=== PATIENT | female | born 1990 | race Caucasian/White ===

== ENCOUNTER 2019-12-09 14:39 | Emergency (ER) | payer BC, SELFPAY ==
[2019-12-09 14:39] VITALS: BP 126/80; PULSE 80; RESP 19; TEMP 36.6; O2SAT 100; BMI 24.1
[2019-12-09 15:01] LABS: Apearance,Urine Clear (Clear); Color,Urine Yellow (Yellow); PH,Urine 6.5 (5.0-8.5); Protein,Urine Negative (Negative)
[2019-12-09 15:02] LABS: Bilirubin,Urine Negative (Negative); Blood, Urine 3+ (Negative); Glucose,Urine (UA) Negative (Negative); Ketones,Urine Negative (Negative); UTC Leukocyte Esterase,Urine Negative (Negative); UTC Nitrate,Urine Negative (Negative); Urobilinogen,Urine 0.2 EU/dl (0.2)
[2019-12-09 15:08] LABS: UTC Pregnancy Test, Urine Negative (Negative)
--- NOTE | 2019-12-09 15:13 | HMH.EDUTC ---
[facility] [place] Clinical Impression: Burning with urination Disposition: Home, Self-Care Condition on Discharge: Good Instructions: DI for Urinary Tract Infection (UTI) Additional Instructions: Make sure to drink plenty of fluids like water to help to flush out your kidneys and keep you well hydrated *Follow up with Family doctor if no improvement or immediately if any worsening of symptoms Return if needed Straight to ER if any worsening of symptoms or any life threatening symptoms Referrals: Provider,Referral, MD [Primary Care Provider] - As needed Time of Disposition: 15:19 Medical Decision Making - Kali Inquiry Pt receiving controlled substance: No Kali was queried for this patient: No Vital Signs: 12/09/19 14:39 Temperature 97.8 F Temperature Source Oral Pulse Rate [Radial] 80 Respiratory Rate 19 Blood Pressure [Right Arm] 126/80 Blood Pressure Mean [Right Arm] 95 Blood Pressure Source [Right Arm] Automatic Cuff Blood Pressure Position [Right Arm] Sitting 02 Sat by Pulse Oximetry 100 Oxygen Delivery Method Room Air - Lab Data Lab results reviewed: Yes: I reviewed the patient's lab results. Lab Results 12/09/19 14:44: Urine Color Yellow, Urine Appearance Clear, Urine pH 6.5, Ur Specific [place] 1.020, Urine Protein Negative, Urine Glucose (UA) Negative, Urine Ketones Negative, Urine Blood 3+, Urine Nitrate Negative, Urine Bilirubin Negative, Urine Urobilinogen 0.2, Ur Leukocyte Esterase Negative 12/09/19 14:56: Tst Clinic Negative - Reevaluation(s) Time: 15:16 Reevaluation #1: Patient reports has a history of Kidney stones but not having pain like she had before with Stones, recommended transfer to ED for CT with stone protocol for further evaluation and patient declined transfer states that she is not having pain like she had before with them and she was having more pain on and may have passed one that she would return if pain worsened or returned [facility] [place] - General Stated complaint: ? UTI Time Seen by Provider: 12/09/19 14:45 Mode of Arrival: Ambulatory Source of Information: Patient Limitations: No Limitations Description of Symptoms (Recalled from Triage Doc. by RN): POSSIBLE UTI HEENT Symptoms (Recalled from RN notes): No Resp Symptoms (Recalled from RN notes): No Skin Symptoms (Recalled from RN notes): No MS Symptoms (Recalled from RN notes): No Functional Status (Recalled from RN notes): WNL - History of Present Illness Provider Complaint: Patient states that she has a history of UTI's States that she has been having some spotting like she is trying to start her menstral period and feels like she may have a UTI States that symptoms was worse on she was having an achy like feeling in her lower back and sides but that has improved and she took AZO States that she is feeling a little better but still having some burning when she urinates and worried that she may be - Related Data Previous Rx's Medication Instructions Recorded amoxicillin 500 mg capsule 500 mg PO Q12H PRN 10 Days #20 cap 10/03/19 Allergies Allergy/AdvReac Type Severity Reaction Status Date / Time No Known Allergies Allergy Verified 10/03/19 10:22 - Worker's Comp Is this a Worker's Comp case?: No [facility] History - Hepatitis A Screen Drug use history?: No High risk sexual behaviors?: No History of sexually transmitted infection?: No Currently employed?: No Childcare worker?: No Do you have indoor plumbing?: Yes Do you have electricity?: Yes Attestation statement:: This patient has been screened for Hepatitis A risk factors. I have reviewed the patient's past medical history: Yes Laterality Cases: Bilateral: Tonsillectomy Other Surgeries: Yes: Cholecystectomy, Diagnostic Lap - Social History Educational Level: Completed High School Smoking Status: Never smoker Alcohol Intake: never Occupational Status: other Family Hx:: Non-contributory ROS Obtained:
[2019-12-09 15:59] VITALS: BP 126/80; PULSE 80; RESP 19; TEMP 36.6; O2SAT 100
== END 2019-12-09 16:00 | disposition home or self-care (01) ==
PROVIDERS: Emergency Provider Nurse Practitioner
DX: N30.00 Acute cystitis without hematuria (principal)
CPT/HCPCS: 81003; 81025; 99201

== ENCOUNTER 2020-05-23 11:36 | Emergency (ER) | payer BC, SELFPAY ==
[2020-05-23 12:32] VITALS: BP 117/83; PULSE 94; RESP 14; TEMP 36.7; O2SAT 99; BMI 25.0
[2020-05-23 12:32] LABS: Apearance,Urine Clear (Clear); Color,Urine Yellow (Yellow); Glucose,Urine (UA) Negative (Negative); Ketones,Urine Negative (Negative); Protein,Urine 3+ (Negative)
[2020-05-23 12:33] LABS: Bilirubin,Urine Negative (Negative); Blood, Urine Trace (Negative); UTC Leukocyte Esterase,Urine 1+ (Negative); UTC Nitrate,Urine Positive (Negative); Urobilinogen,Urine 0.2 EU/dl (0.2)
--- NOTE | 2020-05-23 12:49 | HMH.EDUTC ---
[facility] [place] Disposition Clinical Impression: UTI (urinary tract infection) Qualifiers: Urinary tract infection type: site unspecified Hematuria presence: with hematuria Qualified Code(s): N39.0 - Urinary tract infection, site not specified Disposition: Home, Self-Care Condition on Discharge: Good Instructions: Urinary Tract Infection Additional Instructions: Drink plenty of fluids. Take tylenol or ibuprofen for pain or fever. Take the medications as directed. Follow up with your regular doctor. GO TO THE ER FOR ANY WORSENING SYMPTOMS The pyridium will make your urine turn orange, this is an expected side effect. It will stain your clothes if it comes into contact with them. Prescriptions: Ondansetron [Zofran 4mg ODT] 4 mg PO Q8HP PRN #9 tab.rapdis PRN Reason: Nausea Transmission Status: Received by [id number] Sulfamethoxazole/Trimethoprim [Bactrim DS tablet] 1 each PO BID 7 Days #14 tab Transmission Status: Received by [id number] Phenazopyridine HCl [Pyridium 200mg Tablet] 200 pow PO TID #6 tab Transmission Status: Received by [id number] Referrals: PCP,No [Primary Care Provider] - Time of Disposition: 12:54 Medical Decision Making - Medical Records Medical records reviewed: No: I reviewed the patient's medical records. - Kali Inquiry Pt receiving controlled substance: No Vital Signs: 05/23/20 12:32 05/23/20 13:21 Temperature 98.1 F 98.1 F Temperature Source Oral Oral Pulse Rate 94 H Pulse Rate [Radial] 94 H Respiratory Rate 14 14 Blood Pressure 117/83 Blood Pressure [Right Arm] 117/83 Blood Pressure Mean [Right Arm] 94 Blood Pressure Source Automatic Cuff Blood Pressure Source [Right Arm] Automatic Cuff Blood Pressure Position Sitting Blood Pressure Position [Right Arm] Sitting 02 Sat by Pulse Oximetry 99 Oxygen Delivery Method Room Air Room Air - Lab Data Lab results reviewed: Yes: I reviewed the patient's lab results. Lab Results 05/23/20 12:31: Urine Color Yellow, Urine Appearance Clear, Urine pH 7.0, Ur Specific [place] 1.020, Urine Protein 3+, Urine Glucose (UA) Negative, Urine Ketones Negative, Urine Blood Trace, Urine Nitrate Positive A, Urine Bilirubin Negative, Urine Urobilinogen 0.2, Ur Leukocyte Esterase 1+ A Orders (Tests/Meds): ORDERS Category Date Time Status Urine Culture Routine Micro 05/23/20 13:01 Received [facility] [place] HPI - General Stated complaint: abd pain,possible UTI Time Seen by Provider: 05/23/20 12:35 Mode of Arrival: Ambulatory Source of Information: Patient Limitations: No Limitations Description of Symptoms (Recalled from Triage Doc. by RN): POSSIBLE UTI HEENT Symptoms (Recalled from RN notes): No Resp Symptoms (Recalled from RN notes): No Skin Symptoms (Recalled from RN notes): No MS Symptoms (Recalled from RN notes): No Functional Status (Recalled from RN notes): WNL - History of Present Illness Provider Complaint: She c/o 2 days of burning with urination and low back pain - Related Data Previous Rx's Medication Instructions Recorded amoxicillin 500 mg capsule 500 mg PO Q12H PRN 10 Days #20 cap 10/03/19 Ondansetron [Zofran 4mg ODT] 4 mg PO Q8HP PRN #9 tab.rapdis 05/23/20 Phenazopyridine HCl [Pyridium 200 pow PO TID #6 tab 05/23/20 200mg Tablet] Sulfamethoxazole/Trimethoprim 1 each PO BID 7 Days #14 tab 05/23/20 [Bactrim DS tablet] Allergies Allergy/AdvReac Type Severity Reaction Status Date / Time No Known Allergies Allergy Verified 10/03/19 10:22 - Worker's Comp Is this a Worker's Comp case?: No [facility] History - Hepatitis A Screen Drug use history?: No High risk sexual behaviors?: No History of sexually transmitted infection?: No Currently employed?: No Childcare worker?: No Do you have indoor plumbing?: Yes Do you have electricity?: Yes Attestation statement:: This patient has been screened for Hepatitis A risk factors. I have revie
[2020-05-23 13:21] VITALS: BP 117/83; PULSE 94; RESP 14; TEMP 36.7; O2SAT 99
== END 2020-05-23 13:22 | disposition home or self-care (01) ==
PROVIDERS: Emergency Provider Nurse Practitioner Family
DX: N30.01 Acute cystitis with hematuria (principal)
CPT/HCPCS: 81003; 87086; 87088; 87186; 99201

== ENCOUNTER 2021-02-01 17:11 | Outpatient (CLI) | payer BC, SELFPAY ==
[2021-02-01 17:21] VITALS: BMI 25.0
[2021-02-01 17:22] VITALS: BP 131/92; PULSE 88; RESP 18; TEMP 36.6; O2SAT 99; BMI 25.0
[2021-02-01 17:31] LABS: Microscopic, Urine URINE MICROSCOPIC (MICROSCOPIC)
[2021-02-01 17:32] LABS: Appearance,Urine CLOUDY (Clear); Bilirubin,Urine 1+ (Negative); Blood, Urine 1+ (Negative); Color,Urine ORANGE (Yellow); Glucose,Urine (UA) TRACE (Negative); Ketones,Urine TRACE (Negative); Leukocyte Esterase,Urine 2+ (Negative); Nitrate,Urine POSITIVE (Negative); PH,Urine 5.5 (5.0-8.5); Protein,Urine 2+ (Negative); Specific Gravity, Urine 1.025 (1.005-1.030)
[2021-02-01 17:37] LABS: Bacteria,Urine 2+ /lpf; WBC,Urine 20-50 #/hpf (0-3)
[2021-02-01 17:44] LABS: Amphetamine/Metha Screen,Urine Negative ng/ml (<1000)
[2021-02-01 17:45] LABS: Barbiturates Screen,Urine Negative ng/ml (<200)
[2021-02-01 17:46] LABS: Benzodiazepines Screen,Urine Negative ng/ml (<200); Cannabinoid Screen,Urine Negative ng/ml (<50)
[2021-02-01 17:47] LABS: Cocaine Screen,Urine Negative ng/ml (<300)
[2021-02-01 17:48] LABS: Methadone Screen,Urine Negative ng/ml (<300); Opiate Screen,Urine Negative ng/ml (<300)
[2021-02-01 17:49] LABS: Phencyclidine Screen,Urine Negative ng/ml (<25)
== END 2021-02-01 19:30 | disposition home or self-care (01) ==
LOC: OBOUT 17:12 → OB 17:13
PROVIDERS: PCP Specialist; Visit Provider Obstetrics & Gynecology
DX: O47.03 False labor before 37 completed weeks of gestation, third trimester (principal); O23.40 Unspecified infection of urinary tract in pregnancy, unspecified trimester; Z3A.35 35 weeks gestation of pregnancy
CPT/HCPCS: 59025; 80305; 81001; 87086; 87088; 87186; 96365; 96367; G0463

== ENCOUNTER 2021-08-23 12:30 | Emergency (ER) | payer BC, SELFPAY ==
[2021-08-23 14:54] VITALS: BP 0/0; PULSE 0; RESP 0; TEMP -17.7; TEMP 0
== END 2021-08-23 14:55 | disposition left against medical advice (07) ==
LOC: UTC 12:33
PROVIDERS: Emergency Provider Nurse Practitioner Family
DX: Z53.21 Procedure and treatment not carried out due to patient leaving prior to being seen by health care provider (principal)

== ENCOUNTER 2021-10-17 14:55 | Emergency (ER) | payer BC, SELFPAY ==
[2021-10-17 15:00] VITALS: BP 108/69; PULSE 111; RESP 20; TEMP 36.8; O2SAT 99; BMI 26.1
[2021-10-17 15:17] LABS: UTC Strep Screen (Rapid) Positive (Negative)
--- NOTE | 2021-10-17 15:27 | HMH.EDUTC ---
[facility] [place] Clinical Impression: Strep throat Disposition: Home, Self-Care Condition on Discharge: Good Instructions: Strep Throat, DI for Strep Throat Additional Instructions: *Monitor Temp, Over the counter Motrin or Tylenol as directed/as needed Tylenol every 4 hours and Motrin every 6 hours (as long as your family doctor has told you that you can take it) for fever or pain. and straight to ER if unable to lower temp less than 101.0 after medication given *Warm salt water gargles may help to soothe the throat *Throat Lozenges *Warm fluids like tea with honey may help to soothe the throat *Sleep elevated *Humidifier/Vaporizer *If you did not take Penicillin shot or was unable to, start taking antibiotic immediately and make sure that you take it for the FULL length of time although you should start to feel better in 24-48 hours *change toothbrush and toothpaste 24-48 hours after starting to take antibiotics so you do not reinfect yourself Monitor Temp. Tylenol and/or Ibuprofen as needed. ER if fever is no less than 101 despite alternating Tylenol and Ibuprofen * Encourage fluids, water, Gatorade, powerade, pedialyte if infant/toddler/or child *Cold fluids, popsicles and ice cream may feel good on his throat Follow up IMMEDIATELY for new or worsening symptoms or no Noticeable improvement over the next 48-72 hours. 911 for difficulty breathing or swallowing Prescriptions: Amoxicillin [Amoxicillin 500mg Cap] 500 mg PO BID 10 Days #20 cap Transmission Status: Pending to [id number] Referrals: Provider,Referral, [Primary Care Provider] - As needed Forms: Work/School Release Time of Disposition: 15:32 Medical Decision Making - Kali Inquiry Pt receiving controlled substance: No Kali was queried for this patient: No Vital Signs: 10/17/21 15:00 Temperature 98.3 F Temperature Source Oral Pulse Rate [Right Brachial] 111 H Respiratory Rate 20 Blood Pressure [Right Arm] 108/69 L Blood Pressure Mean [Right Arm] 82 Blood Pressure Source [Right Arm] Automatic Cuff Blood Pressure Position [Right Arm] Sitting 02 Sat by Pulse Oximetry 99 Oxygen Delivery Method Room Air - Lab Data Lab results reviewed: Yes: I reviewed the patient's lab results. Lab Results 10/17/21 15:05: Strep Scn Rapid Clinic Positive A [facility] [place] HPI - General Stated complaint: possible strep, sore throat Time Seen by Provider: 10/17/21 15:27 Mode of Arrival: Ambulatory Source of Information: Patient Limitations: No Limitations Description of Symptoms (Recalled from Triage Doc. by RN): PATIENT C/O SORE THROAT THAT STARTED LAST NIGHT HEENT Symptoms (Recalled from RN notes): Yes Resp Symptoms (Recalled from RN notes): No Skin Symptoms (Recalled from RN notes): No MS Symptoms (Recalled from RN notes): No Functional Status (Recalled from RN notes): WNL - History of Present Illness Provider Complaint: Patient states that she started having sore throat yesterday and it has continued to get worse today states that it hurts when she swallows and feels like her throat is swollen - Related Data Previous Rx's Medication Instructions Recorded Amoxicillin [Amoxicillin 500mg 500 mg PO BID 10 Days #20 cap 10/17/21 Cap] Allergies Allergy/AdvReac Type Severity Reaction Status Date / Time No Known Allergies Allergy Verified 04/29/21 12:36 - Worker's Comp Is this a Worker's Comp case?: No [facility] History - Hepatitis A Screen Drug use history?: No High risk sexual behaviors?: No History of sexually transmitted infection?: No Currently employed?: No Childcare worker?: No Do you have indoor plumbing?: Yes Do you have electricity?: Yes Attestation statement:: This patient has been screened for Hepatitis A risk factors. Laterality Cases: Bilateral: Tonsillectomy Other Surgeries: Yes: Cholecystectomy, Diagnostic Lap. No: - Social History Smoking Status: Never smoker Alcohol Intake: never
[2021-10-17 15:30] VITALS: BP 108/69; PULSE 111; RESP 20; TEMP 36.8; O2SAT 99
== END 2021-10-17 15:35 | disposition home or self-care (01) ==
PROVIDERS: Emergency Provider Nurse Practitioner
DX: J02.0 Streptococcal pharyngitis (principal)
CPT/HCPCS: 87880; 99212; G0463

== ENCOUNTER 2022-11-30 11:05 | Emergency (ER) | payer BC, SELFPAY ==
[2022-11-30 11:10] VITALS: BP 117/86; PULSE 84; RESP 19; TEMP 37; O2SAT 100; BMI 27.6
[2022-11-30 11:34] LABS: Apearance,Urine Cloudy (Clear); Bilirubin,Urine Negative (Negative); Blood, Urine 3+ (Negative); Color,Urine Dark Yellow (Yellow); Glucose,Urine (UA) Negative (Negative); Ketones,Urine Negative (Negative); Protein,Urine 1+ (Negative); UTC Leukocyte Esterase,Urine 2+ (Negative); UTC Nitrate,Urine Negative (Negative); Urobilinogen,Urine 0.2 EU/dl (0.2)
--- NOTE | 2022-11-30 11:45 | EXP.UTC ---
Discharge Plan Disposition Patient Disposition: Home, Self-Care Condition: Good Prescriptions Prescriptions: New cefdinir 300 mg capsule 300 mg PO BID Qty: 20 0RF phenazopyridine [Pyridium] 200 mg tablet 200 mg PO Q8H 2 Days Qty: 6 0RF Referrals Follow up/Referrals: Provider,Referral, MD [Primary Care Provider] - See instructions Activity Restrictions/Add. Instructions Additional Instructions/Restrictions: *Increase fluids. Water not Soda or Tea *Start antibiotic immediately and be sure to take as ordered for the FULL length of time although you should start to see improvement over the next 48 hours *Pyridium as needed Remember this medication will turn your urine . This is normal but it will stain what ever it gets on *You should not use Pyridium for more than 48 hours. If so , follow up with your primary physician to review urine culture and ensure that antibiotic is adequate for infection *Be SURE to follow up anytime for new or worsening symptoms with your family doctor. AND in 48 hours for urine culture results with your family doctor, if you do not have a doctor then you may call back to the [facility] for urine culture results and further treatment. We do recommend that you choose and establish care with a Primary Care Physician. ?AND follow up with them ?in 10-14 days to repeat UA to ensure infection is resolved and blood no longer present *Be sure to let your PCP know that we sent urine cultures from the [facility] so they can follow up to ensure that you area the on the correct antibiotic Call your doctor office and make appointment for 48 hours (2 days from today) ?to follow up and get the results of your urine culture and further treatment Clinical Impressions Clinical Impression: UTI (urinary tract infection) Instructions Patient Instructions: DI for Urinary Tract Infection (UTI), Urinary Tract Infection Discharge ED Provider: Jayda Molina [facility] [place] HPI General Stated complaint: possible kidney infection Mode of Arrival: Ambulatory Source of Information: Patient Limitations: No Limitations Time Seen by Provider: 11/30/22 11:48 Description of Symptoms (Recalled from Triage Doc. by RN): UTI/Kidney infection. painful urination, fever, and back pain HEENT Symptoms (Recalled from RN notes): No Resp Symptoms (Recalled from RN notes): No Skin Symptoms (Recalled from RN notes): No MS Symptoms (Recalled from RN notes): No Functional Status (Recalled from RN notes): n/a History of Present Illness Provider Complaint: Patient states that she feels like she may have a UTI States that she has been having achy like feeling in her lower back that has come and gone, burning with urination and pressure like feeling like she has to go States that she does has hx of kidney stones but doesnt feel like she did before with that States that she felt like she may have had a low grade fever this morning Denies N/V Related Data Previous Rx's Medication Instructions Recorded cefdinir 300 mg capsule 300 mg PO BID #20 caps 11/30/22 phenazopyridine 200 mg tablet 200 mg PO Q8H pain 2 days #6 tabs 11/30/22 (Pyridium) Allergies Allergy/AdvReac Type Severity Reaction Status Date / Time No Known Allergies Allergy Verified 11/30/22 11:40 Worker's Comp Is this a Worker's Comp case?: No [facility] Disclaimer: The information contained in this section may have been updated after the patient was seen, as this information can be updated by other users. Social History Smoking Status: Never smoker alcohol intake: never current occupational status: other Travel in the last 8 weeks: None housing: house ROS Obtained: Yes All systems reviewed & no additional complaints except as documented and Yes Systems reviewed as appropriate & no additional complaints except as documented Constitutional Constitutional: Reports system reviewed and no additional complaints, except as documented, R
[2022-11-30 12:01] VITALS: BP 117/86; PULSE 84; RESP 19; TEMP 37; O2SAT 100
== END 2022-11-30 12:01 | disposition home or self-care (01) ==
PROVIDERS: Emergency Provider Nurse Practitioner
DX: N39.0 Urinary tract infection, site not specified (principal); B96.89 Other specified bacterial agents as the cause of diseases classified elsewhere
CPT/HCPCS: 81003; 87086; 87088; 87186; 99212; 99214; G0463

== ENCOUNTER 2023-02-26 20:51 | Emergency (ER) | payer BC, SELFPAY ==
[2023-02-26 20:52] VITALS: BP 130/104; PULSE 107; RESP 18; TEMP 36.2; O2SAT 98; BMI 26.8
[2023-02-26 21:00] VITALS: BP 130/104; PULSE 98; O2SAT 99
[2023-02-26 21:30] VITALS: BP 131/95; PULSE 95; O2SAT 98
--- NOTE | 2023-02-26 21:31 | CT_ITS ---
PROCEDURE INFORMATION: Exam: CT Abdomen And Pelvis With Contrast Exam date and time: 02/26/2023 10:04 PM Age: 33 years old Clinical indication: Abdominal pain; Patient HX: Patient had surgery this morning now having severe pain; Additional info: Recent d/c severe pelvic pain TECHNIQUE: Imaging protocol: Computed tomography of the abdomen and pelvis with contrast. Radiation optimization: All CT scans at this facility use at least one of these dose optimization techniques: automated exposure control; mA and/or kV adjustment per patient size (includes targeted exams where dose is matched to clinical indication); or iterative reconstruction. Contrast material: ISOVUE; Contrast volume: 75 ml; Contrast route: IV; REPORTING DATA: Count of CT and Cardiac NM exams in prior 12 months: This patient has received 0 known CTs and 0 known cardiac nuclear medicine studies in the 12 months prior to the current study. COMPARISON: No relevant prior studies available. FINDINGS: Liver: Unremarkable. Gallbladder and bile ducts: Status post cholecystectomy. Pancreas: Unremarkable. Spleen: Unremarkable. Adrenal glands: Unremarkable. Kidneys and ureters: Few punctate, non-obstructing stones in the right renal pelvis. No other renal or ureteral stones. No hydronephrosis. Cortical renal scarring also noted in the right kidney. Stomach and bowel: Unremarkable. Appendix: No evidence of appendicitis. Intraperitoneal space: Trace pneumoperitoneum. Trace low-intermediate density free fluid in the pelvis, suspect a combination of physiologic fluid and blood products. No evidence of gross hemoperitoneum or active contrast extravasation. Vasculature: Unremarkable. Lymph nodes: Unremarkable. Urinary bladder: Unremarkable. Reproductive: Uterus is retroflexed and contains blood products and trace amount of gas within the endometrial canal, compatible with reported history of recent D&C. Bones/joints: No evidence of acute osseous abnormality. Soft tissues: Unremarkable. IMPRESSION: 1. Trace pneumoperitoneum. Findings are within normal limits for recent abdominal surgery, although would be atypical for recent D&C and raise concern for hollow viscus perforation. Clinical history provided is unclear. 2. Trace low-intermediate density free fluid in the pelvis, suspect a combination of physiologic fluid and blood products. This appears within normal limits for hemorrhagic physiologic ovarian cyst, although cannot exclude uterine wall injury given reported history of recent D&C and trace pneumoperitoneum in the upper abdomen. 3. Non-obstructing right renal stones. 4. Additional ancillary findings are detailed above.
--- NOTE | 2023-02-26 21:32 | HMH.EDGENADL ---
Discharge Plan Disposition Patient Disposition: Home, Self-Care Condition: Good Chief Complaint: PAIN Prescriptions Prescriptions: No Action cefdinir 300 mg capsule 300 mg PO BID Qty: 20 0RF phenazopyridine [Pyridium] 200 mg tablet 200 mg PO Q8H 2 Days Qty: 6 0RF Referrals Follow up/Referrals: Provider,Referral, [Primary Care Provider] - See instructions Activity Restrictions/Add. Instructions Additional Instructions/Restrictions: At this time was felt you are safe to be discharged home. If new or worsening symptoms please do not hesitate to return the emergency department. Clinical Impressions Clinical Impression: Post-operative pain Discharge ED Provider: Charles Pate General Adult HPI General Chief complaint: PAIN Stated complaint: abd pain Time Seen by Provider: 02/26/23 21:23 Mode of Arrival: Wheelchair Source of Information: Patient Limitations: No Limitations Description of Symptoms (Recalled from ER Triage Doc. by RN): PT stated that she had tubes removed today as well as an ablation and laposcopy the pt states that she has been unable to controll her pain since befor she left the [facility] today the pt states that she has had 2 percocet 5 and 400 mg ibuprophen. History of Present Illness HPI narrative: Patient is a 33-year-old female with past medical history of endometriosis who underwent D&C, bilateral salpingectomy today who presents emergency department for evaluation of pelvic pain. This happened at [facility] and patient was told that Percocet would kick in and pain would improve . Patient has had progressive severe pelvic pain since causing her to present here for continued evaluation refractory to her oral pain medicines. Denies other acute complaints at this time. Bleeding is similar to her normal menstrual cycle. Related Data Previous Rx's Medication Instructions Recorded cefdinir 300 mg capsule 300 mg PO BID #20 caps 11/30/22 phenazopyridine 200 mg tablet 200 mg PO Q8H pain 2 days #6 tabs 11/30/22 (Pyridium) Allergies Allergy/AdvReac Type Severity Reaction Status Date / Time No Known Allergies Allergy Verified 11/30/22 11:40 [facility] Disclaimer: The information contained in this section may have been updated after the patient was seen, as this information can be updated by other users. Social History Smoking Status: Never smoker alcohol intake: never current occupational status: other Travel in the last 8 weeks: None housing: house ROS Obtained: Yes All systems reviewed & no additional complaints except as documented Physical Exam General General appearance: alert and in no apparent distress Head Head exam: atraumatic and normocephalic Eye Eye exam: Present PERRL and EOMI ENT ENT exam: Present mucous membranes moist Neck Neck exam: Present normal inspection Chest Chest inspection: Present normal inspection and symmetric chest wall rise Respiratory Respiratory exam: Present normal lung sounds bilaterally; Absent respiratory distress Cardiovascular Cardiovascular exam: Present normal rhythm and tachycardia Abdominal Exam Abdominal exam: Present soft and other (Laparoscopy sites dry, well approximated.); Absent tenderness, guarding, rebound or rigidity Extremities Exam Extremities exam: Present normal inspection Neurological Exam Neurological exam: Present alert and oriented X3 Psychiatric Psychiatric exam: Present normal affect Skin Skin exam: Present warm and dry Medical Decision Making Kali Inquiry Pt receiving controlled substance: No Vital Signs: 02/26/23 20:52 02/26/23 21:00 02/26/23 21:30 Temperature 97.2 F L Temperature Source Oral Pulse Rate 98 H 95 H Pulse Rate [Left] 107 H Respiratory Rate 18 Blood Pressure 130/104 H 131/95 H Blood Pressure [Right Arm] 130/104 H Blood Pressure Mean 113 107 Blood Pressure Mean [Right Ar
--- NOTE | 2023-02-26 21:41 | PC.NURSE ---
rounded on pt nothing needed at this time, at bs
[2023-02-26 21:44] LABS: HCG Qualitative, Serum Negative (Negative)
[2023-02-26 21:45] LABS: Basophils % 0.1 % (0.1-2.0); Eosinophils % 0.1 % (0.1-12.0); Hematocrit 41.9 % (37.0-47.0); Hemoglobin 13.3 g/dL (12.2-16.2); Lymphocytes # 0.7 K/mm3 (0.7-4.5); Lymphocytes % 5.1 % (10-50); Mean Corpuscular HGB Conc 31.6 g/dL (31.8-35.4); Mean Corpuscular Hemoglobin 25.8 pg (27.0-31.2); Mean Corpuscular Volume 81.6 fl (81-99); Mean Platelet Volume 8.3 fl (7.4-10.4); Monocytes # 0.2 K/mm3 (0.1-1.0); Monocytes % 1.9 % (1.7-9.3); Neutrophils # 11.7 K/mm3 (1.8-7.8); Neutrophils % 92.8 % (37.0-80.0); Platelet Count 323 K/mm3 (142-424); Red Blood Count 5.14 M/mm3 (4.20-5.40); Red Cell Distribution Width 14.7 % (11.5-17.5); White Blood Count 12.6 K/mm3 (4.8-10.8)
[2023-02-26 21:46] LABS: Alanine Aminotransferase 20 U/L (12-78); Albumin Level 4.8 g/dl (3.5-5.0); Albumin/Globulin Ratio 1.5 (1.1-1.8); Alkaline Phosphatase 82 U/L (38-126); Anion Gap 13.6 mEq/L (5-15); Aspartate Amino Transferase 35 U/L (14-36); Bilirubin,Total 0.3 mg/dl (0.2-1.3); Blood Urea Nitrogen 9 mg/dl (7-17); Carbon Dioxide 24 mmol/L (22.0-30.0); Chloride 104 mmol/L (98-107); Creatinine Clearance Estimated 155 mL/min (50-200); Estimated Glomerular Filt Rate 116 ml/min (>60); GFR (African American) 140 ML/MIN (>60); Globulin 3.3 g/dL (1.3-3.2); Glucose 140 mg/dl (74-100); Potassium 4.6 mmoL/L (3.5-5.1); Sodium 137 mmol/L (136-145); Total Protein,Serum 8.1 g/dl (6.3-8.2)
[2023-02-26 21:47] LABS: MANUAL DIFFERENTIAL MANUAL DIFFERENTIAL (MANUAL DIFF)
[2023-02-26 22:06] LABS: Lymphocytes % 7 % (10-50); Monocytes % 1 % (2-9); Neutrophils % 92 % (42-76); Platelet Estimate Normal; RBC Morphology Normal; Total Cells Counted 100
[2023-02-26 23:45] VITALS: BP 129/73; PULSE 82; RESP 16; TEMP 36.6; O2SAT 98
== END 2023-02-26 23:47 | disposition home or self-care (01) ==
PROVIDERS: Emergency Provider Emergency Medicine
DX: R10.2 Pelvic and perineal pain (principal); G89.18 Other acute postprocedural pain
CPT/HCPCS: 74177; 80053; 84703; 85007; 85025; 96361; 96374; 96375; 99285; J0131; Q9967

== ENCOUNTER 2023-07-07 12:04 | Emergency (ER) | payer BC, SELFPAY ==
[2023-07-07 12:06] VITALS: BP 95/66; PULSE 110; RESP 18; TEMP 36.5; O2SAT 99; BMI 27.8
--- NOTE | 2023-07-07 12:27 | ECG_ITS ---
APPROVED REPORT Exam: Resting ECG HR:110 bpm ECG Measurements Heart Rate 110 AXES RI 121 P 73 QRSd 89 QRS 72 QT 326 T 66 QTc 391 Conclusion SINUS TACHYCARDIA ABNORMAL RHYTHM ECG UNCONFIRMED REPORT Electronically signed by : Lamine Hussein MD 07/07/2023 18:25:10
--- NOTE | 2023-07-07 12:41 | HMH.EDGENADL ---
Discharge Plan Disposition Patient Disposition: Home, Self-Care Prescriptions Prescriptions: New ondansetron 4 mg tablet,disintegrating 4 mg PO Q6H PRN (Reason: nausea and vomiting) 5 Days Qty: 20 0RF No Action cefdinir 300 mg capsule 300 mg PO BID Qty: 20 0RF phenazopyridine [Pyridium] 200 mg tablet 200 mg PO Q8H 2 Days Qty: 6 0RF Referrals Follow up/Referrals: Provider,Referral, MD [Primary Care Provider] - See instructions Activity Restrictions/Add. Instructions Additional Instructions/Restrictions: Your symptoms today are consistent with a viral syndrome. Please stay well-hydrated with salt and sugar containing fluids such as Gatorade or Powerade and push fluids by mouth until your urine is clear. If you cannot tolerate any fluids please return to the emergency department or with any other concerns. Clinical Impressions Clinical Impression: Viral syndrome, Nausea vomiting and diarrhea, Dehydration, Cough, Body aches, Tachycardia Instructions Patient Instructions: DI for Diarrhea and Traveler's Diarrhea -- Adult, DI for Diarrhea and Traveler's Diarrhea -- Child, DI for Nausea -- Adult, DI for Nausea -- Child Discharge ED Provider: Shon Petit General Adult HPI General Chief complaint: Nausea/Vomiting/Diarrhea Stated complaint: upset stomach, weakness Time Seen by Provider: 07/07/23 12:25 Mode of Arrival: Ambulatory Source of Information: Patient Limitations: No Limitations Description of Symptoms (Recalled from ER Triage Doc. by RN): Patient reports feeling sick since wednesday and began feeling worse last night. Reports nausea, vomiting, lethargy, bodyaches and headache. History of Present Illness HPI narrative: Patient is a 33-year-old previously healthy female presenting today with 5 days of fever with associated cough body aches now with nausea vomiting diarrhea. States her respiratory symptoms have improved. However her profound weakness which began last night is what brought her to the emergency department. She states that she most recently had a fever at 4 AM this morning and she most recently took her temperature on Wednesday which was 102.0. She has been attempting Tylenol and ibuprofen but she states she feels like she cannot tolerate anything by mouth at the moment. No urinary symptoms. No rash. She has 2 sick contacts with her children who had a viral syndrome 1 week prior to her symptoms today. Related Data Previous Rx's Medication Instructions Recorded cefdinir 300 mg capsule 300 mg PO BID #20 caps 04/24/23 phenazopyridine 200 mg tablet 200 mg PO Q8H pain 2 days #6 tabs 11/30/22 (Pyridium) ondansetron 4 mg disintegrating 4 mg PO Q6H PRN nausea and 07/07/23 tablet vomiting 5 days #20 tabs Allergies Allergy/AdvReac Type Severity Reaction Status Date / Time No Known Allergies Allergy Verified 11/30/22 11:40 PFSH [facility] Disclaimer: The information contained in this section may have been updated after the patient was seen, as this information can be updated by other users. Social History Smoking Status: Never smoker alcohol intake: never current occupational status: other Travel in the last 8 weeks: None housing: house ROS Obtained: Yes All systems reviewed & no additional complaints except as documented Physical Exam General General appearance: alert Respiratory Respiratory exam: Present normal lung sounds bilaterally; Absent respiratory distress, wheezes, stridor or accessory muscle use Cardiovascular Cardiovascular exam: Present normal rhythm and tachycardia Abdominal Exam Abdominal exam: Present soft; Absent distention or tenderness Back Exam Back exam: Absent CVA tenderness (R) or CVA tenderness (L) Neurological Exam Neurological exam: Present alert and oriented X3 Medical Decision Making Kali Inquiry Pt receiving controlled substance: No Vital Signs: 07/07/23 12:06 Temperature 9
[2023-07-07 12:58] LABS: Adenovirus,PCR Not Detected (NotDetected); Coronavirus 19, PCR Not Detected (NotDetected); Coronavirus 229E Not Detected (NotDetected); Coronavirus NL63 Not Detected (NotDetected); Coronavirus OC43 Not Detected (NotDetected); Coronovirus HKU1,PCR Not Detected (NotDetected); Human Metapneumovirus Not Detected (NotDetected); Influenza A, PCR Not Detected (NotDetected); Influenza AH1, 2009 Not Detected (NotDetected); Influenza AH1, PCR Not Detected (NotDetected); Influenza AH3,PCR Not Detected (NotDetected); Influenza B, PCR Not Detected (NotDetected); Parainfluenza 1, PCR Not Detected (NotDetected); Parainfluenza 2, PCR Not Detected (NotDetected); Parainfluenza 3, PCR Not Detected (NotDetected); Parainfluenza 4, PCR Not Detected (NotDetected); Rhinovirus/Enterovirus Not Detected (NotDetected)
[2023-07-07 13:04] LABS: Basophils % 0.4 % (0.1-2.0); Eosinophils # 0.1 K/mm3 (0.0-0.4); Eosinophils % 1.2 % (0.1-12.0); Hematocrit 44.5 % (37.0-47.0); Hemoglobin 14.6 g/dL (12.2-16.2); Lymphocytes # 1.1 K/mm3 (0.7-4.5); Lymphocytes % 16.2 % (10-50); Mean Corpuscular HGB Conc 32.9 g/dL (31.8-35.4); Mean Corpuscular Hemoglobin 26.8 pg (27.0-31.2); Mean Corpuscular Volume 81.5 fl (81-99); Monocytes # 0.3 K/mm3 (0.1-1.0); Monocytes % 3.7 % (1.7-9.3); Neutrophils # 5.5 K/mm3 (1.8-7.8); Neutrophils % 78.5 % (37.0-80.0); Platelet Count 313 K/mm3 (142-424); Red Blood Count 5.46 M/mm3 (4.20-5.40); Red Cell Distribution Width 14.4 % (11.5-17.5)
[2023-07-07 13:08] LABS: Chloride 105 mmol/L (98-107); Potassium 4.2 mmoL/L (3.5-5.1); Sodium 137 mmol/L (136-145)
[2023-07-07 13:10] LABS: Alanine Aminotransferase 27 U/L (12-78); Aspartate Amino Transferase 34 U/L (14-36); Blood Urea Nitrogen 17 mg/dl (7-17); Creatinine Clearance Estimated 97 mL/min (50-200); Estimated Glomerular Filt Rate 64 ml/min (>60); GFR (African American) 78 ML/MIN (>60)
[2023-07-07 13:11] LABS: Albumin Level 4.8 g/dl (3.5-5.0); Albumin/Globulin Ratio 1.3 (1.1-1.8); Alkaline Phosphatase 101 U/L (38-126); Anion Gap 15.2 mEq/L (5-15); Bilirubin,Total 0.6 mg/dl (0.2-1.3); Calcium 8.9 mg/dl (8.4-10.2); Carbon Dioxide 21 mmol/L (22.0-30.0); Globulin 3.8 g/dL (1.3-3.2); Glucose 117 mg/dl (74-100); Phosphorous 3.7 mg/dl (2.5-4.5); Total Protein,Serum 8.6 g/dl (6.3-8.2)
[2023-07-07 14:44] VITALS: BP 119/79; PULSE 82; RESP 18; TEMP 36.8; O2SAT 98
[2023-07-07 16:25] LABS: Respiratory Syncytial Virus Detected (NotDetected)
== END 2023-07-07 14:44 | disposition home or self-care (01) ==
PROVIDERS: Emergency Provider Student in an Organized Health Care Education/Training Program
DX: E86.0 Dehydration (principal); B97.4 Respiratory syncytial virus as the cause of diseases classified elsewhere; R00.0 Tachycardia, unspecified; R11.2 Nausea with vomiting, unspecified; R19.7 Diarrhea, unspecified; R50.9 Fever, unspecified; R51.9 Headache, unspecified; R05.9 Cough, unspecified; R53.83 Other fatigue
CPT/HCPCS: 80053; 83735; 84100; 85025; 87632; 87635; 93005; 96361; 96374; 96375; 99284; J0131; J2405

== ENCOUNTER 2023-07-11 09:48 | Emergency (ER) | payer BC, SELFPAY ==
[2023-07-11 10:00] VITALS: BP 151/85; PULSE 91; RESP 18; TEMP 36.6; O2SAT 100; BMI 27.8
--- NOTE | 2023-07-11 10:03 | EXP.UTC ---
Discharge Plan Disposition Patient Disposition: Home, Self-Care Condition: Good Prescriptions Prescriptions: New azithromycin [Zithromax] 250 mg tablet 250 mg PO UD DOSE PK Qty: 6 0RF Rx Instructions: Take two (2) tablets today, then one (1) tablet days #2 thru #5 benzonatate [benzonatate] 100 mg capsule 100 mg PO TIDP PRN (Reason: Cough) Qty: 30 0RF methylprednisolone 4 mg Tablets,Dose Pack 4 mg PO DIRECTED Qty: 21 0RF Referrals Follow up/Referrals: Provider,Referral, MD [Primary Care Provider] - See instructions Activity Restrictions/Add. Instructions Additional Instructions/Restrictions: Drink plenty of fluids. Take tylenol or ibuprofen for pain or fever. Take the medications as directed. Follow up with your regular doctor. GO TO THE ER FOR ANY WORSENING SYMPTOMS Don't start the oral steroids until tomorrow, since you had the shot here today. Clinical Impressions Clinical Impression: Acute bronchitis, Sinusitis Stand Alone Forms Stand Alone Forms: Work/School Release Instructions Patient Instructions: DI for Sinusitis, DI for Acute Bronchitis Discharge ED Provider: Jay Langford [facility] General Stated complaint: deep cough, lung pain,headache Time Seen by Provider: 07/11/23 10:03 History of Present Illness Provider Complaint: She states that for the past 1 week she has had chest congestion, productive cough, sinus congestion and sore throat. She tested positive for RSV when her symptoms began. She states that she got better originally, but over the past 3 days her cough and sinus congestion has worsened. Related Data Previous Rx's Medication Instructions Recorded azithromycin 250 mg tablet 250 mg PO UD DOSE PK #6 tabs 07/11/23 (Zithromax) benzonatate 100 mg capsule 100 mg PO TIDP PRN Cough #30 caps 07/11/23 methylprednisolone 4 mg tablets in 4 mg PO DIRECTED #21 tabs 07/11/23 a dose pack Allergies Allergy/AdvReac Type Severity Reaction Status Date / Time No Known Allergies Allergy Verified 07/11/23 10:07 [facility] Disclaimer: The information contained in this section may have been updated after the patient was seen, as this information can be updated by other users. Social History Smoking Status: Never smoker alcohol intake: never current occupational status: other Travel in the last 8 weeks: None housing: house ROS Obtained: Yes All systems reviewed & no additional complaints except as documented Constitutional Constitutional: Reports chills and Reports fever(s) Eyes Eyes: Denies eye discharge ENT Ears, Nose, Mouth, and Throat: Reports as per HPI Cardiovascular Cardiovascular: Denies chest pain Respiratory Respiratory: Denies chest congestion and Reports cough Gastrointestinal Gastrointestingal: Reports nausea; Denies abdominal pain, constipation, cramping, diarrhea or vomiting Musculoskeletal Musculoskeletal: Denies arthralgias Integumentary/Breasts Skin/Breast: Denies rash Neurologic Neurologic: Denies paresthesias Physical Exam General General appearance: alert and in no apparent distress Eye Eye exam: Present normal appearance, PERRL and EOMI ENT ENT exam: Present mucous membranes moist and normal external ear exam Expanded ENT Exam External ear exam: Present normal external inspection TM/Canal exam: Bilateral TM: erythema and bulging Nose exam: Absent sinus tenderness Nasal speculum exam: Bilateral: normal Mouth exam: Present normal external inspection; Absent drooling Teeth exam: Present normal inspection Throat exam: Present tonsillar erythema and tonsillomegaly Neck Neck exam: Present normal inspection, full ROM and trachea midline; Absent tenderness, lymphadenopathy or thyromegaly Chest Chest inspection: Present normal inspection and symmetric chest wall rise; Absent tenderness or rash Respiratory Respiratory exam: Present normal lung sounds bilatera
[2023-07-11 11:05] VITALS: BP 141/74; PULSE 82; RESP 18; TEMP 36.6; O2SAT 98
== END 2023-07-11 11:04 | disposition home or self-care (01) ==
PROVIDERS: Emergency Provider Nurse Practitioner Family
DX: J20.9 Acute bronchitis, unspecified (principal); J01.90 Acute sinusitis, unspecified; R07.81 Pleurodynia; R51.9 Headache, unspecified; R05.8 Other specified cough; R09.89 Other specified symptoms and signs involving the circulatory and respiratory systems; R07.0 Pain in throat; R09.81 Nasal congestion
CPT/HCPCS: 96372; 99212; 99214; G0463; J0696

== ENCOUNTER 2023-09-30 08:07 | Emergency (ER) | payer BC, SELFPAY ==
[2023-09-30 08:25] VITALS: BP 117/79; PULSE 90; RESP 22; TEMP 36.9; O2SAT 97; BMI 26.0
[2023-09-30 09:03] LABS: UTC Influenza A Antigen Negative (Negative)
[2023-09-30 09:04] LABS: UTC Influenza B Antigen Negative (Negative)
--- NOTE | 2023-09-30 09:04 | ED_ITS ---
Discharge Plan Disposition Patient Disposition: Home, Self-Care Condition: Good Referrals Follow up/Referrals: Provider,Referral, MD [Primary Care Provider] - See instructions Activity Restrictions/Add. Instructions Additional Instructions/Restrictions: Make sure that you are drinking plenty of fluids *Monitor Temp, Over the counter Motrin or Tylenol as directed/as needed Tylenol every 4 hours and Motrin every 6 hours (as long as your family doctor has told you that you can take it) for fever or pain. and straight to ER if unable to lower temp less than 101.0 after medication given *Warm salt water gargles may help to soothe the throat *Throat Lozenges? *Warm fluids like tea with honey may help to soothe the throat? *Sleep elevated *Humidifier/Vaporizer Follow up IMMEDIATELY for new or worsening symptoms or no Noticeable improvement over the next 48-72 hours. 911 for difficulty breathing or swallowing You were tested for today for Upper Respiratory Panel with COVID19 your test result should be back in the next 24hours, you may check your results on the [facility] [employer] [facility] if your COVID or Influenza is positive on there your must Quarantine for 5 days Clinical Impressions Clinical Impression: Viral syndrome Stand Alone Forms Stand Alone Forms: Work/School Release Instructions Patient Instructions: DI for Viral Syndrome, DI for Fever (Symptom) -- Adult Discharge ED Provider: Jayda Molina [facility] [place] HPI General Stated complaint: fever,bodyaches Mode of Arrival: Ambulatory Source of Information: Patient Limitations: No Limitations Time Seen by Provider: 09/30/23 09:04 Description of Symptoms (Recalled from Triage Doc. by RN): PATIENT C/O FEVER AND BODY ACHES SINCE WEDNESDAY NIGHT. HEENT Symptoms (Recalled from RN notes): No Resp Symptoms (Recalled from RN notes): No Skin Symptoms (Recalled from RN notes): No MS Symptoms (Recalled from RN notes): No Functional Status (Recalled from RN notes): WNL History of Present Illness Provider Complaint: Patient states that she started feeling bad on Wednesday with fever, chills and body aches States that she has continued to have fever chills and body aches since and just not feeling well States she took an at home COVID test and it was negative so she came in to get checked Related Data Allergies Allergy/AdvReac Type Severity Reaction Status Date / Time No Known Allergies Allergy Verified 07/11/23 10:07 Worker's Comp Is this a Worker's Comp case?: No [facility] Disclaimer: The information contained in this section may have been updated after the patient was seen, as this information can be updated by other users. Social History Smoking Status: Never smoker alcohol intake: never current occupational status: other Travel in the last 8 weeks: None housing: house ROS Obtained: Yes All systems reviewed & no additional complaints except as documented and Yes Systems reviewed as appropriate & no additional complaints except as documented Constitutional Constitutional: Reports system reviewed and no additional complaints, except as documented, Reports as per HPI, Reports body ache, Reports chills, Reports fever(s) and Reports headache(s) ENT Ears, Nose, Mouth, and Throat: Reports system reviewed and no additional complaints, except as documented, Reports as per HPI and Reports headache(s) Cardiovascular Cardiovascular: Reports system reviewed and no additional complaints, except as documented and Reports as per HPI Respiratory Respiratory: Reports system reviewed and no additional complaints, except as documented and Reports as per HPI Gastrointestinal Gastrointestingal: Reports system reviewed and no additional complaints, except as documented and as per HPI; Denies abdominal pain Genitourinary Female Genitourinary: Reports system reviewed and no additional complaints, except as documented and Reports as per HPI Neurologic Neurologic: Reports headache(s) Physical Exam General General appearance: alert and in no apparent distress ENT ENT exam: Present mucous membranes moist Expanded ENT Exam Nose exam: Absent sinus tenderness Throat exam: Present normal inspection Chest Chest inspection: Present normal inspection and symmetric chest wall rise Respiratory Respiratory exam: Present normal lung sounds bilaterally; Absent respiratory distress or wheezes Cardiovascular Cardiovascular exam: Present regular rate, normal rhythm and normal heart sounds Abdominal Exam Abdominal exam: Present soft and normal bowel sounds; Absent distention or tenderness Neurological Exam Neurological exam: Present alert, oriented X3 and normal gait Medical Decision Making Kali Inquiry Pt receiving controlled substance: No Kali was queried for this patient: No Vital Signs: 09/30/23 08:25 Temperature 98.5 F Temperature Source Oral Pulse Rate [Left Brachial] 90 Respiratory Rate 22 Blood Pressure [Left Arm] 117/79 Blood Pressure Mean [Left Arm] 91 Blood Pressure Source [Left Arm] Automatic Cuff Blood Pressure Position [Left Arm] Sitting 02 Sat by Pulse Oximetry 97 Oxygen Delivery Method Room Air Lab Data Lab results reviewed: Yes I reviewed the patient's lab results.
[2023-09-30 09:05] LABS: Apearance,Urine Clear (Clear); Bilirubin,Urine 1+ (Negative); Blood, Urine 1+ (Negative); Color,Urine Dark Yellow (Yellow); Glucose,Urine (UA) Negative (Negative); Ketones,Urine TRACE (Negative); PH,Urine 5.5 (5.0-8.5); Protein,Urine 1+ (Negative); Urobilinogen,Urine 0.2 EU/dl (0.2)
[2023-09-30 09:06] LABS: UTC Leukocyte Esterase,Urine Negative (Negative); UTC Nitrate,Urine Negative (Negative)
[2023-09-30 09:16] VITALS: BP 117/79; PULSE 90; RESP 22; TEMP 36.9; O2SAT 97
[2023-09-30 09:43] LABS: Adenovirus,PCR Not Detected (NotDetected); Coronavirus 19, PCR Not Detected (NotDetected); Coronavirus NL63 Not Detected (NotDetected); Coronavirus OC43 Not Detected (NotDetected); Coronovirus HKU1,PCR Not Detected (NotDetected); Human Metapneumovirus Not Detected (NotDetected); Influenza A, PCR Not Detected (NotDetected); Influenza AH1, 2009 Not Detected (NotDetected); Influenza AH1, PCR Not Detected (NotDetected); Influenza AH3,PCR Not Detected (NotDetected); Influenza B, PCR Not Detected (NotDetected); Parainfluenza 1, PCR Not Detected (NotDetected); Parainfluenza 2, PCR Not Detected (NotDetected); Parainfluenza 3, PCR Not Detected (NotDetected); Parainfluenza 4, PCR Not Detected (NotDetected); Respiratory Syncytial Virus Not Detected (NotDetected); Rhinovirus/Enterovirus Not Detected (NotDetected)
[2023-09-30 11:04] LABS: Coronavirus 229E Detected (NotDetected)
== END 2023-09-30 09:18 | disposition home or self-care (01) ==
PROVIDERS: Emergency Provider Nurse Practitioner
DX: R51.9 Headache, unspecified (principal); B34.2 Coronavirus infection, unspecified; R50.9 Fever, unspecified; M79.18 Myalgia, other site
CPT/HCPCS: 81003; 87632; 87635; 87804; 99212; 99213; G0463

== ENCOUNTER 2023-10-27 09:00 | Emergency (ER) | payer BC, SELFPAY ==
[2023-10-27 09:10] VITALS: BP 138/86; PULSE 92; RESP 18; TEMP 36.7; O2SAT 99; BMI 27.1
--- NOTE | 2023-10-27 09:27 | EXP.UTC ---
Discharge Plan Disposition Patient Disposition: Home, Self-Care Condition: Good Prescriptions Prescriptions: New penicillin V potassium 500 mg tablet 500 mg PO BID Qty: 20 0RF Referrals Follow up/Referrals: Provider,Referral, MD [Primary Care Provider] - See instructions Activity Restrictions/Add. Instructions Additional Instructions/Restrictions: *Monitor Temp, Over the counter Motrin or Tylenol as directed/as needed Tylenol every 4 hours and Motrin every 6 hours (as long as your family doctor has told you that you can take it) for fever or pain. and straight to ER if unable to lower temp less than 101.0 after medication given *Warm salt water gargles may help to soothe the throat *Throat Lozenges? *Warm fluids like tea with honey may help to soothe the throat? *Sleep elevated *Humidifier/Vaporizer *If you did not take Penicillin shot or was unable to, start taking antibiotic immediately and make sure that you take it for the FULL length of time although you should start to feel better in 24-48 hours *change toothbrush and toothpaste 24-48 hours after starting to take antibiotics so you do not reinfect yourself Monitor Temp. Tylenol and/or Ibuprofen as needed. ER if fever is no less than 101 despite alternating Tylenol and Ibuprofen * Encourage fluids, water, Gatorade, powerade, pedialyte if infant/toddler/or child *Cold fluids, popsicles and ice cream may feel good on his throat Follow up IMMEDIATELY for new or worsening symptoms or no Noticeable improvement over the next 48-72 hours. 911 for difficulty breathing or swallowing Clinical Impressions Clinical Impression: Strep throat Stand Alone Forms Stand Alone Forms: Work/School Release Instructions Patient Instructions: Strep Throat, DI for Strep Throat Discharge ED Provider[place] Jayda [place] [facility] [place] General Stated complaint: pain and swelling in throat Mode of Arrival: Ambulatory Source of Information: Patient Limitations: No Limitations Time Seen by Provider: 10/27/23 09:27 Description of Symptoms (Recalled from Triage Doc. by RN): PATIENT C/O SORE AND SWOLLEN THROAT SINCE YESTERDAY HEENT Symptoms (Recalled from RN notes): Yes Resp Symptoms (Recalled from RN notes): No Skin Symptoms (Recalled from RN notes): No MS Symptoms (Recalled from RN notes): No Functional Status (Recalled from RN notes): WNL History of Present Illness Provider Complaint: Patient states that her throat was sore yesterday and she woke up in the middle of the night with her throat hurting worse and burning States this morning she was still not feeling any better so she came in Related Data Previous Rx's Medication Instructions Recorded penicillin V potassium 500 mg 500 mg PO BID #20 tabs 10/27/23 tablet Allergies Allergy/AdvReac Type Severity Reaction Status Date / Time No Known Allergies Allergy Verified 07/11/23 10:07 Worker's Comp Is this a Worker's Comp case?: No PFSH [facility] Disclaimer: The information contained in this section may have been updated after the patient was seen, as this information can be updated by other users. Social History Smoking Status: Never smoker alcohol intake: never current occupational status: other Travel in the last 8 weeks: None housing: house ROS Obtained: Yes All systems reviewed & no additional complaints except as documented and Yes Systems reviewed as appropriate & no additional complaints except as documented Constitutional Constitutional: Reports system reviewed and no additional complaints, except as documented and Reports as per HPI ENT Ears, Nose, Mouth, and Throat: Reports system reviewed and no additional complaints, except as documented, Reports as per HPI and Reports sore throat Cardiovascular Cardiovascular: Reports system reviewed and no additional complaints, except as documented and Reports as per HPI Respiratory Respiratory: Reports system reviewed and no additional complaints, except as documented and Reports as per HPI Gastrointestinal Gastrointestingal: Reports system reviewed and no additional complaints, except as documented and as per HPI Physical Exam General General appearance: alert and in no apparent distress ENT ENT exam: Present mucous membranes moist Expanded ENT Exam Throat exam: Present tonsillar erythema and tonsillar exudate Respiratory Respiratory exam: Present normal lung sounds bilaterally; Absent respiratory distress or wheezes Cardiovascular Cardiovascular exam: Present regular rate, normal rhythm and normal heart sounds Abdominal Exam Abdominal exam: Present soft and normal bowel sounds; Absent distention or tenderness Neurological Exam Neurological exam: Present alert, oriented X3 and normal gait Medical Decision Making Kali Inquiry Pt receiving controlled substance: No Kali was queried for this patient: No Vital Signs: 10/27/23 09:10 Temperature 98.1 F Temperature Source Oral Pulse Rate [Right Brachial] 92 H Respiratory Rate 18 Blood Pressure [Right Arm] 138/86 Blood Pressure Mean [Right Arm] 103 Blood Pressure Source [Right Arm] Automatic Cuff Blood Pressure Position [Right Arm] Sitting 02 Sat by Pulse Oximetry 99 Oxygen Delivery Method Room Air Lab Data Lab results reviewed: Yes I reviewed the patient's lab results.
[2023-10-27 09:28] LABS: UTC Strep Screen (Rapid) Positive (Negative)
[2023-10-27 09:38] VITALS: BP 138/86; PULSE 92; RESP 18; TEMP 36.7; O2SAT 99
== END 2023-10-27 09:41 | disposition home or self-care (01) ==
PROVIDERS: Emergency Provider Nurse Practitioner
DX: J02.9 Acute pharyngitis, unspecified (principal)
CPT/HCPCS: 87880; 99212; 99214; G0463

== ENCOUNTER 2023-12-31 19:14 | Emergency (ER) | payer BC, SELFPAY ==
[2023-12-31 19:25] VITALS: BP 125/83; PULSE 104; RESP 21; TEMP 36.8; O2SAT 95; BMI 26.6
[2023-12-31 19:51] LABS: UTC Strep Screen (Rapid) Negative (Negative)
--- NOTE | 2023-12-31 19:59 | EXP.UTC ---
Discharge Plan Disposition Patient Disposition: Home, Self-Care Condition: Good Prescriptions Prescriptions: New methylprednisolone [Medrol (Saleem)] 4 mg tablets,dose pack See Rx Instructions .Route .COMPLEX 6 Days Qty: 21 0RF Rx Instructions: taper pack; cefdinir 300 mg capsule 300 mg PO BID Qty: 20 0RF guaifenesin [Mucinex] 600 mg tablet extended release 12hr 1,200 mg PO BID PRN (Reason: cough) Qty: 20 0RF fluticasone propionate [Flonase Allergy Relief] 50 mcg/actuation spray,suspension 2 spray intranasal DAILY Qty: 16 0RF Rx Instructions: administer into each nostril krscryzorvmmkxg-qmlmldhhc-YT [Bromfed DM] 2-30-10 mg/5 mL syrup 10 ml PO Q6H PRN (Reason: cold symptoms) Qty: 200 0RF Referrals Follow up/Referrals: Provider,Referral, [Primary Care Provider] - See instructions Activity Restrictions/Add. Instructions Additional Instructions/Restrictions: *Monitor Temp, Over the counter Motrin or Tylenol as directed/as needed Tylenol every 4 hours and Motrin every 6 hours (as long as your family doctor has told you that you can take it) for fever or pain. and straight to ER if unable to lower temp less than 101.0 after medication given *Warm salt water gargles may help to soothe the throat *Throat Lozenges? *Warm fluids like tea with honey may help to soothe the throat? *Sleep elevated *Humidifier/Vaporizer Take medication as prescribed Your throat swab was sent for culture. Those results are typically sent to your primary care. Be sure to follow up in 2-3 days with your family doctor/primary care physician if no improvement so they can review those result and treat if necessary. If you don?t have a primary care doctor, I recommend you get one but in the mean time, you will have to return to a walk in clinic Follow up IMMEDIATELY for new or worsening symptoms or no Noticeable improvement over the next 48-72 hours. 911 for difficulty breathing or swallowing Clinical Impressions Clinical Impression: Sinusitis, Otitis media Instructions Patient Instructions: DI for Sinusitis, Middle Ear Infection, Ear Infections (Alternative Therapy) Discharge ED Provider: Jayda Molina [facility] [place] HPI General Stated complaint: Cough,Swollen throat Mode of Arrival: Ambulatory Source of Information: Patient Limitations: No Limitations Time Seen by Provider: 12/31/23 19:59 Description of Symptoms (Recalled from Triage Doc. by RN): PATIENT C/O COUGH AND SWOLLEN THROAT X 2 DAYS HEENT Symptoms (Recalled from RN notes): Yes Resp Symptoms (Recalled from RN notes): Yes Skin Symptoms (Recalled from RN notes): No MS Symptoms (Recalled from RN notes): No Functional Status (Recalled from RN notes): WNL History of Present Illness Provider Complaint: Patient states that for the last couple of days she has been having sore throat, cough, pain and pressure in her ears and sinuses Drainage in the back of her throat and over all not feeling well States today she was still not feeling well so she came in to get checked Related Data Previous Rx's Medication Instructions Recorded oaaprloacbpfzoo-zazmjhokmhgjkzk-AS 10 ml PO Q6H PRN cold symptoms 12/31/23 2 mg-30 mg-10 mg/5 mL oral syrup #200 mL (Bromfed DM) cefdinir 300 mg capsule 300 mg PO BID #20 caps 12/31/23 fluticasone propionate 50 2 spray intranasal DAILY #16 grams 12/31/23 mcg/actuation nasal spray,suspension (Flonase Allergy Relief) guaifenesin 600 mg tablet, 1,200 mg (2 x 600 mg) PO BID PRN 12/31/23 extended release 12 hr (Mucinex) cough #20 tabs methylprednisolone 4 mg tablets in See Rx Instructions .Route 12/31/23 a dose pack (Medrol (Saleem)) .COMPLEX 6 days #21 tabs Allergies Allergy/AdvReac Type Severity Reaction Status Date / Time No Known Allergies Allergy Verified 07/11/23 10:07 Worker's Comp Is this a Worker's Comp case?: No [facility] Disclaimer: The information contained in this section may have been updated after the patient was seen, as this information can be updated by other users. Medical History (Updated 12/31/23 @ 20:09 by Jayda Molina APRN) History of anemia Urinary tract infection Kidney stone Migraine Surgical History (Updated 12/31/23 @ 19:38 by Valeria Berry RN) History of tubal ligation History of cholecystectomy Social History Smoking Status: Never smoker alcohol intake: never current occupational status: other Travel in the last 8 weeks: None housing: house ROS Obtained: Yes All systems reviewed & no additional complaints except as documented and Yes Systems reviewed as appropriate & no additional complaints except as documented Constitutional Constitutional: Reports system reviewed and no additional complaints, except as documented, Reports as per HPI, Reports body ache, Reports chills, Reports fever(s) and Reports headache(s) ENT Ears, Nose, Mouth, and Throat: Reports system reviewed and no additional complaints, except as documented, Reports as per HPI, Reports otalgia, Reports headache(s), Reports sinus pain, Reports sinus pressure and Reports sore throat Cardiovascular Cardiovascular: Reports system reviewed and no additional complaints, except as documented and Reports as per HPI Respiratory Respiratory: Reports system reviewed and no additional complaints, except as documented, Reports as per HPI, Denies shortness of breath, Reports cough and Denies wheezing Gastrointestinal Gastrointestingal: Reports system reviewed and no additional complaints, except as documented and as per HPI Neurologic Neurologic: Reports headache(s) Allergic/Immunologic Allergic/Immunologic: Denies wheezing Physical Exam General General appearance: alert and in no apparent distress ENT ENT exam: Present mucous membranes moist Expanded ENT Exam TM/Canal exam: Left TM: erythema and Bilateral TM: bulging Nose exam: Present sinus tenderness Throat exam: Present tonsillar erythema Respiratory Respiratory exam: Present normal lung sounds bilaterally; Absent respiratory distress or wheezes Cardiovascular Cardiovascular exam: Present regular rate, normal rhythm and normal heart sounds Abdominal Exam Abdominal exam: Present soft and normal bowel sounds; Absent distention or tenderness Neurological Exam Neurological exam: Present alert, oriented X3 and normal gait Medical Decision Making Kali Inquiry Pt receiving controlled substance: No Kali was queried for this patient: No Vital Signs: 12/31/23 19:25 Temperature 98.2 F Temperature Source Oral Pulse Rate [Left Brachial] 104 H Respiratory Rate 21 Blood Pressure [Left Arm] 125/83 Blood Pressure Mean [Left Arm] 97 Blood Pressure Source [Left Arm] Automatic Cuff Blood Pressure Position [Left Arm] Sitting 02 Sat by Pulse Oximetry 95 Oxygen Delivery Method Room Air Lab Data Lab results reviewed: Yes I reviewed the patient's lab results. Lab Results 12/31/23 19:39: Strep Scn Rapid Clinic Negative Orders (Tests/Meds): ORDERS Category Date Time Status Strep Screen Confirmation Stat Micro 12/31/23 19:39 Received
[2023-12-31 20:14] VITALS: BP 125/83; PULSE 104; RESP 21; TEMP 36.8; O2SAT 95
[2023-12-31] MEDS: CEFDINIR 300MG CAPSULE 300 MG PO (20:20)
[2023-12-31] MEDS: predniSONE 20MG TAB 20 MG PO (20:20)
== END 2023-12-31 20:20 | disposition home or self-care (01) ==
PROVIDERS: Emergency Provider Nurse Practitioner
DX: H66.92 Otitis media, unspecified, left ear (principal); J01.90 Acute sinusitis, unspecified; R05.9 Cough, unspecified; R07.0 Pain in throat; R09.82 Postnasal drip; R09.81 Nasal congestion
CPT/HCPCS: 87880; 99212; 99214; G0463

== ENCOUNTER 2024-01-10 18:59 | Emergency (ER) | payer BC, SELFPAY ==
[2024-01-10 19:15] VITALS: BP 119/74; PULSE 110; RESP 20; TEMP 36.6; O2SAT 99; BMI 25.7
[2024-01-10 19:32] LABS: Apearance,Urine Clear (Clear); Bilirubin,Urine 1+ (Negative); Blood, Urine Negative (Negative); Color,Urine Yellow (Yellow); Glucose,Urine (UA) Negative (Negative); Ketones,Urine TRACE (Negative); Protein,Urine 1+ (Negative); UTC Leukocyte Esterase,Urine Negative (Negative); UTC Nitrate,Urine Negative (Negative); Urobilinogen,Urine 1 EU/dl (0.2)
[2024-01-10 19:37] LABS: UTC Pregnancy Test, Urine Negative (Negative)
--- NOTE | 2024-01-10 19:53 | ED_ITS ---
Discharge Plan Disposition Patient Disposition: Home, Self-Care Condition: Good Prescriptions Prescriptions: New doxycycline hyclate 100 mg capsule 100 mg PO Q12H 5 Days Qty: 10 0RF No Action fluticasone propionate [Flonase Allergy Relief] 50 mcg/actuation spray,suspension 2 spray intranasal DAILY Qty: 16 0RF Rx Instructions: administer into each nostril ixgvqkndoadzool-wdeesuyyj-BB [Bromfed DM] 2-30-10 mg/5 mL syrup 10 ml PO Q6H PRN (Reason: cold symptoms) Qty: 200 0RF Referrals Follow up/Referrals: Provider,Referral, MD [Primary Care Provider] - See instructions Clinical Impressions Clinical Impression: Acute upper respiratory infection Instructions Patient Instructions: DI for Sinusitis Discharge ED Provider: Sofia Bautista [facility] [place] General Stated complaint: back pain, painful urination, ear pain Mode of Arrival: Ambulatory Source of Information: Patient Limitations: No Limitations Time Seen by Provider: 01/10/24 19:52 Description of Symptoms (Recalled from Triage Doc. by RN): PATIENT STATES SHE WAS SEEN IN [facility] ON 12/30 AND GIVEN MEDICATION FOR A SINUS AND EAR INFECTION. PATIENT STATES SHE FELT BETTER ON WEDNESDAY, BUT HER SYMPTOMS CAME BACK AND WERE WORSE. PATIENT C/O RIGHT EAR PAIN, SINUS PRESSURE, FEVER, AND BODY ACHES. [facility] ALSO REPORTS INTERMITTEN LOWER BACK PAIN THAT STARTED WEDNESDAY HEENT Symptoms (Recalled from RN notes): Yes Resp Symptoms (Recalled from RN notes): Yes Skin Symptoms (Recalled from RN notes): No MS Symptoms (Recalled from RN notes): No Functional Status (Recalled from RN notes): WNL History of Present Illness Provider Complaint: Pt reports that she has not felt well for about 2 weeks. She reports taking around of cefdinir, prednisone, and taking Bromfed. She reports that she has started feeling worse instead of better with thick green nasal drainage, cough, sinus pressure, fever up to 100.4 and body aches. She reports that she has had intermittent back ache and has concerns that she may have an UTI. Related Data Previous Rx's Medication Instructions Recorded kxhfzkeyrwxzpvv-ceuiwtxmbnseizp-GL 10 ml PO Q6H PRN cold symptoms 12/31/23 2 mg-30 mg-10 mg/5 mL oral syrup #200 mL (Bromfed DM) fluticasone propionate 50 2 spray intranasal DAILY #16 grams 12/31/23 mcg/actuation nasal spray,suspension (Flonase Allergy Relief) doxycycline hyclate 100 mg capsule 100 mg PO Q12H 5 days #10 caps 01/10/24 Allergies Allergy/AdvReac Type Severity Reaction Status Date / Time No Known Allergies Allergy Verified 07/11/23 10:07 Worker's Comp Is this a Worker's Comp case?: No PFSH PFS Disclaimer: The information contained in this section may have been updated after the pat ient was seen, as this information can be updated by other users. Medical History (Updated 01/10/24 @ 20:02 by Sofia Bautista APRN) History of anemia Urinary tract infection Kidney stone Migraine Surgical History (Updated 12/31/23 @ 19:38 by Valeria Berry RN) History of tubal ligation History of cholecystectomy Social History Smoking Status: Never smoker alcohol intake: never current occupational status: other Travel in the last 8 weeks: None housing: house ROS Obtained: Yes All systems reviewed & no additional complaints except as documented Constitutional Constitutional: Reports system reviewed and no additional complaints, except as documented, Reports body ache, Reports fever(s), Reports headache(s) and Reports malaise Eyes Eyes: Reports system reviewed and no additional complaints, except as documented ENT Ears, Nose, Mouth, and Throat: Reports system reviewed and no additional complaints, except as documented, Reports otalgia, Reports headache(s), Reports nasal congestion, Reports nasal discharge, Reports sinus pain and Reports sinus pressure Cardiovascular Cardiovascular: Reports system reviewed and no additional complaints, except as documented Respiratory Respiratory: Reports system reviewed and no additional complaints, except as documented and Reports non-productive cough Gastrointestinal Gastrointestingal: Reports system reviewed and no additional complaints, except as documented Genitourinary Female Genitourinary: Reports system reviewed and no additional complaints, except as documented Musculoskeletal Musculoskeletal: Reports system reviewed and no additional complaints, except as documented Integumentary/Breasts Skin/Breast: Reports system reviewed and no additional complaints, except as documented Neurologic Neurologic: Reports system reviewed and no additional complaints, except as documented and Reports headache(s) Endocrine Endocrine: Reports system reviewed and no additional complaints, except as documented Hematologic/Lymphatic Henatologic/Lymphatic: Reports system reviewed and no additional complaints, except as documented Allergic/Immunologic Allergic/Immunologic: Reports system reviewed and no additional complaints, except as documented Physical Exam General General appearance: alert Comment: ill appearing Head Head exam: atraumatic and normocephalic Eye Eye exam: Present normal appearance Expanded ENT Exam External ear exam: Present normal external inspection TM/Canal exam: Bilateral TM: effusion (clear bubbles) Nose exam: Present sinus tenderness (maxillary) Nasal speculum exam: Bilateral: purulent discharge and other (edematous mucosa) Mouth exam: Present normal external inspection Teeth exam: Present normal inspection Throat exam: Present normal inspection Neck Neck exam: Present normal inspection Chest Chest inspection: Present normal inspection and symmetric chest wall rise Respiratory Respiratory exam: Present normal lung sounds bilaterally Cardiovascular Cardiovascular exam: Present regular rate and normal rhythm Abdominal Exam Abdominal exam: Present soft Extremities Exam Extremities exam: Present normal inspection Back Exam Back exam: Present normal inspection Neurological Exam Neurological exam: Present alert and oriented X3 Psychiatric Psychiatric exam: Present normal affect and normal mood Skin Skin exam: Present warm, dry and intact Lymphatic Lymphatic Findings: no adenopathy Medical Decision Making Kali Inquiry Pt receiving controlled substance: No Kali was queried for this patient: No Vital Signs: 01/10/24 19:15 Temperature 97.8 F Temperature Source Oral Pulse Rate [Left Brachial] 110 H Respiratory Rate 20 Blood Pressure [Left Arm] 119/74 Blood Pressure Mean [Left Arm] 89 Blood Pressure Source [Left Arm] Automatic Cuff Blood Pressure Position [Left Arm] Sitting 02 Sat by Pulse Oximetry 99 Oxygen Delivery Method Room Air Lab Data Lab results reviewed: Yes I reviewed the patient's lab results. Lab Results 01/10/24 19:29: Urine Color Yellow, Urine Appearance Clear, Urine pH 7.0, Ur Specific [place] 1.020, Urine Protein 1+, Urine Glucose (UA) Negative, Urine Ketones Trace, Urine Blood Negative, Urine Nitrate Negative, Urine Bilirubin 1+ A, Urine Urobilinogen 1, Ur Leukocyte Esterase Negative 01/10/24 19:33: Tst Clinic Negative
[2024-01-10 20:10] VITALS: BP 119/74; PULSE 110; RESP 20; TEMP 36.6; O2SAT 99
== END 2024-01-10 20:12 | disposition home or self-care (01) ==
PROVIDERS: Emergency Provider Nurse Practitioner Family
DX: M54.59 Other low back pain (principal); R30.0 Dysuria; R05.9 Cough, unspecified; J01.90 Acute sinusitis, unspecified; R09.81 Nasal congestion
CPT/HCPCS: 81003; 81025; 99212; 99214; G0463

== ENCOUNTER 2024-07-18 12:59 | Emergency (ER) | payer BC, SELFPAY ==
[2024-07-18 13:10] VITALS: BP 127/92; PULSE 81; RESP 21; TEMP 36.8; O2SAT 100; BMI 26.9
--- NOTE | 2024-07-18 13:20 | ED_ITS ---
Discharge Plan Disposition Patient Disposition: Home, Self-Care Condition: Good Prescriptions Prescriptions: New prednisone 10 mg tablet 10 mg PO BID 3 Days Qty: 6 0RF azithromycin [Zithromax] 250 mg tablet 250 mg PO UD DOSE PK Qty: 6 0RF Rx Instructions: Take two (2) tablets today, then one (1) tablet days #2 thru #5 fvvdgjdeekqsgod-fvuteyrti-MH [Bromfed DM] 2-30-10 mg/5 mL Syrup 5 ml PO Q6H PRN (Reason: Cough) Qty: 240 0RF No Action ergocalciferol (vitamin D2) 1,250 mcg (50,000 unit) capsule 1,250 mcg PO WEEKLY Patient Comments: TAKE 1 CAPSULE BY MOUTH ONCE A WEEK metformin 500 mg tablet extended release 24 hr 1,500 mg PO PM Patient Comments: TAKE 3 TABLETS BY MOUTH ONCE DAILY IN THE EVENING Myfembree 40-1-0.5 mg tablet 1 tab PO DAILY Patient Comments: TAKE 1 TABLET BY MOUTH ONCE DAILY DIRECTED Referrals Follow up/Referrals: Provider,Referral, MD [Primary Care Provider] - See instructions Activity Restrictions/Add. Instructions Additional Instructions/Restrictions: Drink plenty of fluids. Take tylenol or ibuprofen for pain or fever. Take the medications as directed. Follow up with your regular doctor. GO TO THE ER FOR ANY WORSENING SYMPTOMS Clinical Impressions Clinical Impression: Viral syndrome, Otitis media Instructions Patient Instructions: Middle Ear Infection Print Language Print Language: German Discharge ED Provider: Jay Langford [facility] [place] HPI General Stated complaint: ear pain Mode of Arrival: Ambulatory Source of Information: Patient Limitations: No Limitations Time Seen by Provider: 07/18/24 13:20 Description of Symptoms (Recalled from Triage Doc. by RN): PATIENT C/O BILATERAL EAR PAIN, BODY ACHES, AND MILD COUGH HEENT Symptoms (Recalled from RN notes): Yes Resp Symptoms (Recalled from RN notes): Yes Skin Symptoms (Recalled from RN notes): No MS Symptoms (Recalled from RN notes): No Functional Status (Recalled from RN notes): WNL Related Data Home Medications ?Medication ?Instructions ?Recorded ?Confirmed ergocalciferol (vitamin D2) 1,250 1,250 mcg PO WEEKLY 07/18/24 07/18/24 mcg (50,000 unit) capsule metformin 500 mg tablet,extended 1,500 mg PO PM 07/18/24 07/18/24 release 24 hr relugolix 40 mg-estradiol 1 1 tab PO DAILY 07/18/24 07/18/24 mg-norethindrone acetate 0.5 mg tablet (Myfembree) Previous Rx's ?Medication ?Instructions ?Recorded azithromycin 250 mg tablet 250 mg PO UD DOSE PK #6 tabs 07/18/24 (Zithromax) jaxdlodkwcuwjqi-dnanafnfjslbeqi-XN 5 ml PO Q6H PRN Cough #240 mL 07/18/24 2 mg-30 mg-10 mg/5 mL oral syrup (Bromfed DM) prednisone 10 mg tablet 10 mg PO BID 3 days #6 tabs 07/18/24 Allergies Allergy/AdvReac Type Severity Reaction Status Date / Time No Known Allergies Allergy Verified 07/11/23 10:07 Worker's Comp Is this a Worker's Comp case?: No [facility] Disclaimer: The information contained in this section may have been updated after the patient was seen, as this information can be updated by other users. Medical History (Updated 07/18/24 @ 14:14 by Jay Langford APRN) History of anemia Urinary tract infection Kidney stone Migraine Surgical History (Updated 12/31/23 @ 19:38 by Valeria Berry RN) History of tubal ligation History of cholecystectomy Social History Smoking Status: Never smoker alcohol intake: never current occupational status: other Travel in the last 8 weeks: None housing: house ROS Obtained: Yes All systems reviewed & no additional complaints except as documented Constitutional Constitutional: Denies chills, Reports fever(s) and Reports poor appetite Eyes Eyes: Denies eye discharge ENT Ears, Nose, Mouth, and Throat: Denies ear discharge, Reports otalgia, Denies hearing loss, Denies sinus pain and Reports sore throat Cardiovascular Cardiovascular: Denies chest pain and Denies dyspnea Respiratory Respiratory: Denies chest congestion, Reports cough and Denies dyspnea Gastrointestinal Gastrointestingal: Denies abdominal pain, diarrhea, nausea or vomiting Musculoskeletal Musculoskeletal: Denies arthralgias Integumentary/Breasts Skin/Breast: Denies rash Physical Exam General General appearance: alert and in no apparent distress Head Head exam: atraumatic, normocephalic and normal inspection Eye Eye exam: Present normal appearance; Absent PERRL or EOMI ENT ENT exam: Present mucous membranes moist and normal external ear exam Expanded ENT Exam TM/Canal exam: Bilateral TM: erythema, bulging and effusion Nose exam: Absent sinus tenderness Nasal speculum exam: Bilateral: normal Mouth exam: Present normal external inspection and other; Absent drooling Teeth exam: Present normal inspection Throat exam: Present tonsillar erythema and tonsillomegaly Neck Neck exam: Present normal inspection, full ROM and trachea midline; Absent tenderness, meningismus or lymphadenopathy Chest Chest inspection: Present normal inspection and symmetric chest wall rise; Absent tenderness Respiratory Respiratory exam: Present normal lung sounds bilaterally; Absent respiratory distress, wheezes or stridor Cardiovascular Cardiovascular exam: Present regular rate, normal rhythm and normal heart sounds; Absent tachycardia or irregular rhythm Abdominal Exam Abdominal exam: Present soft and normal bowel sounds; Absent distention, tenderness, guarding, rebound or rigidity Extremities Exam Extremities exam: Present normal inspection and normal capillary refill; Absent tenderness, joint swelling or calf tenderness Back Exam Back exam: Present normal inspection and full ROM; Absent tenderness, CVA tenderness (R) or CVA tenderness (L) Neurological Exam Neurological exam: Present alert, oriented X3, CN II-XII intact, normal gait and reflexes normal; Absent motor sensory deficit Psychiatric Psychiatric exam: Present normal affect and normal mood Skin Skin exam: Present warm, dry, intact and normal color Lymphatic Lymphatic Findings: no adenopathy Medical Decision Making Medical Records Medical records reviewed: No I reviewed the patient's medical records. Screening: Per USPSTF and CDC recommendations, given the prevalence of disease in our region, it is our hospital?s policy to screen for HIV and viral Hepatitis for all patients aged 18 and over and those with ongoing risk factors. Kali Inquiry Pt receiving controlled substance: No Vital Signs: 07/18/24 13:10 Temperature 98.2 F Temperature Source Oral Pulse Rate [Left Brachial] 81 Respiratory Rate 21 Blood Pressure [Left Arm] 127/92 H Blood Pressure Mean [Left Arm] 103 Blood Pressure Source [Left Arm] Automatic Cuff Blood Pressure Position [Left Arm] Sitting 02 Sat by Pulse Oximetry 100 Oxygen Delivery Method Room Air Lab Data Lab results reviewed: Yes I reviewed the patient's lab results.
[2024-07-18 14:16] VITALS: BP 127/92; PULSE 81; RESP 21; TEMP 36.8; O2SAT 100
[2024-07-18 14:30] LABS: Coronavirus 19, PCR Not Detected (NotDetected); Influenza A, PCR Not Detected (NotDetected); Influenza B, PCR Not Detected (NotDetected)
== END 2024-07-18 14:19 | disposition home or self-care (01) ==
PROVIDERS: Emergency Provider Nurse Practitioner Family
DX: H66.93 Otitis media, unspecified, bilateral (principal); B34.9 Viral infection, unspecified
CPT/HCPCS: 87636; 99213; G0381

== ENCOUNTER 2024-10-19 14:03 | Observation (INO) | payer BC, SELFPAY ==
[2024-10-19] VITALS (13 sets, daily range): BP systolic 101–137; BP diastolic 63–84; PULSE 113–155; RESP 16–27; TEMP 36.6–36.8; O2SAT 94–99; BMI 28.4
--- NOTE | 2024-10-19 15:28 | XR_ITS ---
FINAL REPORT CLINICAL HISTORY: COUGH, SOA FINDINGS: CHEST 2 VIEWS PA AND LATERAL The heart is normal in size. The mediastinum is unremarkable. There is patchy airspace opacity in the left lower lobe consistent with acute pneumonia. There is no pneumothorax. IMPRESSION: Left lower pneumonia. Recommend continued follow-up. Reviewed, Interpreted and Dictated by Nilo Sumner MD Transcribed by Padmaja Vegas Authenticated and [facility]
[2024-10-19] MEDS: IBUPROFEN 400 MG TABLET 800 MG PO (15:33)
[2024-10-19] MEDS: ACETAMINOPHEN 500MG TAB 1000 MG PO (15:34)
[2024-10-19] MEDS: IPRATROPIUM/ALBUTEROL 3 ML NEB IH (15:34)
--- NOTE | 2024-10-19 15:38 | HMH.EDGENADL ---
Discharge Plan Disposition Patient Disposition: Home, Self-Care Condition: Fair Clinical Impressions Clinical Impression: Pneumonia, Sepsis Discharge ED Provider: Philip Vásquez Adult HPI <Celina Klein APRN - Last Filed: 10/19/24 20:07> General Chief complaint: Upper Respiratory Infection Stated complaint: cough, high heart rate, soa, body aches, fever Time Seen by Provider: 10/19/24 15:37 Mode of Arrival: Ambulatory Source of Information: Patient Description of Symptoms (Recalled from ER Triage Doc. by RN): PT REPORTS COUGH, SHORTNESS OF BREATH, RAPID HEART RATE, FEVER, BODYACHES AND BILATERAL EAR PAIN AND PRESSURE History of Present Illness HPI narrative: patient is a 34-year-old female no significant PMHx who presents to the ED for cough, shortness of breath since Wednesday. Patient states earlier this week she thought she had influenza, did symptomatic treatment at home however today her shortness of breath has worsened. Related Data Home Medications ?Medication ?Instructions ?Recorded ?Confirmed amitriptyline 10 mg tablet 30 mg PO HS 10/19/24 10/19/24 Previous Rx's ?Medication ?Instructions ?Recorded amoxicillin 500 mg-potassium 1 tab PO BID 5 days #10 tabs 10/20/24 clavulanate 125 mg tablet (Augmentin) doxycycline monohydrate 100 mg 100 mg PO BID 5 days #10 caps 10/20/24 capsule prednisone 20 mg tablet 40 mg (2 x 20 mg) PO DAILY 3 days 10/20/24 #6 tabs Allergies Allergy/AdvReac Type Severity Reaction Status Date / Time No Known Allergies Allergy Verified 07/11/23 10:07 PFSH <Celina Klein APRN - Last Filed: 10/19/24 20:07> PFS Disclaimer: The information contained in this section may have been updated after the patient was seen, as this information can be updated by other users. Medical History (Updated 10/19/24 @ 22:12 by Dick Hernandez MD) History of anemia Urinary tract infection Kidney stone Migraine Surgical History History of tubal ligation History of cholecystectomy Family History (Updated 10/19/24 @ 21:04 by Yoselin Herman RN) Father Colon cancer Other Cervical cancer Social History Smoking Status: Never smoker alcohol intake: never current occupational status: other Travel in the last 8 weeks: None housing: house Have you lived/traveled outside [place] in past 30 days?: No Contact w/someone who lives/traveled outside US past 30 days?: No Exposure to someone with infectious disease in past 14 days?: No Do you have a fever (greater than 100.4 F or 38 C)?: No Have you tested positive for COVID-19: No Exposed to someone with COVID-19 in past 14 days?: No Do you have a sore throat?: No Do you have a cough?: No Do you have any weakness?: No Do you have any diarrhea?: No Are you experiencing any unusual bleeding?: No Do you have any muscle aches/pain?: No Do you have any abdominal pain?: No Are you experiencing loss of taste or smell?: No Other Medical History Have you received the Flu Vaccine for this season: No Have you received the Pneumonia Vaccine: No <Celina Klein APRN - Last Filed: 10/19/24 20:07> ROS Obtained: Yes Systems reviewed as appropriate & no additional complaints except as documented Physical Exam <Celina Klein APRN - Last Filed: 10/19/24 20:07> General General appearance: alert and in no apparent distress Head Head exam: atraumatic and normocephalic Eye Eye exam: Present normal appearance and PERRL ENT ENT exam: Present normal exam Neck Neck exam: Present normal inspection Chest Chest inspection: Present normal inspection and symmetric chest wall rise; Absent tenderness Respiratory Respiratory exam: Present respiratory distress and accessory muscle use Cardiovascular Cardiovascular exam: Present tachycardia Abdominal Exam Abdominal exam: Present soft and normal bowel sounds; Absent tenderness Extremities Exam Extremities exam: Present normal inspection and full ROM Back Exam Back exam: Present normal inspection and full ROM Neurological Exam Neurological exam: Present alert and oriented X3 Psychiatric Psychiatric exam: Present normal affect and normal mood Skin Skin exam: Present warm and dry Medical Decision Making <Celina Klein APRN - Last Filed: 10/19/24 20:07> Medical Records Screening: Per USPSTF and CDC recommendations, given the prevalence of disease in our region, it is our hospital?s policy to screen for HIV and viral Hepatitis for all patients aged 18 and over and those with ongoing risk factors. Kali Lau Pt receiving controlled substance: No Kali was queried for this patient: No Vital Signs: 10/19/24 15:24 10/19/24 16:00 10/19/24 16:06 Temperature 98.3 F Temperature Source Oral Pulse Rate 142 H 155 H Pulse Rate [Radial] 118 H Respiratory Rate 18 26 H Blood Pressure 137/84 Blood Pressure [Right Arm] 127/73 Blood Pressure Mean [Right Arm] 91 Blood Pressure Source [Right Arm] Automatic Cuff Blood Pressure Position [Right Arm] Sitting 02 Sat by Pulse Oximetry 99 97 97 Oxygen Delivery Method Room Air Room Air Room Air 10/19/24 16:30 10/19/24 17:00 10/19/24 17:06 Temperature Temperature Source Pulse Rate 125 H 122 H 115 H Pulse Rate [Radial] Respiratory Rate 26 H 20 18 Blood Pressure 116/80 107/77 L 107/77 L Blood Pressure [Right Arm] Blood Pressure Mean [Right Arm] Blood Pressure Source [Right Arm] Blood Pressure Position [Right Arm] 02 Sat by Pulse Oximetry 94 L 99 97 Oxygen Delivery Method Room Air Room Air Room Air 10/19/24 17:30 10/19/24 18:00 10/19/24 18:18 Temperature Temperature Source Pulse Rate 127 H 117 H 113 H Pulse Rate [Radial] Respiratory Rate 27 H 27 H Blood Pressure 106/71 L 104/70 L Blood Pressure [Right Arm] Blood Pressure Mean [Right Arm] Blood Pressure Source [Right Arm] Blood Pressure Position [Right Arm] 02 Sat by Pulse Oximetry 94 L 96 Oxygen Delivery Method Room Air Room Air 10/19/24 18:30 10/19/24 19:34 10/19/24 19:48 Temperature 97.9 F Temperature Source Pulse Rate 121 H 124 H Pulse Rate [Radial] 124 H Respiratory Rate 17 18 22 Blood Pressure 101/63 L 104/73 L Blood Pressure [Right Arm] Blood Pressure Mean [Right Arm] Blood Pressure Source [Right Arm] Blood Pressure Position [Right Arm] 02 Sat by Pulse Oximetry 98 97 Oxygen Delivery Method Room Air Room Air Room Air 10/19/24 20:05 Temperature 97.8 F Temperature Source Oral Pulse Rate Pulse Rate [Radial] 122 H Respiratory Rate 16 Blood Pressure Blood Pressure [Right Arm] 123/81 Blood Pressure Mean [Right Arm] 95 Blood Pressure Source [Right Arm] Automatic Cuff Blood Pressure Position [Right Arm] 02 Sat by Pulse Oximetry 97 Oxygen Delivery Method Room Air Lab Data Lab Results 10/19/24 15:28: SARS-CoV-2 (PCR) Not detected, Influenza A Untype (PCR) Not detected, Influenza Type B (PCR) Not detected 10/19/24 15:59: WBC 7.9, RBC 4.80, Hgb 13.5, Hct 39.5, MCV 82.3, MCH 28.1, MCHC 34.2, RDW 12.5, Plt Count 258, MPV 9.9, Neut % (Auto) 61.6, Lymph % (Auto) 29.1, [place] % (Auto) 7.3, Eos % (Auto) 1.3, Baso % (Auto) 0.4, Neut # (Auto) 4.9, Lymph # (Auto) 2.3, [place] # (Auto) 0.6, Eos # (Auto) 0.1, Baso # (Auto) 0.0 10/19/24 16:04: Sodium 134 L, Potassium 3.8, Chloride 104, Carbon Dioxide 17 L, Anion Gap 16.8 H, BUN 8, Creatinine 0.60, Estimated Creat Clear 163, Estimated GFR 115, Est GFR ( Amer) 139, Glucose 119 H, Calcium 9.4, Total Bilirubin 0.4, AST 73 H, ALT 76, Alkaline Phosphatase 167 H, Total Protein 7.9, Albumin 4.6, Globulin 3.3 H, Albumin/Globulin Ratio 1.4 10/20/24 05:55 10/20/24 05:55 Orders (Tests/Meds): ED MEDICATIONS Discontinued Medications Generic Name Dose Route Start Last Admin Trade Name Deanq PRN Reason Stop Dose Admin Acetaminophen 1,000 mg 10/19/24 15:28 10/19/24 15:34 Acetaminophen 500mg Tab PO 10/19/24 15:29 1,000 mg ONCE ONE Administration Acetaminophen 650 mg 10/19/24 19:40 Acetaminophen 325mg Tab PO 11/18/24 19:39 Q4HP PRN Fever or Mild Pain (1-3) Hydrocodone Bitart/Acetaminophen 1 tab 10/19/24 19:40 Hydrocodone/Apap 5/325 Mg Tablet PO 11/18/24 19:39 Q4HP PRN Mild to Moderate Pain (1-6) Albuterol/Ipratropium 3 ml 10/19/24 15:28 10/19/24 15:34 Ipratropium/Albuterol 3 Ml Neb IH 10/19/24 15:29 3 ml ONCE ONE Administration Azithromycin 250 mg 10/20/24 09:00 10/20/24 08:43 Azithromycin 250mg Tablet PO 10/30/24 08:59 250 mg DAILY GALLO Administration Dexamethasone 10 mg 10/19/24 16:06 10/19/24 16:20 Dexamethasone 1mg/1ml Intensol 10ml Udc (Er) PO 10/19/24 16:07 10 mg ONCE ONE Administration Enoxaparin Sodium 40 mg 10/20/24 09:00 10/20/24 08:44 Enoxaparin 40mg/0.4ml Syringe SUBCUT 11/19/24 08:59 Not Given DAILY GALLO Guaifenesin 1 each 10/19/24 21:00 10/20/24 08:42 Guaifenesin/Pseudoephe 600/60mg Tab.Er.12h PO 10/22/24 20:59 1 each BID GALLO Administration Lactated Ringer's 1,000 mls @ 999 mls/hr 10/19/24 16:28 10/19/24 16:29 Lactated Ringer's 1000 Ml Bag IV 10/19/24 17:28 999 mls/hr .Q1H1M ONE Administration Ceftriaxone Sodium 1 gm/ 50 mls @ 100 mls/hr 10/19/24 17:45 10/19/24 17:42 Sodium Chloride IV 10/29/24 17:44 100 mls/hr Q24H GALLO Administration Ceftriaxone Sodium 1 gm/ 50 mls @ 100 mls/hr 10/20/24 09:00 10/20/24 08:43 Sodium Chloride IV 10/30/24 08:59 100 mls/hr Q24H GALLO Administration Sodium Chloride 1,000 mls @ 125 mls/hr 10/19/24 19:45 10/20/24 11:57 Sod Chlor 0.9% 1000ml Bag IV 11/18/24 19:44 Not Given .Q8H GALLO Ibuprofen 800 mg 10/19/24 15:28 10/19/24 15:33 Ibuprofen 400 Mg Tablet PO 10/19/24 15:29 800 mg ONCE ONE Administration Iopamidol 70 ml 10/19/24 16:52 10/19/24 16:53 Iopamidol-370 (76%);100ml Bottle IV 10/19/24 16:53 70 ml ONCE ONE Administration Levalbuterol HCl 1.25 mg 10/19/24 19:38 10/20/24 10:34 Levalbuterol 1.25mg/3ml [facility] 11/18/24 19:37 1.25 mg TIDP PRN Administration Shortness Of Breath Ondansetron HCl 4 mg 10/19/24 19:40 Ondansetron 4mg/2ml Vial IV 11/18/24 19:39 Q8HP PRN Nausea Prednisone 40 mg 10/20/24 09:00 10/20/24 08:43 Prednisone 20mg Tab PO 11/19/24 08:59 40 mg DAILY GALLO Administration Sodium Chloride 10 ml 10/19/24 16:04 Sodium Chloride 0.9% 10ml Flush Syringe IV 11/18/24 16:03 NEEDED PRN Maintain IV Site Sodium Chloride 50 ml 10/19/24 16:52 10/19/24 16:53 0.9 % Sodium Chloride 50 Ml Vial IV 10/19/24 16:53 50 ml ONCE ONE Administration Sodium Chloride 10 ml 10/19/24 16:52 10/19/24 16:53 Sodium Chloride 0.9% 10ml Syr (Rad Only) IV 10/19/24 16:53 10 ml ONCE ONE Administration Sodium Chloride 3 ml 10/19/24 19:40 10/20/24 00:22 Sodium Chloride 3% 15ml [facility] 11/18/24 19:39 3 ml ONCE PRN Administration INDUCE SPUTUM [employer]LECTION Sodium Chloride 10 ml 10/19/24 19:40 Sodium Chloride 0.9% 10ml Flush Syringe IV 11/18/24 19:39 NEEDED PRN Maintain IV Site ORDERS Category Date Time Status CT angio chest PE protocol Stat Cat Scan 10/19/24 16:25 Completed XR chest 2V Stat Exams 10/19/24 15:28 Completed CMP [Comprehensive Metabolic Panel] Stat Lab 10/19/24 16:04 Completed Complete Blood Count Auto Diff Stat Lab 10/19/24 15:59 Completed Rapid PCR Covid and Flu A/B Stat Lab 10/19/24 15:28 Completed Medical Decision Narrative: In summary, patient is a 34-year-old female no significant PMHx who presents to the ED for cough, shortness of breath since Wednesday. Patient states earlier this week she thought she had influenza, did symptomatic treatment at home however today her shortness of breath has worsened. Denies being on oral contraceptive. Upon initial exam, patient is alert, oriented and cooperative. Patient is hemodynamically stable. Denies headache, visual disturbances, back pain, abdominal pain, nausea, vomiting, dysuria. Upon initial evaluation patient is alert, oriented and cooperative. Physical exam remarkable for tachycardia, tachypnea, cough. Differential diagnosis includes pneumonia, pulmonary embolism, dissection, pneumothorax, infectious process, among others. Initial workup will be conducted with hematologic labs, imaging. Initial inventions include IV fluids, DuoNeb. Initial workup reviewed by me. CBC unremarkable for any leukocytosis, stable H&H. CMP remarkable for CO2 17, anion gap 16.8, AST 73, ALT 76. COVID and influenza negative. Upon reassessment, patient did not have any improvement with initial interventions. Administered another liter of IV fluid and dexamethasone. She remains tachycardic, heart rate 140s and remains tachypneic. CT PE protocol obtained. The official interpretation of the CT PE remarkable for consolidation in the left lower lobe and associated bronchial wall thickening consistent with left lower lobe bronchopneumonia with enlarged left hilar lymph nodes. Upon repeat evaluation, patient remains dyspneic. Heart rate decreased to 115. Upon standing, patient becomes tachycardic at 140-150, O2 saturation dropped to 88% when standing. Patient states she feels fatigued. 1 g of Rocephin administered. I had shared decision making used with patient and family, advised her that I feel she needs admitted to the hospital for IV antibiotics, discussed she could become septic quickly. Patient verbalized understanding of risk, elected to be admitted to the hospital. I spoke with hospital medicine who admits the patient to [facility]. <Dick Hernandez MD - Last Filed: 10/19/24 22:12> Vital Signs: 10/19/24 15:24 10/19/24 16:00 10/19/24 16:06 Temperature 98.3 F Temperature Source Oral Pulse Rate 142 H 155 H Pulse Rate [Radial] 118 H Respiratory Rate 18 26 H Blood Pressure 137/84 Blood Pressure [Right Arm] 127/73 Blood Pressure Mean [Right Arm] 91 Blood Pressure Source [Right Arm] Automatic Cuff Blood Pressure Position [Right Arm] Sitting 02 Sat by Pulse Oximetry 99 97 97 Oxygen Delivery Method Room Air Room Air Room Air 10/19/24 16:30 10/19/24 17:00 10/19/24 17:06 Temperature Temperature Source Pulse Rate 125 H 122 H 115 H Pulse Rate [Radial] Respiratory Rate 26 H 20 18 Blood Pressure 116/80 107/77 L 107/77 L Blood Pressure [Right Arm] Blood Pressure Mean [Right Arm] Blood Pressure Source [Right Arm] Blood Pressure Position [Right Arm] 02 Sat by Pulse Oximetry 94 L 99 97 Oxygen Delivery Method Room Air Room Air Room Air 10/19/24 17:30 10/19/24 18:00 10/19/24 18:18 Temperature Temperature Source Pulse Rate 127 H 117 H 113 H Pulse Rate [Radial] Respiratory Rate 27 H 27 H Blood Pressure 106/71 L 104/70 L Blood Pressure [Right Arm] Blood Pressure Mean [Right Arm] Blood Pressure Source [Right Arm] Blood Pressure Position [Right Arm] 02 Sat by Pulse Oximetry 94 L 96 Oxygen Delivery Method Room Air Room Air 10/19/24 18:30 10/19/24 19:34 10/19/24 19:48 Temperature 97.9 F Temperature Source Pulse Rate 121 H 124 H Pulse Rate [Radial] 124 H Respiratory Rate 17 18 22 Blood Pressure 101/63 L 104/73 L Blood Pressure [Right Arm] Blood Pressure Mean [Right Arm] Blood Pressure Source [Right Arm] Blood Pressure Position [Right Arm] 02 Sat by Pulse Oximetry 98 97 Oxygen Delivery Method Room Air Room Air Room Air 10/19/24 20:05 Temperature 97.8 F Temperature Source Oral Pulse Rate Pulse Rate [Radial] 122 H Respiratory Rate 16 Blood Pressure Blood Pressure [Right Arm] 123/81 Blood Pressure Mean [Right Arm] 95 Blood Pressure Source [Right Arm] Automatic Cuff Blood Pressure Position [Right Arm] 02 Sat by Pulse Oximetry 97 Oxygen Delivery Method Room Air Lab Data Lab Results 10/19/24 15:28: SARS-CoV-2 (PCR) Not detected, Influenza A Untype (PCR) Not detected, Influenza Type B (PCR) Not detected 10/19/24 15:59: WBC 7.9, RBC 4.80, Hgb 13.5, Hct 39.5, MCV 82.3, MCH 28.1, MCHC 34.2, RDW 12.5, Plt Count 258, MPV 9.9, Neut % (Auto) 61.6, Lymph % (Auto) 29.1, [place] % (Auto) 7.3, Eos % (Auto) 1.3, Baso % (Auto) 0.4, Neut # (Auto) 4.9, Lymph # (Auto) 2.3, [place] # (Auto) 0.6, Eos # (Auto) 0.1, Baso # (Auto) 0.0 10/19/24 16:04: Sodium 134 L, Potassium 3.8, Chloride 104, Carbon Dioxide 17 L, Anion Gap 16.8 H, BUN 8, Creatinine 0.60, Estimated Creat Clear 163, Estimated GFR 115, Est GFR ( Amer) 139, Glucose 119 H, Calcium 9.4, Total Bilirubin 0.4, AST 73 H, ALT 76, Alkaline Phosphatase 167 H, Total Protein 7.9, Albumin 4.6, Globulin 3.3 H, Albumin/Globulin Ratio 1.4 Orders (Tests/Meds): ED MEDICATIONS Discontinued Medications Generic Name Dose Route Start Last Admin Trade Name Freq PRN Reason Stop Dose Admin Acetaminophen 1,000 mg 10/19/24 15:28 10/19/24 15:34 Acetaminophen 500mg Tab PO 10/19/24 15:29 1,000 mg ONCE ONE Administration Acetaminophen 650 mg 10/19/24 19:40 Acetaminophen 325mg Tab PO 11/18/24 19:39 Q4HP PRN Fever or Mild Pain (1-3) Hydrocodone Bitart/Acetaminophen 1 tab 10/19/24 19:40 Hydrocodone/Apap 5/325 Mg Tablet PO 11/18/24 19:39 Q4HP PRN Mild to Moderate Pain (1-6) Albuterol/Ipratropium 3 ml 10/19/24 15:28 10/19/24 15:34 Ipratropium/Albuterol 3 Ml Neb IH 10/19/24 15:29 3 ml ONCE ONE Administration Azithromycin 250 mg 10/20/24 09:00 10/20/24 08:43 Azithromycin 250mg Tablet PO 10/30/24 08:59 250 mg DAILY GALLO Administration Dexamethasone 10 mg 10/19/24 16:06 10/19/24 16:20 Dexamethasone 1mg/1ml Intensol 10ml Udc (Er) PO 10/19/24 16:07 10 mg ONCE ONE Administration Enoxaparin Sodium 40 mg 10/20/24 09:00 10/20/24 08:44 Enoxaparin 40mg/0.4ml Syringe SUBCUT 11/19/24 08:59 Not Given DAILY GALLO Guaifenesin 1 each 10/19/24 21:00 10/20/24 08:42 Guaifenesin/Pseudoephe 600/60mg Tab.Er.12h PO 10/22/24 20:59 1 each BID GALLO Administration Lactated Ringer's 1,000 mls @ 999 mls/hr 10/19/24 16:28 10/19/24 16:29 Lactated Ringer's 1000 Ml Bag IV 10/19/24 17:28 999 mls/hr .Q1H1M ONE Administration Ceftriaxone Sodium 1 gm/ 50 mls @ 100 mls/hr 10/19/24 17:45 10/19/24 17:42 Sodium Chloride IV 10/29/24 17:44 100 mls/hr Q24H GALLO Administration Ceftriaxone Sodium 1 gm/ 50 mls @ 100 mls/hr 10/20/24 09:00 10/20/24 08:43 Sodium Chloride IV 10/30/24 08:59 100 mls/hr Q24H GALLO Administration Sodium Chloride 1,000 mls @ 125 mls/hr 10/19/24 19:45 10/20/24 11:57 Sod Chlor 0.9% 1000ml Bag IV 11/18/24 19:44 Not Given .Q8H GALLO Ibuprofen 800 mg 10/19/24 15:28 10/19/24 15:33 Ibuprofen 400 Mg Tablet PO 10/19/24 15:29 800 mg ONCE ONE Administration Iopamidol 70 ml 10/19/24 16:52 10/19/24 16:53 Iopamidol-370 (76%);100ml Bottle IV 10/19/24 16:53 70 ml ONCE ONE Administration Levalbuterol HCl 1.25 mg 10/19/24 19:38 10/20/24 10:34 Levalbuterol 1.25mg/3ml Neb IH 11/18/24 19:37 1.25 mg TIDP PRN Administration Shortness Of Breath Ondansetron HCl 4 mg 10/19/24 19:40 Ondansetron 4mg/2ml Vial IV 11/18/24 19:39 Q8HP PRN Nausea Prednisone 40 mg 10/20/24 09:00 10/20/24 08:43 Prednisone 20mg Tab PO 11/19/24 08:59 40 mg DAILY GALLO Administration Sodium Chloride 10 ml 10/19/24 16:04 Sodium Chloride 0.9% 10ml Flush Syringe IV 11/18/24 16:03 NEEDED PRN Maintain IV Site Sodium Chloride 50 ml 10/19/24 16:52 10/19/24 16:53 0.9 % Sodium Chloride 50 Ml Vial IV 10/19/24 16:53 50 ml ONCE ONE Administration Sodium Chloride 10 ml 10/19/24 16:52 10/19/24 16:53 Sodium Chloride 0.9% 10ml Syr (Rad Only) IV 10/19/24 16:53 10 ml ONCE ONE Administration Sodium Chloride 3 ml 10/19/24 19:40 10/20/24 00:22 Sodium Chloride 3% 15ml Neb IH 11/18/24 19:39 3 ml ONCE PRN Administration INDUCE SPUTUM COLLECTION Sodium Chloride 10 ml 10/19/24 19:40 Sodium Chloride 0.9% 10ml Flush Syringe IV 11/18/24 19:39 NEEDED PRN Maintain IV Site ORDERS Category Date Time Status CT angio chest PE protocol Stat Cat Scan 10/19/24 16:25 Completed XR chest 2V Stat Exams 10/19/24 15:28 Completed CMP [Comprehensive Metabolic Panel] Stat Lab 10/19/24 16:04 Completed Complete Blood Count Auto Diff Stat Lab 10/19/24 15:59 Completed Rapid PCR Covid and Flu A/B Stat Lab 10/19/24 15:28 Completed ECG Data Tracing #1: I reviewed this ECG and interpreted as documented below: (Sinus tachycardia 135 bpm with IN interval 142, QRS 79, QTc 410. Normal axis. No acute ischemic change) Medical Decision Narrative: In summary, patient is a 34-year-old female no significant PMHx who presents to the ED for cough, shortness of breath since Wednesday. Patient states earlier this week she thought she had influenza, did symptomatic treatment at home however today her shortness of breath has worsened. Denies being on oral contraceptive. Upon initial exam, patient is alert, oriented and cooperative. Patient is hemodynamically stable. Denies headache, visual disturbances, back pain, abdominal pain, nausea, vomiting, dysuria. Upon initial evaluation patient is alert, oriented and cooperative. Physical exam remarkable for tachycardia, tachypnea, cough. Differential diagnosis includes pneumonia, pulmonary embolism, dissection, pneumothorax, infectious process, among others. Initial workup will be conducted with hematologic labs, imaging. Initial inventions include IV fluids, DuoNeb. Initial workup reviewed by me. CBC unremarkable for any leukocytosis, stable H&H. CMP remarkable for CO2 17, anion gap 16.8, AST 73, ALT 76. COVID and influenza negative. Upon reassessment, patient did not have any improvement with initial interventions. Administered another liter of IV fluid and dexamethasone. She remains tachycardic, heart rate 140s and remains tachypneic. CT PE protocol obtained. The official interpretation of the CT PE remarkable for consolidation in the left lower lobe and associated bronchial wall thickening consistent with left lower lobe bronchopneumonia with enlarged left hilar lymph nodes. Upon repeat evaluation, patient remains dyspneic. Heart rate decreased to 115. Upon standing, patient becomes tachycardic at 140-150, O2 saturation dropped to 88% when standing. Patient states she feels fatigued. 1 g of Rocephin administered. I had shared decision making used with patient and family, advised her that I feel she needs admitted to the hospital for IV antibiotics, discussed she could become septic quickly. Patient verbalized understanding of risk, elected to be admitted to the hospital. I spoke with hospital medicine who admits the patient to [facility]. I was consulted by the HONG, and we discussed the complexity of the problems being addressed. I approved the treatment and management plan for this patient's care in the Emergency Department, thus performing a substantive portion of the medical decision making. Repeat tissue reperfusion scan performed within 3 hours and patient still mentating appropriately, pale, but blood pressures improving with fluids and still has wide pulse pressure. To be admitted for sepsis without septic shock. Dick Hernandez MD Critical Care <Celina Klein APRN - Last Filed: 10/19/24 20:07> Critical Care Time Critical Care Time: No <Dick Hernandez MD - Last Filed: 10/19/24 22:12> Critical Care Time Critical Care Time: Yes (Infectious disease) Attestation: On 10/19/24, the high probability of a clinically significant, sudden or life threatening deterioration of the following system(s) required my full and direct attention, intervention and personal management. The time I documented below is in addition to time spent performing reported procedures but includes the following listed in this critical care notation. Total Time Total Critical Care Time: 35
[2024-10-19 15:42] LABS: Coronavirus 19, PCR Not Detected (NotDetected); Influenza A, PCR Not Detected (NotDetected); Influenza B, PCR Not Detected (NotDetected)
--- NOTE | 2024-10-19 15:48 | ECG_ITS ---
APPROVED REPORT Exam: Resting ECG HR:135 bpm ECG Measurements Heart Rate 135 AXES SC 142 P 71 QRSd 89 QRS 79 QT 331 T 63 QTc [address] depressions with no reciprocal elevations Electronically signed by : AZUCENA DANIELS, 10/19/2024 23:23:55
--- NOTE | 2024-10-19 16:06 | PC.NURSE ---
Josephine notified of patients heart rate and to bedside to see patient.
--- NOTE | 2024-10-19 16:08 | PC.NURSE ---
PT TO XR
[2024-10-19 16:12] LABS: Basophils % 0.4 % (0.1-2.0); Eosinophils # 0.1 K/mm3 (0.0-0.4); Eosinophils % 1.3 % (0.1-12.0); Hematocrit 39.5 % (37.0-47.0); Hemoglobin 13.5 g/dL (12.2-16.2); Lymphocytes # 2.3 K/mm3 (0.7-4.5); Lymphocytes % 29.1 % (10-50); Mean Corpuscular HGB Conc 34.2 g/dL (31.8-35.4); Mean Corpuscular Hemoglobin 28.1 pg (27.0-31.2); Mean Corpuscular Volume 82.3 fl (81-99); Mean Platelet Volume 9.9 fl (7.4-10.4); Monocytes # 0.6 K/mm3 (0.1-1.0); Monocytes % 7.3 % (1.7-9.3); Neutrophils # 4.9 K/mm3 (1.8-7.8); Neutrophils % 61.6 % (37.0-80.0); Platelet Count 258 K/mm3 (142-424); Red Cell Distribution Width 12.5 % (11.5-17.5); White Blood Count 7.9 K/mm3 (4.8-10.8)
[2024-10-19] MEDS: DEXAMETHASONE 1MG/1ML INTENSOL 10ML UDC (ER) 10 MG PO (16:20)
[2024-10-19 16:21] LABS: Alanine Aminotransferase 76 U/L (12-78); Albumin Level 4.6 g/dl (3.5-5.0); Albumin/Globulin Ratio 1.4 (1.1-1.8); Alkaline Phosphatase 167 U/L (38-126); Anion Gap 16.8 mEq/L (5-15); Aspartate Amino Transferase 73 U/L (14-36); Bilirubin,Total 0.4 mg/dl (0.2-1.3); Blood Urea Nitrogen 8 mg/dl (7-17); Calcium 9.4 mg/dl (8.4-10.2); Carbon Dioxide 17 mmol/L (22.0-30.0); Chloride 104 mmol/L (98-107); Creatinine Clearance Estimated 163 mL/min (50-200); Estimated Glomerular Filt Rate 115 ml/min (>60); GFR (African American) 139 ML/MIN (>60); Globulin 3.3 g/dL (1.3-3.2); Glucose 119 mg/dl (74-100); Potassium 3.8 mmoL/L (3.5-5.1); Sodium 134 mmol/L (136-145); Total Protein,Serum 7.9 g/dl (6.3-8.2)
--- NOTE | 2024-10-19 16:25 | CT_ITS ---
PROCEDURE INFORMATION: Exam: CTA Chest With Contrast Exam date and time: 10/19/2024 4:51 PM Age: 34 years old Clinical indication: Shortness of breath; Additional info: SOA TECHNIQUE: Imaging protocol: Computed tomographic angiography of the chest with contrast. Exam focused on the arteries. 3D rendering (Not supervised by radiologist): MIP and/or 3D reconstructed images were created by the technologist. Radiation optimization: All CT scans at this facility use at least one of these dose optimization techniques: automated exposure control; mA and/or kV adjustment per patient size (includes targeted exams where dose is matched to clinical indication); or iterative reconstruction. Contrast material: ISOVUE 370; Contrast volume: 70 ml; Contrast route: INTRAVENOUS (IV); COMPARISON: CR XR CHEST 2V 10/19/2024 3:59 PM FINDINGS: Limitations: Motion artifact does moderately limit the sensitivity of this examination. Pulmonary arteries: Segmental and subsegmental pulmonary arteries are partially obscured by motion. No large pulmonary emboli is present. Aorta: Aorta is normal in course and caliber. No acute pathology in the aorta. Thyroid: The thyroid gland is normal. Trachea: Airways are patent. Lungs: Airspace consolidation with air bronchograms in the left lower lobe and associated bronchial wall thickening. Remainder of the lungs are clear. Pleural spaces: No pleural effusions or pneumothorax. Heart: No cardiomegaly. No pericardial thickening or effusion. Coronary arteries: There is no evidence of atherosclerotic coronary artery calcifications. Mediastinal space: The mediastinal contour is normal. Lymph nodes: Enlarged left hilar lymph nodes measuring up to 1.2 cm. No other adenopathy. Liver: Diffuse decrease in hepatic parenchymal density, consistent with fatty infiltration. Gallbladder and biliary ducts: Cholecystectomy. Bones/joints: No acute skeletal abnormality or aggressive osseous lesion. Soft tissues: No acute soft tissue findings. Other findings: No acute findings in the included upper abdominal organs. IMPRESSION: 1. Airspace consolidation with air bronchograms in the left lower lobe and associated bronchial wall thickening. Consistent with left lower lobe bronchopneumonia. 2. Enlarged left hilar lymph nodes measuring up to 1.2 cm. Likely reactive.
[2024-10-19] MEDS: LACTATED RINGERS 1000ML 1,000 ML 999 ML IV (16:29)
[2024-10-19] MEDS: 0.9 % SODIUM CHLORIDE 50 ML VIAL IV (16:53)
[2024-10-19] MEDS: SODIUM CHLORIDE 0.9% 10ML SYR (RAD ONLY) 10 ML IV (16:53)
[2024-10-19] MEDS: IOPAMIDOL-370 (76%);100ML BOTTLE 70 ML IV (16:53)
[2024-10-19] MEDS: CEFTRIAXONE 1 GM 1 GM in 0.9 % SODIUM CHLORIDE 50 ML IV (17:42)
--- NOTE | 2024-10-19 18:51 | PC.NURSE ---
i ambulated pt in [place]. saturation remained above 90% but heart rate reached 150. [employer] notified. speaking with pt currently
--- NOTE | 2024-10-19 19:44 | P.HP_ITS ---
<Statement entered by Troy Franks MD - 10/23/24 19:49> Personally evaluated patient and agree with plan of care as outlined by the [facility]. History of Present Illness *Admission Date: 10/19/24 *Reason for visit:: Not feeling well *History of present illness: This is a 34-year-old female with past medical history significant for 1 para 1, anemia, migraine headache, and nephrolithiasis who presents with a chief complaint of shortness of breath. Due to patient's symptoms, she presented to the emergency room for evaluation. While in emergency room, patient's heart rate was elevated, patient's oxygen saturation decreased to the upper 80s with activity, and CTA of the chest revealed a left lower lobe pneumonia. Due to these findings, patient is being admitted for further management During my evaluation patient, patient states she has not felt well for x 1 week. She states her symptoms started on Wednesday with nonproductive cough, subjective fever of 101, and bodyaches. Patient states that she started to experience wheezing on Wednesday but got better Wednesday; however, her shortness of breath worsened on Wednesday. She reports not being in contact with any sick individuals or recent travel out of the [facility]/[place]. She voices her daughter started having symptomology after she was sick. Patient is a non- smoker and she is currently denying any chest pain, lightheadedness, dizziness, nausea, vomiting, PND, orthopnea, lower extremity swelling, or diarrhea. CT scan of the chest revealed airspace consolidation with air bronchograms in the left lower lobe and associated bronchial wall thickening consistent with left lower lobe bronchopneumonia and enlarged left hilar lymph nodes measuring up to 1.2 cm likely reactive. Additional pertinent values obtained include a sodium 134, bicarb 17, blood glucose of 119, AST of 73, and alkaline phosphate 167. [facility] Disclaimer: The information contained in this section may have been updated after the patient was seen, as this information can be updated by other users. Medical History (Updated 10/19/24 @ 19:52 by Giovani Martin APRN) History of anemia Urinary tract infection Kidney stone Migraine Surgical History (Updated 12/31/23 @ 19:38 by Valeria Berry RN) History of tubal ligation History of cholecystectomy Social History Smoking Status: Never smoker alcohol intake: never current occupational status: other Travel in the last 8 weeks: None housing: house Have you lived/traveled outside US in past 30 days?: No Contact w/someone who lives/traveled outside US past 30 days?: No Exposure to someone with infectious disease in past 14 days?: No Do you have a fever (greater than 100.4 F or 38 C)?: No Have you tested positive for COVID-19: No Exposed to someone with COVID-19 in past 14 days?: No Do you have a sore throat?: No Do you have a cough?: No Do you have any weakness?: No Do you have any diarrhea?: No Are you experiencing any unusual bleeding?: No Do you have any muscle aches/pain?: No Do you have any abdominal pain?: No Are you experiencing loss of taste or smell?: No Other Medical History Have you received the Flu Vaccine for this season: No Have you received the Pneumonia Vaccine: No Review of Systems Review of Systems Review of systems:: pertinent systems reviewed and negative unless documented below Constitutional Constitutional: Reports system reviewed and no additional complaints, except as documented Eyes Eyes: Reports system reviewed and no additional complaints, except as documented ENT Ears, Nose, Mouth, and Throat: Reports system reviewed and no additional com plaints, except as documented *Cardiovascular Cardiovascular: Reports dyspnea and Reports dyspnea on exertion *Respiratory Respiratory: Reports chest congestion, Reports cough, Reports dyspnea, Reports dyspnea on exertion and Reports wheezing *Gastrointestinal Gastrointestinal: Reports system reviewed and no additional complaints, except as documented *Genitourinary Genitourinary: Reports system reviewed and no additional complaints, except as documented *Musculoskeletal Musculoskeletal: Reports system reviewed and no additional complaints, except as documented Integumentary/Breasts Skin/Breast: Reports system reviewed and no additional complaints, except as documented *Neurologic Neurologic: Reports system reviewed and no additional complaints, except as documented Psychiatric Psychiatric: Reports system reviewed and no additional complaints, except as documented Endocrine Endocrine: Reports system reviewed and no additional complaints, except as documented Hematologic/Lymphatic Hematologic/Lymphatic: Reports system reviewed and no additional complaints, except as documented Allergic/Immunologic Allergic/Immunologic: Reports system reviewed and no additional complaints, except as documented and Reports wheezing Meds Home Medications and Allergies Home Medications ?Medication ?Instructions ?Recorded ?Confirmed ?Type azithromycin 250 mg tablet 250 mg PO UD DOSE PK #6 tabs 07/18/24 Rx (Zithromax) lqhfyhawmnacuao-hufyzvpjstfekdy-CJ 5 ml PO Q6H PRN Cough #240 mL 07/18/24 Rx 2 mg-30 mg-10 mg/5 mL oral syrup (Bromfed DM) ergocalciferol (vitamin D2) 1,250 1,250 mcg PO WEEKLY 07/18/24 07/18/24 History mcg (50,000 unit) capsule metformin 500 mg tablet,extended 1,500 mg PO PM 07/18/24 07/18/24 History release 24 hr prednisone 10 mg tablet 10 mg PO BID 3 days #6 tabs 07/18/24 Rx relugolix 40 mg-estradiol 1 1 tab PO DAILY 07/18/24 07/18/24 History mg-norethindrone acetate 0.5 mg tablet ([place]) amoxicillin 500 mg tablet 1,000 mg (2 x 500 mg) PO TID #30 10/19/24 Rx tabs azithromycin 250 mg tablet 250 mg PO DAILY 5 days #5 tabs 10/19/24 Rx (Zithromax Z-Saleem) New Prescriptions to Start Prescriptions: amoxicillin Celina Klein azithromycin [Zithromax Z-Saleem] Celina Klein Allergies Allergy/AdvReac Type Severity Reaction Status Date / Time No Known Allergies Allergy Verified 07/11/23 10:07 Exam Data for Last 24 hours Vital signs and Labs for Last 24 Hours: Temp Pulse Resp BP Pulse Ox O2 Del Method 98.3 F 121 H 17 101/63 L 98 Room Air 10/19/24 15:24 10/19/24 18:30 10/19/24 18:30 10/19/24 18:30 10/19/24 18:30 10/19/24 18:30 Laboratory Results - last 24 hr 10/19/24 15:28: SARS-CoV-2 (PCR) Not detected, Influenza A Untype (PCR) Not detected, Influenza Type B (PCR) Not detected 10/19/24 15:59: WBC 7.9, RBC 4.80, Hgb 13.5, Hct 39.5, MCV 82.3, MCH 28.1, MCHC 34.2, RDW 12.5, Plt Count 258, MPV 9.9, Neut % (Auto) 61.6, Lymph % (Auto) 29.1, [place] % (Auto) 7.3, Eos % (Auto) 1.3, Baso % (Auto) 0.4, Neut # (Auto) 4.9, Lymph # (Auto) 2.3, [place] # (Auto) 0.6, Eos # (Auto) 0.1, Baso # (Auto) 0.0 10/19/24 16:04: Sodium 134 L, Potassium 3.8, Chloride 104, Carbon Dioxide 17 L, Anion Gap 16.8 H, BUN 8, Creatinine 0.60, Estimated Creat Clear 163, Estimated GFR 115, Est GFR ( Amer) 139, Glucose 119 H, Calcium 9.4, Total Bilirubin 0.4, AST 73 H, ALT 76, Alkaline Phosphatase 167 H, Total Protein 7.9, Albumin 4.6, Globulin 3.3 H, Albumin/Globulin Ratio 1.4 I & O for Last 24 hours: Intake & Output 10/16/24 10/17/24 10/18/24 10/19/24 23:59 23:59 23:59 23:59 Weight 77.564 kg Constitutional Constitutional: mild distress *Routine HEENT Exam Head: Present normocephalic and atraumatic Eye: Present EOMI, PERRL and normal accommodation ENT: Present mucous membranes moist and mucous membranes dry *Routine Neck Exam Neck: Present supple, full ROM and trachea midline *Routine Respiratory Exam Respiratory: Present rhonchi, wheezes, able to speak in complete sentences and symmetric chest movement *Routine Cardiovascular Exam Cardiovascular: Present RRR, Normal S1, Normal S2 and tachycardia *Routine Abdominal Exam Abdominal: Present soft and normoactive bowel sounds *Routine Rectal Exam Rectal:: deferred *Routine Genitalia Exam Genitalia:: deferred *Routine Extremities Exam Extremities: Present full ROM, pulses intact and normal capillary refill Routine Back/Spine/Pelvis Exam Back/Spine: Present full ROM *Routine Skin Exam Skin: Present intact, dry, warm and normal turgor *Routine Neurological Exam Neurological: Present alert, oriented X3, CN II-XII intact, moving all extremities and normal speech Routine Psychiatric Exam Psychiatric: Present normal affect, normal thought process, cooperative, good insight and good judgment H&P: Result Impressions 34-year-old female presents with shortness of breath, cough, and fever diagnosed with left lower lobe pneumonia Assessment and Plan *Assessment and plan (1) Pneumonia: Status: Acute Qualifiers: Pneumonia type: due to unspecified organism Laterality: left Lung location: lower lobe of lung Qualified Code(s): J18.9 - Pneumonia, unspecified organism Category: Medical Code(s): J18.9 - Pneumonia, unspecified organism (2) Acute hypoxic respiratory failure: Status: Acute Category: Medical Code(s): J96.01 - Acute respiratory failure with hypoxia (3) Metabolic acidosis: Status: Acute Category: Medical Code(s): E87.20 - Acidosis, unspecified (4) Sinus tachycardia: Status: Acute Category: Medical Code(s): R00.0 - Tachycardia, unspecified (5) Elevated liver enzymes: Status: Acute Category: Medical Code(s): R74.8 - Abnormal levels of other serum enzymes Plan Assessment: Community-acquired left lower lobe pneumonia -1 g Rocephin IV daily -Patient received 500 mg of azithromycin once; we will continue 250 mg of azithromycin daily -Obtain sputum culture -Obtain procalcitonin -Mucinex D p.o. twice daily x 3 days Acute hypoxic respiratory failure -Patient is hypoxic with activity -Will place patient on supplemental oxygen of 2 L to maintain oxygen saturation greater 94% -1.25 mg Xopenex 3 times daily as needed shortness of breath -40 mg of prednisone p.o. daily Metabolic acidosis -Will monitor bicarb daily with CMP -If no improvement will consider bicarb supplementation Sinus tachycardia -Most likely in the setting of acute illness -This is compensatory -Will hold off on any AV chava blocking medication -Will give volume -Will give supplemental oxygen Elevated liver enzymes -Patient to follow-up as an outpatient -Will monitor daily with CMP Plan: Admit patient to the Medr unit Activity as tolerated Regular diet CBC/CMP daily Normal saline at 125 mL is now 40 mg Lovenox subcu daily for DVT prophylax 5 mg [place] p.o. every 4 hours for moderate pain 4 mg Zofran IV push to 8 hours. Nausea vomit Full code I will discuss this case with attending physician Dr. Franks and a look forward to more input
[2024-10-19] MEDS: 0.9 % SODIUM CHLORIDE 1000ML 1,000 ML 125 ML IV (20:45)
--- NOTE | 2024-10-19 20:47 | PC.NURSE ---
pt arrived to floor via wheelchair from ED at 1955.
[2024-10-20] VITALS (7 sets, daily range): BP systolic 118–129; BP diastolic 73–88; PULSE 80–112; RESP 18; TEMP 36.4–36.6; O2SAT 96–97; BMI 28.5
[2024-10-20] MEDS: SODIUM CHLORIDE 3% 15ML NEB 3 ML IH (00:22)
--- NOTE | 2024-10-20 03:10 | PC.NURSE ---
Addendum entered by Yoselin Herman RN 10/20/24 05:00: At this time, the patient's heart rate was observed to be within normal findings (80 bpm). Original Note: Ms Aliya Cohen was newly admitted on behalf of the following documented diagnosis: pneumonia. Admission assessments and home medication reconciliation was completed during this shift. Upon initial assessment, the patient explained that she has been experiencing flu-like symptoms and worsening shortness of breath since Wednesday. She also added that during moderate activity, heart palpitations would occur in addition to shortness of breath. The patient's heart rate has remained tachycardic per vital sign assessments this shift. She reports having a dry, nonproductive cough; a sputum sample has not been able to be collected thus far due to current lack of sputum production. Oxygen saturations have remained > 90% on room air. Afebrile; other vital signs stable. Upon auscultation of her lungs, coarse crackles could be heard in the left lower lobes + posterior bases; her right lobes' sounds were clear throughout. Patient expressed having a poor appetite since the onset of her symptoms, but she has been able to tolerate bland foods. Saltine crackers, fresh ice water, and a Pepsi were given at bedtime to encourage intake. Normal saline continues to infuse at 125 mL/hr. She has been ambulating independently in her room/to the bathroom without any difficulties, as tolerated. At this time, the patient is resting in bed using her personal phone. No acute changes noted thus far. Call light within reach.
[2024-10-20] MEDS: 0.9 % SODIUM CHLORIDE 1000ML 1,000 ML 125 ML IV (05:10)
[2024-10-20 06:27] LABS: Hematocrit 35.4 % (37.0-47.0); Lymphocytes # 0.8 K/mm3 (0.7-4.5); Mean Corpuscular HGB Conc 33.3 g/dL (31.8-35.4); Mean Corpuscular Hemoglobin 27.8 pg (27.0-31.2); Mean Corpuscular Volume 83.3 fl (81-99); Monocytes # 0.2 K/mm3 (0.1-1.0); Monocytes % 3.5 % (1.7-9.3); Neutrophils # 3.4 K/mm3 (1.8-7.8); Neutrophils % 78.3 % (37.0-80.0); Platelet Count 253 K/mm3 (142-424); Red Blood Count 4.25 M/mm3 (4.20-5.40); Red Cell Distribution Width 12.6 % (11.5-17.5); White Blood Count 4.3 K/mm3 (4.8-10.8)
[2024-10-20 06:56] LABS: Alanine Aminotransferase 60 U/L (12-78); Albumin Level 3.9 g/dl (3.5-5.0); Albumin/Globulin Ratio 1.3 (1.1-1.8); Alkaline Phosphatase 130 U/L (38-126); Anion Gap 13.2 mEq/L (5-15); Aspartate Amino Transferase 51 U/L (14-36); Bilirubin,Total 0.2 mg/dl (0.2-1.3); Blood Urea Nitrogen 6 mg/dl (7-17); Carbon Dioxide 19 mmol/L (22.0-30.0); Chloride 111 mmol/L (98-107); Creatinine Clearance Estimated 196 mL/min (50-200); Estimated Glomerular Filt Rate 142 ml/min (>60); GFR (African American) 172 ML/MIN (>60); Glucose 128 mg/dl (74-100); Potassium 4.2 mmoL/L (3.5-5.1); Sodium 139 mmol/L (136-145); Total Protein,Serum 6.9 g/dl (6.3-8.2)
[2024-10-20 06:59] LABS: Hemoglobin 11.9 g/dL (12.2-16.2)
[2024-10-20 07:09] LABS: Procalcitonin 0.057 ng/mL (0.0-2.0)
[2024-10-20] MEDS: GUAIFENESIN/PSEUDOEPHE 600/60MG TAB.ER.12H 1 EACH PO (08:42)
[2024-10-20] MEDS: AZITHROMYCIN 250MG TABLET 250 MG PO (08:43)
[2024-10-20] MEDS: predniSONE 20MG TAB 40 MG PO (08:43)
[2024-10-20] MEDS: CEFTRIAXONE SODIUM 1 GM in 0.9 % SODIUM CHLORIDE 50 ML IV (08:43)
[2024-10-20] MEDS: LEVALBUTEROL 1.25MG/3ML NEB 1.25 MG IH (10:34)
--- NOTE | 2024-10-20 10:53 | PC.NURSE ---
Walk test on RA 99%.
--- NOTE | 2024-10-20 13:52 | P.DS_ITS ---
General Admission date:: 10/19/24 HPI HPI HPI: This is a 34-year-old female with past medical history significant for 1 para 1, anemia, migraine headache, and nephrolithiasis who presents with a chief complaint of shortness of breath. Due to patient's symptoms, she presented to the emergency room for evaluation. While in emergency room, patient's heart rate was elevated, patient's oxygen saturation decreased to the upper 80s with activity, and CTA of the chest revealed a left lower lobe pneumonia. Due to these findings, patient is being admitted for further management During my evaluation patient, patient states she has not felt well for x 1 week. She states her symptoms started on Wednesday with nonproductive cough, subjective fever of 101, and bodyaches. Patient states that she started to experience whe ezing on Wednesday but got better Wednesday; however, her shortness of breath worsened on Wednesday. She reports not being in contact with any sick individuals or recent travel out of the [facility]/[place]. She voices her daughter started having symptomology after she was sick. Patient is a non- smoker and she is currently denying any chest pain, lightheadedness, dizziness, nausea, vomiting, PND, orthopnea, lower extremity swelling, or diarrhea. CT scan of the chest revealed airspace consolidation with air bronchograms in the left lower lobe and associated bronchial wall thickening consistent with left lower lobe bronchopneumonia and enlarged left hilar lymph nodes measuring up to 1.2 cm likely reactive. Additional pertinent values obtained include a sodium 134, bicarb 17, blood glucose of 119, AST of 73, and alkaline phosphate 167. Hospital Course Hospital Course Hospital Course: Aliya Cohen is a 34-year-old female who presented with shortness of breath and was admitted for exertional acute hypoxic respiratory failure secondary to community-acquired pneumonia. #Acute hypoxic respiratory failure #Community-acquired pneumonia #Sepsis ? Presented with shortness of breath, found to have LLL bronchopneumonia and CTA chest. ? Initially 88% with exertion, requiring 2 L nasal cannula. Initially leukopenic with tachycardia. Improving. ? Clinically improved with ceftriaxone, azithromycin. Now saturating 99% on room air with exertion. ? Discharged with Augmentin, doxycycline for 5 more days, and prednisone. ? Will follow-up with PCP within 1 week. Exam Data for Last 24 hours Vital signs and Labs for Last 24 Hours: Temp Pulse Resp BP Pulse Ox O2 Del Method 98 F 98 H 18 123/75 97 Room Air 10/20/24 12:00 10/20/24 12:00 10/20/24 12:00 10/20/24 12:00 10/20/24 12:00 10/20/24 12:00 Laboratory Results - last 24 hr 10/19/24 15:28: SARS-CoV-2 (PCR) Not detected, Influenza A Untype (PCR) Not detected, Influenza Type B (PCR) Not detected 10/19/24 15:59: WBC 7.9, RBC 4.80, Hgb 13.5, Hct 39.5, MCV 82.3, MCH 28.1, MCHC 34.2, RDW 12.5, Plt Count 258, MPV 9.9, Neut % (Auto) 61.6, Lymph % (Auto) 29.1, [place] % (Auto) 7.3, Eos % (Auto) 1.3, Baso % (Auto) 0.4, Neut # (Auto) 4.9, Lymph # (Auto) 2.3, [place] # (Auto) 0.6, Eos # (Auto) 0.1, Baso # (Auto) 0.0 10/19/24 16:04: Sodium 134 L, Potassium 3.8, Chloride 104, Carbon Dioxide 17 L, Anion Gap 16.8 H, BUN 8, Creatinine 0.60, Estimated Creat Clear 163, Estimated GFR 115, Est GFR ( Amer) 139, Glucose 119 H, Calcium 9.4, Total Bilirubin 0.4, AST 73 H, ALT 76, Alkaline Phosphatase 167 H, Total Protein 7.9, Albumin 4.6, Globulin 3.3 H, Albumin/Globulin Ratio 1.4 10/20/24 05:55: WBC 4.3 L D, RBC 4.25, Hgb 11.9 L D, Hct 35.4 L, MCV 83.3, MCH 27.8, MCHC 33.3, RDW 12.6, Plt Count 253, MPV 10.0, Neut % (Auto) 78.3, Lymph % (Auto) 18.0, [place] % (Auto) 3.5, Eos % (Auto) 0.0 L, Baso % (Auto) 0.0 L, Neut # (Auto) 3.4, Lymph # (Auto) 0.8, [place] # (Auto) 0.2, Eos # (Auto) 0.0, Baso # (Auto) 0.0, Sodium 139, Potassium 4.2, Chloride 111 H, Carbon Dioxide 19 L, Anion Gap 13.2, BUN 6 L, Creatinine 0.50 L, Estimated Creat Clear 196, Estimated GFR 142, Est GFR ( Amer) 172 D, Glucose 128 H, Calcium 9.0, Total Bilirubin 0.2, AST 51 H D, ALT 60, Alkaline Phosphatase 130 H, Total Protein 6.9, Albumin 3.9 D, Globulin 3.0, Albumin/Globulin Ratio 1.3, Procalcitonin 0.057 I & O for Last 24 hours: Intake & Output 10/17/24 10/18/24 10/19/24 10/20/24 23:59 23:59 23:59 23:59 Intake Total 2385 / 2385 Output Total 0 / 0 0 / 0 Balance 0 / 1498 2385 / 2385 Weight 77.564 kg 77.564 kg Constitutional Constitutional: no acute distress *Routine HEENT Exam Head: Present normocephalic Eye: Present EOMI and PERRL ENT: Present mucous membranes moist *Routine Neck Exam Neck: Present supple; Absent lymphadenopathy *Routine Respiratory Exam Respiratory: Present CTA bilaterally *Routine Cardiovascular Exam Cardiovascular: Present RRR *Routine Abdominal Exam Abdominal: Present soft and normoactive bowel sounds; Absent tenderness *Routine Extremities Exam Extremities: Absent cyanosis, clubbing or edema *Routine Skin Exam Skin: Present warm; Absent rash *Routine Neurological Exam Neurological: Present alert and oriented X3 Results Data Completed and Pending Labs on day of discharge: Labs from last 24 hours 10/20/24 10/19/24 10/19/24 05:55 16:04 15:59 WBC 4.3 L D 7.9 RBC 4.25 4.80 Hgb 11.9 L D 13.5 Hct 35.4 L 39.5 MCV 83.3 82.3 MCH 27.8 28.1 MCHC 33.3 34.2 RDW 12.6 12.5 Plt Count 253 258 MPV 10.0 9.9 Neut % (Auto) 78.3 61.6 Lymph % (Auto) 18.0 29.1 [place] % (Auto) 3.5 7.3 Eos % (Auto) 0.0 L 1.3 Baso % (Auto) 0.0 L 0.4 Neut # (Auto) 3.4 4.9 Lymph # (Auto) 0.8 2.3 [place] # (Auto) 0.2 0.6 Eos # (Auto) 0.0 0.1 Baso # (Auto) 0.0 0.0 Sodium 139 134 L Potassium 4.2 3.8 Chloride 111 H 104 Carbon Dioxide 19 L 17 L Anion Gap 13.2 16.8 H BUN 6 L 8 Creatinine 0.50 L 0.60 Estimated Creat Clear 196 163 Estimated GFR 142 115 Est GFR ( Amer) 172 D 139 Glucose 128 H 119 H Calcium 9.0 9.4 Total Bilirubin 0.2 0.4 AST 51 H D 73 H ALT 60 76 Alkaline Phosphatase 130 H 167 H Total Protein 6.9 7.9 Albumin 3.9 D 4.6 Globulin 3.0 3.3 H Albumin/Globulin Ratio 1.3 1.4 Procalcitonin 0.057 SARS-CoV-2 (PCR) Influenza A Untype (PCR) Influenza Type B (PCR) 10/19/24 15:28 WBC RBC Hgb Hct MCV MCH MCHC RDW Plt Count MPV Neut % (Auto) Lymph % (Auto) [place] % (Auto) Eos % (Auto) Baso % (Auto) Neut # (Auto) Lymph # (Auto) [place] # (Auto) Eos # (Auto) Baso # (Auto) Sodium Potassium Chloride Carbon Dioxide Anion Gap BUN Creatinine Estimated Creat Clear Estimated GFR Est GFR ( Amer) Glucose Calcium Total Bilirubin AST ALT Alkaline Phosphatase Total Protein Albumin Globulin Albumin/Globulin Ratio Procalcitonin SARS-CoV-2 (PCR) Not detected Influenza A Untype (PCR) Not detected Influenza Type B (PCR) Not detected DS: Diagnosis Discharge Diagnosis (1) Pneumonia: Status: Acute Code(s): J18.9 - Pneumonia, unspecified organism Qualifiers: Laterality: left Lung location: lower lobe of lung Pneumonia type: due to unspecified organism Qualified Code(s): J18.9 - Pneumonia, unspecified organism (2) Acute hypoxic respiratory failure: Status: Acute Code(s): J96.01 - Acute respiratory failure with hypoxia (3) Metabolic acidosis: Status: Acute Code(s): E87.20 - Acidosis, unspecified (4) Sinus tachycardia: Status: Acute Code(s): R00.0 - Tachycardia, unspecified (5) Elevated liver enzymes: Status: Acute Code(s): R74.8 - Abnormal levels of other serum enzymes Meds Home Medications and Allergies Home Medications ?Medication ?Instructions ?Recorded ?Confirmed ?Type amitriptyline 10 mg tablet 30 mg PO HS 10/19/24 10/19/24 History amoxicillin 500 mg-potassium 1 tab PO BID 5 days #10 tabs 10/20/24 Rx clavulanate 125 mg tablet (Augmentin) doxycycline monohydrate 100 mg 100 mg PO BID 5 days #10 caps 10/20/24 Rx capsule prednisone 20 mg tablet 40 mg (2 x 20 mg) PO DAILY 3 days 10/20/24 Rx #6 tabs New Prescriptions to Start Prescriptions: amoxicillin-pot clavulanate [Augmentin] Troy Franks doxycycline monohydrate Troy Franks prednisone Troy Franks Allergies Allergy/AdvReac Type Severity Reaction Status Date / Time No Known Allergies Allergy Verified 07/11/23 10:07 Discharge Plan Disposition Patient Disposition: Home, Self-Care Condition: Fair Follow up Plan Follow up with: Zarina Guerrero PA [Primary Care Provider] - 10/31/24 3:00 pm Prescriptions/Medication Reconciliation: New prednisone 20 mg Tablet 40 mg PO DAILY 3 Days Qty: 6 0RF doxycycline monohydrate 100 mg capsule 100 mg PO BID 5 Days Qty: 10 0RF amoxicillin-pot clavulanate [Augmentin] 500-125 mg tablet 1 tab PO BID 5 Days Qty: 10 0RF Continued amitriptyline 10 mg tablet 30 mg PO HS Problem Reconciliation Problems Reviewed?: Yes Patient Discharge Instructions Print Language: Ukrainian Providers Primary Care Provider: Zarina Guerrero Admit Provider: Troy Franks Attending Provider: Troy Franks
--- NOTE | 2024-10-24 11:21 | SW/DCPLANNER ---
Phoned patient x2. Patient did not answer and i left messages with name and call back number. Armani Liu
== END 2024-10-20 15:12 | disposition home or self-care (01) ==
LOC: ER 20:37 → 2ND 20:37
PROVIDERS: Nurse Practitioner; Nurse Practitioner Family; Admitting Provider Student in an Organized Health Care Education/Training Program; Emergency Provider Emergency Medicine; PCP Physician Assistant; Visit Provider Student in an Organized Health Care Education/Training Program
DX: J18.9 Pneumonia, unspecified organism (principal); J96.01 Acute respiratory failure with hypoxia; E87.20 Acidosis, unspecified; R00.0 Tachycardia, unspecified; R74.8 Abnormal levels of other serum enzymes; Z79.899 Other long term (current) drug therapy; R06.02 Shortness of breath
CPT/HCPCS: 36415; 71046; 71275; 80053; 84145; 85025; 87636; 93005; 94640; 99291; G0378; J0696; J7030; J7120; J7614; J7620; Q9967

== ENCOUNTER 2025-03-12 09:57 | Outpatient (CLI) | payer BC, SELFPAY ==
--- NOTE | 2025-03-12 10:00 | US_ITS ---
PROCEDURE: US TRANSVAGINAL CLINICAL INDICATION: Needs for AUB COMPARISON: CT CT ABDOMEN PELVIS W CON from 02/26/2023 FINDINGS: Transvaginal sonographic images of the pelvis were obtained. UTERUS: 7.2cm x 5.7 cmx 4.4cm retroverted with a combined endometrial thickness of 6.5mm. There is a small posterior fibroid measuring 0.8 cm x 0.6 cm x 1.0 cm. It appears to be submucosal and slightly impinges upon the endometrium. There is a 2nd fibroid posteriorly measuring 1.4 cm x 0.9 cm x 1.3 cm. It is submucosal as well. LEFT OVARY: 3.4cmx2.4cmx2.4cm with a volume of 10ml. There are multiple small peripheral follicles giving the ovary a polycystic appearance. RIGHT OVARY: 3.0cmx 2.8 cmx2.1cm with a volume of 9.5ml. There are multiple small peripheral follicles giving the ovary a polycystic appearance. The largest follicle measures 1.1 cm. Both ovaries are seen and appear polycystic. Doppler flow to both ovaries are seen. There is trace fluid in the cul-de-sac. IMPRESSION: 1. Retroverted uterus normal in shape and size. The endometrium measures 6.5 mm. 2. Within the posterior myometrium there are 2 fibroids. They measure 1.4 cm and 1.0 cm. One of the fibroids appears to impinge upon the endometrial cavity. 3. Both ovaries are seen and appear polycystic. 4. There is trace fluid in the cul-de-sac Dictated by: Fuentes Peres MD 03/12/2025 15:47 Fuentes Peres MD in [place] 03/12/2025 15:47
--- OUTSIDE RECORDS SUMMARY | 2025-03-12 10:00 | XMS_ITS | Encounter Summary ---
Author Organization [facility] ([place], [place], [place], [place]) Address [address] [place] [address] Care Team Providers Care Critical Care Paramedic Name Role Phone Annette Alonzo MD Primary Care Provider [phone] Encounter Details Date Type Department Care Team (Late st Contact Info) Description 02/03/2021 Transcribed Document [facility] [address] [place] [address] ProviderNorman MD [address] [place] [address] Social History Tobacco Use Types Packs/Day Years Used Date Smoking Tobacco: Never Assessed Comments Unknown Sex and Gender Information Value Date Recorded Sex Assigned at Not on file Legal Sex Female 1:09 PM CDT Gender Identity Not on file Sexual Orientation Not on file documented as of this encounter Miscellaneous Notes * Cerner Conversion Note - Norman ProviderMD - 02/03/2021 9:41 AM CDT [facility] [address], [place] [address] Patient Copy Patient Information: Name: ALIYA SANCHES Current Date: 02/03/2021 09:41:49 : 1990 Patient Address: [address] [place] [address] [facility] [id number] Patient Attending Physician: ANNETTE ALONZO MD-OBG Primary Care Provider: ANNETTE ALONZO MD-OBG Primary Care Provider Discharge Diagnosis: 1:31 weeks gestation of ; 2:UTI (urinary tract infection) during ; 3:Kidney stone complicating ; 4:Right flank pain Weight on Admission: 162 lb, 0 oz Comment: Follow-up Instructions: With: Address: When: ANNETTE ALONZO [address], [address] [place] [address] Business (1) Within 2 to 3 days Comments: keep the already scheduled one Discharge Instructions: Immunizations Documented During Stay: No Immunizations Found Heart Failure Discharge Instructions (if any): Stroke Related Discharge Instructions (if any): Warfarin Related Discharge Instructions (if any): Final Medication List: Other Medications diphenhydrAMINE (Benadryl 25 mg oral capsule) 1 Capsule(s) Oral once a day (at bedtime) as needed as needed for insomnia. Patient Allergies: No Known Allergies Medication Instructions: Take your medications faithfully. Do NOT skip medication. Do NOT stop taking medications without the direction of a physician. Carry a list of your medications with you at all times, and take this medication list with you to your first follow up visit. Report any side effects. Avoid herbal remedies unless discussed with your physician. As part of your treatment plan, your physician may have prescribed a limited course of a controlled substance. This medication may be given to help people with moderate or severe pain or for other medical conditions, but there are risks involved with treatment. Common side effects may include nausea, constipation, drowsiness, sweating, itching, dry mouth, and rash. More serious side effects may include cognitive and motor impairment, like problems with thinking, concentrating, alertness, and movement (e.g. slowed reflexes), and driving and operating heavy machinery can be dangerous. It is important for you to talk to your physician if you have these side effects or questions. These controlled substances can produce physical dependence and be habit-forming if taken for an extended period of time, which means that the body has gotten used to them and may experience withdrawal symptoms if they are abruptly stopped. Withdrawal symptoms can include runny nose, sweating, goose bumps, diarrhea, abdominal cramping, rapid heartbeat, difficulty sleeping, and nervousness. CIGARETTE SMOKING: The facts are clear, cigarette smoking will shorten your life. Smoking can cause many illnesses along the way. As a healthcare provider, we recommend that you stop smoking. Assistance with quitting is available by contacting 9-800-KLGF-NOW. This is a free resource providing counseling, support, and referral. Or you may contact your personal physician. 4 WAYS TO GET AHEAD OF SEPSIS SEPSIS is a MEDICAL EMERGENCY. Time matters! Infections put you and your family at risk for a life-threatening condition called sepsis. Sepsis is the body???s extreme response to an infection. It is life-threatening, and without timely treatment, sepsis can rapidly lead to tissue damage, organ failure, and . Sepsis happens when an infection you already have???in your skin, lungs, urinary tract or somewhere else???triggers a chain reaction throughout your body. 1 PREVENT INFECTIONS Take good care of chronic conditions. Talk to your doctor about getting the recommended vaccines. 2 PRACTICE GOOD HYGIENE Wash your hands frequently. Keep cuts or open sores clean and covered until they are healed. 3 KNOW THE SYMPTOMS Confusion or disorientation Shortness of breath High heart rate Fever, shivering, or feeling very cold Extreme pain or discomfort Clammy or sweaty skin 4 ACT FAST Get medical care IMMEDIATELY if you suspect sepsis or if you have an infection that???s not getting better or is getting worse. To learn more about sepsis and how to prevent infections, visit www.cdc.gov/sepsis. STROKE is an EMERGENCY [employer] ACT F.A.S.T! FACE ?? Facial droop ?? Uneven smile ARM ?? Arm numbness ?? Arm weakness SPEECH ?? Slurred speech ?? Difficulty speaking or understanding TIME ?? Call 911 and get to the hospital immediately Have the ambulance go to the nearest stroke center. STROKE Risk Factors High blood pressure High cholesterol Heart Disease Diabetes Smoking Heavy alcohol use Physical inactivity and obesity Atrial Fibrillation (irregular heartbeat) Family history of stroke Reminder: Be sure to sign up for the [email or web address] patient portal, which gives you 01/03 access to your medical information ??? including these discharge instructions ??? using your computer, smartphone, or tablet. Just go to [employer] to get started. Questions? Call . [facility] would like to thank you for allowing us to assist you with your healthcare needs. VERÓNICA Hall ERIN MARIE, (or service center representative) have received the above patient education materials/instructions and have verbalized understanding: Patient Signature _ Date/Time Patient Network Operations Analyst Signature (if needed) Date/Time Clinician/Hospital Network Operations Analyst Signature (if needed) Date/Time documented in this encounter Plan of Treatment Not on file documented as of this encounter Visit Diagnoses Not on filedocumented in this encounter Care Teams Critical Care Paramedic Relationship Specialty Start Date End Date Annette Alonzo MD [address] [place] [address] PCP - General Obstetrics and Gynecology 02/26/23 documented as of this encounter
--- OUTSIDE RECORDS SUMMARY | 2025-03-12 10:00 | XMS_ITS | Encounter Summary ---
Author Organization [employer] ([place], [place], [place], [place]) Address [address] [place] [address] Care Team Providers Care Sound Recordist Name Role Phone Annette Alonzo MD Primary Care Provider [phone] Encounter Details Date Type Department Care Team (Late st Contact Info) Description 02/03/2021 Transcribed Document [facility] [place] [address] [place] [address] ProviderNorman MD [address] [place] [address] Social History Tobacco Use Types Packs/Day Years Used Date Smoking Tobacco: Never Assessed Comments Unknown Sex and Gender Information Value Date Recorded Sex Assigned at Not on file Legal Sex Female 1:09 PM CDT Gender Identity Not on file Sexual Orientation Not on file documented as of this encounter Miscellaneous Notes * Cerner Conversion Note - Norman ProviderMD - 02/03/2021 11:42 [place] [address] ALIYA SANCHES :1990 Visit Time:02/01/2021 Your Visit Summary Your Care Team Admitting Physician - ANNETTE ALONZO MD-OBG Attending Physician - ANNETTE ALONZO MD-OBG Primary Care Physician - ANNETTE ALONZO MD-OBG Referring Physician - SARI, MAGDALENE B, MD-OBG Your Diagnosis 31 weeks gestation of UTI (urinary tract infection) during Kidney stone complicating Right flank pain Encounter for supervision of normal first , unspecified trimester, Encounter for supervision of normal first , unspecified trimester What to do next Instructions From Your Care Team Diet after Discharge: Resume usual diet as tolerated, Do not drink any alcoholic beverages, Drink at least 8-10 glasses of water per day Activity after Discharge: As tolerated, Rest and relax today Driving after Discharge: May drive today May Return to Work/School: 02/03/21 Showering/Bathing: May shower Notify Provider of: worsening symptoms Discharge Activity: Discharge Activity: Activity as tolerated Diet: Discharge Diet: Resume usual diet as tolerated Follow-Up Appointments Follow Up with ANNETTE ALONZO When Within 2 to 3 days Comments keep the already scheduled one Where: [address] [facility] [place] [address] [place] [id number] [place] (1) Medications What How Much When Instructions Next Dose diphenhydrAMINE (Benadryl 25 mg oral capsule) 1 Capsule(s) Oral Once a day (at bedtime) as needed for as needed for insomnia Take your medications faithfully. Do NOT skip [...] cramping, rapid heartbeat, difficulty sleeping, and nervousness. Please dispose of unused and medications per your retail pharmacy guidance. Allergies No Known Allergies Immunizations This Visit No Immunizations Found Education Materials Dietary Guidelines to Help Prevent Kidney Stones Kidney stones are deposits of minerals and salts that form inside your kidneys. Your risk of developing kidney stones may be greater depending on your diet, your lifestyle, the medicines you take, and whether you have certain medical conditions. Most people can reduce their chances of developing kidney stones by following the instructions below. Depending on your overall health and the type of kidney stones you tend to develop, your dietitian may give you more specific instructions. What are tips for following this plan? Reading food labels ??? Choose foods with no salt added or low-salt labels. Limit your sodium intake to less than 1500 mg per day. ??? Choose foods with calcium for each meal and snack. Try to eat about 300 mg of calcium at each meal. Foods that contain 200???500 mg of calcium per serving include: ? 8 oz (237 ml) of milk, fortified nondairy milk, and fortified fruit juice. ? 8 oz (237 ml) of kefir, yogurt, and soy yogurt. ? 4 oz (118 ml) of tofu. ? 1 oz of cheese. ? 1 cup (300 g) of dried figs. ? 1 cup (91 g) of cooked broccoli. ? 1???3 oz can of sardines or mackerel. ??? Most people need 1000 to 1500 mg of calcium each day. Talk to your dietitian about how much calcium is recommended for you. Shopping ??? Buy plenty of fresh fruits and vegetables. Most people do not need to avoid fruits and vegetables, even if they contain nutrients that may contribute to kidney stones. ??? When shopping for convenience foods, choose: ? Whole pieces of fruit. ? Premade salads with dressing on the side. ? Low-fat fruit and yogurt smoothies. ??? Avoid buying frozen meals or prepared deli foods. ??? Look for foods with live cultures, such as yogurt and kefir. Cooking ??? Do not add salt to food when cooking. Place a salt shaker on the table and allow each person to add his or her own salt to taste. ??? Use vegetable protein, such as beans, textured vegetable protein (TVP), or tofu instead of meat in pasta, casseroles, and soups. Meal planning ??? Eat less salt, if told by your dietitian. To do this: ? Avoid eating processed or premade food. ? Avoid eating fast food. ??? Eat less animal protein, including cheese, meat, poultry, or fish, if told by your dietitian. To do this: ? Limit the number of times you have meat, poultry, fish, or cheese each week. Eat a diet free of meat at least 2 days a week. ? Eat only one serving each day of meat, poultry, fish, or seafood. ? When you prepare animal protein, cut pieces into small portion sizes. For most meat and fish, one serving is about the size of one deck of cards. ??? Eat at least 5 servings of fresh fruits and vegetables each day. To do this: ? Keep fruits and vegetables on hand for snacks. ? Eat 1 piece of fruit or a handful of berries with breakfast. ? Have a salad and fruit at lunch. ? Have two kinds of vegetables at dinner. ??? Limit foods that are high in a substance called oxalate. These include: ? Spinach. ? Rhubarb. ? Beets. ? Potato chips and kazakh fries. ? Nuts. ??? If you regularly take a diuretic medicine, make sure to eat at least 1???2 fruits or vegetables high in potassium each day. These include: ? Avocado. ? Banana. ? [place], prune, carrot, or tomato juice. ? Baked potato. ? Cabbage. ? Beans and split peas. General instructions ??? Drink enough fluid to keep your urine clear or pale yellow. This is the most important thing you can do. ??? Talk to your health care provider and dietitian about taking daily supplements. Depending on your health and the cause of your kidney stones, you may be advised: ? Not to take supplements with vitamin C. ? To take a calcium supplement. ? To take a daily probiotic supplement. ? To take other supplements such as magnesium, fish oil, or vitamin B6. ??? Take all medicines and supplements as told by your health care provider. ??? Limit alcohol intake to no more than 1 drink a day for non women and 2 drinks a day for men. One drink equals 12 oz of beer, 5 oz of wine, or 1?? oz of hard liquor. ??? Lose weight if told by your health care provider. Work with your dietitian to find strategies and an eating plan that works best for you. What foods are not recommended? Limit your intake of the following foods, or as told by your dietitian. Talk to your dietitian about specific foods you should avoid based on the type of kidney stones and your overall health. Grains Breads. Bagels. Rolls. Baked goods. Salted crackers. Cereal. Pasta. Vegetables Spinach. Rhubarb. Beets. Canned vegetables. Pickles. Olives. Meats and other protein foods Nuts. Nut butters. Large portions of meat, poultry, or fish. Salted or cured meats. Deli meats. Hot dogs. Sausages. Dairy Cheese. Beverages Regular soft drinks. Regular vegetable juice. Seasonings and other foods Seasoning blends with salt. Salad dressings. Canned soups. Soy sauce. Ketchup. Barbecue sauce. Canned pasta sauce. Casseroles. Pizza. Lasagna. Frozen meals. Potato chips. [place] fries. Summary ??? You can reduce your risk of kidney stones by making changes to your diet. ??? The most important thing you can do is drink enough fluid. You should drink enough fluid to keep your urine clear or pale yellow. ??? Ask your health care provider or dietitian how much protein from animal sources you should eat each day, and also how much salt and calcium you should have each day. This information is not intended to replace advice given to you by your health care provider. Make sure you discuss any questions you have with your health care provider. Document Revised: 11/15/2019 Document Reviewed: 07/06/2017 [employer] Patient Education ?? 2020 [employer] Kidney Stones Kidney stones are rock-like masses that form inside of the kidneys. Kidneys are organs that make pee (urine). A kidney stone may move into other parts of the urinary tract, including: ??? The tubes that connect the kidneys to the bladder (ureters). ??? The bladder. ??? The tube that carries urine out of the body (urethra). Kidney stones can cause very bad pain and can block the flow of pee. The stone usually leaves your body (passes) through your pee. You may need to have a doctor take out the stone. What are the causes? Kidney stones may be caused by: ??? A condition in which certain glands make too much parathyroid hormone (primary hyperparathyroidism). ??? A buildup of a type of crystals in the bladder made of a chemical called uric acid. The body makes uric acid when you eat certain foods. ??? Narrowing (stricture) of one or both of the ureters. ??? A kidney blockage that you were born with. ??? Past surgery on the kidney or the ureters, such as gastric bypass surgery. What increases the risk? You are more likely to develop this condition if: ??? You have had a kidney stone in the past. ??? You have a family history of kidney stones. ??? You do not drink enough water. ??? You eat a diet that is high in protein, salt (sodium), or sugar. ??? You are overweight or very overweight (obese). What are the signs or symptoms? Symptoms of a kidney stone may include: ??? Pain in the side of the belly, right below the ribs (flank pain). Pain usually spreads (radiates) to the groin. ??? Needing to pee often or right away (urgently). ??? Pain when going pee (urinating). ??? Blood in your pee (hematuria). ??? Feeling like you may vomit (nauseous). ??? Vomiting. ??? Fever and chills. How is this treated? Treatment depends on the size, location, and makeup of the kidney stones. The stones will often pass out of the body through peeing. You may need to: ??? Drink more fluid to help pass the stone. In some cases, you may be given fluids through an IV tube put into one of your veins at the hospital. ??? Take medicine for pain. ??? Make changes in your diet to help keep kidney stones from coming back. Sometimes, medical procedures are needed to remove a kidney stone. This may involve: ??? A procedure to break up kidney stones using a beam of light (laser) or shock waves. ??? Surgery to remove the kidney stones. Follow these instructions at home: Medicines ??? Take hepe-sqr-cbieofx and prescription medicines only as told by your doctor. ??? Ask your doctor if the medicine prescribed to you requires you to avoid driving or using heavy machinery. Eating and drinking ??? Drink enough fluid to keep your pee pale yellow. You may be told to drink at least 8???10 glasses of water each day. This will help you pass the stone. ??? If told by your doctor, change your diet. This may include: ? Limiting how much salt you eat. ? Eating more fruits and vegetables. ? Limiting how much meat, poultry, fish, and eggs you eat. ??? Follow instructions from your doctor about eating or drinking restrictions. General instructions ??? Collect pee samples as told by your doctor. You may need to collect a pee sample: ? 24 hours after a stone comes out. ? 8???12 weeks after a stone comes out, and every 6???12 months after that. ??? Strain your pee every time you pee (urinate), for as long as told. Use the strainer that your doctor recommends. ??? Do not throw out the stone. Keep it so that it can be tested by your doctor. ??? Keep all follow-up visits as told by your doctor. This is important. You may need follow-up tests. How is this prevented? To prevent another kidney stone: ??? Drink enough fluid to keep your pee pale yellow. This is the best way to prevent kidney stones. ??? Eat healthy foods. ??? Avoid certain foods as told by your doctor. You may be told to eat less protein. ??? Stay at a healthy weight. Where to find more information ??? National Kidney Foundation (NKF): www.kidney.org ??? Urology Care Foundation (UCF): www.urologyhealth.org Contact a doctor if: ??? You have pain that gets worse or does not get better with medicine. Get help right away if: ??? You have a fever or chills. ??? You get very bad pain. ??? You get new pain in your belly (abdomen). ??? You pass out (faint). ??? You cannot pee. Summary ??? Kidney stones are rock-like masses that form inside of the kidneys. ??? Kidney stones can cause very bad pain and can block the flow of pee. ??? The stones will often pass out of the body through peeing. ??? Drink enough fluid to keep your pee pale yellow. This information is not intended to replace advice given to you by your health care provider. Make sure you discuss any questions you have with your health care provider. Document Revised: 12/12/2019 Document Reviewed: 12/12/2019 [employer] Patient Education ?? 2020 [employer] Urinary Tract Infection, Adult A urinary tract infection (UTI) is an infection of any part of the urinary tract. The urinary tract includes: ??? The kidneys. ??? The ureters. ??? The bladder. ??? The urethra. These organs make, store, and get rid of pee (urine) in the body. What are the causes? This is caused by germs (bacteria) in your genital area. These germs grow and cause swelling (inflammation) of your urinary tract. What increases the risk? You are more likely to develop this condition if: ??? You have a small, thin tube (catheter) to drain pee. ??? You cannot control when you pee or poop (incontinence). ??? You are female, and: ? You use these methods to prevent : ? A medicine that kills sperm (spermicide). ? A device that blocks sperm (diaphragm). ? You have low levels of a female hormone (estrogen). ? You are . ??? You have genes that add to your risk. ??? You are sexually active. ??? You take antibiotic medicines. ??? You have trouble peeing because of: ? A prostate that is bigger than normal, if you are male. ? A blockage in the part of your body that drains pee from the bladder (urethra). ? A kidney stone. ? A nerve condition that affects your bladder (neurogenic bladder). ? Not getting enough to drink. ? Not peeing often enough. ??? You have other conditions, such as: ? Diabetes. ? A weak disease-fighting system (immune system). ? Sickle cell disease. ? Gout. ? Injury of the spine. What are the signs or symptoms? Symptoms of this condition include: ??? Needing to pee right away (urgently). ??? Peeing often. ??? Peeing small amounts often. ??? Pain or burning when peeing. ??? Blood in the pee. ??? Pee that smells bad or not like normal. ??? Trouble peeing. ??? Pee that is cloudy. ??? Fluid coming from the vagina, if you are female. ??? Pain in the belly or lower back. Other symptoms include: ??? Throwing up (vomiting). ??? No urge to eat. ??? Feeling mixed up (confused). ??? Being tired and grouchy (irritable). ??? A fever. ??? Watery poop (diarrhea). How is this treated? This condition may be treated with: ??? Antibiotic medicine. ??? Other medicines. ??? Drinking enough water. Follow these instructions at home: Medicines ??? Take letz-vlg-qxonimn and prescription medicines only as told by your doctor. ??? If you were prescribed an antibiotic medicine, take it as told by your doctor. Do not stop taking it even if you start to feel better. General instructions ??? Make sure you: ? Pee until your bladder is empty. ? Do not hold pee for a long time. ? Empty your bladder after sex. ? Wipe from front to back after pooping if you are a female. Use each tissue one time when you wipe. ??? Drink enough fluid to keep your pee pale yellow. ??? Keep all follow-up visits as told by your doctor. This is important. Contact a doctor if: ??? You do not get better after 1???2 days. ??? Your symptoms go away and then come back. Get help right away if: ??? You have very bad back pain. ??? You have very bad pain in your lower belly. ??? You have a fever. ??? You are sick to your stomach (nauseous). ??? You are throwing up. Summary ??? A urinary tract infection (UTI) is an infection of any part of the urinary tract. ??? This condition is caused by germs in your genital area. ??? There are many risk factors for a UTI. These include having a small, thin tube to drain pee and not being able to control when you pee or poop. ??? Treatment includes antibiotic medicines for germs. ??? Drink enough fluid to keep your pee pale yellow. This information is not intended to replace advice given to you by your health care provider. Make sure you discuss any questions you have with your health care provider. Document Revised: 07/13/2019 Document Reviewed: 2019 [employer] Patient Education ?? 2020 [employer] Third Trimester of The third trimester is from week 28 through week 40 (months 7 through 9). This trimester is when your unborn baby (fetus) is growing very fast. At the end of the ninth month, the unborn baby is about 20 inches in length. It weighs about 6???10 pounds. Follow these instructions at home: Medicines ??? Take kwxy-swm-qjsfmwj and prescription medicines only as told by your doctor. Some medicines are safe and some medicines are not safe during . ??? Take a vitamin that contains at least 600 micrograms (mcg) of folic acid. ??? If you have trouble pooping (constipation), take medicine that will make your stool soft (stool softener) if your doctor approves. Eating and drinking ??? Eat regular, healthy meals. ??? Avoid raw meat and uncooked cheese. ??? If you get low calcium from the food you eat, talk to your doctor about taking a daily calcium supplement. ??? Eat four or five small meals rather than three large meals a day. ??? Avoid foods that are high in fat and sugars, such as fried and sweet foods. ??? To prevent constipation: ? Eat foods that are high in fiber, like fresh fruits and vegetables, whole grains, and beans. ? Drink enough fluids to keep your pee (urine) clear or pale yellow. Activity ??? Exercise only as told by your doctor. Stop exercising if you start to have cramps. ??? Avoid heavy lifting, wear low heels, and sit up straight. ??? Do not exercise if it is too hot, too humid, or if you are in a place of great height (high altitude). ??? You may continue to have sex unless your doctor tells you not to. Relieving pain and discomfort ??? Wear a good support bra if your breasts are tender. ??? Take frequent breaks and rest with your legs raised if you have leg cramps or low back pain. ??? Take warm water baths (sitz baths) to soothe pain or discomfort caused by hemorrhoids. Use hemorrhoid cream if your doctor approves. ??? If you develop puffy, bulging veins (varicose veins) in your legs: ? Wear support hose or compression stockings as told by your doctor. ? Raise (elevate) your feet for 15 minutes, 3???4 times a day. ? Limit salt in your food. Safety ??? Wear your seat belt when driving. ??? Make a list of emergency phone numbers, including numbers for family, friends, the hospital, and police and fire departments. Preparing for your baby's arrival To prepare for the arrival of your baby: ??? Take classes. ??? Practice driving to the hospital. ??? Visit the hospital and tour the maternity area. ??? Talk to your work about taking leave once the baby comes. ??? Pack your hospital bag. ??? Prepare the baby's room. ??? Go to your doctor visits. ??? Buy a rear-facing car seat. Learn how to install it in your car. General instructions ??? Do not use hot tubs, steam rooms, or saunas. ??? Do not use any products that contain nicotine or tobacco, such as cigarettes and e-cigarettes. If you need help quitting, ask your doctor. ??? Do not drink alcohol. ??? Do not douche or use tampons or scented sanitary pads. ??? Do not cross your legs for long periods of time. ??? Do not travel for long distances unless you must. Only do so if your doctor says it is okay. ??? Visit your dentist if you have not gone during your . Use a soft toothbrush to brush your teeth. Be gentle when you floss. ??? Avoid cat litter boxes and soil used by cats. These carry germs that can cause defects in the baby and can cause a loss of your baby (miscarriage) or stillbirth. ??? Keep all your visits as told by your doctor. This is important. Contact a doctor if: ??? You are not sure if you are in labor or if your water has broken. ??? You are dizzy. ??? You have mild cramps or pressure in your lower belly. ??? You have a nagging pain in your belly area. ??? You continue to feel sick to your stomach, you throw up, or you have watery poop. ??? You have bad smelling fluid coming from your vagina. ??? You have pain when you pee. Get help right away if: ??? You have a fever. ??? You are leaking fluid from your vagina. ??? You are spotting or bleeding from your vagina. ??? You have severe belly cramps or pain. ??? You lose or gain weight quickly. ??? You have trouble catching your breath and have chest pain. ??? You notice sudden or extreme puffiness (swelling) of your face, hands, ankles, feet, or legs. ??? You have not felt the baby move in over an hour. ??? You have severe headaches that do not go away with medicine. ??? You have trouble seeing. ??? You are leaking, or you are having a gush of fluid, from your vagina before you are 37 weeks. ??? You have regular belly spasms (contractions) before you are 37 weeks. Summary ??? The third trimester is from week 28 through week 40 (months 7 through 9). This time is when your unborn baby is growing very fast. ??? Follow your doctor's advice about medicine, food, and activity. ??? Get ready for the arrival of your baby by taking classes, getting all the baby items ready, preparing the baby's room, and visiting your doctor to be checked. ??? Get help right away if you are bleeding from your vagina, or you have chest pain and trouble catching your breath, or if you have not felt your baby move in over an hour. This information is not intended to replace advice given to you by your health care provider. Make sure you discuss any questions you have with your health care provider. Document Revised: 11/16/2019 Document Reviewed: 08/31/2017 [employer] Patient Education ?? 2020 [employer] Emergency Awareness and Preventative Care STROKE is an EMERGENCY Every Minute Counts Act FAST and Check for these signs: FACE Does the face look uneven? ARM Does one arm drift down? SPEECH Does their speech sound strange? TIME Call at any sign of stroke Stroke Risk Factors Atrial Fibrillation (irregular heartbeat) Diabetes Family history of stroke Heart Disease Heavy alcohol use High Blood Pressure High Cholesterol Physical inactivity and obesity Smoking Cigarette Smoking The facts are clear, cigarette smoking will shorten your life. Smoking can cause many illnesses along the way. As a healthcare provider, we recommend that you stop smoking. Assistance with quitting is available by contacting 2-926-LCWNStreamweaverNOW. This is a free resource providing counseling, support, and referral. Or you may contact your personal physician. [place] Suicide Prevention Lifeline: The National Suicide Prevention Lifeline is a national network of local crisis centers that provides free and confidential emotional support to people in suicidal crisis or emotional distress 24 hours a day, 7 days a week. Don't Wait! Stop a Heart Attack Before it Starts What is a heart attack? A heart attack is damage or to a part of the heart from severely decreased or lack of blood flow to the heart. Over time, arteries can become narrow from the buildup of fat and cholesterol, which is called plaque. The plaque can rupture causing a blood clot to form. When the blood clot forms, the artery can become severely narrowed or completely blocked, causing a heart attack. Heart attack is the leading cause of in the [place]. 85% of muscle damage occurs within the first 2 hours. Delay in the recognition of heart attack symptoms increases the chances of . Know the early symptoms of a heart attack: Nausea Feeling of fullness in chest Jaw Pain Pain that travels down one or both arms Fatigue/being tired Anxiety Back Pain Chest pressure, squeezing, or discomfort Shortness of breath Sweating, or a cold sweat Feeling of impending doom There are unusual signs of a heart attack, too! Women, the elderly, and diabetics may present with atypical symptoms: Fainting/dizziness Weakness Confusion Risk Factors for a Heart Attack Some heart disease risk factors, such as age and family history, cannot be changed. Others, like smoking and lack of exercise, can be changed. Smoking High Cholesterol High Blood Pressure Family History Obesity Age Gender (Males are at higher risk) Lack of Exercise Diabetes Diet Stress Excessive Alcohol Intake If you or someone you know is experiencing the signs and symptoms of a heart attack, DON???T DELAY. Call immediately and seek help. If someone collapses, perform CPR! Do not attempt to drive if you are having symptoms of heart attack. Hands-Only CPR Why Hands-Only CPR? Hands-Only CPR has been shown to be as effective as conventional CPR for cardiac arrests that occur outside of a hospital. Survival depends on immediately receiving CPR from someone nearby. How do you perform Hands-Only CPR? There are two easy steps: Call if you see a teen or adult collapse Push hard and fast in the center of the chest at a beat of 100 beats per minute. Save a life! 4 WAYS TO GET AHEAD OF SEPSIS SEPSIS is a MEDICAL EMERGENCY. Time matters! Infections put you and your family at risk for a life-threatening condition called sepsis. Sepsis is the body's extreme response to an infection. It is life-threatening, and without timely treatment, sepsis can rapidly lead to tissue damage, organ failure, and . Sepsis happens when an infection you already have-in your skin, lungs, urinary tract or somewhere else-triggers a chain reaction throughout your body. 1 [...] sepsis or if you have an infection that is not getting better or is getting worse. To learn more about sepsis and how to prevent infections, visit www.cdc.gov/sepsis. Test Results Laboratory or Other Results This Visit (last charted value for your 02/01/2021 visit) Hematology 02/01/2021 11:47 PM WBC: 10.3 K/uL -- Normal range between ( 3.9 and 10.0 ) RBC: 3.63 Million/uL -- Normal range between ( 3.93 and 5.22 ) Hct: 29.3 % -- Normal range between ( 34.1 and 44.9 ) Hgb: 9.3 Gram/dL -- Normal range between ( 11.2 and 15.7 ) Platelet Count: 208 K/uL -- Normal range between ( 163 and 369 ) MCH: 25.6 pg -- Normal range between ( 25.6 and 32.2 ) MCHC: 31.7 Gram/dL -- Normal range between ( 32.3 and 36.5 ) MCV: 80.7 fL -- Normal range between ( 79.0 and 94.8 ) Slide Review: No Eos %: 0.6 % -- Normal range between ( 1.0 and 7.0 ) Baker #: 0.72 K/uL -- Normal range between ( 0.24 and 0.82 ) Eos #: 0.06 K/uL -- Normal range between ( 0.04 and 0.54 ) Baker %: 7.0 % -- Normal range between ( 4.7 and 12.5 ) Baso %: 0.2 % -- Normal range between ( 0.0 and 1.0 ) Baso #: 0.02 K/uL -- Normal range between ( 0.01 and 0.08 ) RDW: 13.3 % -- Normal range between ( 11.6 and 14.4 ) Neut %: 78.0 % -- Normal range between ( 34.0 and 71.0 ) Neut #: 8.06 K/uL -- Normal range between ( 1.56 and 6.13 ) Lymph %: 13.8 % -- Normal range between ( 19.3 and 53.0 ) Lymph #: 1.42 K/uL -- Normal range between ( 1.18 and 3.74 ) MPV: 10.1 fL -- Normal range between ( 9.4 and 12.4 ) IG#: 0 x10(3)/uL IG%: 0 % -- Normal range between ( 0 and 1 ) Urinalysis 02/01/2021 11:47 PM Ur RBC: 2-5 /HPF Urine Nitrite: Positive Urine Leukocyte Esterase: Large Urine Appearance: Cloudy Urine Glucose Dipstick: Negative Urine Blood Dipstick: Small Urine Urobilinogen Dipstick: 1.0 EU/dL -- Normal range between ( 0.2 and 1.0 ) Urine Protein Dipstick: 30 Ur Amorph: 1+ Ur Bacteria: 1+ Ur Squamous Epithelial Cells: 0-2 /HPF Urine Color: [place] Ur WBC: 5-10 /HPF Urine Ketones Dipstick: >=80 Urine pH Dipstick: 6.5 -- Normal range between ( 6.0 and 8.0 ) Urine Bilirubin Dipstick: Negative Urine Specific [place]: 1.010 -- Normal range between ( 1.005 and 1.030 ) Urine Type.: U CleanCatch Urine Culture if Indicated: Culture Ordered Microbiology 2021 10:00 AM SARS-CoV-2 (COVID19 PCR): Negative General Chemistry 02/01/2021 11:47 PM Creatinine Level: 0.49 mg/dL -- Normal range between ( 0.55 and 1.02 ) Sodium Level: 137 mmol/L -- Normal range between ( 136 and 146 ) Potassium Level: 3.6 mmol/L -- Normal range between ( 3.5 and 5.1 ) Chloride Level: 107 mmol/L -- Normal range between ( 102 and 112 ) Carbon Dioxide Level: 21 mmol/L -- Normal range between ( 21 and 32 ) Anion Gap: 13 -- Normal range between ( 9 and 20 ) Bilirubin Total: 0.4 mg/dL -- Normal range between ( 0.2 and 1.3 ) A/G Ratio: 0.7 -- Normal range between ( 1.1 and 2.5 ) ALT: 11 Units/Liter -- Normal range between ( 12 and 78 ) AST: 14 Units/Liter -- Normal range between ( 5 and 37 ) Globulin: 4.0 Gram/dL -- Normal range between ( 1.5 and 4.5 ) Alk Phos: 115 Units/Liter -- Normal range between ( 27 and 136 ) Bun/Creatinine: 12.2 -- Normal range between ( 8.0 and 20.0 ) Calcium Level: 8.5 mg/dL -- Normal range between ( 8.5 and 10.1 ) eGFR : >60 mL/min/1.73m2 eGFR NonAfrican: >60 mL/min/1.73m2 Glucose Level: 98 mg/dL -- Normal range between ( 74 and 106 ) Blood Urea Nitrogen: 6 mg/dL -- Normal range between ( 7 and 22 ) Protein Total: 6.7 Gram/dL -- Normal range between ( 6.4 and 8.2 ) Albumin Level: 2.7 Gram/dL -- Normal range between ( 3.4 and 5.0 ) Toxicology 2021 9:46 AM UDS Amp: Negative UDS Norma: Negative UDS Benzo: Negative UDS [place]: Negative UDS Meth: Negative UDS Opi: Negative UDS Oxy: Negative UDS PCP: Negative UDS TCA: Negative UDS THC: Negative Buprenorphine Screen, Urine: Negative Heroin Metab (6AM) by LC-MS/MS, Urine: Negative SpGravity, Urine: 1.009 Propoxyphene, Urine: Negative UDS pH: 6.9 UDS Creatinine, Toxicology: 55.9 mg/dL Ultrasound 2021 9:38 AM US Renal Comp: US Renal Comp Patient Name:ALIYA SANCHES I have received and understand this information and was given the opportunity to ask questions. Patient/Crime Scene Technician Name: Patient/Crime Scene Technician Signature: Relationship to Patient: Clinician/Hospital Crime Scene Technician Signature: Date: documented in this encounter Plan of Treatment Not on file documented as of this encounter Visit Diagnoses Not on filedocumented in this encounter Care Teams Sound Recordist Relationship Specialty Start Date End Date Annette Alonzo MD [address] [place] [address] PCP - General Obstetrics and Gynecology 02/26/23 documented as of this encounter
--- OUTSIDE RECORDS SUMMARY | 2025-03-12 10:00 | XMS_ITS | Encounter Summary ---
Author Organization [employer] ([place], [place], [place], [place]) Address [address] [place] [address] Care Team Providers Care Copy Manager Name Role Phone Annette Alonzo MD Primary Care Provider Encounter Details Date Type Department Care Team (Late st Contact Info) Description 03/08/2021 Transcribed Document [facility] [place] Family Medicine [address] [place] [address] ProviderNorman MD [address] [place], [place] [address] Social History Tobacco Use Types Packs/Day Years Used Date Smoking Tobacco: Never Assessed Comments Unknown Sex and Gender Information Value Date Recorded Sex Assigned at Not on file Legal Sex Female 1:09 PM CDT Gender Identity Not on file Sexual Orientation Not on file documented as of this encounter Miscellaneous Notes * Cerner Conversion Note - Norman ProviderMD - 03/08/2021 7:31 PM CDT [facility] [address], [place] [address] Patient Copy Patient Information: Name: ALIYA SANCHES Current Date: 03/08/2021 19:31:26 : 1990 Patient Address: [address] [place] [address] [facility] [address] Patient Attending Physician: ANNETTE ALONZO MD-OBG Primary Care Provider: ENID GALINDO DR Primary Care Provider Discharge Diagnosis: 1:36 weeks gestation of ; 2:Labor without complication; Normal spontaneous vaginal delivery Weight on Admission: 164 lb, 0 oz Comment: Discharge Instructions: Immunizations Documented During Stay: No Immunizations Found Heart Failure Discharge Instructions (if any): Stroke Related Discharge Instructions (if any): Warfarin Related Discharge Instructions (if any): Final Medication List: Other Medications multivitamin, ( 19 ([place])) Every Day. Patient Allergies: No Known Allergies Medication Instructions: [...] Assistance with quitting is available by contacting 7-831-TSFY-NOW. This is a free resource providing counseling, [...] Be sure to sign up for the [facility] patient portal, which gives you 24/ access to your medical information ??? including these discharge instructions ??? using your computer, smartphone, or tablet. Just go to [employer] to get started. Questions? Call . [facility] would like to thank you for allowing us to assist you with your healthcare needs. VERÓNICA Hall ERIN MARIE, (or asset protection representative) have received the above patient education materials/instructions and have verbalized understanding: Patient Signature _ Date/Time Patient Cement Block Maker Signature (if needed) Date/Time Clinician/Hospital Cement Block Maker Signature (if needed) Date/Time Electronically signed by Interface, [facility] Conversion Casino Worker Cerner at 11/24/2022 12:09 PM CDT documented in this encounter Plan of Treatment Not on file documented as of this encounter Visit Diagnoses Not on filedocumented in this encounter Care Teams Copy Manager Relationship Specialty Start Date End Date Annette Alonzo MD [address] [place] [address] PCP - General Obstetrics and Gynecology 02/26/23 documented as of this encounter
--- OUTSIDE RECORDS SUMMARY | 2025-03-12 10:00 | XMS_ITS | Encounter Summary ---
Author Organization [employer] ([place], [place], [place], [place]) Address [address] [place] [address] Care Team Providers Care Egg And Spice Mixer Name Role Phone Sylvia Alonzo MD Primary Care Provider [phone] Encounter Details Date Type Department Care Team (Late st Contact Info) Description 05/23/2019 Transcribed Document [facility] [place] [address] Norman Valera MD [address] [place], [place] [address] Social History Tobacco Use Types Packs/Day Years Used Date Smoking Tobacco: Never Assessed Comments Unknown Sex and Gender Information Value Date Recorded Sex Assigned at Not on file Legal Sex Female 1:09 PM CDT Gender Identity Not on file Sexual Orientation Not on file documented as of this encounter Miscellaneous Notes * Cerner Conversion Note - Historical ProviderMD - 05/23/2019 2:16 AM CDT DATE OF PROCEDURE: 05/19/2019 PREOPERATIVE DIAGNOSIS(ES): 1. Dysmenorrhea. 2. Dyspareunia. 3. Menorrhagia. 4. Pelvic congestion. 5. Pelvic pain. 6. Abnormal endometrium on ultrasound. 7. Endometrial polyp. POSTOPERATIVE DIAGNOSIS(ES): 1. Dysmenorrhea. 2. Dyspareunia. 3. Menorrhagia. 4. Pelvic congestion. 5. Pelvic pain. 6. Abnormal endometrium on ultrasound. 7. Endometrial polyp. 8. Pelvic peritoneal endometriosis. 9. Dense ovarian adhesions PROCEDURE: 1. Hysteroscopy, dilatation and curettage, and polypectomy. 2. Laparoscopy with removal of endometriosis. 3. Decompression of bilateral ovarian cysts. 4. Lysis of adhesions and cauterization of friable endocervical area. SURGEON: Sylvia Alonzo MD ESTIMATED BLOOD LOSS: 5 mL. FINDINGS: On hysteroscopic findings, patient had a buildup of endometrial tissue in the fundus of the uterus, which appeared polypoid in nature. The fallopian tubes appeared open and uterine cavity appeared normal in shape and size. The endocervical canal was friable and bleeding and had to be cauterized. On laparoscopic findings, most of the endometriosis was red vascular inflammatory type in the cul-de-sac, superficially on tubes and ovaries, and also some on top of the uterus. There were some adhesions on the left side between the tube and the colon, but both tubes were patent. PROCEDURE IN DETAIL: Under general anesthesia, patient was placed in dorsal lithotomy position. The perineum was prepped and draped in sterile manner so was the abdomen. Estrada was placed. Speculum was placed. Cervix was grasped with tenaculum and then dilated. Hysteroscope was introduced and uterine cavity was visualized. The D and C was then performed, then polyps were grasped separately with polyp forceps and sent to Pathology. Overall, felt that all the visible polypoid structures were removed and then uterine manipulator was introduced with a balloon inflated inside the endometrial cavity and then attention was turned towards the abdomen. A midline incision was made inside the umbilicus through which Veress needle was inserted and the abdomen was insufflated with CO2. Veress needle was removed and trocars introduced. Next, 10 cm away from the umbilicus to the left and to the right, size 8 trocars were placed and size 5 in the right lower lateral area. These were all done under direct visualization and prior to making skin incision, local Marcaine was infiltrated. Next, the robot was docked and rest of the procedure was done through the console. First, the adhesions on the left side were taking the colon down in its normal position. This gave use access to the left tube and ovary. The ovary was treated for superficial endometriosis and subcapsular cysts were drained. The endometriosis behind the ovary and the cul-de-sac behind the uterus was removed with a laser and then the right ovary was treated in a similar fashion. The tubes were then checked for patency and there was good spill on both sides. At this point, it was felt that all the visible endometriosis and adhesions were taken care of. We then used for adhesion prevention amniotic allograft, which was placed in the areas of adhesiolysis and also in ovaries and in the uterosacral ligaments where the pain fibers run through the uterus this is where the endometriosis was growing, was removed. All instruments were then removed. The gas was deflated. Incisions closed with 4-0 PDS subcuticular closure. Deeper suture was placed in the umbilicus in the fascia with 0-Vicryl. Sponge and instrument count was correct. Patient tolerated the procedure well and was taken to recovery room in good condition. Sylvia Alonzo M.D. Dict: 05/23/2019 02:16:13 Trans: 05/23/2019 06:47:52 CC1: Sylvia Alonzo M.D. Electronically signed by [facility] Conversion Assistant Director Of Admissions Cerner at 11/24/2022 12:03 PM CDT documented in this encounter Plan of Treatment Not on file documented as of this encounter Visit Diagnoses Not on filedocumented in this encounter Care Teams Egg And Spice Mixer Relationship Specialty Start Date End Date Sylvia Alonzo MD [address] [facility] [address] [place] [address] PCP - General Obstetrics and Gynecology 02/26/23 documented as of this encounter
--- OUTSIDE RECORDS SUMMARY | 2025-03-12 10:00 | XMS_ITS | Encounter Summary ---
Author Organization [employer] ([place], [place], [place], [place]) Address [address] [place] [address] Care Team Providers Care Hand Drawer In Helper Name Role Phone Sylvia Alonzo MD Primary Care Provider [phone] Encounter Details Date Type Department Care Team (Late st Contact Info) Description 02/03/2021 Transcribed Document [facility] [place] [address] [place] [address] ProviderNorman MD [address] [place], [place] [address] Social History Tobacco Use Types Packs/Day Years Used Date Smoking Tobacco: Never Assessed Comments Unknown Sex and Gender Information Value Date Recorded Sex Assigned at Not on file Legal Sex Female 1:09 PM CDT Gender Identity Not on file Sexual Orientation Not on file documented as of this encounter Miscellaneous Notes * Cerner Conversion Note - Norman ProviderMD - 02/03/2021 11:37 AM CDT Nursing Discharge Summary Entered On: 02/03/2021 11:37 EDT Performed On: 02/03/2021 11:37 EDT by TOMÁS EL, cooker casing Documentation Patient Disposition, General : Discharge Discharge To : Home with ambulatory/outpatient follow-up Mode Of Departure, General Discharge : Ambulatory, Private vehicle Accompanied By, Discharge : Spouse IV Discontinued : Yes Personal Belongings With Patient : No personal belongings to return Pt's Own Supply of Medications Returned : No patient supply of medications to return Prescriptions Given to Patient : No Medications Given to Patient : No Discharge Instructions Reviewed With, Opportunity For Questions Given : Patient, Spouse Patient Education Completed : Yes Teaching Method : Explanation, Printed materials Teaching Evaluation : Verbalizes understanding Worker's Compensation Paperwork Completed : No TOMÁS EL RN - 02/03/2021 11:37 EDT Electronically signed by Phong Nye Conversion Online Merchandising Coordinator N[employer]ner at 11/24/2022 11:49 AM CDT documented in this encounter Plan of Treatment Not on file documented as of this encounter Visit Diagnoses Not on filedocumented in this encounter Care Teams Hand Drawer In Helper Relationship Specialty Start Date End Date Sylvia Alonzo MD [address] [place] [address] PCP - General Obstetrics and Gynecology 02/26/23 documented as of this encounter
--- OUTSIDE RECORDS SUMMARY | 2025-03-12 10:00 | XMS_ITS | Encounter Summary ---
Author Organization [employer] ([place], [place], [place], [place]) Address [address] [facility] [place] [address] Care Team Providers Care Cherry Sorter Name Role Phone Sylvia Alonzo MD Primary Care Provider [phone] Encounter Details Date Type Department Care Team (Late st Contact Info) Description 03/09/2021 Transcribed Document [facility] [place] Family Medicine [address] [place] [address] ProviderNorman MD [address] [place], [place] [address] Social History Tobacco Use Types Packs/Day Years Used Date Smoking Tobacco: Never Assessed Comments Unknown Sex and Gender Information Value Date Recorded Sex Assigned at Not on file Legal Sex Female 1:09 PM CDT Gender Identity Not on file Sexual Orientation Not on file documented as of this encounter Miscellaneous Notes * Cerner Conversion Note - Norman ProviderMD - 03/09/2021 8:52 AM CDT UM Authorization Entered On: 03/09/2021 8:52 EDT Performed On: 03/09/2021 8:52 EDT by Gypsy Pate Rn-Utilization Review Primary Insurance Authorization Authorization and Policy Numbers : Insurance 1 Health Plan: ANTHEM [employer] Policy Number: [id number] Authorization Number: Insurance Primary Name : [employer] Policy Number: [id number] Authorization Status-Primary : No precert required Authorization Number-Primary : Auto 2/4 Number of Days Authorized-Primary : 2 Day(s) Authorized Service Begin Date-Primary : 03/07/2021 EDT Authorized Service End Date-Primary : 03/09/2021 EDT Historical Authorization Comments-Primary : No Authorization Comments Found Gypsy Pate Rn-Utilization Review - 03/09/2021 8:52 EDT Electronically signed by Parris [facility] Conversion Utility Service Worker Cerner at 11/24/2022 11:54 AM CDT documented in this encounter Plan of Treatment Not on file documented as of this encounter Visit Diagnoses Not on filedocumented in this encounter Care Teams Cherry Sorter Relationship Specialty Start Date End Date Sylvia Alonzo MD [address] [place] [address] [place] [address] PCP - General Obstetrics and Gynecology 02/26/23 documented as of this encounter
--- OUTSIDE RECORDS SUMMARY | 2025-03-12 10:00 | XMS_ITS | Encounter Summary ---
Author Organization [employer] ([place], [place], [place], [place]) Address [address] [place] [address] Care Team Providers Care Assistant Production Editor Name Role Phone Sylvia Alonzo MD Primary Care Provider [phone] Encounter Details Date Type Department Care Team (Late st Contact Info) Description 02/03/2021 Transcribed Document [facility] [place] Family Medicine [address] [place] [address] ProviderNorman MD [address] [place] [address] Social History Tobacco Use Types Packs/Day Years Used Date Smoking Tobacco: Never Assessed Comments Unknown Sex and Gender Information Value Date Recorded Sex Assigned at Not on file Legal Sex Female 1:09 PM CDT Gender Identity Not on file Sexual Orientation Not on file documented as of this encounter Miscellaneous Notes * Cerner Conversion Note - Norman ProviderMD - 02/03/2021 11:35 AM CDT Patient Education Materials Follows:and Gynecology Urinary Tract Infection, Adult A urinary tract [...] these instructions at home: Medicines ??? Take iqrn-szk-qlhtkpi and prescription medicines only as told by [...] ??? You do not get better after 1?2 days. ??? Your symptoms go away and [...] provider. Document Revised: 07/13/2019 Document Reviewed: 2019 [employer] Patient Education ? 2020 [employer]. Third Trimester of The third trimester is from week 28 through week 40 (months 7 through 9). This trimester is when your unborn baby (fetus) is growing very fast. At the end of the ninth month, the unborn baby is about 20 inches in length. It weighs about 6?10 pounds. Follow these instructions at home: Medicines ??? Take emfy-lwp-tqvbbnk and prescription medicines only as told by [...] Raise (elevate) your feet for 15 minutes, 3?4 times a day. ? Limit salt in [...] provider. Document Revised: 11/16/2019 Document Reviewed: 08/31/2017 [employer] Medical Patient Education ? 2020 [employer] Urology Dietary Guidelines to Help Prevent Kidney Stones [...] calcium at each meal. Foods that contain 200?500 mg of calcium per serving include: ? 8 oz (237 ml) of milk, fortified nondairy milk, and fortified fruit juice. ? 8 oz (237 ml) of kefir, yogurt, and soy yogurt. ? 4 oz (118 ml) of tofu. ? 1 oz of cheese. ? 1 cup (300 g) of dried figs. ? 1 cup (91 g) of cooked broccoli. ? 1?3 oz can of sardines or mackerel. ??? [...] Rhubarb. ? Beets. ? Potato chips and yakut fries. ? Nuts. ??? If you regularly take a diuretic medicine, make sure to eat at least 1?2 fruits or vegetables high in potassium each day. These include: ? Avocado. ? Banana. ? [place], prune, carrot, or tomato juice. ? Baked [...] of beer, 5 oz of wine, or 1? oz of hard liquor. ??? Lose weight [...] Casseroles. Pizza. Lasagna. Frozen meals. Potato chips. Sinhala fries. Summary ??? You can reduce your [...] provider. Document Revised: 11/15/2019 Document Reviewed: 07/06/2017 [employer] Medical Patient Education ? 2020 [employer]. Kidney Stones Kidney stones are rock-like masses [...] these instructions at home: Medicines ??? Take ctfw-zvr-cdugbcr and prescription medicines only as told by your doctor. ??? Ask your doctor if the medicine prescribed to you requires you to avoid driving or using heavy machinery. Eating and drinking ??? Drink enough fluid to keep your pee pale yellow. You may be told to drink at least 8?10 glasses of water each day. This will [...] hours after a stone comes out. ? 8?12 weeks after a stone comes out, and every 6?12 months after that. ??? Strain your pee [...] provider. Document Revised: 12/12/2019 Document Reviewed: 12/12/2019 [employer] Medical Patient Education ? 2020 [employer] documented in this encounter Plan of Treatment Not on file documented as of this encounter Visit Diagnoses Not on filedocumented in this encounter Care Teams Assistant Production Editor Relationship Specialty Start Date End Date Sylvia Alonzo MD [address] [facility] [address] [place] [address] PCP - General Obstetrics and Gynecology 02/26/23 documented as of this encounter
--- OUTSIDE RECORDS SUMMARY | 2025-03-12 10:00 | XMS_ITS | Encounter Summary ---
Author Organization [employer] ([place], [place], [place], [place]) Address [address] [place] [address] Care Team Providers Care Hydrogeology Professor Name Role Phone Annette Alonzo MD Primary Care Provider [phone] Encounter Details Date Type Department Care Team (Late st Contact Info) Description 05/19/2019 Transcribed Document [facility] [place] Family Medicine [address] [place] [address] ProviderNorman MD [address] [place] [address] Social History Tobacco Use Types Packs/Day Years Used Date Smoking Tobacco: Never Assessed Comments Unknown Sex and Gender Information Value Date Recorded Sex Assigned at Not on file Legal Sex Female 1:09 PM CDT Gender Identity Not on file Sexual Orientation Not on file documented as of this encounter Miscellaneous Notes * Cerner Conversion Note - Norman ProviderMD - 05/19/2019 3:18 PM CDT [place] [id number] VERÓNICAALIYA JANETTE :1990 Visit Time:05/19/2019 What to do next Your Diagnosis Adhesions due to endometriosis Dysmenorrhea Dyspareunia, female Endometriosis of peritoneum History of irregular menstrual bleeding Instructions From Your Care Team Nothing vaginally until follow up appt Activity and diet as tolerated May shower in 24 hours, no tub baths Dressings will come off on thier own Discharge Follow Up Instructions: Follow up in office in 1 month Follow-Up Appointments Follow Up with ANNETTE ALONZO MD-OBG When Comments Call office to schedule a 1 month follow up appt Where: [address] [place] [address]- [phone] Medications What How Much When Instructions Next Dose ibuprofen (ibuprofen 600 mg oral tablet) 1 Tablet(s) Oral Every 6 Hours as needed for Fever acetaminophen-oxyCODONE (acetaminophen-oxyCODONE 325 mg-5 mg oral tablet) 1 Tablet(s) Oral Every 4 Hours as needed for Pain (Moderate 4-6) diphenhydrAMINE (Benadryl 25 mg oral capsule) 1 [...] Please dispose of unused and medications per pharmacy guidance. Education Materials Dilation and Curettage or Vacuum Curettage Dilation and curettage (D&C) and vacuum curettage are minor procedures. A D&C involves stretching (dilation) the cervix and scraping (curettage) the inside lining of the uterus (endometrium). During a D&C, tissue is gently scraped from the endometrium, starting from the top portion of the uterus down to the lowest part of the uterus (cervix). During a vacuum curettage, the lining and tissue in the uterus are removed with the use of gentle suction. Curettage may be performed to either diagnose or treat a problem. As a diagnostic procedure, curettage is performed to examine tissues from the uterus. A diagnostic curettage may be done if you have: ??? Irregular bleeding in the uterus. ??? Bleeding with the development of clots. ??? Spotting between menstrual periods. ??? Prolonged menstrual periods or other abnormal bleeding. ??? Bleeding after menopause. ??? No menstrual period (amenorrhea). ??? A change in size and shape of the uterus. ??? Abnormal endometrial cells discovered during a Pap test. As a treatment procedure, curettage may be performed for the following reasons: ??? Removal of an IUD (intrauterine device). ??? Removal of retained placenta after giving . ??? . ??? Miscarriage. ??? Removal of endometrial polyps. ??? Removal of uncommon types of noncancerous lumps (fibroids). Tell a health care provider about: ??? Any allergies you have, including allergies to prescribed medicine or latex. ??? All medicines you are taking, including vitamins, herbs, eye drops, creams, and yprp-bph-yhwwnwn medicines. This is especially important if you take any blood-thinning medicine. Bring a list of all of your medicines to your appointment. ??? Any problems you or family members have had with anesthetic medicines. ??? Any blood disorders you have. ??? Any surgeries you have had. ??? Your medical history and any medical conditions you have. ??? Whether you are or may be . ??? Recent vaginal infections you have had. ??? Recent menstrual periods, bleeding problems you have had, and what form of control (contraception) you use. What are the risks? Generally, this is a safe procedure. However, problems may occur, including: ??? Infection. ??? Heavy vaginal bleeding. ??? Allergic reactions to medicines. ??? Damage to the cervix or other structures or organs. ??? Development of scar tissue (adhesions) inside the uterus, which can cause abnormal amounts of menstrual bleeding. This may make it harder to get in the future. ??? A hole (perforation) or puncture in the uterine wall. This is rare. What happens before the procedure? Staying hydrated Follow instructions from your health care provider about hydration, which may include: ??? Up to 2 hours before the procedure ??? you may continue to drink clear liquids, such as water, clear fruit juice, black coffee, and plain tea. Eating and drinking restrictions Follow instructions from your health care provider about eating and drinking, which may include: ??? 8 hours before the procedure ??? stop eating heavy meals or foods such as meat, fried foods, or fatty foods. ??? 6 hours before the procedure ??? stop eating light meals or foods, such as toast or cereal. ??? 6 hours before the procedure ??? stop drinking milk or drinks that contain milk. ??? 2 hours before the procedure ??? stop drinking clear liquids. If your health care provider told you to take your medicine(s) on the day of your procedure, take them with only a sip of water. Medicines ??? Ask your health care provider about: ? Changing or stopping your regular medicines. This is especially important if you are taking diabetes medicines or blood thinners. ? Taking medicines such as aspirin and ibuprofen. These medicines can thin your blood. Do not take these medicines before your procedure if your health care provider instructs you not to. ??? You may be given antibiotic medicine to help prevent infection. General instructions ??? For 24 hours before your procedure, do not: ? Douche. ? Use tampons. ? Use medicines, creams, or suppositories in the vagina. ? Have sexual intercourse. ??? You may be given a test on the day of the procedure. ??? Plan to have someone take you home from the hospital or clinic. ??? You may have a blood or urine sample taken. ??? If you will be going home right after the procedure, plan to have someone with you for 24 hours. What happens during the procedure? To reduce your risk of infection: ? Your health care team will wash or sanitize their hands. ? Your skin will be washed with soap. ??? An IV tube will be inserted into one of your veins. ??? You will be given one of the following: ? A medicine that numbs the area in and around the cervix (local anesthetic). ? A medicine to make you fall asleep (general anesthetic). ??? You will lie down on your back, with your feet in foot rests (stirrups). ??? The size and position of your uterus will be checked. ??? A lubricated instrument (speculum or Schmitz retractor) will be inserted into the back side of your vagina. The speculum will be used to hold apart the calero of your vagina so your health care provider can see your cervix. ??? A tool (tenaculum) will be attached to the lip of the cervix to stabilize it. ??? Your cervix will be softened and dilated. This may be done by: ? Taking a medicine. ? Having tapered dilators or thin rods (laminaria) or gradual widening instruments (tapered dilators) inserted into your cervix. ??? A small, sharp, curved instrument (curette) will be used to scrape a small amount of tissue or cells from the endometrium or cervical canal. In some cases, gentle suction is applied with the curette. The curette will then be removed. The cells will be taken to a lab for testing. The procedure may vary among health care providers and hospitals. What happens after the procedure? You may have mild cramping, backache, pain, and light bleeding or spotting. You may pass small blood clots from your vagina. ??? You may have to wear compression stockings. These stockings help to prevent blood clots and reduce swelling in your legs. ??? Your blood pressure, heart rate, breathing rate, and blood oxygen level will be monitored until the medicines you were given have worn off. Summary ??? Dilation and curettage (D&C) involves stretching (dilation) the cervix and scraping (curettage) the inside lining of the uterus (endometrium). ??? After the procedure, you may have mild cramping, backache, pain, and light bleeding or spotting. You may pass small blood clots from your vagina. ??? Plan to have someone take you home from the hospital or clinic. This information is not intended to replace advice given to you by your health care provider. Make sure you discuss any questions you have with your health care provider. Document Released: 07/26/2006 Document Revised: 04/11/2017 Document Reviewed: 04/11/2017 [employer] Interactive Patient Education ?? 2019 [employer] Hysteroscopy, Care After This sheet gives you information about how to care for yourself after your procedure. Your health care provider may also give you more specific instructions. If you have problems or questions, contact your health care provider. What can I expect after the procedure? After the procedure, it is common to have: ??? Cramping. ??? Bleeding. This can vary from light spotting to menstrual-like bleeding. Follow these instructions at home: Activity ??? Rest for 1???2 days after the procedure. ??? Do not douche, use tampons, or have sex for 2 weeks after the procedure, or until your health care provider approves. ??? Do not drive for 24 hours after the procedure, or for as long as told by your health care provider. ??? Do not drive, use heavy machinery, or drink alcohol while taking prescription pain medicines. Medicines ??? Take pdfc-ihl-ngkrnrg and prescription medicines only as told by your health care provider. ??? Do not take aspirin during recovery. It can increase the risk of bleeding. General instructions ??? Do not take baths, swim, or use a hot tub until your health care provider approves. Take showers instead of baths for 2 weeks, or for as long as told by your health care provider. ??? To prevent or treat constipation while you are taking prescription pain medicine, your health care provider may recommend that you: ? Drink enough fluid to keep your urine clear or pale yellow. ? Take blmn-leq-dymntei or prescription medicines. ? Eat foods that are high in fiber, such as fresh fruits and vegetables, whole grains, and beans. ? Limit foods that are high in fat and processed sugars, such as fried and sweet foods. ??? Keep all follow-up visits as told by your health care provider. This is important. Contact a health care provider if: ??? You feel dizzy or lightheaded. ??? You feel nauseous. ??? You have abnormal vaginal discharge. ??? You have a rash. ??? You have pain that does not get better with medicine. ??? You have chills. Get help right away if: ??? You have bleeding that is heavier than a normal menstrual period. ??? You have a fever. ??? You have pain or cramps that get worse. ??? You develop new abdominal pain. ??? You faint. ??? You have pain in your shoulders. ??? You have shortness of breath. Summary ??? After the procedure, you may have cramping and some vaginal bleeding. ??? Do not douche, use tampons, or have sex for 2 weeks after the procedure, or until your health care provider approves. ??? Do not take baths, swim, or use a hot tub until your health care provider approves. Take showers instead of baths for 2 weeks, or for as long as told by your health care provider. ??? Report any unusual symptoms to your health care provider. ??? Keep all follow-up visits as told by your health care provider. This is important. This information is not intended to replace advice given to you by your health care provider. Make sure you discuss any questions you have with your health care provider. Document Released: 05/16/2014 Document Revised: 08/24/2017 Document Reviewed: 08/24/2017 [employer] Interactive Patient Education ?? 2019 [employer] Diagnostic Laparoscopy, Care After This sheet gives you information about how to care for yourself after your procedure. Your health care provider may also give you more specific instructions. If you have problems or questions, contact your health care provider. What can I expect after the procedure? After the procedure, it is common to have: ??? Mild discomfort in the abdomen. ??? Sore throat. Women who have laparoscopy with pelvic examination may have mild cramping and fluid coming from the vagina for a few days after the procedure. Follow these instructions at home: Medicines ??? Take xfbk-unr-rcffyuv and prescription medicines only as told by your health care provider. ??? If you were prescribed an antibiotic medicine, take it as told by your health care provider. Do not stop taking the antibiotic even if you start to feel better. Driving ??? Do not drive for 24 hours if you were given a medicine to help you relax (sedative) during your procedure. ??? Do not drive or use heavy machinery while taking prescription pain medicine. Bathing ??? Do not take baths, swim, or use a hot tub until your health care provider approves. You may take showers. Incision care ??? Follow instructions from your health care provider about how to take care of your incisions. Make sure you: ? Wash your hands with soap and water before you change your bandage (dressing). If soap and water are not available, use hand erp developer. ? Change your dressing as told by your health care provider. ? Leave stitches (sutures), skin glue, or adhesive strips in place. These skin closures may need to stay in place for 2 weeks or longer. If adhesive strip edges start to loosen and curl up, you may trim the loose edges. Do not remove adhesive strips completely unless your health care provider tells you to do that. ??? Check your incision areas every day for signs of infection. Check for: ? Redness, swelling, or pain. ? Fluid or blood. ? Warmth. ? Pus or a bad smell. Activity ??? Return to your normal activities as told by your health care provider. Ask your health care provider what activities are safe for you. ??? Do not lift anything that is heavier than 10 lb (4.5 kg), or the limit that you are told, until your health care provider says that it is safe. General instructions ??? To prevent or treat constipation while you are taking prescription pain medicine, your health care provider may recommend that you: ? Drink enough fluid to keep your urine pale yellow. ? Take eubv-ivh-sqxlibz or prescription medicines. ? Eat foods that are high in fiber, such as fresh fruits and vegetables, whole grains, and beans. ? Limit foods that are high in fat and processed sugars, such as fried and sweet foods. ??? Do not use any products that contain nicotine or tobacco, such as cigarettes and e-cigarettes. If you need help quitting, ask your health care provider. ??? Keep all follow-up visits as told by your health care provider. This is important. Contact a health care provider if: ??? You develop shoulder pain. ??? You feel lightheaded or faint. ??? You are unable to pass gas or have a bowel movement. ??? You feel nauseous or you vomit. ??? You develop a rash. ??? You have redness, swelling, or pain around any incision. ??? You have fluid or blood coming from any incision. ??? Any incision feels warm to the touch. ??? You have pus or a bad smell coming from any incision. ??? You have a fever or chills. Get help right away if: ??? You have severe pain. ??? You have vomiting that does not go away. ??? You have heavy bleeding from the vagina. ??? Any incision opens. ??? You have trouble breathing. ??? You have chest pain. Summary ??? After the procedure, it is common to have mild discomfort in the abdomen and a sore throat. ??? Check your incision areas every day for signs of infection. ??? Return to your normal activities as told by your health care provider. Ask your health care provider what activities are safe for you. This information is not intended to replace advice given to you by your health care provider. Make sure you discuss any questions you have with your health care provider. Document Released: 07/06/2016 Document Revised: 01/19/2018 Document Reviewed: 01/19/2018 [employer] Interactive Patient Education ?? 2019 [employer] General Anesthesia, Adult, Care After This sheet gives you information about how to care for yourself after your procedure. Your health care provider may also give you more specific instructions. If you have problems or questions, contact your health care provider. What can I expect after the procedure? After the procedure, the following side effects are common: ??? Pain or discomfort at the IV site. ??? Nausea. ??? Vomiting. ??? Sore throat. ??? Trouble concentrating. ??? Feeling cold or chills. ??? Weak or tired. ??? Sleepiness and fatigue. ??? Soreness and body aches. These side effects can affect parts of the body that were not involved in surgery. Follow these instructions at home: For at least 24 hours after the procedure: ??? Have a responsible adult stay with you. It is important to have someone help care for you until you are awake and alert. ??? Rest as needed. ??? Do not: ? Participate in activities in which you could fall or become injured. ? Drive. ? Use heavy machinery. ? Drink alcohol. ? Take sleeping pills or medicines that cause drowsiness. ? Make important decisions or sign legal documents. ? Take care of children on your own. Eating and drinking ??? Follow any instructions from your health care provider about eating or drinking restrictions. ??? When you feel hungry, start by eating small amounts of foods that are soft and easy to digest (bland), such as toast. Gradually return to your regular diet. ??? Drink enough fluid to keep your urine pale yellow. ??? If you vomit, rehydrate by drinking water, juice, or clear broth. General instructions ??? If you have sleep apnea, surgery and certain medicines can increase your risk for breathing problems. Follow instructions from your health care provider about wearing your sleep device: ? Anytime you are sleeping, including during daytime naps. ? While taking prescription pain medicines, sleeping medicines, or medicines that make you drowsy. ??? Return to your normal activities as told by your health care provider. Ask your health care provider what activities are safe for you. ??? Take tply-chq-njpirhm and prescription medicines only as told by your health care provider. ??? If you smoke, do not smoke without supervision. ??? Keep all follow-up visits as told by your health care provider. This is important. Contact a health care provider if: ??? You have nausea or vomiting that does not get better with medicine. ??? You cannot eat or drink without vomiting. ??? You have pain that does not get better with medicine. ??? You are unable to pass urine. ??? You develop a skin rash. ??? You have a fever. ??? You have redness around your IV site that gets worse. Get help right away if: ??? You have difficulty breathing. ??? You have chest pain. ??? You have blood in your urine or stool, or you vomit blood. Summary ??? After the procedure, it is common to have a sore throat or nausea. It is also common to feel tired. ??? Have a responsible adult stay with you for the first 24 hours after general anesthesia. It is important to have someone help care for you until you are awake and alert. ??? When you feel hungry, start by eating small amounts of foods that are soft and easy to digest (bland), such as toast. Gradually return to your regular diet. ??? Drink enough fluid to keep your urine pale yellow. ??? Return to your normal activities as told by your health care provider. Ask your health care provider what activities are safe for you. This information is not intended to replace advice given to you by your health care provider. Make sure you discuss any questions you have with your health care provider. Document Released: 11/01/2001 Document Revised: 03/11/2018 Document Reviewed: 03/11/2018 [employer] Interactive Patient Education ?? 2019 [employer]. acetaminophen and oxycodone (a SEET a MIN oh fen and OX i KOE done) Endocet 10/325, Endocet 2.5/325, Endocet 5/325, Endocet 7.5/325, Nalocet, Percocet 10/325, Percocet 2.5/325, Percocet 5/325, Percocet 7.5/325, Primalev, Primlev, Roxicet, Xartemis XR What is the most important information I should know about acetaminophen and oxycodone? MISUSE OF OPIOID MEDICINE CAN CAUSE ADDICTION, OVERDOSE, OR . Keep the medication in a place where others cannot get to it. An overdose of acetaminophen can damage your liver or cause . Call your doctor at once if you have pain in your upper stomach, loss of appetite, dark urine, or jaundice (yellowing of your skin or eyes). Taking opioid medicine during may cause life-threatening withdrawal symptoms in the . Fatal side effects can occur if you use opioid medicine with alcohol, or with other drugs that cause drowsiness or slow your breathing. Stop taking this medicine and call your doctor right away if you have skin redness or a rash that spreads and causes blistering and peeling. What is acetaminophen and oxycodone? Oxycodone is an opioid pain medication, sometimes called a narcotic. Acetaminophen is a less potent pain reliever that increases the effects of oxycodone. Acetaminophen and oxycodone is a combination medicine used to relieve moderate to severe pain. Acetaminophen and oxycodone may also be used for purposes not listed in this medication guide. What should I discuss with my healthcare provider before taking acetaminophen and oxycodone? You should not use this medicine if you are allergic to acetaminophen or oxycodone, or if you have: ?? severe asthma or breathing problems; or ?? a blockage in your stomach or intestines. Tell your doctor if you have ever had: ?? liver disease; ?? a drug or alcohol addiction; ?? kidney disease; ?? a head injury or seizures; ?? urination problems; or ?? problems with your thyroid, pancreas, or gallbladder. If you use opioid medicine while you are , your baby could become dependent on the drug. This can cause life-threatening withdrawal symptoms in the baby after it is born. Babies born dependent on opioids may need medical treatment for several weeks. Do not breast-feed. This medicine can pass into breast milk and cause drowsiness, breathing problems, or in a nursing baby. How should I take acetaminophen and oxycodone? Follow all directions on your prescription label. Never take this medicine in larger amounts, or for longer than prescribed. An overdose can damage your liver or cause . Tell your doctor if the medicine seems to stop working as well in relieving your pain. Never share this medicine with another person, especially someone with a history of drug abuse or addiction. MISUSE CAN CAUSE ADDICTION, OVERDOSE, OR . Keep the medicine in a place where others cannot get to it. Selling or giving away acetaminophen and oxycodone is against the law. Measure liquid medicine carefully. Use the dosing syringe provided, or use a medicine dose-measuring device (not a kitchen spoon). If you need surgery or medical tests, tell the doctor ahead of time that you are using this medicine. You should not stop using this medicine suddenly. Follow your doctor's instructions about tapering your dose. Store at room temperature away from moisture and heat. Keep track of your medicine. You should be aware if anyone is using it improperly or without a prescription. Do not keep leftover opioid medication. Just one dose can cause in someone using this medicine accidentally or improperly. Ask your pharmacist where to locate a drug take-back disposal program. If there is no take-back program, flush the unused medicine down the toilet. What happens if I miss a dose? Since this medicine is used for pain, you are not likely to miss a dose. Skip any missed dose if it is almost time for your next dose. Do not use two doses at one time. What happens if I overdose? Seek emergency medical attention or call the Poison Help line at . An overdose of acetaminophen and oxycodone can be fatal. The first signs of an acetaminophen overdose include loss of appetite, nausea, vomiting, stomach pain, sweating, and confusion or weakness. Later symptoms may include pain in your upper stomach, dark urine, and yellowing of your skin or the whites of your eyes. Overdose can also cause severe muscle weakness, pinpoint pupils, very slow breathing, extreme drowsiness, or coma. What should I avoid while taking acetaminophen and oxycodone? Avoid driving or operating machinery until you know how this medicine will affect you. Dizziness or drowsiness can cause falls, accidents, or severe injuries. Do not drink alcohol. Dangerous side effects or could occur. Ask a doctor or pharmacist before using any other medicine that may contain acetaminophen (sometimes abbreviated as APAP). Taking certain medications together can lead to a fatal overdose. What are the possible side effects of acetaminophen and oxycodone? Get emergency medical help if you have signs of an allergic reaction: hives; difficulty breathing; swelling of your face, lips, tongue, or throat. Opioid medicine can slow or stop your breathing, and may occur. A person caring for you should seek emergency medical attention if you have slow breathing with long pauses, blue colored lips, or if you are hard to wake up. In rare cases, acetaminophen may cause a severe skin reaction that can be fatal. This could occur even if you have taken acetaminophen in the past and had no reaction. Stop taking this medicine and call your doctor right away if you have skin redness or a rash that spreads and causes blistering and peeling. Call your doctor at once if you have: ?? noisy breathing, sighing, shallow breathing; ?? a light-headed feeling, like you might pass out; ?? weakness, tiredness, fever, unusual bruising or bleeding; ?? confusion, unusual thoughts or behavior; ?? problems with urination; ?? liver problems--nausea, upper stomach pain, tiredness, loss of appetite, dark urine, liss-colored stools, jaundice (yellowing of the skin or eyes); or ?? low cortisol levels-- nausea, vomiting, loss of appetite, dizziness, worsening tiredness or weakness. Seek medical attention right away if you have symptoms of serotonin syndrome, such as: agitation, hallucinations, fever, sweating, shivering, fast heart rate, muscle stiffness, twitching, loss of coordination, nausea, vomiting, or diarrhea. Serious side effects may be more likely in older adults and those who are overweight, malnourished, or debilitated. Long-term use of opioid medication may affect fertility (ability to have children) in men or women. It is not known whether opioid effects on fertility are permanent. Common side effects include: ?? dizziness, drowsiness, feeling tired; ?? feelings of extreme happiness or sadness; ?? nausea, vomiting, stomach pain; ?? constipation; or ?? headache. This is not a complete list of side effects and others may occur. Call your doctor for medical advice about side effects. You may report side effects to FDA at 0-087-LOM-4459. What other drugs will affect acetaminophen and oxycodone? You may have breathing problems or withdrawal symptoms if you start or stop taking certain other medicines. Tell your doctor if you also use an antibiotic, antifungal medication, heart or blood pressure medication, seizure medication, or medicine to treat HIV or hepatitis C. Opioid medication can interact with many other drugs and cause dangerous side effects or . Be sure your doctor knows if you also use: ?? cold or allergy medicines, bronchodilator asthma/COPD medication, or a diuretic ('water pill'); ?? medicines for motion sickness, irritable bowel syndrome, or overactive bladder; ?? other narcotic medications--opioid pain medicine or prescription cough medicine; ?? a sedative like Valium--diazepam, alprazolam, lorazepam, Xanax, Klonopin, Versed, and others; ?? drugs that make you sleepy or slow your breathing--a sleeping pill, muscle relaxer, medicine to treat mood disorders or mental illness; ?? drugs that affect serotonin levels in your body--a stimulant, or medicine for depression, Parkinson's disease, migraine headaches, serious infections, or nausea and vomiting. This list is not complete. Other drugs may affect acetaminophen and oxycodone, including prescription and [id number] medicines, vitamins, and herbal products. Not all possible interactions are listed here. Where can I get more information? Your doctor or pharmacist can provide more information about acetaminophen and oxycodone. Remember, keep this and all other medicines out of the reach of children, never share your medicines with others, and use this medication only for the indication prescribed. Every effort has been made to ensure that the information provided by [employer]') is accurate, up-to-date, and complete, but no guarantee is made to that effect. Drug information contained herein may be time sensitive. [employer] information has been compiled for use by healthcare practitioners and consumers in the [place] and therefore [employer] does not warrant that uses outside of the [place] are appropriate, unless specifically indicated otherwise. [employer] drug information does not endorse drugs, diagnose patients or recommend therapy. [facility] [employer] drug information is an informational resource designed to assist licensed healthcare practitioners in caring for their patients and/or to serve consumers viewing this service as a supplement to, and not a substitute for, the expertise, skill, knowledge and judgment of healthcare practitioners. The absence of a warning for a given drug or drug combination in no way should be construed to indicate that the drug or drug combination is safe, effective or appropriate for any given patient. [employer] does not assume any responsibility for any aspect of healthcare administered with the aid of information [employer] provides. The information contained herein is not intended to cover all possible uses, directions, precautions, warnings, drug interactions, allergic reactions, or adverse effects. If you have questions about the drugs you are taking, check with your doctor, nurse or pharmacist. Copyright 9913-1688 [employer] Version: 18.02. Revision Date: 07/06/2018. Emergency Awareness and Preventative Care STROKE is [...] Assistance with quitting is available by contacting 2-979-PEKJ-NOW. This is a free resource providing counseling, support, and referral. Or you may contact your personal physician. National Suicide Prevention Lifeline: The National Suicide Prevention [...] This Visit (last charted value for your 05/19/2019 visit) Hematology 05/19/2019 10:30 AM WBC: 4.4 K/uL -- Normal range between ( 3.9 and 10.0 ) RBC: 4.96 Million/uL -- Normal range between ( 3.93 and 5.22 ) Hct: 42.8 % -- Normal range between ( 34.1 and 44.9 ) Hgb: 14.3 Gram/dL -- Normal range between ( 11.2 and 15.7 ) Platelet Count: 279 K/uL -- Normal range between ( 163 and 369 ) MCH: 28.8 pg -- Normal range between ( 25.6 and 32.2 ) MCHC: 33.4 Gram/dL -- Normal range between ( 32.3 and 36.5 ) MCV: 86.3 fL -- Normal range between ( 79.0 and 94.8 ) Slide Review: No RDW: 12.1 % -- Normal range between ( 11.6 and 14.4 ) MPV: 10.4 fL -- Normal range between ( 9.4 and 12.4 ) General Chemistry 05/19/2019 10:30 AM Creatinine Level: 0.85 mg/dL -- Normal range between ( 0.55 and 1.02 ) Sodium Level: 139 mmol/L -- Normal range between ( 136 and 146 ) Potassium Level: 4.2 mmol/L -- Normal range between ( 3.5 and 5.1 ) Chloride Level: 107 mmol/L -- Normal range between ( 102 and 112 ) Carbon Dioxide Level: 26 mmol/L -- Normal range between ( 21 and 32 ) Anion Gap: 10 -- Normal range between ( 9 and 20 ) Bilirubin Total: 0.4 mg/dL -- Normal range between ( 0.2 and 1.3 ) Hgb A1C: 5.30 % -- Normal range between ( 4.20 and 6.30 ) A/G Ratio: 1.1 -- Normal range between ( 1.1 and 2.5 ) ALT: 17 Units/Liter -- Normal range between ( 12 and 78 ) AST: 11 Units/Liter -- Normal range between ( 5 and 37 ) Globulin: 3.9 Gram/dL -- Normal range between ( 1.5 and 4.5 ) Alk Phos: 75 Units/Liter -- Normal range between ( 27 and 136 ) eAVG Glucose: 105 mg/dL Bun/Creatinine: 15.3 -- Normal range between ( 8.0 and 20.0 ) Calcium Level: 8.9 mg/dL -- Normal range between ( 8.5 and 10.1 ) eGFR : >60 mL/min/1.73m2 eGFR NonAfrican: >60 mL/min/1.73m2 Glucose Level: 90 mg/dL -- Normal range between ( 74 and 106 ) Blood Urea Nitrogen: 13 mg/dL -- Normal range between ( 7 and 22 ) Protein Total: 8.3 Gram/dL -- Normal range between ( 6.4 and 8.2 ) Albumin Level: 4.4 Gram/dL -- Normal range between ( 3.4 and 5.0 ) Lipid Studies 05/19/2019 10:30 AM Cholesterol Tot: 203 mg/dL -- Normal range between ( 0 and 199 ) Cholesterol HDL: 54.0 mg/dL Cholesterol LDL Calculation: 138.0 mg/dL -- Normal range between ( 0.0 and 99.0 ) Cholesterol VLDL Calculation: 11.0 mg/dL -- Normal range between ( 5.0 and 40.0 ) Cholesterol/HDL Ratio: 3.8 -- Normal range between ( 0.0 and 3.2 ) Triglyceride: 55 mg/dL -- Normal range between ( 0 and 249 ) LDL/HDL Ratio: 2.6 -- Normal range between ( 0.0 and 3.2 ) Endocrinology 05/19/2019 10:30 AM TSH: 1.870 mcInt Units/mL -- Normal range between ( 0.358 and 3.740 ) 05/19/2019 10:02 AM HCG Urine Qualitative: Negative Patient Name:ALIYA SANCHES I have received this information and was given the opportunity to ask questions. Patient/Fine Patcher Name: Patient/Fine Patcher Signature: Relationship to Patient: Clinician/Hospital Fine Patcher Signature: Date: documented in this encounter Plan of Treatment Not on file documented as of this encounter Visit Diagnoses Not on filedocumented in this encounter Care Teams Hydrogeology Professor Relationship Specialty Start Date End Date Annette Alonzo MD [address] [place] [id number] PCP - General Obstetrics and Gynecology 02/26/23 documented as of this encounter
--- OUTSIDE RECORDS SUMMARY | 2025-03-12 10:00 | XMS_ITS | Encounter Summary ---
Author Organization [employer] ([place], [place], [place], [place]) [facility] [address] [facility] [facility] [place] [address] Care Team Providers Care Pastry Supervisor Name Role Phone Sylvia Alonzo MD Primary Care Provider [phone] Encounter Details Date Type Department Care Team (Late st Contact Info) Description 03/08/2021 Transcribed Document [facility] [place] Family Medicine [address] [place] [address] ProviderNorman MD [address], [place] [address] Social History Tobacco Use Types Packs/Day Years Used Date Smoking Tobacco: Never Assessed Comments Unknown Sex and Gender Information Value Date Recorded Sex Assigned at Not on file Legal Sex Female 1:09 PM CDT Gender Identity Not on file Sexual Orientation Not on file documented as of this encounter Miscellaneous Notes * Cerner Conversion Note - Historical ProviderMD - 03/08/2021 7:58 PM CDT Pain Assessment Entered On: 03/08/2021 22:19 EDT Performed On: 03/08/2021 23:00 EDT by KIN SNYDER RN Intervention Information: benzocaine topical Performed by KIN SNYDER RN on 03/08/2021 22:00:00 EDT benzocaine topical,1Spray Topical,Perineal,Pain Pain Assessment Pain Assessment : Follow-up assessment KIN SNYDER RN - 03/08/2021 22:19 EDT Electronically signed by Jessica Nye Conversion Psychologist Research Assistant Cerner at 11/24/2022 12:10 PM CDT documented in this encounter Plan of Treatment Not on file documented as of this encounter Visit Diagnoses Not on filedocumented in this encounter Care Teams Pastry Supervisor Relationship Specialty Start Date End Date Sylvia Alonzo MD [address] [place] [address] PCP - General Obstetrics and Gynecology 02/26/23 documented as of this encounter
--- OUTSIDE RECORDS SUMMARY | 2025-03-12 10:00 | XMS_ITS | Encounter Summary ---
Author Organization [employer] ([place], [place], [place], [place]) Address [address] [place] [address] Care Team Providers Care Tire Trucker Name Role Phone Annette Alonzo MD Primary Care Provider [phone] Encounter Details Date Type Department Care Team (Late st Contact Info) Description 2021 Transcribed Document [facility] [place] Family Medicine [address] [place] [address] ProviderNorman MD [address], [place] [id number] Social History Tobacco Use Types Packs/Day Years Used Date Smoking Tobacco: Never Assessed Comments Unknown Sex and Gender Information Value Date Recorded Sex Assigned at Not on file Legal Sex Female 1:09 PM CDT Gender Identity Not on file Sexual Orientation Not on file documented as of this encounter Miscellaneous Notes * Cerner Conversion Note - Norman ProviderMD - 2021 8:06 AM CDT Patient: ALIYA SANCHES Age: 31 years Sex: Female : 1990 Associated Diagnoses: None Author: ANNETTE ALONZO MD-OBG Basic Information 31 yo at 31 1/7 weeks gestation. Patient had nephrolithiasis with one of the previous pregnancies. She has frequent UTI's Review of Systems Pre term labor Health Status Current medications: (Selected) Inpatient Medications Ordered HYDROmorphone: 0.5 mg, IV Push, Q10Min, PRN: Pain (Severe 7-10) Mylicon: 80 mg, Oral, QID, PRN: Gas Lacey 5 mg-325 mg oral tablet: 1 Tab, Oral, Q4H, PRN: Pain (Moderate 4-6) Normal Saline 500 mL: 20 mL/Hr, IntraVENous Normal Saline Flush: 10 mL, IV Push, See Comment, PRN: IV Use Normosol-R 1,000 mL: 100 mL/Hr, IntraVENous Phenergan: 12.5 mg, IV Push, Q6H, PRN: Nausea/Vomiting Rocephin + Sodium Chloride 0.9% intravenous solution 50 mL: 1 Gram, 100 mL/Hr, IV Piggyback, Q12H Sublimaze: 25 mcg, IV Push, Q5Min, PRN: Pain (Mild 1-3) Sublimaze: 50 mcg, IV Push, Q5Min, PRN: Pain (Moderate 4-6) Tylenol: 1,000 mg, Oral, Q4H, PRN: Other (See Comment) acetaminophen-oxyCODONE 325 mg-5 mg oral tablet: 1 Tab, Oral, Q4H, PRN: Pain (Moderate 4-6) clindamycin: 900 mg, 50 mL, 100 mL/Hr, IV Piggyback, 1-Time cloNIDine 80 mcg + ketorolac 30 mg + ropivacaine 0.5% injectable solution 30 mL + Xylocaine HCl wit...: 80 mcg, 0.8 mL, 3600 mL/Hr, IntraLesional, 1-Time famotidine: 20 mg, Oral, PREOP, PRN: Other (See Comment) haloperidol: 1 mg, IV Push, 1-Time, PRN: Nausea/Vomiting Documented Medications Documented Benadryl 25 mg oral capsule: 1 Cap, Oral, Once a day (at bedtime), PRN: as needed for insomnia, 30 Cap, 0 Refill(s) acetaminophen-oxyCODONE 325 mg-5 mg oral tablet: 1 Tab, Oral, Q4H, PRN: Pain (Moderate 4-6), 0 Refill(s) Objective VS/Measurements No qualifying data available Gastrointestinal: Gravid uterus, no contractions, fetus active. Review / Management Results review: Labs (Last four charted values) WBC H 10.3 (FEB 01) HB L 9.3 (FEB 01) HCT L 29.3 (FEB 01) Plt 208 (FEB 01) Na 137 (FEB 01) K 3.6 (FEB 01) Cl 107 (FEB 01) CO2 21 (FEB 01) BUN L 6 (FEB 01) Cr L 0.49 (FEB 01) Glu R 98 (FEB 01) Ca 8.5 (FEB 01) AST 14 (FEB 01) ALT L 11 (FEB 01) ALK P 115 (FEB 01) T Bili 0.4 (FEB 01) PTN 6.7 (FEB 01) ALB L 2.7 (FEB 01) . Impression and Plan Cystitis and nephrolithiasis at 31 weeks gestation Renal ultrasound will be ordered Ketonuria and dehydration will be treated with IV fluids Urine straining for stones Pain managment of the colicky pain Iron deficiency anemia will be treated with IV iron documented in this encounter Plan of Treatment Not on file documented as of this encounter Visit Diagnoses Not on filedocumented in this encounter Care Teams Tire Trucker Relationship Specialty Start Date End Date Annette Alonzo MD [address] [place] [address] PCP - General Obstetrics and Gynecology 02/26/23 documented as of this encounter
--- OUTSIDE RECORDS SUMMARY | 2025-03-12 10:00 | XMS_ITS | Encounter Summary ---
Author Organization [email or web address] ([place], [place], [place], [place]) Address [address] [facility] [place] [address] Care Team Providers Care Wood Lathe Operator Name Role Phone Sylvia Alonzo MD Primary Care Provider [phone] Encounter Details Date Type Department Care Team (Late st Contact Info) Description 03/09/2021 Transcribed Document [facility] [place] Family Medicine [address] [place] [address] ProviderNorman MD [address] [place] [address] Social History Tobacco Use Types Packs/Day Years Used Date Smoking Tobacco: Never Assessed Comments Unknown Sex and Gender Information Value Date Recorded Sex Assigned at Not on file Legal Sex Female 1:09 PM CDT Gender Identity Not on file Sexual Orientation Not on file documented as of this encounter Miscellaneous Notes * Cerner Conversion Note - Historical ProviderMD - 03/09/2021 5:00 AM CDT Chart Check - Review Order Profile Entered On: 03/09/2021 6:07 EDT Performed On: 03/09/2021 5:00 EDT by KIN SNYDER RN Chart Check Powerplans Initiated/Discontinued as Appropriate : Yes All Active Orders Reviewed : Yes KIN SNYDER RN - 03/09/2021 6:07 EDT documented in this encounter Plan of Treatment Not on file documented as of this encounter Visit Diagnoses Not on filedocumented in this encounter Care Teams Wood Lathe Operator Relationship Specialty Start Date End Date Sylvia Alonzo MD [address] [facility] [address] [place] [address] PCP - General Obstetrics and Gynecology 02/26/23 documented as of this encounter
--- OUTSIDE RECORDS SUMMARY | 2025-03-12 10:00 | XMS_ITS | Encounter Summary ---
Author Organization [employer] ([place], [place], [place], [place]) Address [address] [place] [address] Care Team Providers Care Ingot Caster Name Role Phone Annette Alonzo MD Primary Care Provider [phone] Encounter Details Date Type Department Care Team (Late st Contact Info) Description 03/10/2021 Transcribed Document [facility] [place] [facility] [address] [place] [address] ProviderNorman MD [address] [place] [address] Social History Tobacco Use Types Packs/Day Years Used Date Smoking Tobacco: Never Assessed Comments Unknown Sex and Gender Information Value Date Recorded Sex Assigned at Not on file Legal Sex Female 1:09 PM CDT Gender Identity Not on file Sexual Orientation Not on file documented as of this encounter Miscellaneous Notes * Cerner Conversion Note - Norman ProviderMD - 03/10/2021 10:26 [place] [address] VERÓNICAALIYA :1990 Visit Time:03/07/2021 Your Visit Summary Your Care Team Admitting Physician - ANNETTE ALONZO MD-OBG Attending Physician - ANNETTE ALONZO MD-OBShane Primary Care Physician - ENID GALINDO DR Referring Physician - ANNETTE ALONZO MD-OBG Your Diagnosis 36 weeks gestation of Labor without complication, Normal spontaneous vaginal delivery Encounter for supervision of normal first , unspecified trimester, Encounter for supervision of normal first , unspecified trimester These Are Your Goals No qualifying data available. What to do next Instructions From Your Care Team Diet after Discharge: Resume usual diet as tolerated Drink at least 8-10 glasses of water a day Do not drink any alcoholic beverages Add 500 extra calories daily if Eat a 1-2 carbohydrate snack before or during Activity After Discharge:As tolerated,Rest and relax today,No strenuous activities,Nothing in the vagina for 6 weeks Lifting Restrictions:No lifting over 10 pounds for 1 week Minimize Stair Climbing Discuss Exercise with your physician Driving after Discharge:No driving while on pain medication May Return to Work: After 6 week follow up Showering Bathing:May Shower,No tub, soaking or swimming for 2 weeks Breast Care: Wear supportive bras as much as possible Place ice packs on breasts to help decrease swelling Avoid applying heat to breasts If nipple soreness occurs, rub colostrum (breastmilk) or a pea-sized amount of lanolin on nipples after feeding Practice self-breast exam monthly , Notify Provider of: Redness, swelling, or drainage from incision Foul smelling vaginal discharge Temperature over 101 degrees Fahrenheit Signs of depression or anxiety that makes it hard for you to care for yourself or your baby Weight up more than 2 pounds a day or more than 5 pounds in a week Incision pulling apart Pass blood clots larger than a golf ball Sharp pain or redness in your legs Painful urination or feeling like you have to go to the bathroom all the time Have breast pain with fever and chills Excessive vomiting or diarrhea Vaginal bleeding greater than 1 pad per hour Pain is worsening and current pain medication is not adequate When to go to the Emergency Room or call 911: Shortness of breath or chest pain Unable to reach provider Discharge Follow Up Instructions: 6 weeks follow up in office Activity: Discharge Activity: No strenuous activities Diet: Discharge Diet: Resume usual diet as tolerated Follow-Up Appointments Follow Up with ANNETTE ALONZO When 04/21/2021 11:30 AM EDT Comments Appointment has been made [facility] [place] [address] [place] [address]- Business (1) Medications What How Much When Instructions Next Dose ibuprofen (ibuprofen 600 mg oral tablet) 1 Tablet(s) Oral Every 6 Hours Noon, 6 PM, Midnight, 6 AM Take your medications faithfully. Do NOT skip [...] Allergies No Known Allergies Immunizations This Visit tetanus/diphtheria/pertussis, acel(Tdap) 03/09/2021 Education Materials Care After Vaginal Delivery This sheet gives you information about how to care for yourself from the time you deliver your baby to up to 6???12 weeks after delivery ( period). Your health care provider may also give you more specific instructions. If you have problems or questions, contact your health care provider. Follow these instructions at home: Vaginal bleeding ??? It is normal to have vaginal bleeding (lochia) after delivery. Wear a sanitary pad for vaginal bleeding and discharge. ? During the first week after delivery, the amount and appearance of lochia is often similar to a menstrual period. ? Over the next few weeks, it will gradually decrease to a dry, yellow-brown discharge. ? For most women, lochia stops completely by 4???6 weeks after delivery. Vaginal bleeding can vary from woman to woman. ??? Change your sanitary pads frequently. Watch for any changes in your flow, such as: ? A sudden increase in volume. ? A change in color. ? Large blood clots. ??? If you pass a blood clot from your vagina, save it and call your health care provider to discuss. Do not flush blood clots down the toilet before talking with your health care provider. ??? Do not use tampons or douches until your health care provider says this is safe. ??? If you are not , your period should return 6???8 weeks after delivery. If you are feeding your child breast milk only (exclusive ), your period may not return until you stop . Perineal care ??? Keep the area between the vagina and the anus (perineum) clean and dry as told by your health care provider. Use medicated pads and pain-relieving sprays and creams as directed. ??? If you had a cut in the perineum (episiotomy) or a tear in the vagina, check the area for signs of infection until you are healed. Check for: ? More redness, swelling, or pain. ? Fluid or blood coming from the cut or tear. ? Warmth. ? Pus or a bad smell. ??? You may be given a squirt bottle to use instead of wiping to clean the perineum area after you go to the bathroom. As you start healing, you may use the squirt bottle before wiping yourself. Make sure to wipe gently. ??? To relieve pain caused by an episiotomy, a tear in the vagina, or swollen veins in the anus (hemorrhoids), try taking a warm sitz bath 2???3 times a day. A sitz bath is a warm water bath that is taken while you are sitting down. The water should only come up to your hips and should cover your buttocks. Breast care ??? Within the first few days after delivery, your breasts may feel heavy, full, and uncomfortable (breast engorgement). Milk may also leak from your breasts. Your health care provider can suggest ways to help relieve the discomfort. Breast engorgement should go away within a few days. ??? If you are : ? Wear a bra that supports your breasts and fits you well. ? Keep your nipples clean and dry. Apply creams and ointments as told by your health care provider. ? You may need to use breast pads to absorb milk that leaks from your breasts. ? You may have uterine contractions every time you breastfeed for up to several weeks after delivery. Uterine contractions help your uterus return to its normal size. ? If you have any problems with , work with your health care provider or delivery consultant. ??? If you are not : ? Avoid touching your breasts a lot. Doing this can make your breasts produce more milk. ? Wear a good-fitting bra and use cold packs to help with swelling. ? Do not squeeze out (express) milk. This causes you to make more milk. Intimacy and sexuality ??? Ask your health care provider when you can engage in sexual activity. This may depend on: ? Your risk of infection. ? How fast you are healing. ? Your comfort and desire to engage in sexual activity. ??? You are able to get after delivery, even if you have not had your period. If desired, talk with your health care provider about methods of control (contraception). Medicines ??? Take mrgq-mjo-ceqshel and prescription medicines only as told by your health care provider. ??? If you were prescribed an antibiotic medicine, take it as told by your health care provider. Do not stop taking the antibiotic even if you start to feel better. Activity ??? Gradually return to your normal activities as told by your health care provider. Ask your health care provider what activities are safe for you. ??? Rest as much as possible. Try to rest or take a nap while your baby is sleeping. Eating and drinking ??? Drink enough fluid to keep your urine pale yellow. ??? Eat high-fiber foods every day. These may help prevent or relieve constipation. High-fiber foods include: ? Whole grain cereals and breads. ? Brown rice. ? Beans. ? Fresh fruits and vegetables. ??? Do not try to lose weight quickly by cutting back on calories. ??? Take your vitamins until your checkup or until your health care provider tells you it is okay to stop. Lifestyle ??? Do not use any products that contain nicotine or tobacco, such as cigarettes and e-cigarettes. If you need help quitting, ask your health care provider. ??? Do not drink alcohol, especially if you are . General instructions ??? Keep all follow-up visits for you and your baby as told by your health care provider. Most women visit their health care provider for a checkup within the first 3???6 weeks after delivery. Contact a health care provider if: ??? You feel unable to cope with the changes that your child brings to your life, and these feelings do not go away. ??? You feel unusually sad or worried. ??? Your breasts become red, painful, or hard. ??? You have a fever. ??? You have trouble holding urine or keeping urine from leaking. ??? You have little or no interest in activities you used to enjoy. ??? You have not breastfed at all and you have not had a menstrual period for 12 weeks after delivery. ??? You have stopped and you have not had a menstrual period for 12 weeks after you stopped . ??? You have questions about caring for yourself or your baby. ??? You pass a blood clot from your vagina. Get help right away if: ??? You have chest pain. ??? You have difficulty breathing. ??? You have sudden, severe leg pain. ??? You have severe pain or cramping in your lower abdomen. ??? You bleed from your vagina so much that you fill more than one sanitary pad in one hour. Bleeding should not be heavier than your heaviest period. ??? You develop a severe headache. ??? You faint. ??? You have blurred vision or spots in your vision. ??? You have bad-smelling vaginal discharge. ??? You have thoughts about hurting yourself or your baby. If you ever feel like you may hurt yourself or others, or have thoughts about taking your own life, get help right away. You can go to the nearest emergency department or call: ??? Your local emergency services (911 in the [place] ??? A suicide crisis helpline, such as the National Suicide Prevention Lifeline at . This is open 24 hours a day. Summary ??? The period of time right after you deliver your up to 6???12 weeks after delivery is called the period. ??? Gradually return to your normal activities as told by your health care provider. ??? Keep all follow-up visits for you and your baby as told by your health care provider. This information is not intended to replace advice given to you by your health care provider. Make sure you discuss any questions you have with your health care provider. Document Revised: 07/29/2018 Document Reviewed: 05/09/2018 [facility] [employer] Patient Education ?? 2020 [employer]. Choosing to breastfeed is one of the best decisions you can make for yourself and your baby. A change in hormones during causes your breasts to make breast milk in your milk-producing glands. Hormones prevent breast milk from being released before your baby is born. They also prompt milk flow after . Once has begun, thoughts of your baby, as well as his or her sucking or crying, can stimulate the release of milk from your milk-producing glands. Benefits of Research shows that offers many health benefits for infants and mothers. It also offers a cost-free and convenient way to feed your baby. For your baby ??? Your first milk (colostrum) helps your baby's digestive system to function better. ??? Special cells in your milk (antibodies) help your baby to fight off infections. ??? Breastfed babies are less likely to develop asthma, allergies, obesity, or type 2 diabetes. They are also at lower risk for sudden infant syndrome (SIDS). ??? Nutrients in breast milk are better able to meet your baby???s needs compared to infant formula. ??? Breast milk improves your baby's brain development. For you ??? helps to create a very special niño between you and your baby. ??? is convenient. Breast milk costs nothing and is always available at the correct temperature. ??? helps to burn calories. It helps you to lose the weight that you gained during . ??? makes your uterus return faster to its size before . It also slows bleeding (lochia) after you give . ??? helps to lower your risk of developing type 2 diabetes, osteoporosis, rheumatoid arthritis, cardiovascular disease, and breast, ovarian, uterine, and endometrial cancer later in life. basics Starting ??? Find a comfortable place to sit or lie down, with your neck and back well-supported. ??? Place a pillow or a rolled-up blanket under your baby to bring him or her to the level of your breast (if you are seated). Nursing pillows are specially designed to help support your arms and your baby while you breastfeed. ??? Make sure that your baby's tummy (abdomen) is facing your abdomen. ??? Gently massage your breast. With your fingertips, massage from the outer edges of your breast inward toward the nipple. This encourages milk flow. If your milk flows slowly, you may need to continue this action during the feeding. ??? Support your breast with 4 fingers underneath and your thumb above your nipple (make the letter C with your hand). Make sure your fingers are well away from your nipple and your baby???s mouth. ??? Stroke your baby's lips gently with your finger or nipple. ??? When your baby's mouth is open wide enough, quickly bring your baby to your breast, placing your entire nipple and as much of the areola as possible into your baby's mouth. The areola is the colored area around your nipple. ? More areola should be visible above your baby's upper lip than below the lower lip. ? Your baby's lips should be opened and extended outward (flanged) to ensure an adequate, comfortable latch. ? Your baby's tongue should be between his or her lower gum and your breast. ??? Make sure that your baby's mouth is correctly positioned around your nipple (latched). Your baby's lips should create a seal on your breast and be turned out (everted). ??? It is common for your baby to suck about 2???3 minutes in order to start the flow of breast milk. Latching Teaching your baby how to latch onto your breast properly is very important. An improper latch can cause nipple pain, decreased milk supply, and poor weight gain in your baby. Also, if your baby is not latched onto your nipple properly, he or she may swallow some air during feeding. This can make your baby fussy. Kathyping your baby when you switch breasts during the feeding can help to get rid of the air. However, teaching your baby to latch on properly is still the best way to prevent fussiness from swallowing air while . Signs that your baby has successfully latched onto your nipple ??? Silent tugging or silent sucking, without causing you pain. 's lips should be extended outward (flanged). ??? Swallowing heard between every 3???4 sucks once your milk has started to flow (after your let-down milk reflex occurs). ??? Muscle movement above and in front of his or her ears while sucking. Signs that your baby has not successfully latched onto your nipple ??? Sucking sounds or smacking sounds from your baby while . ??? Nipple pain. If you think your baby has not latched on correctly, slip your finger into the corner of your baby???s mouth to break the suction and place it between your baby's gums. Attempt to start again. Signs of successful Signs from your baby ??? Your baby will gradually decrease the number of sucks or will completely stop sucking. ??? Your baby will fall asleep. ??? Your baby's body will relax. ??? Your baby will retain a small amount of milk in his or her mouth. ??? Your baby will let go of your breast by himself or herself. Signs from you ??? Breasts that have increased in firmness, weight, and size 1???3 hours after feeding. ??? Breasts that are softer immediately after . ??? Increased milk volume, as well as a change in milk consistency and color by the fifth day of . ??? Nipples that are not sore, cracked, or bleeding. Signs that your baby is getting enough milk ??? Wetting at least 1???2 diapers during the first 24 hours after . ??? Wetting at least 5???6 diapers every 24 hours for the first week after . The urine should be clear or pale yellow by the age of 5 days. ??? Wetting 6???8 diapers every 24 hours as your baby continues to grow and develop. ??? At least 3 stools in a 24-hour period by the age of 5 days. The stool should be soft and yellow. ??? At least 3 stools in a 24-hour period by the age of 7 days. The stool should be seedy and yellow. ??? No loss of weight greater than 10% of weight during the first 3 days of life. ??? Average weight gain of 4???7 oz (113???198 g) per week after the age of 4 days. ??? Consistent daily weight gain by the age of 5 days, without weight loss after the age of 2 weeks. After a feeding, your baby may spit up a small amount of milk. This is normal. frequency and duration Frequent feeding will help you make more milk and can prevent sore nipples and extremely full breasts (breast engorgement). Breastfeed when you feel the need to reduce the fullness of your breasts or when your baby shows signs of hunger. This is called on demand. Signs that your baby is hungry include: ??? Increased alertness, activity, or restlessness. ??? Movement of the head from side to side. ??? Opening of the mouth when the corner of the mouth or cheek is stroked (rooting). ??? Increased sucking sounds, smacking lips, cooing, sighing, or squeaking. ??? Enyx-rm-jtnlm movements and sucking on fingers or hands. ??? Fussing or crying. Avoid introducing a pacifier to your baby in the first 4-6 weeks after your baby is born. After this time, you may choose to use a pacifier. Research has shown that pacifier use during the first year of a baby's life decreases the risk of sudden syndrome (SIDS). Allow your baby to feed on each breast as long as he or she wants. When your baby unlatches or falls asleep while feeding from the first breast, offer the second breast. Because newborns are often sleepy in the first few weeks of life, you may need to awaken your baby to get him or her to feed. times will vary from baby to baby. However, the following rules can serve as a guide to help you make sure that your baby is properly fed: ??? Newborns (babies 4 weeks of age or younger) may breastfeed every 1???3 hours. ??? Newborns should not go without for longer than 3 hours during the day or 5 hours during the night. ??? You should breastfeed your baby a minimum of 8 times in a 24-hour period. Breast milk pumping Pumping and storing breast milk allows you to make sure that your baby is exclusively fed your breast milk, even at times when you are unable to breastfeed. This is especially important if you go back to work while you are still , or if you are not able to be present during feedings. Your delivery consultant can help you find a method of pumping that works best for you and give you guidelines about how long it is safe to store breast milk. Caring for your breasts while you breastfeed Nipples can become dry, cracked, and sore while . The following recommendations can help keep your breasts moisturized and healthy: ??? Avoid using soap on your nipples. ??? Wear a supportive bra designed especially for nursing. Avoid wearing underwire-style bras or extremely tight bras (sports bras). ??? Air-dry your nipples for 3???4 minutes after each feeding. ??? Use only cotton bra pads to absorb leaked breast milk. Leaking of breast milk between feedings is normal. ??? Use lanolin on your nipples after . Lanolin helps to maintain your skin's normal moisture barrier. Pure lanolin is not harmful (not toxic) to your baby. You may also hand express a few drops of breast milk and gently massage that milk into your nipples and allow the milk to air-dry. In the first few weeks after giving , some women experience breast engorgement. Engorgement can make your breasts feel heavy, warm, and tender to the touch. Engorgement peaks within 3???5 days after you give . The following recommendations can help to ease engorgement: ??? Completely empty your breasts while or pumping. You may want to start by applying warm, moist heat (in the shower or with warm, water-soaked hand towels) just before feeding or pumping. This increases circulation and helps the milk flow. If your baby does not completely empty your breasts while , pump any extra milk after he or she is finished. ??? Apply ice packs to your breasts immediately after or pumping, unless this is too uncomfortable for you. To do this: ? Put ice in a plastic bag. ? Place a towel between your skin and the bag. ? Leave the ice on for 20 minutes, 2???3 times a day. ??? Make sure that your baby is latched on and positioned properly while . If engorgement persists after 48 hours of following these recommendations, contact your health care provider or a delivery consultant. Overall health care recommendations while ??? Eat 3 healthy meals and 3 snacks every day. Well-nourished mothers who are need an additional 450???500 calories a day. You can meet this requirement by increasing the amount of a balanced diet that you eat. ??? Drink enough water to keep your urine pale yellow or clear. ??? Rest often, relax, and continue to take your vitamins to prevent fatigue, stress, and low vitamin and mineral levels in your body (nutrient deficiencies). ??? Do not use any products that contain nicotine or tobacco, such as cigarettes and e-cigarettes. Your baby may be harmed by chemicals from cigarettes that pass into breast milk and exposure to secondhand smoke. If you need help quitting, ask your health care provider. ??? Avoid alcohol. ??? Do not use illegal drugs or marijuana. ??? Talk with your health care provider before taking any medicines. These include kepy-fib-rszvpve and prescription medicines as well as vitamins and herbal supplements. Some medicines that may be harmful to your baby can pass through breast milk. ??? It is possible to become while . If control is desired, ask your health care provider about options that will be safe while your baby. Where to find more information: [employer]: www.llli.org Contact a health care provider if: ??? You feel like you want to stop or have become frustrated with . ??? Your nipples are cracked or bleeding. ??? Your breasts are red, tender, or warm. ??? You have: ? Painful breasts or nipples. ? A swollen area on either breast. ? A fever or chills. ? Nausea or vomiting. ? Drainage other than breast milk from your nipples. ??? Your breasts do not become full before feedings by the fifth day after you give . ??? You feel sad and depressed. ??? Your baby is: ? Too sleepy to eat well. ? Having trouble sleeping. ? More than 1 week old and wetting fewer than 6 diapers in a 24-hour period. ? Not gaining weight by 5 days of age. ??? Your baby has fewer than 3 stools in a 24-hour period. ??? Your baby's skin or the white parts of his or her eyes become yellow. Get help right away if: ??? Your baby is overly tired (lethargic) and does not want to wake up and feed. ??? Your baby develops an unexplained fever. Summary ??? offers many health benefits for infant and mothers. ??? Try to breastfeed your when he or she shows early signs of hunger. ??? Gently tickle or stroke your baby's lips with your finger or nipple to allow the baby to open his or her mouth. Bring the baby to your breast. Make sure that much of the areola is in your baby's mouth. Offer one side and burp the baby before you offer the other side. ??? Talk with your health care provider or delivery consultant if you have questions or you face problems as you breastfeed. This information is not intended to replace advice given to you by your health care provider. Make sure you discuss any questions you have with your health care provider. Document Revised: 10/20/2018 Document Reviewed: 08/27/2017 ENT Surgical Patient Education ?? 2020 [employer]. ibuprofen (EYE bue PROE fen) Advil, Genpril, IBU, Midol IB, Motrin IB, Proprinal, Smart Sense Children's Ibuprofen What is the most important information I should know about ibuprofen? Ibuprofen can increase your risk of fatal heart attack or stroke. Do not use this medicine just before or after heart bypass surgery (coronary artery bypass graft, or CABG). Ibuprofen may also cause stomach or intestinal bleeding, which can be fatal. What is ibuprofen? Ibuprofen is a nonsteroidal anti-inflammatory drug (NSAID). Ibuprofen is used to reduce fever and treat pain or inflammation caused by many conditions such as headache, toothache, back pain, arthritis, menstrual cramps, or minor injury. This medicine is used in adults and children who are at least 6 months old. Ibuprofen may also be used for purposes not listed in this medication guide. What should I discuss with my healthcare provider before taking ibuprofen? Ibuprofen can increase your risk of fatal heart attack or stroke, even if you don't have any risk factors. Do not use this medicine just before or after heart bypass surgery (coronary artery bypass graft, or CABG). Ibuprofen may also cause stomach or intestinal bleeding, which can be fatal. These conditions can occur without warning while you are using ibuprofen, especially in older adults. You should not use ibuprofen if you are allergic to it, or if you have ever had an asthma attack or severe allergic reaction after taking aspirin or an NSAID. Ask a doctor or pharmacist if this medicine is safe to use if you have ever had: ?? heart disease, high blood pressure, high cholesterol, diabetes, or if you smoke; ?? a heart attack, stroke, or blood clot; ?? stomach ulcers or bleeding; ?? liver or kidney disease; ?? asthma; or ?? if you take aspirin to prevent heart attack or stroke. Ask a doctor before using this medicine if you are or . If you are , you should not take ibuprofen unless your doctor tells you to. Taking an NSAID during the last 20 weeks of can cause serious heart or kidney problems in the unborn baby and possible complications with your . Do not give ibuprofen to a child younger than 6 months old without the advice of a doctor. How should I take ibuprofen? Use exactly as directed on the label, or as prescribed by your doctor. Use the lowest dose that is effective in treating your condition. An ibuprofen overdose can damage your stomach or intestines. The maximum amount of ibuprofen for adults is 800 milligrams per dose or 3200 mg per day (4 maximum doses). A child's dose of ibuprofen is based on the age and weight of the child. Carefully follow the dosing instructions provided with children's ibuprofen for the age and weight of your child. Ask a doctor or pharmacist if you have questions. Take ibuprofen with food or milk to lessen stomach upset. Shake the oral suspension (liquid) before you measure a dose. Use the dosing syringe provided, or use a medicine dose-measuring device (not a kitchen spoon). You must chew the chewable tablet before you swallow it. Store at room temperature away from moisture and heat. Do not allow the liquid medicine to freeze. What happens if I miss a dose? Since ibuprofen is used when needed, you may not be on a dosing schedule. Skip any missed dose if it's almost time for your next dose. Do not use two doses at one time. What happens if I overdose? Seek emergency medical attention or call the Poison Help line at . Overdose symptoms may include nausea, vomiting, stomach pain, drowsiness, black or bloody stools, coughing up blood, shallow breathing, fainting, or coma. What should I avoid while taking ibuprofen? Ask a doctor or pharmacist before using other medicines for pain, fever, swelling, or cold/flu symptoms. They may contain ingredients similar to ibuprofen (such as aspirin, ibuprofen, ketoprofen, or naproxen). Avoid taking aspirin unless your doctor tells you to. If you also take aspirin to prevent stroke or heart attack, taking ibuprofen can make aspirin less effective in protecting your heart and blood vessels. If you take both medicines, take ibuprofen at least 8 hours before or 30 minutes after you take aspirin (non-enteric coated form). Avoid drinking alcohol. It may increase your risk of stomach bleeding. What are the possible side effects of ibuprofen? Get emergency medical help if you have signs of an allergic reaction (hives, difficult breathing, swelling in your face or throat) or a severe skin reaction (fever, sore throat, burning eyes, skin pain, red or purple skin rash with blistering and peeling). Get emergency medical help if you have signs of a heart attack or stroke: chest pain spreading to your jaw or shoulder, sudden numbness or weakness on one side of the body, slurred speech, leg swelling, feeling short of breath. Stop using ibuprofen and call your doctor at once if you have: ?? changes in your vision; ?? shortness of breath (even with mild exertion); ?? swelling or rapid weight gain; ?? a skin rash, no matter how mild; ?? signs of stomach bleeding--bloody or tarry stools, coughing up blood or vomit that looks like coffee grounds; ?? liver problems--nausea, upper stomach pain, itching, tired feeling, flu-like symptoms, loss of appetite, dark urine, liss-colored stools, jaundice (yellowing of the skin or eyes); ?? low red blood cells (anemia)--pale skin, feeling light-headed or short of breath, rapid heart rate, trouble concentrating; or ?? kidney problems--little or no urinating, painful or difficult urination, swelling in your feet or ankles, feeling tired or short of breath. Common side effects may include: ?? nausea, vomiting, gas; ?? bleeding; or ?? dizziness, headache. This is not a complete list of side effects and others may occur. Call your doctor for medical advice about side effects. You may report side effects to FDA at 2-569-PPV-1484. What other drugs will affect ibuprofen? Ask your doctor before using ibuprofen if you take an antidepressant. Taking certain antidepressants with an NSAID may cause you to bruise or bleed easily. Ask a doctor or pharmacist before using ibuprofen with any other medications, especially: ?? cyclosporine; ?? lithium; ?? methotrexate; ?? a blood thinner (warfarin, Coumadin, Jantoven); ?? heart or blood pressure medication, including a diuretic or 'water pill'; or ?? steroid medicine (such as prednisone). This list is not complete. Other drugs may affect ibuprofen, including prescription and kwuy-iiq-wsnpjal medicines, vitamins, and herbal products. Not all possible drug interactions are listed here. Where can I get more information? Your pharmacist can provide more information about ibuprofen. Remember, keep this and all other medicines out of the reach of children, never share your medicines with others, and use this medication only for the indication prescribed. Every effort has been made to ensure that the information provided by [employer]. ('[employer]') is accurate, up-to-date, and complete, but no guarantee is made to that effect. Drug information contained herein may be time sensitive. [employer] information has been compiled for use by healthcare practitioners and consumers in the [place] and therefore [employer] does not warrant that uses outside of the [place] are appropriate, unless specifically indicated otherwise. [employer] drug information does not endorse drugs, diagnose patients or recommend therapy. [employer] drug information is an informational resource designed [...] effective or appropriate for any given patient. [employer] does not assume any responsibility for any aspect of healthcare administered with the aid of information [facility] provides. The information contained herein is not intended to cover all possible uses, directions, precautions, warnings, drug interactions, allergic reactions, or adverse effects. If you have questions about the drugs you are taking, check with your doctor, nurse or pharmacist. Copyright 5688-1853 [employer]. Version: 22.01. Revision Date: 07/03/2020. Emergency Awareness and Preventative Care STROKE is [...] Assistance with quitting is available by contacting 0-746-NHSIADVANCE MedicalNOW. This is a free resource providing counseling, [...] This Visit (last charted value for your 03/07/2021 visit) Hematology 03/09/2021 6:34 AM WBC: 8.9 K/uL -- Normal range between ( 3.9 and 10.0 ) RBC: 3.56 Million/uL -- Normal range between ( 3.93 and 5.22 ) Hct: 28.7 % -- Normal range between ( 34.1 and 44.9 ) Hgb: 8.9 Gram/dL -- Normal range between ( 11.2 and 15.7 ) Platelet Count: 187 K/uL -- Normal range between ( 163 and 369 ) MCH: 25.0 pg -- Normal range between ( 25.6 and 32.2 ) MCHC: 31.0 Gram/dL -- Normal range between ( 32.3 and 36.5 ) MCV: 80.6 fL -- Normal range between ( 79.0 and 94.8 ) Slide Review: No RDW: 15.2 % -- Normal range between ( 11.6 and 14.4 ) MPV: 11.6 fL -- Normal range between ( 9.4 and 12.4 ) 03/08/2021 1:12 PM Eos %: 1.8 % -- Normal range between ( 1.0 and 7.0 ) [place] #: 0.52 K/uL -- Normal range between ( 0.24 and 0.82 ) Eos #: 0.14 K/uL -- Normal range between ( 0.04 and 0.54 ) [place] %: 6.6 % -- Normal range between ( 4.7 and 12.5 ) Baso %: 0.4 % -- Normal range between ( 0.0 and 1.0 ) Baso #: 0.03 K/uL -- Normal range between ( 0.01 and 0.08 ) Neut %: 67.5 % -- Normal range between ( 34.0 and 71.0 ) Neut #: 5.33 K/uL -- Normal range between ( 1.56 and 6.13 ) Lymph %: 23.4 % -- Normal range between ( 19.3 and 53.0 ) Lymph #: 1.85 K/uL -- Normal range between ( 1.18 and 3.74 ) IG#: 0 x10(3)/uL IG%: 0 % -- Normal range between ( 0 and 1 ) Urinalysis 03/07/2021 10:38 PM Urine Nitrite: Negative Urine Leukocyte Esterase: Negative Urine Appearance: Clear Urine Glucose Dipstick: Negative Urine Blood Dipstick: Negative Urine Urobilinogen Dipstick: 1.0 EU/dL -- Normal range between ( 0.2 and 1.0 ) Urine Protein Dipstick: Negative Urine Color: Yellow Urine Ketones Dipstick: Trace Urine pH Dipstick: 6.5 -- Normal range between ( 6.0 and 8.0 ) Urine Bilirubin Dipstick: Negative Urine Specific Prospect: 1.013 -- Normal range between ( 1.005 and 1.030 ) Urine Type.: U CleanCatch Urine Culture if Indicated: Culture Ordered Microbiology 03/08/2021 1:12 PM SARS-CoV-2 (COVID19 PCR): Negative 03/07/2021 10:38 PM Urine Culture: See Result Blood Bank 03/08/2021 7:30 PM RhIg Product Ready: Not Indicated # of Vials: 0 03/08/2021 1:12 PM ABO/Rh: A POS Antibody Screen (Tube): Negative ABSC Iron Studies 03/09/2021 6:34 AM Iron Level: 41 mcg/dL -- Normal range between ( 50 and 170 ) Toxicology 03/07/2021 10:38 PM UDS Amp: Negative UDS Norma: Negative UDS Benzo: Negative UDS [place]: Negative UDS Meth: Negative UDS Opi: Negative UDS Oxy: Negative UDS PCP: Negative UDS TCA: Negative UDS THC: Negative Buprenorphine Screen, Urine: Negative Heroin Metab (6AM) by LC-MS/MS, Urine: Negative SpGravity, Urine: 1.012 Propoxyphene, Urine: Negative UDS pH: 6.6 UDS Creatinine, Toxicology: 128.8 mg/dL Maternal Screening 03/07/2021 10:38 PM Amniotic Fluid ROM: Negative Patient Name:ALIYA SANCHES I have received and understand this information and was given the opportunity to ask questions. Patient/Supervisor Asbestos Removal Name: Patient/Supervisor Asbestos Removal Signature: Relationship to Patient: Clinician/Hospital Supervisor Asbestos Removal Signature: Date: Electronically signed by [facility], [facility] Conversion Quill Fixer N[employer]ner at 11/24/2022 11:52 AM CDT documented in this encounter Plan of Treatment Not on file documented as of this encounter Visit Diagnoses Not on filedocumented in this encounter Care Teams Ingot Caster Relationship Specialty Start Date End Date Annette Alonzo MD [address] [place] [address] PCP - General Obstetrics and Gynecology 02/26/23 documented as of this encounter
--- OUTSIDE RECORDS SUMMARY | 2025-03-12 10:00 | XMS_ITS | Encounter Summary ---
Author Organization [employer] ([place], [place], [place], [place]) Address [address] [place] [address] Care Team Providers Care Rehanger Name Role Phone Sylvia Alonzo MD Primary Care Provider [phone] Encounter Details Date Type Department Care Team (Late st Contact Info) Description 03/10/[address] [facility] Family Medicine [address] [place] [address] ProviderNorman MD [address], [place] [address] Social History Tobacco Use Types Packs/Day Years Used Date Smoking Tobacco: Never Assessed Comments Unknown Sex and Gender Information Value Date Recorded Sex Assigned at Not on file Legal Sex Female 1:09 PM CDT Gender Identity Not on file Sexual Orientation Not on file documented as of this encounter Miscellaneous Notes * [employer] Conversion Note - Norman ProviderMD - 03/10/2021 12:00 AM CDT Pain Assessment Entered On: 03/10/2021 6:02 EDT Performed On: 03/10/2021 0:05 EDT by Lj Hairston, RN Intervention Information: ibuprofen Performed by Lj Hairston RN on 03/09/2021 23:05:00 EDT ibuprofen,600mg Oral Pain Assessment Pain Assessment : Follow-up assessment Lj Hairston RN - 03/10/2021 6:02 EDT documented in this encounter Plan of Treatment Not on file documented as of this encounter Visit Diagnoses Not on filedocumented in this encounter Care Teams Rehanger Relationship Specialty Start Date End Date Sylvia Alonzo MD [address] [place] [address] PCP - General Obstetrics and Gynecology 02/26/23 documented as of this encounter
--- OUTSIDE RECORDS SUMMARY | 2025-03-12 10:00 | XMS_ITS | Encounter Summary ---
Author Organization [employer] ([place], [place], [place], [place]) Address [address] [place] [address] Care Team Providers Care Management Coordinator Name Role Phone Sylvia Alonzo MD Primary Care Provider [phone] Encounter Details Date Type Department Care Team (Late st Contact Info) Description 03/08/2021 Transcribed Document [facility] Family Medicine [facility] [place] [address] ProviderNorman MD [address], [place] [id number] Social History Tobacco Use Types Packs/Day Years Used Date Smoking Tobacco: Never Assessed Comments Unknown Sex and Gender Information Value Date Recorded Sex Assigned at Not on file Legal Sex Female 1:09 PM CDT Gender Identity Not on file Sexual Orientation Not on file documented as of this encounter Miscellaneous Notes * [employer] Conversion Note - Historical ProviderMD - 03/08/2021 7:55 PM CDT DATE OF PROCEDURE: 03/08/2021 DELIVERY NOTE SURGEON: Sylvia Alonzo MD DATE OF DELIVERY: 03/08/2021. TIME OF DELIVERY: 1858. Spontaneous vaginal delivery was performed over a first-degree midline episiotomy of a female infant with scores of 8 and 9, weighing 3054 g, 6 pounds 11.7 ounces. Estimated blood loss, 50 mL. Placenta delivered intact and uterus was explored afterwards. , female. Complications, none. Episiotomy was repaired with 2-0 Monocryl suture, a single suture that was run in subcuticular and then internal layer, reinforcing the perineal body. The patient was stable afterwards so was the baby kangaroo care was performed. /[id number] MD RACH Luevano/HEAVENLY / RACH / MODL /[id number] Electronically signed by [facility], [facility] Conversion Credit Risk Analytics Manager [employer] at 11/24/2022 11:59 AM CDT documented in this encounter Plan of Treatment Not on file documented as of this encounter Visit Diagnoses Not on filedocumented in this encounter Care Teams Management Coordinator Relationship Specialty Start Date End Date Sylvia Alonzo MD [address] [place] [address] PCP - General Obstetrics and Gynecology 02/26/23 documented as of this encounter
--- OUTSIDE RECORDS SUMMARY | 2025-03-12 10:00 | XMS_ITS | Referral Summary ---
Author Organization [employer] ([place], [place], [place], [place]) Address [address] [place] [address] Care Team Providers Care Balance Sheet Analyst Name Role Phone Sylvia Alonzo MD Primary Care Provider [phone] Allergies No known active allergies Medications metFORMIN (GLUCOPHAGE-XR) 500 MG 24 hr tabletIndication s:polycystic ovarian syndrome 3 (three) times daily. 2023 Active diphenhydrAMINE (BENADRYL) 25 mg tablet Take 1 tablet (25 mg total) by mouth every night as needed for Sleep. Active Active Problems Problem Noted Date Diagnosed Date Endometriosis of pelvic peritoneum 02/24/2023 Menorrhagia 02/24/2023 Severe dysmenorrhea 02/24/2023 Dyspareunia in female 02/24/2023 Pelvic pain in female 02/24/2023 Preop examination 02/22/2023 Endometriotic cyst 02/22/2023 Dysmenorrhea 02/22/2023 Suprapubic pain 02/22/2023 PCOS (polycystic ovarian syndrome) 02/22/2023 Social History Tobacco Use Types Packs/Day Years Used Date Smoking Tobacco: Never Smokeless Tobacco: Never Alcohol Use Standard Drinks/Week Comments Never 0 (1 standard drink = 0.6 oz pur e alcohol) Family and Community Support Answer Mason e Recorded Help with Day to Day Activities Not on file 08/27/2023 Feeling Lonely or Isolated Not on file 08/27 Educational Attainment Answer Date Gray rded Speak language other than [place] at home Not on file 08/27/2023 Want help with school or training Not on file 08/27/2023 Substance Use Answer Date Recorded Used prescription meds for non-medical reasons N ot on file 08/27/2023 Used illegal drugs past 12 months Not on file 08/27/2023 Comments No Sex and Gender Information Value Date Recorded Sex Assigned at Not on file Legal Sex Female 1:09 PM CDT Gender Identity Not on file Sexual Orientation Not on file Last Filed Vital Signs Vital Sign Reading Time Taken Comments Blood Pressure 123/66 02/26/2023 2:47 PM EDT Pulse 105 02/26/2023 2:47 PM EDT Temperature 36.3 C (97.4 F) 02/26/2023 2:40 PM EDT Respiratory Rate 16 02/26/2023 2:47 PM EDT Oxygen Saturation 98% 02/26/2023 2:47 PM EDT Inhaled Oxygen Concentration - - Weight 73 kg (161 lb) 02/26/2023 10:39 AM EDT Height 165.1 cm (5' 5 ) 02/26/2023 10:39 AM EDT Body Mass Index 26.79 02/26/2023 10:39 AM EDT Plan of Treatment Not on file Medical Devices Implanted Type Area Pastor Device Identifier Shelf Expiration Date Model / Serial / Lot [employer]iodfence G3 3x6cm [id number] - [id number] Implanted:Qty : 1 on 02/26/2023 by Sylvia Alonzo MD at [facility] IMPLANTS N/A: Pelvis [employer] 12/15/2027 [id number] / / [id number] Insurance BLUE CROSS/BLUE SHIELD BLUE CROSS/BLUE SHIELD Advance Directives For more information, please contact: [phone] * Full Code (Latest Code Status on File) Date Activated Date Inactivated Comments 02/26/2023 10:51 AM 02/26/2023 4:39 PM * Full Code Date Activated Date Inactivated Comments 02/26/2023 9:24 AM 02/26/2023 10:51 AM Care Teams Balance Sheet Analyst Relationship Specialty Start Date End Date Sylvia Alonzo MD [address] [place] [address] PCP - General Obstetrics and Gynecology 02/26/23
--- OUTSIDE RECORDS SUMMARY | 2025-03-12 10:00 | XMS_ITS | Encounter Summary ---
Author Organization [employer] ([place], [place], [place], [place]) Address [address] [place] [address] Care Team Providers Care Hiv/Aids Care Nurse Name Role Phone Sylvia Alonzo MD Primary Care Provider [phone] Encounter Details Date Type Department Care Team (Late st Contact Info) Description 05/19/2019 Transcribed Document [facility] [place] Family Medicine [address] [place] [address] ProviderNorman MD [address] [place], [place] [id number] Social History Tobacco Use Types Packs/Day Years Used Date Smoking Tobacco: Never Assessed Comments Unknown Sex and Gender Information Value Date Recorded Sex Assigned at Not on file Legal Sex Female 1:09 PM CDT Gender Identity Not on file Sexual Orientation Not on file documented as of this encounter Miscellaneous Notes * Cerner Conversion Note - Norman ProviderMD - 05/19/2019 10:21 AM CDT PAT Adult Entered On: 05/19/2019 10:26 EDT Performed On: 05/19/2019 10:21 EDT by Nathaly Moon RN Pain Assessment Pain Assessment : Initial assessment Pain Scale Used : 0-10 Scale Nathaly Moon RN - 05/19/2019 10:21 EDT Height and Weight, Clinical Dosing Height Source : Stated Height Entry Format : [place] Height, Feet : 5 ft(Converted to: 152 cm, 60 Inch) Height, Inches : 5 Inch(Converted to: 0 ft 5 Inch, 12.70 cm) Clinical Height : 165.1 cm Weight Source : Standing scale Weight Entry Format : [place] Clinical Dosing Weight : 61.36 kg Weight, Pounds : 135 lb Body Surface Area (BSA) : 1.68 m2 Body Mass Index : 22.5 kg/m2 [place] Body Weight : 57 kg Nathaly Moon RN - 05/19/2019 10:21 EDT Health Histories Smoking Status : Never (less than 100 in lifetime; none in last 30 days) Smokeless Tobacco Status : Never Nathaly Moon RN - 05/19/2019 10:21 EDT Social History (As Of: 05/19/2019 10:26:50 EDT) Tobacco: Smoking Status Never smoker. (Last Updated: 04/08/2014 15:21:23 EDT by SOFIE MENSAH, RESPIRATORY EQUIPMENT ASSISTANT-[facility]) Alcohol: Use in Last 12 Months: No. (Last Updated: 04/08/2014 15:21:30 EDT by SOFIE MENSAH, RESPIRATORY EQUIPMENT ASSISTANT-[facility]) Substance Abuse: Drug Use Hx: No. Use in Last 12 Months: No. (Last Updated: 04/08/2014 15:21:27 EDT by SOFIE MENASH, RESPIRATORY EQUIPMENT ASSISTANT-[facility]) Infectious Disease History Infectious Disease History : None, Chicken pox/Shingles Fever/Chills Last 48 Hours : No Travel To Regions with Travel Advisories : No Travel Outside [place] Within Last 30 Days : No Contact With Traveler to Advisory Region : No Tuberculosis Symptoms : None Nathaly Moon RN - 05/19/2019 10:21 EDT Anesthesia/Transfusion History Family History of Anesthesia Reaction : No prior transfusion(s) Transfusion History : Prior anesthesia without reaction Family History of Anesthesia Reaction : None Nathaly Moon RN - 05/19/2019 10:21 EDT Advance Directive Patient has Advance Directive *Q : No, patient refuses Advance Directive information Nathaly Moon RN - 05/19/2019 10:21 EDT Spiritual/Cultural Needs Significant Loss/Crisis in Past 3 Years : No Significant Distress/Coping/Need Support : No Any Spiritual/Cultural Needs or Requests : No Nathaly Moon RN - 05/19/2019 10:21 EDT Psychosocial History Currently in Unsafe Situation : No Tried to Harm Yourself in the Past? : No Thoughts of Harming/Killing Yourself : No Nathaly Moon RN - 05/19/2019 10:21 EDT Teaching/Learning Assessment Barriers To Learning : None evident Nathaly Moon RN - 05/19/2019 10:21 EDT General Info Want Family/Rep/Phys Notified of Admit : No Emergency Contact #1 : Mr Cohen Emergency Contact #1 Emergency Contact #1 Relationship : spouse Emergency Contact #2 : . Emergency Contact #2 Phone Number : . Emergency Contact #2 Relationship : . Primary Language : Kazakh Communication Barrier : None Nathaly Moon RN - 05/19/2019 10:21 EDT Agustin Scale Agustin Sensory Perception : No impairment Agustin Moisture : Rarely moist Agustin Activity : Walks frequently Agustin Mobility : No limitation Agustin Nutrition : Excellent Agustin Friction and Shear : No apparent problem Agustin Score : 23 Nathaly Moon RN - 05/19/2019 10:21 EDT Sleep Apnea Risk Assmt Hx of Obstructive Sleep Apnea Diagnosis : No Snore Loudly : No Tired, Fatigued, or Sleepy During Day : No Observed Stopping Breathing During Sleep : No Have/Are Being Treated for Hypertension : No BMI Greater Than 35 kg/m2 : No Age over 50 Years Old : No Neck Circumference Greater Than 40 cm : No Gender Male : No STOP-BANG Sleep Apnea Risk Level Score : 0 Nathaly Moon RN - 05/19/2019 10:21 EDT Pain Scale Intensity : 0 Nathaly Moon RN - 05/19/2019 10:21 EDT Image 4 - Images currently included in the form version of this document have not been included in the text rendition version of the form. documented in this encounter Plan of Treatment Not on file documented as of this encounter Visit Diagnoses Not on filedocumented in this encounter Care Teams Hiv/Aids Care Nurse Relationship Specialty Start Date End Date Sylvia Alonzo MD [address] [facility] [address] [place] [address] PCP - General Obstetrics and Gynecology 02/26/23 documented as of this encounter
--- OUTSIDE RECORDS SUMMARY | 2025-03-12 10:00 | XMS_ITS | Encounter Summary ---
Author Organization [employer] ([place], [place], [place], [place]) Address [address] [place] [address] Care Team Providers Care Furniture Crater Name Role Phone Sylvia Alonzo MD Primary Care Provider [phone] Reason for Referral * Mammography (Routine) - Closed Specialty Diagnoses / Procedures Referred By Contac t Referred To Contact Diagnoses Family history of breast cancer Procedures MM digital mammo screen with estiven bilateral Carmel Cook PA-C [address] [employer] [address] [address] [place] [address] Phone: tel: fax: Referral ID Status Reason Start Date Expiration Date Visits Re quested Visits Authorized [id number] Closed 02/29/2024 02/28/2025 1 1 Encounter Details Date Type Department Care Team (Late st Contact Info) Description 02/29/2024 Outside Orders [facility] Scheduling [address] [place] [address] Carmel Cook PA-C [address] [address] [address] [place] [address] Family history of breast cancer (Primary Dx) Social History Tobacco Use Types Packs/Day Years [...] Date Gray rded Speak language other than Mongolian at home Not on file 08/27/2023 Want [...] on file documented as of this encounter Plan of Treatment Scheduled Orders Name Type Priority Associated Diagnoses Orde r Schedule MM digital mammo screen with estiven bilateral Imaging Routine Family history of breast cancer Expected: 02/29/2024, Expires: 03/31/2025 documented as of this encounter Visit Diagnoses Diagnosis Family history of breast cancer- Primary Family history of malignant neoplasm of breast documented in this encounter Care Teams Furniture Crater Relationship Specialty Start Date End Date Sylvia Alonzo MD [address] [facility] [address] [place] [address] PCP - General Obstetrics and Gynecology 02/26/23 documented as of this encounter
--- OUTSIDE RECORDS SUMMARY | 2025-03-12 10:00 | XMS_ITS | Encounter Summary ---
Author Organization [employer] ([place], [place], [place], [place]) Address [address] [place] [address] Care Team Providers Care Manager Ui Name Role Phone Sylvia Alonzo MD Primary Care Provider [phone] Encounter Details Date Type Department Care Team (Late st Contact Info) Description 03/10/2021 Transcribed Document [facility] [place] Medicine [address] [place] [address] ProviderNorman MD [address] [place] [address] Social History Tobacco Use Types Packs/Day Years Used Date Smoking Tobacco: Never Assessed Comments Unknown Sex and Gender Information Value Date Recorded Sex Assigned at Not on file Legal Sex Female 1:09 PM CDT Gender Identity Not on file Sexual Orientation Not on file documented as of this encounter Miscellaneous Notes * Cerner Conversion Note - Historical ProviderMD - 03/10/2021 5:00 AM CDT Chart Check - Review Order Profile Entered On: 03/10/2021 6:03 EDT Performed On: 03/10/2021 5:00 EDT by Lj Hairston RN Chart Check Powerplans Initiated/Discontinued as Appropriate : Yes Lj Hairston RN - 03/10/2021 6:03 EDT Electronically signed by [facility] Conversion Clothes Ironer Cerner at 11/24/2022 11:50 AM CDT documented in this encounter Plan of Treatment Not on file documented as of this encounter Visit Diagnoses Not on filedocumented in this encounter Care Teams Manager Ui Relationship Specialty Start Date End Date Sylvia Alonzo MD [address] [facility] [address] [place] [address] PCP - General Obstetrics and Gynecology 02/26/23 documented as of this encounter
--- OUTSIDE RECORDS SUMMARY | 2025-03-12 10:00 | XMS_ITS | Encounter Summary ---
Author Organization [employer] ([place], [place], [place], [place]) Address [address] [place] [address] Care Team Providers Care Kid Club Attendant Name Role Phone Sylvia Alonzo MD Primary Care Provider [phone] Encounter Details Date Type Department Care Team (Late st Contact Info) Description 05/19/2019 Transcribed Document [facility] [place] Family Medicine [address] [place] [address] ProviderNorman MD [address], [place] [address] Social History Tobacco Use Types Packs/Day Years Used Date Smoking Tobacco: Never Assessed Comments Unknown Sex and Gender Information Value Date Recorded Sex Assigned at Not on file Legal Sex Female 1:09 PM CDT Gender Identity Not on file Sexual Orientation Not on file documented as of this encounter Miscellaneous Notes * Cerner Conversion Note - Norman ProviderMD - 05/19/2019 12:06 PM CDT JULIETH Main OR IntraOp Summary Primary Physician: SYLVIA ALONZO MD-OBG Finalized Date/Time: 05/19/19 13:40:07 Pt. Name: CHRISTIE SANCHES./Sex: 1990 Female Med Rec #: [id number] Physician: SYLVIA ALONZO MD-OBG Financial #: [id number] Pt. Type: O Room/Bed: Admit/Disch: 05/19/19 09:30:00 - Institution[place] [facility] [place]Op Case Attendance Entry 1 Entry 2 Entry 3 Case Attendee SYLVIA ALONZO WICKER, KAREN KIM, COLLINS CHRISTINE, MARK FERRELL-OBG PERINATAL NURSE-ANS Role Performed Surgeon/Proceduralist, AQUATICS INSTRUCTOR/Nurse Financial Services Officer Physician assistant professor in family studies First Time In 05/19/19 11:44:00 05/19/19 11:44:00 05/19/19 11:44:00 Time Out 05/19/19 13:08:00 05/19/19 13:08:00 05/19/19 13:08:00 Procedure Laparoscopy Operative Laparoscopy Operative Laparoscopy Operative Robotic, Uterine D and Robotic, Uterine D and Robotic, Uterine D and C Hysteroscopy C Hysteroscopy C Hysteroscopy Other Attendee Superficial Wound Closed By: Last Modified By: Evelia Nuñez RN Hess, Tabetha L, RN Hess, Tabetha L, RN 05/19/19 13:08:52 05/19/19 13:08:52 05/19/19 13:08:52 Entry 4 Entry 5 Entry 6 Case Attendee Evelia Nuñez RN West, Jeff, Surgical JOHN ORO ST Autographer Cert Role Performed Client Leader, First Scrub, Second Scrub, First Time In 05/19/19 11:44:00 05/19/19 11:44:00 05/19/19 11:44:00 Time Out 05/19/19 13:08:00 05/19/19 12:10:00 05/19/19 13:08:00 Procedure Laparoscopy Operative Laparoscopy Operative Laparoscopy Operative Robotic, Uterine D and Robotic, Uterine D and Robotic, Uterine D and C Hysteroscopy C Hysteroscopy C Hysteroscopy Other Attendee st break Superficial Wound Closed By: Last Modified By: Evelia Nuñez RN Hess, Tabetha L, RN Hess, Tabetha L, RN 05/19/19 13:08:52 05/19/19 13:08:52 05/19/19 13:08:52 Entry 7 Entry 8 Entry 9 Case Attendee Jose Dockery REP - TISH OTHER, ATTENDEE SEVERIANO OBREGON RN Role Performed Autographer, Ancillary Student Client Leader, Second Time In 05/19/19 11:44:00 05/19/19 11:44:00 05/19/19 12:06:00 Time Out 05/19/19 13:08:00 05/19/19 13:08:00 05/19/19 12:43:00 Procedure Laparoscopy Operative Laparoscopy Operative Laparoscopy Operative Robotic, Uterine D and Robotic, Uterine D and Robotic, Uterine D and C Hysteroscopy C Hysteroscopy C Hysteroscopy Other Attendee puma SHAHID student Superficial Wound Closed By: Last Modified By: Evelia Nuñez RN Hess, Tabetha L, RN Hess, Tabetha L, RN 05/19/19 13:08:52 05/19/19 13:08:52 05/19/19 13:09:13 Entry 10 Case Attendee DOE PEOPLES ST Role Performed Scrub, Third Time In 05/19/19 11:44:00 Time Out 05/19/19 13:08:00 Procedure Laparoscopy Operative Robotic, Uterine D and C Hysteroscopy Other Attendee scrub lunch relief Superficial Wound Closed By: Last Modified By: Evelia Nuñez RN 05/19/19 13:08:52 [facility] IntraOp Case Attendance Audit 05/19/19 13:09:13 Freight Car Loader: HESSTL Modifier: HESSTL <+> 8 Procedure 05/19/19 13:08:52 Freight Car Loader: HESSTL Modifier: HESSTL 1 <+> Time Out 1 <*> Procedure Laparoscopy Operative Robotic, Uterine D and C Hysteroscopy 2 <+> Time Out 2 <*> Procedure Laparoscopy Operative Robotic, Uterine D and C Hysteroscopy 3 <+> Time Out 3 <*> Procedure Laparoscopy Operative Robotic, Uterine D and C Hysteroscopy 4 <+> Time Out 4 <*> Procedure Laparoscopy Operative Robotic, Uterine D and C Hysteroscopy 5 <*> Procedure Laparoscopy Operative Robotic, Uterine D and C Hysteroscopy 6 <+> Time Out 6 <*> Procedure Laparoscopy Operative Robotic, Uterine D and C Hysteroscopy 7 <+> Time Out 7 <*> Procedure Laparoscopy Operative Robotic, Uterine D and C Hysteroscopy <+> 8 Time Out 9 <*> Procedure Laparoscopy Operative Robotic, Uterine D and C Hysteroscopy 10 <+> Time Out 10 <*> Procedure Laparoscopy Operative Robotic, Uterine D and C Hysteroscopy 05/19/19 12:43:51 Freight Car Loader: HESSTL Modifier: HESSTL 9 <+> Time Out 9 <*> Procedure Laparoscopy Operative Robotic, Uterine D and C Hysteroscopy 05/19/19 12:26:20 Freight Car Loader: HESSTL Modifier: HESSTL 1 <*> Procedure Laparoscopy Operative Robotic, Uterine D and C Hysteroscopy 2 <*> Procedure Laparoscopy Operative Robotic, Uterine D and C Hysteroscopy 3 <*> Procedure Laparoscopy Operative Robotic, Uterine D and C Hysteroscopy 4 <*> Procedure Laparoscopy Operative Robotic, Uterine D and C Hysteroscopy 5 <*> Procedure Laparoscopy Operative Robotic, Uterine D and C Hysteroscopy 6 <*> Procedure Laparoscopy Operative Robotic, Uterine D and C Hysteroscopy 7 <*> Procedure Laparoscopy Operative Robotic, Uterine D and C Hysteroscopy 9 <*> Procedure Laparoscopy Operative Robotic, Uterine D and C Hysteroscopy 10 <+> Time In 10 <*> Procedure Laparoscopy Operative Robotic, Uterine D and C Hysteroscopy 05/19/19 12:13:25 Freight Car Loader: HESSTL Modifier: HESSTL 5 <+> Time Out 5 <*> Procedure Laparoscopy Operative Robotic, Uterine D and C Hysteroscopy <+> 10 Case Attendee <+> 10 Role Performed <+> 10 Procedure <+> 10 Other Attendee 05/19/19 12:06:37 Freight Car Loader: HESSTL Modifier: HESSTL 1 <*> Procedure Laparoscopy Operative Robotic, Uterine D and C Hysteroscopy 2 <+> Time In 2 <*> Procedure Laparoscopy Operative Robotic, Uterine D and C Hysteroscopy 3 <+> Time In 3 <*> Procedure Laparoscopy Operative Robotic, Uterine D and C Hysteroscopy 4 <+> Time In 4 <*> Procedure Laparoscopy Operative Robotic, Uterine D and C Hysteroscopy 5 <+> Time In 5 <*> Procedure Laparoscopy Operative Robotic, Uterine D and C Hysteroscopy 6 <+> Time In 6 <*> Procedure Laparoscopy Operative Robotic, Uterine D and C Hysteroscopy 7 <+> Time In 7 <*> Procedure Laparoscopy Operative Robotic, Uterine D and C Hysteroscopy <+> 8 Time In <+> 9 Case Attendee <+> 9 Role Performed <+> 9 Time In <+> 9 Procedure [facility] IntraOp Case Times Entry 1 Patient In Room Time 05/19/19 11:44:00 Out Room Time 05/19/19 13:08:00 Anesthesia Start Time 05/19/19 11:44:00 Stop Time 05/19/19 13:08:00 Anesthesia Ready 05/19/19 11:44:00 Surgery / Procedure Times Start Time 05/19/19 12:06:00 Stop Time 05/19/19 13:05:00 Last Modified By: Evelia Nuñez RN 05/19/19 13:08:51 [facility] IntraOp Case Times Audit 05/19/19 13:08:51 Freight Car Loader: MITCHELL Modifier: DARCITL <+> 1 Out Room Time <+> 1 Stop Time <+> 1 Stop Time 05/19/19 12:55:20 Freight Car Loader: MITCHELL Modifier: DARCITL <+> 1 Start Time [facility] IntraOp Cautery Entry 1 ESU Identification Cautery Type Monopolar ESU ID Number [id number] ID Type Hospital Number Cautery Settings Cut Setting 30 Coag Setting 30 Bipolar Setting 30 ESU Grounding Pad Ground Pad Type Adult Grounding Pad Site Left thigh Grounding Pad Evelia Nuñez RN Applied By Grounding Pad Site Warm, dry and intact Skin Condition Before Cautery Grounding Pad Site Unchanged Skin Condition After Cautery Last Modified By: Evelia Nuñez RN 05/19/19 12:33:13 [facility] IntraOp Cautery Audit 05/19/19 12:33:13 Freight Car Loader: MITCHELL Modifier: DARCITL <+> 1 Coag Setting <+> 1 Bipolar Setting <+> 1 Ground Pad Type <+> 1 Grounding Pad Site <+> 1 Grounding Pad Applied By <+> 1 Grounding Pad Site Skin Condition Before Cautery <+> 1 Grounding Pad Site Skin Condition After Cautery [facility] IntraOp Communication Entry 1 Communication To Family/Significant other Communication By SEVERIANO OBREGON RN Date and Time 05/19/19 12:33:00 Last Modified By: Evelia Nuñez RN 05/19/19 12:33:22 [facility] IntraOp Counts Verification Entry 1 Procedure Laparoscopy Operative Robotic, Uterine D and C Hysteroscopy Count Info Count Type Sponge, Sharps, Instrument Counts Verification Baseline/pre-procedure Sequence Count Results Correct, surgeon notified Counts Performed By Count Performed By JOHN ORO ST (Scrub) Count Performed By Evelia Nuñez RN (RN) Last Modified By: Evelia Nuñez RN 05/19/19 12:26:54 [facility] IntraOp Counts Final Entry 1 Procedure Laparoscopy Operative Robotic, Uterine D and C Hysteroscopy Final Count Info Count Type Sponge, Sharps, Miscellaneous Counts Verification Skin Closure/end of Sequence procedure Count Results Correct, surgeon notified Counts Performed By Count Performed By JOHN ORO ST (Scrub) Count Performed By Evelia Nuñez RN (RN) Last Modified By: Evelia Nuñez RN 05/19/19 12:55:56 [facility] IntraOp Counts Final Audit 05/19/19 12:55:56 Freight Car Loader: MITCHELL Modifier: MITCHELL 1 <*> Procedure Laparoscopy Operative Robotic 1 <+> Count Performed By (Scrub) 1 <+> Count Performed By (RN) [facility] IntraOp Cultures and Spec Summary Entry 1 Cultrures and Specimens Specimen Ordered: Yes Test(s) Routine/Path-Lab Requested/Final Disposition Last Modified By: Evelia Nuñez RN 05/19/19 12:30:04 [facility] IntraOp Departure from OR Entry 1 Integumentary Assessment Integumentary WDL Assessment WDL Transfer/Handoff Transfer to PACU Phase I Handoff Method Bedside/Face to face Post-op Transport Stretcher/Gurney Via Patient Transport Evelia Nuñez RN, Accompanied by LINDSAY BENDER APRN-ANS Last Modified By: Evelia Nuñez RN 05/19/19 12:43:57 [facility] IntraOp Dressing and Packing Entry 1 Type Dressing Location ABDOMEN Wound Dressing Item Steristrip, Occlusive dressing Applied By COLLINS CHRISTINE PA-C Other Comments TEGADERMS AND STERILSTRIPS Last Modified By: Evelia Nuñez RN 05/19/19 12:32:47 [facility] IntraOp Fire Risk Assessment Entry 1 Fire Info Surgical Site or 0- No Incision Above the Xyphoid Open O2 Source 0- No (Mask or Cannula) Available Ignition 1- Yes (ESU, Laser, Light Source) Fire Risk 1 Assessment Score Fire Score Fire Risk Yes Assessment Complete Fire Risk Evelia Nuñez RN Assessment Verified By Fire Risk 05/19/19 12:06:00 Assessment Verified Date/Time Fire Risk Standard Fire Yes Safety Precautions Followed Last Modified By: Evelia Nuñez RN 05/19/19 12:13:35 [facility] IntraOp General Case Electrotype Caster 1 Case Information OR OR 07 SJE Case Level 1 Room Verified Yes Wound Class II - Clean-Contaminated Specialty SN Gynecology Anesthesia Type General ASA Class 2 Diagnosis Preop Diagnosis dysmenorrhea, endometrial polyp Postop Same As Preop Yes Postop Diagnosis dysmenorrhea, endometrial polyp Last Modified By: Evelia Nuñez RN 05/19/19 12:27:54 [facility] IntraOp Implant Log Entry 1 Type Implant (Synthetic) Implant Log Implant TISS MTRX BIODRESTORE Identification [id number] Description Implant Quantity 1 Implant Site pelvic Implant [id number] Identification Model Number Implant [employer] Identification Tile Erector Name: Implant [id number] Identification Catalog Number Implant Expiration 09/15/20 Date Tissue Implant Last Modified By: Evelia Nuñez RN 05/19/19 12:31:56 [facility] IntraOp Intraoperative Assessment Entry 1 Handoff Method Bedside/Face to face Valid History / Yes Physical in Chart Preoperative Yes Checklist Reviewed/Evaluated Allergies Reviewed No Patient is Latex No Sensitive Isolation Not applicable Precautions Noted Level of WDL Consciousness (WDL = Alert, Oriented to Person, Place, and Time) Skin Assessment Yes Verified Present Upon IVs Arrival to OR Last Modified By: Evelia Nuñez RN 05/19/19 12:07:09 [facility] IntraOp Intraoperative Equipment Entry 1 Equipment Equipment Robot Intraop Monitoring Antiembolic Devices Antiembolic Devices Sequential compression device, knee high Antiembolic Device Bilateral Location Scopes Photo/Video Documentation Last Modified By: Evelia Nuñez RN 05/19/19 12:27:05 [facility] IntraOp Laser Data/Safety Entry 1 Procedure Laparoscopy Operative Robotic Laser Data Laser Type Other Laser Mode Continuous Laser Mode Set By DOE PEOPLES ST Microscope Used? Yes Hand Piece/Contact Yes Tip Used Laser Fiber Used Yes Laser Safety Procedure personnel Measures Included received laser safety information, [place] of water/Saline immediately available, Fire extinguisher location noted, Laser Caution placards placed on all doors, Laser safe instrumentation utilized, Specific laser safety precautions implemented, Rinse prep thoroughly from surgical site, Smoke evacuator tested/used, Suction evacuator with laser filter, Wet towels and sponges used to protect patient and drapes, Windows covered, Laser tested/calibrated, Laser safe ET tube as applicable, High-filtration mask available, No flammable liquid around surgical area, Secure laser operation childs, Implement fire protection measures Last Modified By: Evelia Nuñez RN 05/19/19 12:50:26 [facility] IntraOp Medication Admin Entry 1 Entry 2 Entry 3 Medication/Irrigant Bacitracin 15Gm Indigo [place] 0.8% 5ml Anesthesia Cocktail - ointment - [id number] - [id number] Cheri Combo Med List Time Administered Route of USED ON TROCARS flushed thru fallopian local Administration tubes Dose Dose Unit of Measure ml ml Volume QS Administered By SYLVIA ALONZO KARON, MAGDALENE B, SYLVIA ALONZO MD-OBG -OBG -OBG Procedure Irrigation Irrigant Volume In Irrigant Volume Out Last Modified By: Evelia Nuñez RN Hess, Tabetha L, RN Hess, Tabetha L, RN 05/19/19 12:34:41 05/19/19 12:34:41 05/19/19 12:38:15 [facility] IntraOp Medication Admin Audit 05/19/19 12:38:15 Freight Car Loader: MITCHELL Modifier: DARCITL <+> 3 Medication/Irrigant <+> 3 Route of Administration <+> 3 Administered By <+> 3 Unit of Measure [facility] IntraOp Patient Positioning Entry 1 Procedure Laparoscopy Operative Robotic Body Position Lithotomy Left Arm Position Tucked and padded at side Right Arm Position Tucked and padded at side Left Leg Position Uncrossed, parallel Right Leg Position Uncrossed, parallel Feet Uncrossed Yes Pressure Points Yes Checked Positioning Devices Stirrups/Leg Fields, Boot, Pad (Other) Device Position PINK PAD Positioned By Evelia Nuñez RN, LINDSAY BENDER APRN-ANS, KARON, MAGDALENE B, MD-OBG Position Verified Positioning Yes Verified by Anesthesia Positioning Yes Verified by Surgeon Last Modified By: Evelia Nuñez RN 05/19/19 12:32:29 [facility] IntraOp Sign In Entry 1 Patient, Site, Yes Procedure Identified Surgical Consent Yes Confirmed Relevant Surgical Yes Documents Available Surgical Site N/A Marked by person performing procedure Anesthesia Machine Yes Check Completed Medication Checks Yes Completed Allergies Yes Airway Difficult No Airway/Aspiration Risk Difficult Yes Airway/Aspiration Intervention Equipment Available Blood Loss Risk Yes Blood Loss Yes Intervention Equipment Prepared and Ready Blood Identifiers Not applicable Verified Per Policy Hypothermia Risk Yes Warming Measures Yes Taken Last Modified By: Evelia Nuñez RN 05/19/19 12:13:41 [facility] Intra Op Sign Out Entry 1 RN Confirmation Surgical Yes Procedure(s) Identified Instrument, Sponge Yes and Sharps Counts Correct/Documented Equipment Problems N/A Documented Specimen Labeled Yes Correctly Urinary Catheter Yes Documented in IView Childs Patient Yes Recovery Concerns Reviewed with Anesthesia Provider, Surgeon and RN Childs Patient Yes Management Concerns Reviewed with Anesthesia Provider, Surgeon and RN Safety Checklist Yes Elements Complete? RN Sign Out Evelia Nuñez RN Signature RN Sign Out 05/19/19 13:08:00 Signature Date/Time Plan of Care Outcome - Fire Risk OUTCOME STATEMENT: Goal met Patient is free from injury related to surgical fire Plan of Care Outcome - Pt Positioning OUTCOME STATEMENT: Goal met Absence of signs and symptoms of positioning injury. Plan of Care Outcome - Skin Prep OUTCOME STATEMENT: Goal met Intraoperative care is consistent with measures to prevent infection Plan of Care Outcome - Xray/Images OUTCOME STATEMENT: Goal met Absence of observable signs or symptoms of radiation injury Plan of Care Outcome - Counts OUTCOME STATEMENT: Goal met Absence of signs and symptoms of injury related to extraneous objects Last Modified By: Evelia Nuñez RN 05/19/19 13:09:03 [facility] IntraOp Skin Prep Entry 1 Procedure Laparoscopy Operative Robotic Prescribed Yes Pre-Surgical Prep Completed Prep Area ABDOMEN, VAGINA Intraop Prep Prep Agents Chloraprep, Betadine solution Prep by Evelia Nuñez RN Hair Removal Methods No hair removal performed Last Modified By: Evelia Nuñez RN 05/19/19 12:27:02 [facility] IntraOp Surgical Procedures Entry 1 Entry 2 Procedure Laparoscopy Operative Uterine D and C Robotic Hysteroscopy Modifiers Additional ROBOTIC ASSISTED Procedure LAPAROSCOPY WITH LASER Description AND HYSTEROSCOPY D AND C WITH POLYPECTOMY Primary Procedure Yes No Primary Surgeon SYLVIA ALONZO, SYLVIA ALONZO MD-OBG -OBG Start 05/19/19 12:06:00 05/19/19 12:06:00 Stop 05/19/19 13:05:00 05/19/19 13:05:00 Physician States Cecum Reached Anesthesia Type General General Specialty SN Gynecology SN Gynecology Wound Class I - Clean II - Clean-Contaminated Last Modified By: Evelia Nuñez RN Hess, Tabetha L, RN 05/19/19 13:08:53 05/19/19 13:08:53 [facility] IntraOp Surgical Procedures Audit 05/19/19 13:08:53 Freight Car Loader: MITCHELL Modifier: HESSTL <+> 1 Stop <+> 2 Stop 05/19/19 12:55:41 Freight Car Loader: DARCITL Modifier: HESSTL <+> 1 Start 2 <*> Procedure Uterine D and C Hysteroscopy 2 <+> Start SJLana IntraOp Time Out Entry 1 Procedure to be Laparoscopy Operative Performed Robotic, Uterine D and C Hysteroscopy Time Out Time Out Pause Time 05/19/19 12:06:00 All activity Yes suspended (unless life threatening emergency) Team Verbally Correct patient Confirms Information identity, Correct side and site are marked, Consent form is present and accurate, Agreement on the procedure to be done, Correct patient position, Relevant images/results properly labeled/appropriately displayed, Confirm antibiotics have been administered, Confirm the skin prep has dried, Confirm prosthesis/implant/devic e is present, Performed in location of procedure after prepped/draped, Performed before each procedure if multiple procedures Antibiotic Yes Prophylaxis Administered Or In Progress Within the Last 60 Minutes Beta Elian N/A Administered Venous Yes Thromboembolism Prophylaxis Required Anticipated Critical Events Surgeon None expected Anesthesia Provider None expected Nursing Assures Sterility of instruments, Implant Availability Essential Imaging Yes Labeled and Displayed Last Modified By: Evelia Nuñez RN 05/19/19 12:07:07 Case Comments <None> Finalized By: Rebekah Estrada RN Document Signatures Signed By: Evelia Nuñez RN 05/19/19 13:09 Rebekah Estrada RN 05/19/19 13:40 Unfinalized History Date/Time Username Reason for Unfinalizing Freetext Reason for Unfinalizing 05/19/19 13:39 THEODORA Correct Billing documented in this encounter Plan of Treatment Not on file documented as of this encounter Visit Diagnoses Not on filedocumented in this encounter Care Teams Kid Club Attendant Relationship Specialty Start Date End Date Sylvia Alonzo MD [address] [place] [address] PCP - General Obstetrics and Gynecology 02/26/23 documented as of this encounter
--- OUTSIDE RECORDS SUMMARY | 2025-03-12 10:00 | XMS_ITS | Encounter Summary ---
Author Organization [employer] ([place], [place], [place], [place]) Address [address] [place] [address] Care Team Providers Care Temporary Help Agency Referral Clerk Name Role Phone Sylvia Alonzo MD Primary Care Provider Encounter Details Date Type Department Care Team (Late st Contact Info) Description 02/03/2021 Transcribed Document [facility] [place] Family Medicine [address] [place] [address] ProviderNorman MD [address] [place] [address] Social History Tobacco Use Types Packs/Day Years Used Date Smoking Tobacco: Never Assessed Comments Unknown Sex and Gender Information Value Date Recorded Sex Assigned at Not on file Legal Sex Female 1:09 PM CDT Gender Identity Not on file Sexual Orientation Not on file documented as of this encounter Miscellaneous Notes * Cerner Conversion Note - Historical ProviderMD - 02/03/2021 11:36 AM CDT Stroke/Warfarin Instructions Entered On: 02/03/2021 11:37 EDT Performed On: 02/03/2021 11:36 EDT by TOMÁS EL RN Stroke/Warfarin Instructions Stroke/TIA Discharge Ins : N/A Warfarin Discharge Ins : N/A TOMÁS EL RN - 02/03/2021 11:36 EDT documented in this encounter Plan of Treatment Not on file documented as of this encounter Visit Diagnoses Not on filedocumented in this encounter Care Teams Temporary Help Agency Referral Clerk Relationship Specialty Start Date End Date Sylvia Alonzo MD [address] [facility] [address] [place] [address] PCP - General Obstetrics and Gynecology 02/26/23 documented as of this encounter
--- OUTSIDE RECORDS SUMMARY | 2025-03-12 10:00 | XMS_ITS | Encounter Summary ---
Author Organization [employer] ([place], [place], [place], [place]) [address] [place] [address] Care Team Providers Care Video Manager Name Role Phone Sylvia Alonzo MD Primary Care Provider [phone] Encounter Details Date Type Department Care Team (Late st Contact Info) Description 05/26/2022 OB Abstract [facility] Maternal Medicine [address] [place] [address] Linnea العلي RN Social History Tobacco Use Types Packs/Day Years Used Date Smoking Tobacco: Never Assessed Comments No Sex and Gender Information Value Date Recorded Sex Assigned at Not on file Legal Sex Female 1:09 PM CDT Gender Identity Not on file Sexual Orientation Not on file documented as of this encounter Plan of Treatment Not on file documented as of this encounter Visit Diagnoses Not on filedocumented in this encounter Care Teams Video Manager Relationship Specialty Start Date End Date Sylvia Alonzo MD [address] [place], [place] [id number] PCP - General Obstetrics and Gynecology 02/26/23 documented as of this encounter
--- OUTSIDE RECORDS SUMMARY | 2025-03-12 10:00 | XMS_ITS | Encounter Summary ---
Author Organization [employer] ([place], [place], [place], [place]) Address [address] [place] [address] Care Team Providers Care Import/Export Specialist Name Role Phone Sylvia Alonzo MD Primary Care Provider [phone] Encounter Details Date Type Department Care Team (Late st Contact Info) Description 05/23/2019 Transcribed Document [facility] [place] [facility] [address] [place] [address] ProviderNorman MD [address] [place], [place] [address] Social History Tobacco Use Types Packs/Day Years Used Date Smoking Tobacco: Never Assessed Comments Unknown Sex and Gender Information Value Date Recorded Sex Assigned at Not on file Legal Sex Female 1:09 PM CDT Gender Identity Not on file Sexual Orientation Not on file documented as of this encounter Miscellaneous Notes * Cerner Conversion Note - Historical ProviderMD - 05/23/2019 9:34 PM CDT pain fibers Electronically signed by Parris [facility] Conversion [employer]ner at 11/24/2022 12:00 PM CDT documented in this encounter Plan of Treatment Not on file documented as of this encounter Visit Diagnoses Not on filedocumented in this encounter Care Teams Import/Export Specialist Relationship Specialty Start Date End Date Sylvia Alonzo MD [address] [place] [address] [place] [address] PCP - General Obstetrics and Gynecology 02/26/23 documented as of this encounter
--- OUTSIDE RECORDS SUMMARY | 2025-03-12 10:00 | XMS_ITS | Encounter Summary ---
Author Organization [employer] ([place], [place], [place], [place]) Address [address] [place] [address] Care Team Providers Care Director Media Name Role Phone Annette Alonzo MD Primary Care Provider [phone] Encounter Details Date Type Department Care Team (Late st Contact Info) Description 03/10/2021 Transcribed Document [facility] [place] [facility] [address] [place] [address] ProviderNorman MD [address], [place] [id number] Social History Tobacco Use Types Packs/Day Years Used Date Smoking Tobacco: Never Assessed Comments Unknown Sex and Gender Information Value Date Recorded Sex Assigned at Not on file Legal Sex Female 1:09 PM CDT Gender Identity Not on file Sexual Orientation Not on file documented as of this encounter Miscellaneous Notes * Cerner Conversion Note - Norman ProviderMD - 03/10/2021 10:22 AM CDT [facility] [address], [place] [address] Patient Copy Patient Information: Name: ALIYA SANCHES Current Date: 03/10/2021 10:22:31 : 1990 Patient Address: [address] [place] [address] [facility] [address] Patient Attending Physician: ANNETTE ALONZO MD-OBG Primary Care Provider: ENID GALINDO Primary Care Provider Discharge Diagnosis: 1:36 weeks gestation of ; 2:Labor without complication; Normal spontaneous vaginal delivery Weight on Admission: 164 lb, 0 oz Comment: Follow-up Instructions: With: Address: When: ANNETTE [address] [email or web address], [address] [place] [id number] Business (1) Within 6 weeks Discharge Instructions: Immunizations Documented During Stay: tetanus/diphtheria/pertussis, acel(Tdap) 03/09/2021 Heart Failure Discharge Instructions (if any): Stroke Related Discharge Instructions (if any): Warfarin Related Discharge Instructions (if any): Final Medication List: Other Medications ibuprofen (ibuprofen 600 mg oral tablet) 1 Tablet(s) Oral Every 6 Hours. multivitamin, ( 19 (Yreka)) Every Day. Patient Allergies: No Known Allergies [...] cramping, rapid heartbeat, difficulty sleeping, and nervousness. Patient education materials: Care After Vaginal Delivery This sheet gives you information about how to care for yourself from the time you deliver your baby to up to 6?12 weeks after delivery ( period). Your health [...] For most women, lochia stops completely by 4?6 weeks after delivery. Vaginal bleeding can vary [...] are not , your period should return 6?8 weeks after delivery. If you are feeding [...] (hemorrhoids), try taking a warm sitz bath 2?3 times a day. A sitz bath is [...] work with your health care provider or professional housing consultant. ??? If you are not : [...] methods of control (contraception). Medicines ??? Take hgkj-wtu-ieyezpc and prescription medicines only as told by [...] provider for a checkup within the first 3?6 weeks after delivery. Contact a health care [...] right after you deliver your up to 6?12 weeks after delivery is called the period. [...] provider. Document Revised: 07/29/2018 Document Reviewed: 05/09/2018 [employer] Patient Education ? 2020 [employer]. Choosing to breastfeed is one of the [...] are also at lower risk for sudden syndrome (SIDS). ??? Nutrients in breast milk are better able to meet your baby?s needs compared to infant formula. ??? Breast [...] well away from your nipple and your baby?s mouth. ??? Stroke your baby's lips gently [...] common for your baby to suck about 2?3 minutes in order to start the flow [...] feeding. This can make your baby fussy. Burping your baby when you switch breasts during [...] outward (flanged). ??? Swallowing heard between every 3?4 sucks once your milk has started to [...] your finger into the corner of your baby?s mouth to break the suction and place [...] have increased in firmness, weight, and size 1?3 hours after feeding. ??? Breasts that are softer immediately after . ??? Increased milk volume, as well as a change in milk consistency and color by the fifth day of . ??? Nipples that are not sore, cracked, or bleeding. Signs that your baby is getting enough milk ??? Wetting at least 1?2 diapers during the first 24 hours after . ??? Wetting at least 5?6 diapers every 24 hours for the first week after . The urine should be clear or pale yellow by the age of 5 days. ??? Wetting 6?8 diapers every 24 hours as your baby [...] of life. ??? Average weight gain of 4?7 oz (113?198 g) per week after the age of [...] smacking lips, cooing, sighing, or squeaking. ??? Zouy-of-dqgva movements and sucking on fingers or hands. ??? Fussing or crying. Avoid introducing a pacifier to your baby in the first 4-6 weeks after your baby is born. After this time, you may choose to use a pacifier. Research has shown that pacifier use during the first year of a baby's life decreases the risk of sudden infant syndrome (SIDS). Allow your baby to feed [...] of age or younger) may breastfeed every 1?3 hours. ??? Newborns should not go without [...] able to be present during feedings. Your professional housing consultant can help you find a method [...] (sports bras). ??? Air-dry your nipples for 3?4 minutes after each feeding. ??? Use only [...] tender to the touch. Engorgement peaks within 3?5 days after you give . The following [...] Leave the ice on for 20 minutes, 2?3 times a day. ??? Make sure that your baby is latched on and positioned properly while . If engorgement persists after 48 hours of following these recommendations, contact your health care provider or a professional housing consultant. Overall health care recommendations while ??? Eat 3 healthy meals and 3 snacks every day. Well-nourished mothers who are need an additional 450?500 calories a day. You can meet this [...] provider before taking any medicines. These include rncy-fsr-xocsavu and prescription medicines as well as vitamins and herbal supplements. Some medicines that may be harmful to your baby can pass through breast milk. ??? It is possible to become while . If control is desired, ask your health care provider about options that will be safe while your baby. Where to find more information: [employer]: www.llli.org Contact a health care [...] Summary ??? offers many health benefits for and mothers. ??? Try to breastfeed your infant when he or she shows early signs [...] Talk with your health care provider or professional housing consultant if you have questions or you face problems as you breastfeed. This information is not intended to replace advice given to you by your health care provider. Make sure you discuss any questions you have with your health care provider. Document Revised: 10/20/2018 Document Reviewed: 08/27/2017 [employer] Patient Education ? 2020 [employer] Medication Leaflets: ibuprofen (EYE bue PROE fen) Advil, Genpril, [...] to use if you have ever had: ? heart disease, high blood pressure, high cholesterol, [...] your doctor at once if you have: ? changes in your vision; ?? shortness of [...] of breath. Common side effects may include: ? nausea, vomiting, gas; ?? bleeding; or ?? dizziness, headache. This is not a complete list of side effects and others may occur. Call your doctor for medical advice about side effects. You may report side effects to FDA at 4-586-LLS-0154. What other drugs will affect ibuprofen? Ask your doctor before using ibuprofen if you take an antidepressant. Taking certain antidepressants with an NSAID may cause you to bruise or bleed easily. Ask a doctor or pharmacist before using ibuprofen with any other medications, especially: ? cyclosporine; ?? lithium; ?? methotrexate; ?? a blood thinner (warfarin, Coumadin, Jantoven); ?? heart or blood pressure medication, including a diuretic or 'water pill'; or ?? steroid medicine (such as prednisone). This list is not complete. Other drugs may affect ibuprofen, including prescription and xozw-gxu-mmffeno medicines, vitamins, and herbal products. Not all [...] to ensure that the information provided by [employer]. ('[employer]') is accurate, up-to-date, and complete, but no guarantee is made to that effect. Drug information contained herein may be time sensitive. [employer] information has been compiled for use by healthcare practitioners and consumers in the [place] and therefore [employer] does not warrant that uses outside of the [place] are appropriate, unless specifically indicated otherwise. [employer]'s drug information does not endorse drugs, diagnose patients or recommend therapy. [employer] drug information is an informational resource designed [...] effective or appropriate for any given patient. [facility] does not assume any responsibility for any aspect of healthcare administered with the aid of information [facility] provides. The information contained herein is not intended to cover all possible uses, directions, precautions, warnings, drug interactions, allergic reactions, or adverse effects. If you have questions about the drugs you are taking, check with your doctor, nurse or pharmacist. Copyright 2170-5277 [employer]. Version: 22.01. Revision Date: 07/03/2020. CIGARETTE SMOKING: The facts are clear, cigarette smoking will shorten your life. Smoking can cause many illnesses along the way. As a healthcare provider, we recommend that you stop smoking. Assistance with quitting is available by contacting 4-514-ZWDA-NOW. This is a free resource providing counseling, [...] Be sure to sign up for the [employer] patient portal, which gives you 01/03 access to your medical information ??? including these discharge instructions ??? using your computer, smartphone, or tablet. Just go to [employer] to get started. Questions? Call . [facility] would like to thank you for allowing us to assist you with your healthcare needs. VERÓNICA Hall ERIN MARIE, (or account executive sales representative) have received the above patient education materials/instructions and have verbalized understanding: Patient Signature _ Date/Time Patient Anvil Seating Press Operator Signature (if needed) Date/Time Clinician/Hospital Anvil Seating Press Operator Signature (if needed) Date/Time documented in this encounter Plan of Treatment Not on file documented as of this encounter Visit Diagnoses Not on filedocumented in this encounter Care Teams Director Media Relationship Specialty Start Date End Date Annette Alonzo MD [address] [place] [address] PCP - General Obstetrics and Gynecology 02/26/23 documented as of this encounter
--- OUTSIDE RECORDS SUMMARY | 2025-03-12 10:00 | XMS_ITS | Encounter Summary ---
Author Organization [employer] ([place], [place], [place], [place]) Address [address] [place] [address] Care Team Providers Care Jig Fitter Name Role Phone Sylvia Alonzo MD Primary Care Provider [phone] Encounter Details Date Type Department Care Team (Late st Contact Info) Description 03/07/2021 Transcribed Document [facility] [place] [address] [place] [address] ProviderNorman MD [address] [place] [address] Social History Tobacco Use Types Packs/Day Years Used Date Smoking Tobacco: Never Assessed Comments Unknown Sex and Gender Information Value Date Recorded Sex Assigned at Not on file Legal Sex Female 1:09 PM CDT Gender Identity Not on file Sexual Orientation Not on file documented as of this encounter Miscellaneous Notes * Cerner Conversion Note - Historical ProviderMD - 03/07/2021 10:13 PM CDT Admission Data, OB Entered On: 03/07/2021 22:15 EDT Performed On: 03/07/2021 22:13 EDT by Haven Rico Rn Advance Directive Patient has Advance Directive *Q : No, patient refuses Advance Directive information Haven Rico Rn - 03/07/2021 22:13 EDT Height and Weight Height Source : Stated Height Entry Format : [place] Height, Feet : 5 ft(Converted to: 152 cm, 60 Inch) Clinical Height : 165.1 cm Height, Inches : 5 Inch(Converted to: 0 ft 5 Inch, 12.70 cm) Weight Source : Standing scale Weight Entry Format : [place] Weight, Pounds : 164 lb Clinical Dosing Weight : 74.55 kg Body Surface Area (BSA) : 1.82 m2 Body Mass Index : 27.3 kg/m2 (HI) [place] Body Weight (IBW) : 56.59 kg Haven Rico Rn - 03/07/2021 22:13 EDT Health Histories Smoking Status : Never (less than 100 in lifetime; none in last 30 days) Smokeless Tobacco Status : Never Haven Rico Rn - 03/07/2021 22:13 EDT Social History (As Of: 03/07/2021 22:15:26 EDT) Tobacco: Smoking Status Never smoker. (Last Updated: 04/08/2014 15:21:23 EDT by SOFIE MENSAH) Alcohol: Use in Last 12 Months: No. (Last Updated: 04/08/2014 15:21:30 EDT by SOFIE MENSAH) Substance Abuse: Drug Use Hx: No. Use in Last 12 Months: No. (Last Updated: 04/08/2014 15:21:27 EDT by SOFIE MENSAH) Anemia Management Care Prior to 32 wks? : Prior to 32 wks Received Iron Transufsion : Yes Haven Rico Rn - 03/07/2021 22:13 EDT Gestational Age Gestational Age Person Gestational Age At : 35 weeks 6 days Method : Comment : Tetanus Immunization Status Previous Tetanus Immunizations : No qualifying data available. Tetanus Immunization : Unknown Haven Rico Rn - 03/07/2021 22:13 EDT Influenza Vaccine Asmt, Adult Previous Vaccines from Immunization Schedule : No qualifying data available. Influenza Immunization, Current Season : No Inactivated Flu Vaccine Contraindications : No contraindications to inactivated influenza vaccine Transplant Workup/Recent Transplant : No Order for Influenza Vaccine : Declined Vaccination Haven Rico Rn - 03/07/2021 22:13 EDT Pneumococcal Vaccine Previous Vaccines from Immunization Schedule : No qualifying data available. Pneumonia Immunization Received : No Pneumococcal Risk Assessment < Age 65 : None Haven Rico Rn - 03/07/2021 22:13 EDT Order Details Transport Mode Order Detail : Ambulatory Order Detail : 1 IV Order Detail : 0 Oxygen Order Detail : 0 Nurse Collect Order Detail : 0 Lift/Transfer : Independent Central Line Order Detail : No Room Service : Appropriate Arterial Line : No Patient Needs Meds Crushed/Liquid : No Haven Rico Rn - 03/07/2021 22:13 EDT Vital Measurements Temperature Source : Oral Temperature Mode : Fahrenheit Temperature, Fahrenheit : 98.4 Deg F Clinical Temperature, C : 36.9 Deg C Pulse Method : Non-Invasive BP Device Peripheral Pulse Rate : 95 bpm Pulse Rhythm : Regular Respiratory Rate : 17 Breaths/Min Blood Pressure Location : Arm, right upper Blood Pressure Source : Non-Invasive BP Device Systolic Blood Pressure : 116 mmHg Diastolic Blood Pressure : 79 mmHg Haven Rico Rn - 03/07/2021 22:13 EDT Infectious Disease History Has the patient ever been tested for COVID-19? : No, Patient stated Does patient have symptoms of COVID-19? : No COVID19 Screening : No Experiencing Infectious Disease Symptoms : No symptoms Physical contact outside [place] in the last 30 days : No Infectious Disease History : None, Chicken pox/Shingles Tuberculosis Symptoms : None Haven Rico Rn - 03/07/2021 22:13 EDT [place] Suicide Severity Rating Scale (C-SSRS) CSSRS Past Month Wish to be : No CSSRS Past Month Suicidal Thoughts : No CSSRS Lifetime Suicide Behavior : No Suicide Severity Rating Score : 0 Suicide Severity Rating : No Additional Care Required at this time Haven Rico Rn - 03/07/2021 22:13 EDT Electronically signed by Parris Cox [employer] Conversion Revenue Cycle Specialist Cerner at 11/24/2022 12:04 PM CDT documented in this encounter Plan of Treatment Not on file documented as of this encounter Visit Diagnoses Not on filedocumented in this encounter Care Teams Jig Fitter Relationship Specialty Start Date End Date Sylvia Alonzo MD [address] [facility] [address] [place] [address] PCP - General Obstetrics and Gynecology 02/26/23 documented as of this encounter
--- OUTSIDE RECORDS SUMMARY | 2025-03-12 10:00 | XMS_ITS | Encounter Summary ---
Author Organization [employer] ([place], [place], [place], [place]) Address [address] [place] [address] Care Team Providers Care Film Cleaner Name Role Phone Sylvia Alonzo MD Primary Care Provider [phone] Encounter Details Date Type Department Care Team (Late st Contact Info) Description 03/10/2021 Transcribed Document [facility] [address] [place] [address] ProviderNorman MD [address], [place] [address] Social History Tobacco Use Types Packs/Day Years Used Date Smoking Tobacco: Never Assessed Comments Unknown Sex and Gender Information Value Date Recorded Sex Assigned at Not on file Legal Sex Female 1:09 PM CDT Gender Identity Not on file Sexual Orientation Not on file documented as of this encounter Miscellaneous Notes * [employer]ner Conversion Note - Norman ProviderMD - 03/10/2021 11:59 AM CDT Nursing Discharge Summary Entered On: 03/10/2021 12:00 EDT Performed On: 03/10/2021 11:59 EDT by LUCILA TOLLIVER RN Discharge Documentation Discharge Date/Time : 03/10/2021 11:50 EDT Patient Disposition, General : Discharge Discharge To : Home with ambulatory/outpatient follow-up Mode Of Departure, General Discharge : Private vehicle, Wheelchair Accompanied By, Discharge : Significant other IV Discontinued : Yes Personal Belongings With Patient : No personal belongings to return Pt's Own Supply of Medications Returned : No patient supply of medications to return Prescriptions Given to Patient : No Medications Given to Patient : No Discharge Instructions Reviewed With, Opportunity For Questions Given : Patient Patient Education Completed : Yes Teaching Method : Printed materials Teaching Evaluation : Verbalizes understanding LUCILA TOLLIVER RN - 03/10/2021 11:59 EDT Electronically signed by [facility] Conversion Furnace Erector Cerner at 11/24/2022 11:56 AM CDT documented in this encounter Plan of Treatment Not on file documented as of this encounter Visit Diagnoses Not on filedocumented in this encounter Care Teams Film Cleaner Relationship Specialty Start Date End Date Sylvia Alonzo MD [address] [place] [address] PCP - General Obstetrics and Gynecology 02/26/23 documented as of this encounter
--- OUTSIDE RECORDS SUMMARY | 2025-03-12 10:00 | XMS_ITS | Encounter Summary ---
Author Organization [employer] ([place], [place], [place], [place]) Address [address] [place] [address] Care Team Providers Care Safety Clothing And Equipment Developer Name Role Phone Sylvia Alonzo MD Primary Care Provider [phone] Encounter Details Date Type Department Care Team (Late st Contact Info) Description 2021 Transcribed Document [facility] [place] [address] [place] [address] ProviderNorman MD [address] [place] [address] Social History Tobacco Use Types Packs/Day Years Used Date Smoking Tobacco: Never Assessed Comments Unknown Sex and Gender Information Value Date Recorded Sex Assigned at Not on file Legal Sex Female 1:09 PM CDT Gender Identity Not on file Sexual Orientation Not on file documented as of this encounter Miscellaneous Notes * Cerner Conversion Note - Historical ProviderMD - 2021 5:15 AM CDT Admission Data, OB Entered On: 2021 5:17 EDT Performed On: 2021 5:15 EDT by Sandie Martini Advance Directive Patient has Advance Directive *Q : No, patient refuses Advance Directive information Sandie Martini - 2021 5:15 EDT Height and Weight Height Source : Measured Height Entry Format : [place] Height, Feet : 5 ft(Converted to: 152 cm, 60 Inch) Clinical Height : 165.1 cm Height, Inches : 5 Inch(Converted to: 0 ft 5 Inch, 12.70 cm) Weight Source : Bed scale Weight Entry Format : [place] Weight, Pounds : 162 lb Clinical Dosing Weight : 73.64 kg Body Surface Area (BSA) : 1.81 m2 Body Mass Index : 27 kg/m2 (HI) [place] Body Weight (IBW) : 56.59 kg Sandie Martini 2021 5:15 EDT Health Histories Smoking Status : Never (less than 100 in lifetime; none in last 30 days) Smokeless Tobacco Status : Never Sandie Martini 2021 5:15 EDT Social History (As Of: 2021 05:17:17 EDT) Tobacco: Smoking Status Never smoker. (Last Updated: 04/08/2014 15:21:23 EDT by SOFIE MENSAH) Alcohol: Use in Last 12 Months: No. (Last Updated: 04/08/2014 15:21:30 EDT by SOFIE MENSAH) Substance Abuse: Drug Use Hx: No. Use in Last 12 Months: No. (Last Updated: 04/08/2014 15:21:27 EDT by SOFIE MENSAH) Gestational Age Gestational Age Person Gestational Age At : 31 weeks 1 days Method : Comment : Tetanus Immunization Status Previous Tetanus Immunizations : No qualifying data available. Tetanus Immunization : Less than 5 years MartiniChanelleSandie 2021 5:15 EDT Influenza Vaccine Asmt, Adult Previous Vaccines from Immunization Schedule : No qualifying data available. Influenza Immunization, Current Season : Unknown Inactivated Flu Vaccine Contraindications : No contraindications to inactivated influenza vaccine Transplant Workup/Recent Transplant : No Order for Influenza Vaccine : Declined Vaccination Sandie Martini 2021 5:15 EDT Pneumococcal Vaccine Previous Vaccines from Immunization Schedule : No qualifying data available. Pneumonia Immunization Received : No Pneumococcal Risk Assessment < Age 65 : None Sandie Martini Jeff 2021 5:15 EDT Order Details Order Detail : 1 IV Order Detail : 1 Oxygen Order Detail : 0 Nurse Collect Order Detail : 1 Lift/Transfer : Independent Central Line Order Detail : No Room Service : Appropriate Arterial Line : No Patient Needs Meds Crushed/Liquid : No Chanelle Martinilori Aguilar 2021 5:15 EDT Infectious Disease History Has the patient ever been tested for COVID-19? : Yes, Patient stated results Negative Date of COVID-19 test known? : No Does patient have symptoms of COVID-19? : No COVID19 Screening : No Experiencing Infectious Disease Symptoms : No symptoms Physical contact outside [place] in the last 30 days : No Infectious Disease History : None, Chicken pox/Shingles Tuberculosis Symptoms : None Sandie Martini - 2021 5:15 EDT [place] Suicide Severity Rating Scale (C-SSRS) CSSRS Past Month Wish to be : No CSSRS Past Month Suicidal Thoughts : No CSSRS Lifetime Suicide Behavior : No Suicide Severity Rating Score : 0 Suicide Severity Rating : No Additional Care Required at this time Sandie Martini - 2021 5:15 EDT Electronically signed by Jessica Nye Conversion Occupational Health And Safety Officer Cerner at 11/24/2022 12:08 PM CDT documented in this encounter Plan of Treatment Not on file documented as of this encounter Visit Diagnoses Not on filedocumented in this encounter Care Teams Safety Clothing And Equipment Developer Relationship Specialty Start Date End Date Sylvia Alonzo MD [address] [place] [address] [place] [address] PCP - General Obstetrics and Gynecology 02/26/23 documented as of this encounter
--- OUTSIDE RECORDS SUMMARY | 2025-03-12 10:00 | XMS_ITS | Encounter Summary ---
Author Organization [employer] ([place], [place], [place], [place]) Address [address] [place] [address] Care Team Providers Care Vp Platforms Name Role Phone Annette Alonzo MD Primary Care Provider [phone] Encounter Details Date Type Department Care Team (Late st Contact Info) Description 05/19/2019 Transcribed Document [facility] [place] Family Medicine [address] [place] [address] ProviderNorman MD [address] [place], [place] [address] Social History Tobacco Use Types Packs/Day Years [...] 05/19/2019 12:06 PM CDT JULIETH Main OR PreOp Summary Primary Physician: ANNETTE ALONZO MD-OBG Finalized Date/Time: 05/23/19 08:40:21 Pt. Name: ALIYA SANCHES./Sex: 1990 Female Med Rec #: [id number] Physician: ANNETTE ALONZO MD-OBG Financial #: [id number] Pt. Type: O Room/Bed: Admit/Disch: 05/19/19 09:30:00 - 05/19/19 15:48:00 Institution: [facility] PreOp Case Times Entry 1 In Preop 05/19/19 09:35:00 Ready for Holding 05/19/19 10:44:00 Room Patient Ready for 05/19/19 10:44:00 Surgery Patient Out of Preop 05/19/19 11:35:00 Patient Out of 05/19/19 10:44:00 Holding Room Last Modified By: Nathaly Moon RN 05/19/19 10:44:30 [facility] PreOp Case Times Audit 05/22/19 08:52:19 Sled Maker: [id number] Modifier: [email or web address] <+> 1 Patient Out of Preop Finalized By: Monique Kelly, RN Document Signatures Signed By: LORNE LINDSEY 05/22/19 08:52 Monique Kelly, RN 05/23/19 08:40 Unfinalized History Date/Time Username Reason for Unfinalizing Freetext Reason for Unfinalizing 05/23/19 08:40 RADERTTEODORA Correct Documentation documented in this encounter Plan of Treatment Not on file documented as of this encounter Visit Diagnoses Not on filedocumented in this encounter Care Teams Vp Platforms Relationship Specialty Start Date End Date Annette Alonzo MD [address] [place] [address] PCP - General Obstetrics and Gynecology 02/26/23 documented as of this encounter
--- OUTSIDE RECORDS SUMMARY | 2025-03-12 10:00 | XMS_ITS | Encounter Summary ---
Author Organization [employer] ([place], [place], [place], [place]) Address [address] [place] [address] Care Team Providers Care Maintenance Mechanic Technician Name Role Phone Annette Alonzo MD Primary Care Provider [phone] Encounter Details Date Type Department Care Team (Late st Contact Info) Description 02/03/2021 Transcribed Document [facility] [place] [address] [place] [address] ProviderNorman MD [address] [place] [address] Social History Tobacco Use Types Packs/Day Years Used Date Smoking Tobacco: Never Assessed Comments Unknown Sex and Gender Information Value Date Recorded Sex Assigned at Not on file Legal Sex Female 1:09 PM CDT Gender Identity Not on file Sexual Orientation Not on file documented as of this encounter Miscellaneous Notes * Cerner Conversion Note - Norman ProviderMD - 02/03/2021 11:38 [place] [address] ALIYA SANCHES :1990 Visit Time:02/01/2021 Your Visit [...] keep the already scheduled one Where: [address] [facility] [employer] [address] [place] [id number] (1) Medications What How Much When Instructions [...] Rhubarb. ? Beets. ? Potato chips and urdu fries. ? Nuts. ??? If you regularly take a diuretic medicine, make sure to eat at least 1???2 fruits or vegetables high in potassium each day. These include: ? Avocado. ? Banana. ? [place], prune, carrot, or tomato juice. ? Baked [...] Casseroles. Pizza. Lasagna. Frozen meals. Potato chips. American fries. Summary ??? You can reduce your [...] provider. Document Revised: 11/15/2019 Document Reviewed: 07/06/2017 Evernote Patient Education ?? 2020 [employer]. Kidney Stones Kidney stones are rock-like [...] these instructions at home: Medicines ??? Take xsax-ddf-bbzfikx and prescription medicines only as told by [...] provider. Document Revised: 12/12/2019 Document Reviewed: 12/12/2019 [employer] Patient Education ?? 2020 [employer]. Urinary Tract Infection, Adult A urinary tract [...] these instructions at home: Medicines ??? Take mfds-cuy-kxudvue and prescription medicines only as told by [...] provider. Document Revised: 07/13/2019 Document Reviewed: 2019 [employer] Patient Education ?? 2020 [employer]. Third Trimester of The third trimester is from week 28 through week 40 (months 7 through 9). This trimester is when your unborn baby (fetus) is growing very fast. At the end of the ninth month, the unborn baby is about 20 inches in length. It weighs about 6???10 pounds. Follow these instructions at home: Medicines ??? Take fqtn-hjj-wxhalgk and prescription medicines only as told by [...] provider. Document Revised: 11/16/2019 Document Reviewed: 08/31/2017 Evernote Patient Education ?? 2020 [employer]. Emergency Awareness and Preventative Care STROKE [...] Assistance with quitting is available by contacting 7-281-OPAXGreen CleanNOW. This is a free resource providing counseling, support, and referral. Or you may contact your personal physician. [employer] Suicide Prevention Lifeline: The National Suicide Prevention [...] range between ( 1.0 and 7.0 ) Forest #: 0.72 K/uL -- Normal range between ( 0.24 and 0.82 ) Eos #: 0.06 K/uL -- Normal range between ( 0.04 and 0.54 ) Forest %: 7.0 % -- Normal range between [...] Squamous Epithelial Cells: 0-2 /HPF Urine Color: [place] Run Ur WBC: 5-10 /HPF Urine Ketones Dipstick: >=80 Urine pH Dipstick: 6.5 -- Normal range between ( 6.0 and 8.0 ) Urine Bilirubin Dipstick: Negative Urine Specific Saltese: 1.010 -- Normal range between ( 1.005 [...] was given the opportunity to ask questions. Patient/Office Rental Clerk Name: Patient/Office Rental Clerk Signature: Relationship to Patient: Clinician/Hospital Office Rental Clerk Signature: Date: documented in this encounter Plan of Treatment Not on file documented as of this encounter Visit Diagnoses Not on filedocumented in this encounter Care Teams Maintenance Mechanic Technician Relationship Specialty Start Date End Date Annette Alonzo MD [address] [place] [address] PCP - General Obstetrics and Gynecology 02/26/23 documented as of this encounter
--- OUTSIDE RECORDS SUMMARY | 2025-03-12 10:00 | XMS_ITS | Encounter Summary ---
Author Organization [employer] ([place], [place], [place], [place]) Address [address] [place] [address] Care Team Providers Care Measurement Operator Name Role Phone Sylvia Alonzo MD Primary Care Provider [phone] Encounter Details Date Type Department Care Team (Late st Contact Info) Description 03/09/2021 Transcribed Document [facility] [place] Family Medicine [address] [place] [address] ProviderNorman MD [address], [place] [address] Social History Tobacco Use Types Packs/Day Years Used Date Smoking Tobacco: Never Assessed Comments Unknown Sex and Gender Information Value Date Recorded Sex Assigned at Not on file Legal Sex Female 1:09 PM CDT Gender Identity Not on file Sexual Orientation Not on file documented as of this encounter Miscellaneous Notes * Cerner Conversion Note - Norman ProviderMD - 03/09/2021 1:00 AM CDT Pain Assessment Entered On: 03/08/2021 23:41 EDT Performed On: 03/09/2021 0:41 EDT by KIN SNYDER RN Intervention Information: ibuprofen Performed by KIN SNYDER RN on 03/08/2021 23:41:00 EDT ibuprofen,600mg Oral Pain Assessment Pain Assessment : Follow-up assessment KIN SNYDER RN - 03/08/2021 23:41 EDT documented in this encounter Plan of Treatment Not on file documented as of this encounter Visit Diagnoses Not on filedocumented in this encounter Care Teams Measurement Operator Relationship Specialty Start Date End Date Sylvia Alonzo MD [address] [place] [address] PCP - General Obstetrics and Gynecology 02/26/23 documented as of this encounter
--- OUTSIDE RECORDS SUMMARY | 2025-03-12 10:00 | XMS_ITS | Clinical Summary ---
Author Organization [employer] ([place], [place], [place], [place]) Address [address] [place] [address] Care Team Providers Care Career Technical Education Instructor Name Role Phone Sylvia Alonzo MD Primary Care Provider Allergies No known active allergies Medications metFORMIN [...] pain 02/22/2023 PCOS (polycystic ovarian syndrome) 02/22/2023 Family History Medical History Relation Name Comments Colon cancer Father Anesthesia problems Mother Relation Name Status Comments Father Alive Mother Alive Social History Tobacco Use Types Packs/Day Years [...] Date Gray rded Speak language other than French at home Not on file 08/27/2023 Want [...] 02/26/2023 10:39 AM EDT Plan of Treatment Health Maintenance Due Date Last Done Comments Depression Screening (12+) 2003 HIV Screening 2006 Hepatitis C Screening 2009 Pap Smear 02/03/2012 Tobacco Cessation Counseling and Screening (12+) 02/27/2024 02/26/2023 COVID-19 VACCINE ( - 2023-2 5 season) 2024 Influenza Vaccine (#1) 2025 DTAP/TDAP/TD VACCINES (2 - T d or Tdap) 03/09/2031 03/09/2021 Pneumococcal Vaccine: 0-49 Years Aged Out No longer eligible based on patient's age to complete this topic Medical Devices Implanted Type Area Human Resource Adviser Device Identifier Shelf Expiration Date Model / Serial / Lot Saúl G3 3x6cm [id number] - [id number] Implanted:Qty : 1 on 02/26/2023 by Sylvia Alonzo MD at [facility] IMPLANTS N/A: Pelvis [employer] 12/15/2027 [id number] / / [id number] Insurance BLUE CROSS/BLUE SHIELD Member Subscriber Plan / Payer (Ef fective 2016-Present) Name:Aliya Cohen Relation to Subscriber:Spouse Name:KOKI COHEN Date of :1991 Address: [address] [place] [address] Payer ID:Not on file Type:Not on file Address: [place] [id number] BLUE CROSS/BLUE SHIELD Advance Directives For more information, please contact: [phone] * Full Code (Latest Code Status on File) Date Activated Date Inactivated Comments 02/26/2023 10:51 AM 02/26/2023 4:39 PM * Full Code Date Activated Date Inactivated Comments 02/26/2023 9:24 AM 02/26/2023 10:51 AM Care Teams Career Technical Education Instructor Relationship Specialty Start Date End Date Sylvia Alonzo MD [address] [facility] [address] [place] [address] PCP - General Obstetrics and Gynecology 02/26/23
--- OUTSIDE RECORDS SUMMARY | 2025-03-12 10:00 | XMS_ITS | Encounter Summary ---
Author Organization [employer] ([place], [place], [place], [place]) Address [address] [place] [address] Care Team Providers Care Rag Production Worker Name Role Phone Sylvia Alonzo MD Primary Care Provider [phone] Encounter Details Date Type Department Care Team (Late st Contact Info) Description 03/10/2021 Transcribed Document [facility] [place] Family Medicine [address] [place] [address] ProviderNorman MD [address], [place] [id number] Social History Tobacco Use Types Packs/Day Years Used Date Smoking Tobacco: Never Assessed Comments Unknown Sex and Gender Information Value Date Recorded Sex Assigned at Not on file Legal Sex Female 1:09 PM CDT Gender Identity Not on file Sexual Orientation Not on file documented as of this encounter Miscellaneous Notes * Cerner Conversion Note - Norman ProviderMD - 03/10/2021 10:22 AM CDT Patient Education Materials Follows:and Gynecology Care After Vaginal Delivery This sheet gives [...] work with your health care provider or senior financial consultant. ??? If you are not : [...] methods of control (contraception). Medicines ??? Take cmkh-iba-jlslrup and prescription medicines only as told by [...] provider. Document Revised: 07/29/2018 Document Reviewed: 05/09/2018 Walk-in Appointment Scheduler Patient Education ? 2020 [employer] Choosing to breastfeed is one of the [...] smacking lips, cooing, sighing, or squeaking. ??? Leso-xu-hsmny movements and sucking on fingers or hands. [...] able to be present during feedings. Your senior financial consultant can help you find a method [...] contact your health care provider or a senior financial consultant. Overall health care recommendations while ??? [...] provider before taking any medicines. These include bdlm-oac-szsiuas and prescription medicines as well as vitamins [...] Talk with your health care provider or senior financial consultant if you have questions or you face problems as you breastfeed. This information is not intended to replace advice given to you by your health care provider. Make sure you discuss any questions you have with your health care provider. Document Revised: 10/20/2018 Document Reviewed: 08/27/2017 Walk-in Appointment Scheduler Patient Education ? 2020 [employer] documented in this encounter Plan of Treatment Not on file documented as of this encounter Visit Diagnoses Not on filedocumented in this encounter Care Teams Rag Production Worker Relationship Specialty Start Date End Date Sylvia Alonzo MD [address] [facility] [address] [place] [address] PCP - General Obstetrics and Gynecology 02/26/23 documented as of this encounter
--- OUTSIDE RECORDS SUMMARY | 2025-03-12 10:00 | XMS_ITS | Encounter Summary ---
Author Organization [employer] ([place], [place], [place], [place]) Address [address] [place] [address] Care Team Providers Care Industrial Gas Servicer Supervisor Name Role Phone Annette Alonzo MD Primary Care Provider [phone] Encounter Details Date Type Department Care Team (Late st Contact Info) Description 05/19/2019 Transcribed Document [facility] [place] Family Medicine [address] [place] [address] ProviderNorman MD [address] [place] [place], [place] [address] Social History Tobacco Use Types Packs/Day Years Used Date Smoking Tobacco: Never Assessed Comments Unknown Sex and Gender Information Value Date Recorded Sex Assigned at Not on file Legal Sex Female 1:09 PM CDT Gender Identity Not on file Sexual Orientation Not on file documented as of this encounter Miscellaneous Notes * Cerner Conversion Note - Norman ProviderMD - 05/19/2019 1:21 PM CDT [facility] 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 This is a free resource providing counseling, [...] Be sure to sign up for the [employer] patient portal, which gives you 01/03 access to your medical information ??? including these discharge instructions ??? using your computer, smartphone, or tablet. Just go to [employer] to get started. Questions? Call . [facility] would like to thank you for allowing us to assist you with your healthcare needs. VERÓNICA Hall ERIN MARIE, (or claim representative) have received the above patient education materials/instructions and have verbalized understanding: Patient Signature _ Date/Time Patient Program Director Substance Abuse Signature (if needed) Date/Time Clinician/Hospital Program Director Substance Abuse Signature (if needed) Date/Time Electronically signed by Interface, [facility] Conversion Peer Educator Cerner at 11/24/2022 12:03 PM CDT documented in this encounter Plan of Treatment Not on file documented as of this encounter Visit Diagnoses Not on filedocumented in this encounter Care Teams Industrial Gas Servicer Supervisor Relationship Specialty Start Date End Date Annette Alonzo MD [address] [place] [address] PCP - General Obstetrics and Gynecology 02/26/23 documented as of this encounter
--- OUTSIDE RECORDS SUMMARY | 2025-03-12 10:00 | XMS_ITS | Encounter Summary ---
Author Organization [employer] ([place], [place], [place], [place]) Address [address] [place] [address] Care Team Providers Care Swatch Checker Name Role Phone Annette Alonzo MD Primary Care Provider [phone] Encounter Details Date Type Department Care Team (Late st Contact Info) Description 03/10/2021 Transcribed Document [facility] [place] [address] [place] [address] ProviderNorman MD [address], [place] [address] Social History Tobacco Use Types Packs/Day Years Used Date Smoking Tobacco: Never Assessed Comments Unknown Sex and Gender Information Value Date Recorded Sex Assigned at Not on file Legal Sex Female 1:09 PM CDT Gender Identity Not on file Sexual Orientation Not on file documented as of this encounter Miscellaneous Notes * Cerner Conversion Note - Norman ProviderMD - 03/10/2021 10:22 AM CDT Patient: ALIYA SANCHES Age: 31 years Sex: Female : 1990 Associated Diagnoses: None Author: ANNETTE ALNOZO MD-OBG Subjective Chief complaint. Post day number 2, patient is doing well and pain control is doing well with Motrin. She has not required Percocet. Lochia is light, patient is breast feeding and doing well with it. Health Status Allergies: Allergic Reactions (All) No Known Allergies, No qualifying data available Current medications: (Selected) Inpatient Medications Ordered Ambien: 5 mg, Oral, At Bedtime, PRN: Sleep Cytotec: 400 mcg, Rectal, 1-Time, PRN: Other (See Comment) Dermoplast 20% topical spray: 1 [place], Topical, Q4H, PRN: Pain HYDROmorphone: 0.5 mg, IV Push, Q10Min, PRN: Pain (Severe 7-10) Hemabate: 250 mcg, IntraMuscular, 1-Time, PRN: Other (See Comment) Lactated Ringers Injection intravenous solution 1,000 mL: 125 mL/Hr, IntraVENous Methergine: 0.2 mg, IntraMuscular, 1-Time, PRN: Other (See Comment) Mylicon: 80 mg, Chew, Q4H, PRN: Gas Mylicon: 80 mg, Oral, QID, PRN: Gas Normal Saline 500 mL: 20 mL/Hr, IntraVENous Normal Saline Flush: 10 mL, IV Push, See Comment, PRN: IV Use Normosol-R 1,000 mL: 100 mL/Hr, IntraVENous Pepcid: 20 mg, Oral, Q12H, PRN: Heartburn Percocet 5/325 oral tablet: 1 Tab, Oral, Q4H, PRN: Pain (Moderate 4-6) Percocet 5/325 oral tablet: 2 Tab, Oral, Q4H, PRN: Pain (Severe 7-10) Pitocin: 10 Units, IntraMuscular, 1-Time, PRN: Other (See Comment) Senokot S: 1 Tab, Oral, BID Sublimaze: 25 mcg, IV Push, Q5Min, PRN: Pain (Mild 1-3) Sublimaze: 50 mcg, IV Push, Q5Min, PRN: Pain (Moderate 4-6) Tucks 50% topical pad: 1 Each, Topical, See Comment, PRN: Pain acetaminophen-oxyCODONE 325 mg-5 mg oral tablet: 1 Tab, Oral, Q4H, PRN: Pain (Moderate 4-6) aluminum hydroxide/magnesium hydroxide/simethicone 200 mg-200 mg-20 mg/5 mL oral suspension: 30 mL, Oral, Q4H, PRN: Heartburn clindamycin: 900 mg, 50 mL, 100 mL/Hr, IV Piggyback, 1-Time cloNIDine 80 mcg + ketorolac 30 mg + ropivacaine 0.5% injectable solution 30 mL + Xylocaine HCl wit...: 80 mcg, 0.8 mL, 3600 mL/Hr, IntraLesional, 1-Time famotidine: 20 mg, Oral, PREOP, PRN: Other (See Comment) haloperidol: 1 mg, IV Push, 1-Time, PRN: Nausea/Vomiting hydrocortisone-pramoxine 1%-1% rectal cream: 1 Application, Rectal, Q4H, PRN: Perineal Comfort Measure ibuprofen: 600 mg, Oral, Q6H lanolin topical ointment: 1 Application, Topical, See Comment, PRN: Other (See Comment) measles/mumps/rubella virus vaccine: 0.5 mL, SubCutaneous, 1-Time, PRN: Other (See Comment) Documented Medications Documented 19 (Colman): Daily, 0 Refill(s) ibuprofen 600 mg oral tablet: 1 Tab, Oral, Q6H, 0 Refill(s), Home Medications (2) Active ibuprofen 600 mg oral tablet 600 mg = 1 Tab, Oral, Q6H 19 (Colman) , Daily , Medications (18) Active Scheduled: (2) ibuprofen 600 mg tab 600 mg 1 Tab, Oral, Q6H senna/docusate 8.6/50 mg tab 1 Tab, Oral, BID Continuous: (1) lactated ringers 1,000 mL 1,000 mL, IntraVENous, 125 mL/Hr PRN: (15) acetaminophen/oxyCODONE 325/5 mg tab 1 Tab, Oral, Q4H acetaminophen/oxyCODONE 325/5 mg tab 2 Tab, Oral, Q4H al hydrox/mag hydrox/simeth 30 mL liq 30 mL, Oral, Q4H benzocaine-menthol spray 1 Reed [place], Topical, Q4H carboprost 250 mcg/1 mL inj 250 mcg 1 mL, IntraMuscular, 1-Time famotidine 20 mg tab 20 mg 1 Tab, Oral, Q12H lanolin oint 8.5 gram 1 Application, Topical, See Comment crcsjaw-kmugc-herta vaccine inj 0.5 mL, SubCutaneous, 1-Time methylergonovine 0.2 mg/1 mL inj 0.2 mg 1 mL, IntraMuscular, 1-Time misoprostol 200 mcg tab 400 mcg 2 Tab, Rectal, 1-Time oxytocin 10 unit/1 mL inj 10 Units 1 mL, IntraMuscular, 1-Time pramoxine-hydrocortisone 1% crm 30 g 1 Application, Rectal, Q4H simethicone 80 mg chew tab 80 mg 1 Tab, Chew, Q4H witch dewey/glycerin pad # 40 1 Each, Topical, See Comment zolpidem 5 mg tab 5 mg 1 Tab, Oral, At Bedtime Problem list: Active Problems (1) Objective VS/Measurements No qualifying data available General: Alert and oriented, No acute distress. Eye: Pupils are equal, round and reactive to light. HENT: Normocephalic. Neck: Supple. Respiratory: Lungs are clear to auscultation. Gastrointestinal: Soft, Non-distended. Genitourinary: perineum intact- scant bleeding, Fundus nontender, firm. Musculoskeletal: no calf tenderness. Neurologic: Alert, Oriented. Psychiatric: Appropriate mood & affect. Results Review General results Interpretation: LABS Labs (Last four charted values) WBC 8.9 (MAR 09) 7.9 (MAR 08) HB L 8.9 (MAR 09) L 9.0 (MAR 08) HCT L 28.7 (MAR 09) L 28.7 (MAR 08) Plt 187 (MAR 09) L 156 (MAR 08) Radiology Results No Radiology Results Found Impression and Plan Patient has had iron deficiency anemia, hemoglobin count is stable and patient is asymptomatic. We will discharge home, post depression was discussed and the patient has no history with previous pregnancies. Family planning was discussed and options given. She will followup in 6 weeks unless otherwise necessary. documented in this encounter Plan of Treatment Not on file documented as of this encounter Visit Diagnoses Not on filedocumented in this encounter Care Teams Swatch Checker Relationship Specialty Start Date End Date Annette Alonzo MD [address] [facility] [address] [place] [address] PCP - General Obstetrics and Gynecology 02/26/23 documented as of this encounter
--- OUTSIDE RECORDS SUMMARY | 2025-03-12 10:00 | XMS_ITS | Encounter Summary ---
Author Organization [employer] ([place], [place], [place], [place]) Address [address] [place] [address] Care Team Providers Care Visiting Nurse Name Role Phone Sylvia Alonzo MD Primary Care Provider [phone] Encounter Details Date Type Department Care Team (Late st Contact Info) Description 03/09/2021 Transcribed Document [facility] [place] Family Medicine [address] [place] [address] ProviderNorman MD [address] [place], [place] [address] Social History Tobacco Use Types Packs/Day Years Used Date Smoking Tobacco: Never Assessed Comments Unknown Sex and Gender Information Value Date Recorded Sex Assigned at Not on file Legal Sex Female 1:09 PM CDT Gender Identity Not on file Sexual Orientation Not on file documented as of this encounter Miscellaneous Notes * Cerner Conversion Note - Norman ProviderMD - 03/09/2021 6:00 AM CDT Pain Assessment Entered On: 03/09/2021 5:41 EDT Performed On: 03/09/2021 6:40 EDT by KIN SNYDER RN Intervention Information: ibuprofen Performed by KIN SNYDER RN on 03/09/2021 05:40:00 EDT ibuprofen,600mg Oral Pain Assessment Pain Assessment : Follow-up assessment KIN SNYDER RN - 03/09/2021 5:40 EDT documented in this encounter Plan of Treatment Not on file documented as of this encounter Visit Diagnoses Not on filedocumented in this encounter Care Teams Visiting Nurse Relationship Specialty Start Date End Date Sylvia Alonzo MD [address] [place] [address] PCP - General Obstetrics and Gynecology 02/26/23 documented as of this encounter
--- OUTSIDE RECORDS SUMMARY | 2025-03-12 10:00 | XMS_ITS | Encounter Summary ---
Author Organization [employer] ([place], [place], [place], [place]) Address [address] [place] [address] Care Team Providers Care Channel Development Manager Name Role Phone Annette Alonzo MD Primary Care Provider [phone] Encounter Details Date Type Department Care Team (Late st Contact Info) Description 05/19/2019 Transcribed Document [facility] [place] Family Medicine [address] [place] [address] ProviderNorman MD [address] [place], [place] [address] Social History Tobacco Use Types Packs/Day Years Used Date Smoking Tobacco: Never Assessed Comments Unknown Sex and Gender Information Value Date Recorded Sex Assigned at Not on file Legal Sex Female 1:09 PM CDT Gender Identity Not on file Sexual Orientation Not on file documented as of this encounter Miscellaneous Notes * Cerner Conversion Note - Norman ProviderMD - 05/19/2019 1:26 PM CDT [facility] [address], [place] [address] Patient Copy Patient Information: Name: ALIYA SANCHES Current Date: 05/19/2019 13:26:26 : 1990 Patient [address]: [address] [place] [id number] Patient Attending Physician: ANNETTE ALONZO MD-OBG Primary Care Provider: PHY, NOT LISTED Primary Care Provider Phone: Discharge Diagnosis: Adhesions due to endometriosis; Dysmenorrhea; Dyspareunia, female; Endometriosis of peritoneum; History of irregular menstrual bleeding Weight on Admission: 135 lb, 0 oz Comment: Discharge Instructions: Immunizations Documented During Stay: No Immunizations Found Heart Failure Discharge Instructions (if any): Stroke Related Discharge Instructions (if any): Warfarin Related Discharge Instructions (if any): Final Medication List: Other Medications acetaminophen-oxyCODONE (acetaminophen-oxyCODONE 325 mg-5 mg oral tablet) 1 Tablet(s) Oral Every 4 Hours as needed Pain (Moderate 4-6). diphenhydrAMINE (Benadryl 25 mg oral capsule) 1 Capsule(s) Oral once a day (at bedtime) as needed as needed for insomnia. ibuprofen (ibuprofen 600 mg oral tablet) 1 Tablet(s) Oral Every 6 Hours as needed Fever. Patient Allergies: No Known Allergies Medication Instructions: [...] Assistance with quitting is available by contacting 4-668-ZBCR-NOW. This is a free resource providing counseling, [...] Be sure to sign up for the [facility] patient portal, which gives you 01/03 access to your medical information ??? including these discharge instructions ??? using your computer, smartphone, or tablet. Just go to [employer] to get started. Questions? Call . [facility] would like to thank you for allowing us to assist you with your healthcare needs. VERÓNICA Hall ERIN MARIE, (or goodwill representative) have received the above patient education materials/instructions and have verbalized understanding: Patient Signature _ Date/Time Patient Vocational Rehabilitation Teacher Signature (if needed) Date/Time Clinician/Hospital Vocational Rehabilitation Teacher Signature (if needed) Date/Time Electronically signed by Interface, [facility] Conversion Analytical Strategist Cerner at 11/24/2022 11:55 AM CDT documented in this encounter Plan of Treatment Not on file documented as of this encounter Visit Diagnoses Not on filedocumented in this encounter Care Teams Channel Development Manager Relationship Specialty Start Date End Date Annette Alonzo MD [address] [place] [address] PCP - General Obstetrics and Gynecology 02/26/23 documented as of this encounter
--- OUTSIDE RECORDS SUMMARY | 2025-03-12 10:00 | XMS_ITS | Encounter Summary ---
Author Organization [employer] ([place], [place], [place], [place]) Address [address] [place] [address] Care Team Providers Care Flight Operations Manager Name Role Phone Sylvia Alonzo MD Primary Care Provider [phone] Encounter Details Date Type Department Care Team (Late st Contact Info) Description 05/19/2019 Transcribed Document [facility] [place] [facility] [place] [address] ProviderNorman MD [address] [place], [place] [address] Social History Tobacco Use Types Packs/Day Years Used Date Smoking Tobacco: Never Assessed Comments Unknown Sex and Gender Information Value Date Recorded Sex Assigned at Not on file Legal Sex Female 1:09 PM CDT Gender Identity Not on file Sexual Orientation Not on file documented as of this encounter Miscellaneous Notes * Cerner Conversion Note - Norman ProviderMD - 05/19/2019 3:15 PM CDT Patient Education Materials Follows: Dilation and Curettage or Vacuum Curettage Dilation [...] including vitamins, herbs, eye drops, creams, and sdir-mhy-sfwbchs medicines. This is especially important if you [...] Up to 2 hours before the procedure ? you may continue to drink clear liquids, such as water, clear fruit juice, black coffee, and plain tea. Eating and drinking restrictions Follow instructions from your health care provider about eating and drinking, which may include: ??? 8 hours before the procedure ? stop eating heavy meals or foods such as meat, fried foods, or fatty foods. ??? 6 hours before the procedure ? stop eating light meals or foods, such as toast or cereal. ??? 6 hours before the procedure ? stop drinking milk or drinks that contain milk. ??? 2 hours before the procedure ? stop drinking clear liquids. If your health [...] you were given have worn off. Summary Dilation and curettage (D&C) involves stretching (dilation) [...] 07/26/2006 Document Revised: 04/11/2017 Document Reviewed: 04/11/2017 [employer] Interactive Patient Education ? 2019 [employer] Hysteroscopy, Care After This sheet gives [...] instructions at home: Activity ??? Rest for 1?2 days after the procedure. ??? Do not [...] taking prescription pain medicines. Medicines ??? Take zqby-pap-zhszbnt and prescription medicines only as told by [...] urine clear or pale yellow. ? Take iien-adn-uokmett or prescription medicines. ? Eat foods that [...] 05/16/2014 Document Revised: 08/24/2017 Document Reviewed: 08/24/2017 [employer] Interactive Patient Education ? 2019 [employer] Diagnostic Laparoscopy, Care After This sheet [...] these instructions at home: Medicines ??? Take viod-qfz-oisxdpj and prescription medicines only as told by [...] and water are not available, use hand plastic press operator. ? Change your dressing as told by [...] keep your urine pale yellow. ? Take ejfv-nwo-wqknycw or prescription medicines. ? Eat foods that [...] 07/06/2016 Document Revised: 01/19/2018 Document Reviewed: 01/19/2018 [employer] Interactive Patient Education ? 2019 [employer] General Anesthesia, Adult, Care After This [...] activities are safe for you. ??? Take zwma-zrj-vitjaid and prescription medicines only as told by [...] 11/01/2001 Document Revised: 03/11/2018 Document Reviewed: 03/11/2018 [employer] Interactive Patient Education ? 2019 [employer] documented in this encounter Plan of Treatment Not on file documented as of this encounter Visit Diagnoses Not on filedocumented in this encounter Care Teams Flight Operations Manager Relationship Specialty Start Date End Date Sylvia Alonzo MD [address] [place] [address] PCP - General Obstetrics and Gynecology 02/26/23 documented as of this encounter
--- OUTSIDE RECORDS SUMMARY | 2025-03-12 10:00 | XMS_ITS | Encounter Summary ---
Author Organization [employer] ([place], [place], [place], [place]) Address [address] [place] [address] Care Team Providers Care Keyboard Specialist Name Role Phone Annette Alonzo MD Primary Care Provider [phone] Encounter Details Date Type Department Care Team (Late st Contact Info) Description 03/08/2021 Transcribed Document [facility] [place] Family Medicine [address] [place] [address] ProviderNorman MD [address] [place] [address] Social History Tobacco Use Types Packs/Day Years Used Date Smoking Tobacco: Never Assessed Comments Unknown Sex and Gender Information Value Date Recorded Sex Assigned at Not on file Legal Sex Female 1:09 PM CDT Gender Identity Not on file Sexual Orientation Not on file documented as of this encounter Miscellaneous Notes * Cerner Conversion Note - Norman ProviderMD - 03/08/2021 4:11 PM CDT [facility] [address], [place] [address] Patient Copy Patient Information: Name: ALIYA SANCHES Current Date: 03/08/2021 16:11:57 : 1990 Patient Address: [address] [place] [address] [facility] [id number] Patient Attending Physician: ANNETTE ALONZO MD-OBG Primary Care Provider: [place] GALINDO DR Primary Care Provider Discharge Diagnosis: 1:36 weeks gestation of ; 2:Labor without complication Weight on Admission: 164 lb, 0 oz Comment: Discharge Instructions: Immunizations Documented During Stay: No Immunizations Found Heart Failure Discharge Instructions (if any): Stroke Related Discharge Instructions (if any): Warfarin Related Discharge Instructions (if any): Final Medication List: Other Medications multivitamin, ( 19 (Derry)) Every Day. Patient Allergies: No Known Allergies [...] Assistance with quitting is available by contacting 5-250-SEML-NOW. This is a free resource providing counseling, [...] Be sure to sign up for the [facility] patient portal, which gives you 24/ access to your medical information ??? including these discharge instructions ??? using your computer, smartphone, or tablet. Just go to [employer] to get started. Questions? Call . [facility] would like to thank you for allowing us to assist you with your healthcare needs. VERÓNICA [place] ERIN MARIE, (or outside sales representative) have received the above patient education materials/instructions and have verbalized understanding: Patient Signature _ Date/Time Patient Marble Finisher Signature (if needed) Date/Time Clinician/Hospital Marble Finisher Signature (if needed) Date/Time Electronically signed by Parris, [facility] Conversion Clothing Trades Workers Cerner at 11/24/2022 11:55 AM CDT documented in this encounter Plan of Treatment Not on file documented as of this encounter Visit Diagnoses Not on filedocumented in this encounter Care Teams Keyboard Specialist Relationship Specialty Start Date End Date Annette Alonzo MD [address] [facility] [place] [address] PCP - General Obstetrics and Gynecology 02/26/23 documented as of this encounter
--- OUTSIDE RECORDS SUMMARY | 2025-03-12 10:00 | XMS_ITS | Encounter Summary ---
Author Organization [employer] ([place], [place], [place], [place]) Address [address] [facility] [place] [address] Care Team Providers Care Email Marketing Executive Name Role Phone Sylvia Alonzo MD Primary Care Provider [phone] Encounter Details Date Type Department Care Team (Late st Contact Info) Description 05/23/2019 Transcribed Document [facility] Family Medicine [facility] [place] [address] ProviderNorman MD [address], [place] [id number] Social History Tobacco Use Types Packs/Day Years Used Date Smoking Tobacco: Never Assessed Comments Unknown Sex and Gender Information Value Date Recorded Sex Assigned at Not on file Legal Sex Female 1:09 PM CDT Gender Identity Not on file Sexual Orientation Not on file documented as of this encounter Miscellaneous Notes * Cerner Conversion Note - Historical ProviderMD - 05/23/2019 9:34 PM CDT DATE OF PROCEDURE: 05/19/2019 CONTINUATION: PROCEDURE NOTE: Patient was placed in dorsal lithotomy position under general anesthesia. The abdomen and perineum were prepped and draped in a sterile manner. Estrada was placed. Speculum was placed. Cervix was grasped with tenaculum and then dilated. Hysteroscope was introduced and uterine cavity was visualized. Because of buildup of endometrium, a D and C was performed and the tissue was submitted to Pathology. Normal tubal ostia were visualized and uterine cavity appeared normal. The endocervical canal was very friable and had to be cauterized with Bovie. Next, uterine manipulator was placed with balloon inflated inside the endometrial cavity and then attention was turned towards the abdomen. A midline incision was made inside umbilicus, through which Veress needle was inserted and the abdomen was insufflated with CO2. Veress needle was removed and trocar introduced. Next, 10 cm away from the umbilicus to the left and to the right side, 8 trocars were placed and a size 12 in the right lateral area. This was all done under direct visualization and prior to making skin incision, local marking was infiltrated. Next, the robot was docked and the rest of the procedure was done through the console. First, the adhesions on the left side were addressed. The colon adhesions were taken down off the pelvic brim releasing some of the tension on the left tube and ovary. The left ovary was then treated for superficial endometriosis and subcapsular cysts were drained. The endometriosis behind the ovary, back of the uterus, and cul-de-sac was removed and also behind the right ovary. The right ovary was treated in the similar fashion. The front of the uterus, there were few endometriosis implants, which were removed as well. The tubes were then checked for patency and there was good spill on both sides and the fimbriated ends appeared healthy. At this point, it was felt that all the visible endometriosis and adhesions were taken care of. We used for adhesion prevention amniotic allograft, which was placed in the areas of adhesiolysis, also in the ovaries, and in the uterosacral ligaments where the pain fibers run to the uterus and where the endometriosis was growing and was removed. All instruments were then removed. The gas was deflated. Incisions closed with 4-0 PDS subcuticular closure. A deeper suture was placed in the umbilicus with 0 Vicryl. Sponge and instrument count was correct. Patient tolerated the procedure well and was taken to recovery room in good condition. /[id number] MD RACH Luevano/HEAVENLY / RACH / MODL /[id number] documented in this encounter Plan of Treatment Not on file documented as of this encounter Visit Diagnoses Not on filedocumented in this encounter Care Teams Email Marketing Executive Relationship Specialty Start Date End Date Sylvia Alonzo MD [address] [place] [address] PCP - General Obstetrics and Gynecology 02/26/23 documented as of this encounter
--- OUTSIDE RECORDS SUMMARY | 2025-03-12 10:00 | XMS_ITS | Encounter Summary ---
Author Organization [employer] ([place], [place], [place], [place]) Address [address] [place] [address] Care Team Providers Care Tobacco Drummer Name Role Phone Annette Alonzo MD Primary Care Provider [phone] Encounter Details Date Type Department Care Team (Late st Contact Info) Description 03/09/2021 Transcribed Document [facility] [place] Family Medicine [address] [place] [address] ProviderNorman MD [address], [place] [address] Social History Tobacco Use Types Packs/Day Years Used Date Smoking Tobacco: Never Assessed Comments Unknown Sex and Gender Information Value Date Recorded Sex Assigned at Not on file Legal Sex Female 1:09 PM CDT Gender Identity Not on file Sexual Orientation Not on file documented as of this encounter Miscellaneous Notes * Cerner Conversion Note - Historical ProviderMD - 03/09/2021 4:33 PM CDT Patient: ALIYA SANCHES Age: 31 years Sex: Female : 1990 Associated Diagnoses: None Author: ANNETTE ALONZO MD-OBG Subjective Chief complaint. post day #1 breast feeding and doing well lochia light Health Status Allergies: Allergic Reactions (All) No Known Allergies, No qualifying data available Current medications: (Selected) Inpatient Medications Ordered Ambien: 5 mg, Oral, At Bedtime, PRN: Sleep Cytotec: 400 mcg, Rectal, 1-Time, PRN: Other (See Comment) Dermoplast 20% topical spray: 1 [place], Topical, Q4H, PRN: Pain HYDROmorphone: 0.5 mg, [...] mL, SubCutaneous, 1-Time, PRN: Other (See Comment) tetanus/diphth/pertuss (Tdap) adult/adol: 0.5 mL, IntraMuscular, 1-Time, PRN: Other (See Comment) Documented Medications Documented 19 (Red Level): Daily, 0 Refill(s), Home Medications (1) Active 19 (Red Level) , Daily , Medications (19) Active Scheduled: (2) ibuprofen 600 mg tab 600 mg 1 Tab, Oral, Q6H senna/docusate 8.6/50 mg tab 1 Tab, Oral, BID Continuous: (1) lactated ringers 1,000 mL 1,000 mL, IntraVENous, 125 mL/Hr PRN: (16) acetaminophen/oxyCODONE 325/5 mg tab 1 Tab, Oral, Q4H acetaminophen/oxyCODONE 325/5 mg tab 2 Tab, Oral, Q4H al hydrox/mag hydrox/simeth 30 mL liq 30 mL, Oral, Q4H benzocaine-menthol spray 1 [place], Topical, Q4H carboprost 250 mcg/1 mL inj 250 mcg 1 mL, IntraMuscular, 1-Time diphth/pertus/tet tox *ADULT* inj 0.5 mL 0.5 mL, IntraMuscular, 1-Time famotidine 20 mg tab 20 mg 1 Tab, Oral, Q12H lanolin oint 8.5 gram 1 Application, Topical, See Comment mvaoulg-sgnor-kmkre vaccine inj 0.5 mL, SubCutaneous, 1-Time methylergonovine [...] No Radiology Results Found Impression and Plan Doing well, will D/C home tomorrow documented in this encounter Plan of Treatment Not on file documented as of this encounter Visit Diagnoses Not on filedocumented in this encounter Care Teams Tobacco Drummer Relationship Specialty Start Date End Date Annette Alonzo MD [address] [place] [address] PCP - General Obstetrics and Gynecology 02/26/23 documented as of this encounter
--- OUTSIDE RECORDS SUMMARY | 2025-03-12 10:01 | XMS_ITS | Encounter Summary ---
Author Organization [employer] ([place], [place], [place], [place]) Address [address] [place] [address] Care Team Providers Care Oyster Sorter Name Role Phone Annette Alonzo MD Primary Care Provider [phone] Encounter Details Date Type Department Care Team (Late st Contact Info) Description 05/19/2019 Transcribed Document [facility] [place] Family Medicine [address] [place] [address] ProviderNorman MD [address] [place], [place] [address] Social History Tobacco Use Types Packs/Day Years [...] 05/19/2019 12:06 PM CDT [facility] PACU Summary Primary Physician: ANNETTE ALONZO MD-OBG Finalized Date/Time: 05/19/19 14:08:59 Pt. Name: ALIYA SANCHES/Sex: 1990 Female Med Rec #: [id number] Physician: ANNETTE ALONZO MD-OBG Financial #: [id number] Pt. Type: O Room/Bed: Admit/Disch: 05/19/19 09:30:00 - Institution: [facility] OR PACU Case Times Entry 1 In PACU I 05/19/19 13:11:00 Ready for PACU 05/19/19 14:08:00 Discharge Discharge from PACU 05/19/19 14:08:00 I Last Modified By: MADISYN CARCAMO RN 05/19/19 14:08:15 Finalized By: MADISYN CARCAMO, RN Document Signatures Signed By: MADISYN CARCAMO RN 05/19/19 14:08 Electronically signed by Jessica Nye Conversion Transmission And Protection Engineer Cerner at 11/24/2022 11:57 AM CDT documented in this encounter Plan of Treatment Not on file documented as of this encounter Visit Diagnoses Not on filedocumented in this encounter Care Teams Oyster Sorter Relationship Specialty Start Date End Date Annette Alonzo MD [address] [place] [address] PCP - General Obstetrics and Gynecology 02/26/23 documented as of this encounter
--- OUTSIDE RECORDS SUMMARY | 2025-03-12 10:01 | XMS_ITS | Encounter Summary ---
Author Organization [employer] ([place], [place], [place], [place]) Address [address] [place] [address] Care Team Providers Care Dairy Nutritionist Name Role Phone Annette Alonzo MD Primary Care Provider [phone] Encounter Details Date Type Department Care Team (Late st Contact Info) Description 05/19/2019 Transcribed Document [facility] [place] [address] [place] [address] ProviderNorman MD [address] [place], [place] [address] Social History Tobacco Use Types Packs/Day Years [...] 05/19/2019 12:06 PM CDT [facility] PostOp Summary Primary Physician: ANNETTE ALONZO MD-OBG Finalized Date/Time: 05/19/19 15:54:31 Pt. Name: ALIYA SANCHES/Sex: 1990 Female Med Rec #: [id number] Physician: ANNETTE ALONZO MD-OBG Financial #: [id number] Pt. Type: O Room/Bed: Admit/Disch: 05/19/19 09:30:00 - Institution: [facility] PostOp Case Times Entry 1 In PACU II 05/19/19 14:15:00 Ready for PACU II 05/19/19 15:48:00 Discharge Discharge from PACU 05/19/19 15:48:00 II Last Modified By: ALEJANDRO MACE RN 05/19/19 15:49:33 Finalized By: ALEJANDRO MACE, RN Document Signatures Signed By: ALEJANDRO MACE RN 05/19/19 15:54 documented in this encounter Plan of Treatment Not on file documented as of this encounter Visit Diagnoses Not on filedocumented in this encounter Care Teams Dairy Nutritionist Relationship Specialty Start Date End Date Annette Alonzo MD [address] [place] [address] PCP - General Obstetrics and Gynecology 02/26/23 documented as of this encounter
--- OUTSIDE RECORDS SUMMARY | 2025-03-12 10:01 | XMS_ITS | Encounter Summary ---
Author Organization [employer] ([place], [place], [place], [place]) Address [address] [place] [address] Care Team Providers Care Lining Marker Name Role Phone Sylvia Alonzo MD Primary Care Provider [phone] Encounter Details Date Type Department Care Team (Late st Contact Info) Description 05/19/2019 Transcribed Document [facility] [place] [address] [place] [address] ProviderNorman MD [address] [place], [place] [id number] Social History Tobacco Use Types Packs/Day Years Used Date Smoking Tobacco: Never Assessed Comments Unknown Sex and Gender Information Value Date Recorded Sex Assigned at Not on file Legal Sex Female 1:09 PM CDT Gender Identity Not on file Sexual Orientation Not on file documented as of this encounter Miscellaneous Notes * Cerner Conversion Note - Historical ProviderMD - 05/19/2019 10:02 AM CDT Pediatric Growth Entered On: 05/19/2019 10:02 EDT Performed On: 05/19/2019 10:02 EDT by LORNE LINDSEY Height and Weight, Clinical Dosing Weight Source : Standing scale Weight Entry Format : [place] Clinical Dosing Weight : 61.36 kg Weight, Pounds : 135 lb LORNE LINDSEY - 05/19/2019 10:02 EDT documented in this encounter Plan of Treatment Not on file documented as of this encounter Visit Diagnoses Not on filedocumented in this encounter Care Teams Lining Marker Relationship Specialty Start Date End Date Sylvia Alonzo MD [address] [facility] [address] [place] [address] PCP - General Obstetrics and Gynecology 02/26/23 documented as of this encounter
== END 2025-03-12 23:59 | disposition home or self-care (01) ==
LOC: RAD 09:58
PROVIDERS: PCP Nurse Practitioner Family; Visit Provider Obstetrics & Gynecology
DX: D25.0 Submucous leiomyoma of uterus (principal)
CPT/HCPCS: 76830

== ENCOUNTER 2025-05-08 17:52 | Emergency (ER) | payer BC, SELFPAY ==
--- OUTSIDE RECORDS SUMMARY | 2025-05-08 20:32 | XMS_ITS | Encounter Summary ---
Author Organization [email or web address] ([place], [place], [place], [place]) Address [address] [place] [address] Care Team Providers Care Traffic Controller Cable Name Role Phone Sylvia Alonzo MD Primary Care Provider [phone] Encounter Details Date Type Department Care Team (Late st Contact Info) Description 05/19/2019 Transcribed Document [facility] [place] Family Medicine [address] [place] [address] ProviderNorman MD [address], [place] [id number] Social History Tobacco Use Types Packs/Day Years [...] Source : Stated Height Entry Format : [place] Height, Feet : 5 ft(Converted to: 152 cm, 60 Inch) Height, Inches : 5 Inch(Converted to: 0 ft 5 Inch, 12.70 cm) Clinical Height : 165.1 cm Weight Source : Standing scale Weight Entry Format : [place] Clinical Dosing Weight : 61.36 kg Weight, Pounds : 135 lb Body Surface Area (BSA) : 1.68 m2 Body Mass Index : 22.5 kg/m2 [place] Body Weight : 57 kg Nathaly Moon RN - 05/19/2019 10:21 EDT Health Histories Smoking Status : Never (less than 100 in lifetime; none in last 30 days) Smokeless Tobacco Status : Never Nathaly Moon RN - 05/19/2019 10:21 EDT Social History (As Of: 05/19/2019 10:26:50 EDT) Tobacco: Smoking Status Never smoker. (Last Updated: 04/08/2014 15:21:23 EDT by SOFIE MENSAH, DRAMATIC TEACHER-[facility]) Alcohol: Use in Last 12 Months: No. (Last Updated: 04/08/2014 15:21:30 EDT by SOFIE MENSAH, DRAMATIC TEACHER-[facility]) Substance Abuse: Drug Use Hx: No. Use in Last 12 Months: No. (Last Updated: 04/08/2014 15:21:27 EDT by SOFIE MENSAH, DRAMATIC TEACHER-[facility]) Infectious Disease History Infectious Disease History : [...] #2 Relationship : . Primary Language : Liberian Communication Barrier : None Nathaly Moon RN [...] the text rendition version of the form. Electronically signed by Jessica Nye Conversion Setter Molding And Coremaking Machines Cerner at 11/24/2022 12:07 PM CDT documented in this encounter Plan of Treatment Not on file documented as of this encounter Visit Diagnoses Not on filedocumented in this encounter Care Teams Traffic Controller Cable Relationship Specialty Start Date End Date Sylvia Alonzo MD [address] [facility] [address] [place] [address] PCP - General Obstetrics and Gynecology 02/26/23 documented as of this encounter
--- OUTSIDE RECORDS SUMMARY | 2025-05-08 20:33 | XMS_ITS | Encounter Summary ---
Author Organization [email or web address] ([place], [place], [place], [place]) Address [address] [place] [address] Care Team Providers Care Mold Sheet Cleaner Name Role Phone Annette Alonzo MD Primary Care Provider [phone] Encounter Details Date Type Department Care Team (Late st Contact Info) Description 05/19/2019 Transcribed Document [facility] [place] Family Medicine [address] [place] [address] ProviderNorman MD [address], [place] [address] Social History Tobacco Use Types Packs/Day Years Used Date Smoking Tobacco: Never Assessed Comments Unknown Sex and Gender Information Value Date Recorded Sex Assigned at Not on file Legal Sex Female 1:09 PM CDT Gender Identity Not on file Sexual Orientation Not on file documented as of this encounter Miscellaneous Notes * Cerner Conversion Note - Norman ProviderMD - 05/19/2019 1:26 PM CDT [facility] [address], [place] [address] Patient Copy Patient Information: Name: ALIYA SANCHES Current Date: 05/19/2019 13:26:26 : 1990 Patient [address]: [address] [place] [id number] Patient Attending Physician: ANNETTE ALONZO MD-OBG Primary [...] Assistance with quitting is available by contacting 6-681-DAFR-NOW. This is a free resource providing counseling, [...] Be sure to sign up for the [employer] patient portal, which gives you 01/03 access to your medical information ??? including these discharge instructions ??? using your computer, smartphone, or tablet. Just go to Reading Room to get started. Questions? Call . [facility] would like to thank you for allowing us to assist you with your healthcare needs. VERÓNICA Hall ERIN MARIE, (or solar sales representative and assessor) have received the above patient education materials/instructions and have verbalized understanding: Patient Signature _ Date/Time Patient Journeyman Level Acoustic Analyst Signature (if needed) Date/Time Clinician/Hospital Journeyman Level Acoustic Analyst Signature (if needed) Date/Time Electronically signed by Interface, [facility] Conversion Protozoology Teacher Cerner at 11/24/2022 11:55 AM CDT documented in this encounter Plan of Treatment Not on file documented as of this encounter Visit Diagnoses Not on filedocumented in this encounter Care Teams Mold Sheet Cleaner Relationship Specialty Start Date End Date Annette Alonzo MD [address] [place] [address] PCP - General Obstetrics and Gynecology 02/26/23 documented as of this encounter
--- OUTSIDE RECORDS SUMMARY | 2025-05-08 20:33 | XMS_ITS | Encounter Summary ---
Author Organization [employer] ([place], [place], [place], [place]) Address [address] [place] [address] Care Team Providers Care Grain Merchandiser Name Role Phone Annette Alonzo MD Primary Care Provider [phone] Encounter Details Date Type Department Care Team (Late st Contact Info) Description 03/10/2021 Transcribed Document [facility] Family Medicine [address] [place] [address] ProviderNorman MD [address] [place], [place] [address] Social History Tobacco Use Types Packs/Day Years [...] Author: ANNETTE ALONZO MD-OBG Subjective Chief complaint. Post day number [...] (See Comment) Dermoplast 20% topical spray: 1 Lamar, Topical, Q4H, PRN: Pain HYDROmorphone: 0.5 mg, [...] Other (See Comment) Documented Medications Documented 19 ([place]): Daily, 0 Refill(s) ibuprofen 600 mg oral tablet: 1 Tab, Oral, Q6H, 0 Refill(s), Home Medications (2) Active ibuprofen 600 mg oral tablet 600 mg = 1 Tab, Oral, Q6H 19 ([place]) , Daily , Medications (18) Active Scheduled: [...] 30 mL, Oral, Q4H benzocaine-menthol spray 1 Lamar, Topical, Q4H carboprost 250 mcg/1 mL inj 250 mcg 1 mL, IntraMuscular, 1-Time famotidine 20 mg tab 20 mg 1 Tab, Oral, Q12H lanolin oint 8.5 gram 1 Application, Topical, See Comment aaqucxe-ijlme-wbjfi vaccine inj 0.5 mL, SubCutaneous, 1-Time methylergonovine [...] on filedocumented in this encounter Care Teams Grain Merchandiser Relationship Specialty Start Date End Date Annette Alonzo MD [address] [facility] [address] [place] [address] PCP - General Obstetrics and Gynecology 02/26/23 documented as of this encounter
--- OUTSIDE RECORDS SUMMARY | 2025-05-08 20:33 | XMS_ITS | Encounter Summary ---
Author Organization [employer] ([place], [place], [place], [place]) Address [address] [place] [address] Care Team Providers Care Environmental Programs Manager Name Role Phone Annette Alonzo MD Primary Care Provider [phone] Encounter Details Date Type Department Care Team (Late st Contact Info) Description 05/19/2019 Transcribed Document [facility] Family Medicine [address] [place] [address] ProviderNorman MD [address], [place] [address] Social History Tobacco Use Types Packs/Day Years Used Date Smoking Tobacco: Never Assessed Comments Unknown Sex and Gender Information Value Date Recorded Sex Assigned at Not on file Legal Sex Female 1:09 PM CDT Gender Identity Not on file Sexual Orientation Not on file documented as of this encounter Miscellaneous Notes * Cerner Conversion Note - Norman ProviderMD - 05/19/2019 1:21 PM CDT [facility] [address], [place] [address] Patient Copy Patient Information: Name: ALIYA SANCHES Current Date: 05/19/2019 13:21:55 : 1990 Patient Address: [address] [place] [id number] Patient Attending Physician: ANNETTE ALONZO MD-OBG Primary [...] Assistance with quitting is available by contacting 1-859-QMUW-NOW. This is a free resource providing counseling, [...] Be sure to sign up for the [employer] patient portal, which gives you 01/03 access to your medical information ??? including these discharge instructions ??? using your computer, smartphone, or tablet. Just go to [employer] to get started. Questions? Call . [facility] would like to thank you for allowing us to assist you with your healthcare needs. VERÓNICA Hall ERIN MARIE, (or appeals representative) have received the above patient education materials/instructions and have verbalized understanding: Patient Signature _ Date/Time Patient Gear Roller Signature (if needed) Date/Time Clinician/Hospital Gear Roller Signature (if needed) Date/Time Electronically signed by Interface, [facility] Conversion Swing Ride Operator Cerner at 11/24/2022 12:03 PM CDT documented in this encounter Plan of Treatment Not on file documented as of this encounter Visit Diagnoses Not on filedocumented in this encounter Care Teams Environmental Programs Manager Relationship Specialty Start Date End Date Annette Alonzo MD [address] [place] [address] PCP - General Obstetrics and Gynecology 02/26/23 documented as of this encounter
--- OUTSIDE RECORDS SUMMARY | 2025-05-08 20:33 | XMS_ITS | Encounter Summary ---
Author Organization [employer] ([place], [place], [place], [place]) Address [address] [place] [address] Care Team Providers Care Instrumentation And Controls Technician Name Role Phone Sylvia Alonzo MD Primary Care Provider [phone] Encounter Details Date Type Department Care Team (Late st Contact Info) Description 05/19/2019 Transcribed Document [facility] Family Medicine [address] [place] [address] ProviderNorman MD [address] [place], [place] [address] Social History Tobacco Use Types Packs/Day Years [...] CHRISTIE SANCHES./Sex: 1990 Female Med Rec #: [id number] Physician: SYLVIA ALONZO MD-OBG Financial #: [id number] Pt. Type: O Room/Bed: Admit/Disch: 05/19/19 09:30:00 - Institution: [facility] [place] IntraOp Case Attendance Entry 1 Entry 2 Entry 3 Case Attendee SYLVIA ALONZO WICKER, KAREN KIM, COLLINS CHRISTINE, MARK FERRELL-OBG SAND DRIER-ANS Role Performed Surgeon/Proceduralist, ELECTRICAL ENGINEERING DRAFTSPERSON/Nurse Hydrometer Calibrator Physician social media assistant First Time In 05/19/19 11:44:00 05/19/19 11:44:00 [...] RN West, Jeff, Surgical JOHN ORO ST Instrument Person Cert Role Performed Link Trainer Mechanic, First Scrub, Second Scrub, First Time In [...] OTHER, ATTENDEE SEVERIANO OBREGON RN Role Performed Instrument Person, Ancillary Student Link Trainer Mechanic, Second Time In 05/19/19 11:44:00 05/19/19 11:44:00 [...] [facility] IntraOp Case Attendance Audit 05/19/19 13:09:13 Life Skills Specialist: HESSTL Modifier: HESSTL <+> 8 Procedure 05/19/19 13:08:52 Life Skills Specialist: HESSTL Modifier: HESSTL 1 <+> Time Out [...] Uterine D and C Hysteroscopy 05/19/19 12:43:51 Life Skills Specialist: HESSTL Modifier: HESSTL 9 <+> Time Out 9 <*> Procedure Laparoscopy Operative Robotic, Uterine D and C Hysteroscopy 05/19/19 12:26:20 Life Skills Specialist: HESSTL Modifier: HESSTL 1 <*> Procedure Laparoscopy [...] Uterine D and C Hysteroscopy 05/19/19 12:13:25 Life Skills Specialist: HESSTL Modifier: HESSTL 5 <+> Time Out 5 <*> Procedure Laparoscopy Operative Robotic, Uterine D and C Hysteroscopy <+> 10 Case Attendee <+> 10 Role Performed <+> 10 Procedure <+> 10 Other Attendee 05/19/19 12:06:37 Life Skills Specialist: HESSTL Modifier: HESSTL 1 <*> Procedure Laparoscopy [...] [facility] IntraOp Case Times Audit 05/19/19 13:08:51 Life Skills Specialist: MITCHELL Modifier: DARCITL <+> 1 Out Room Time <+> 1 Stop Time <+> 1 Stop Time 05/19/19 12:55:20 Life Skills Specialist: MITCHELL Modifier: DARCITL <+> 1 Start Time [...] 12:33:13 S[facility] IntraOp Cautery Audit 05/19/19 12:33:13 Life Skills Specialist: MITCHELL Modifier: DARCITL <+> 1 Coag Setting [...] [facility] IntraOp Counts Final Audit 05/19/19 12:55:56 Life Skills Specialist: MITCHELL Modifier: MITCHELL 1 <*> Procedure Laparoscopy [...] RN 05/19/19 12:13:35 S[facility] IntraOp General Case Cook Mayonnaise 1 Case Information OR OR 07 SJE [...] Implant Log Implant TISS MTRX BIODRESTORE Identification [id number] Description Implant Quantity 1 Implant Site pelvic Implant [id number] Identification Model Number Implant [employer] Identification Gravure Press Set Up Operator Name: Implant [id number] Identification Catalog Number Implant Expiration 09/15/20 Date [...] personnel Measures Included received laser safety information, [place] of water/Saline immediately available, Fire extinguisher location [...] 2 Entry 3 Medication/Irrigant Bacitracin 15Gm [place]igo [place] 0.8% 5ml Anesthesia Cocktail - ointment - [id number] - [id number] Cheri Combo Med List Time Administered Route [...] [facility] IntraOp Medication Admin Audit 05/19/19 12:38:15 Life Skills Specialist: MITCHELL Modifier: DARCITL <+> 3 Medication/Irrigant <+> [...] S[facility] IntraOp Surgical Procedures Audit 05/19/19 13:08:53 Life Skills Specialist: MITCHELL Modifier: HESSTL <+> 1 Stop <+> 2 Stop 05/19/19 12:55:41 Life Skills Specialist: DARCITL Modifier: HESSTL <+> 1 Start 2 [...] on filedocumented in this encounter Care Teams Instrumentation And Controls Technician Relationship Specialty Start Date End Date Sylvia Alonzo MD [address] [place] [address] PCP - General Obstetrics and Gynecology 02/26/23 documented as of this encounter
--- OUTSIDE RECORDS SUMMARY | 2025-05-08 20:33 | XMS_ITS | Encounter Summary ---
Author Organization [employer] ([place], [place], [place], [place]) Address [address] [place] [address] Care Team Providers Care Tube Drawer Name Role Phone Sylvia Alonzo MD Primary Care Provider [phone] Encounter Details Date Type Department Care Team (Late st Contact Info) Description 02/03/2021 Transcribed Document [facility] [place] Family Medicine [address] [place] [address] ProviderNorman MD [address] [place] [address] Social History Tobacco Use Types [...] these instructions at home: Medicines ??? Take qnuw-zwp-lljojus and prescription medicines only as told by [...] provider. Document Revised: 07/13/2019 Document Reviewed: 2019 [employer] Patient Education ? 2020 [employer]. Third Trimester of The third trimester is from week 28 through week 40 (months 7 through 9). This trimester is when your unborn baby (fetus) is growing very fast. At the end of the ninth month, the unborn baby is about 20 inches in length. It weighs about 6?10 pounds. Follow these instructions at home: Medicines ??? Take jefz-zmy-oovyvub and prescription medicines only as told by [...] provider. Document Revised: 11/16/2019 Document Reviewed: 08/31/2017 [employer] Patient Education ? 2020 [employer] Urology Dietary Guidelines to Help Prevent [...] Rhubarb. ? Beets. ? Potato chips and romanian fries. ? Nuts. ??? If you regularly take a diuretic medicine, make sure to eat at least 1?2 fruits or vegetables high in potassium each day. These include: ? Avocado. ? Banana. ? Dooly, prune, carrot, or tomato juice. ? Baked [...] Casseroles. Pizza. Lasagna. Frozen meals. Potato chips. [place]inean fries. Summary ??? You can reduce your [...] provider. Document Revised: 11/15/2019 Document Reviewed: 07/06/2017 [employer] Patient Education ? 2020 [employer]. Kidney Stones Kidney stones are rock-like masses [...] these instructions at home: Medicines ??? Take ttpd-xbv-edoricu and prescription medicines only as told by [...] provider. Document Revised: 12/12/2019 Document Reviewed: 12/12/2019 [employer] Patient Education ? 2020 [employer] documented in this encounter Plan of Treatment Not on file documented as of this encounter Visit Diagnoses Not on filedocumented in this encounter Care Teams Tube Drawer Relationship Specialty Start Date End Date Sylvia Alonzo MD [address] [facility] [address] [place] [address] PCP - General Obstetrics and Gynecology 02/26/23 documented as of this encounter
--- OUTSIDE RECORDS SUMMARY | 2025-05-08 20:33 | XMS_ITS | Encounter Summary ---
Author Organization [employer] ([place], [place], [place], [place]) Address [address] [place] [address] Care Team Providers Care Awning Finisher Name Role Phone Annette Alonzo MD Primary Care Provider [phone] Encounter Details Date Type Department Care Team (Late st Contact Info) Description 03/10/2021 Transcribed Document [facility] [place] Family Medicine [address] [place] [address] ProviderNorman MD [address] [place] [address] Social History Tobacco Use Types [...] Norman ProviderMD - 03/10/2021 10:22 AM CDT [facility] [address], [place] [address] Patient Copy Patient Information: Name: ALIYA SANCHES Current Date: 03/10/2021 10:22:31 : 1990 Patient Address: [address] [place] [address] [facility] [phone] Patient Attending Physician: ANNETTE ALONZO MD-OBG Primary Care Provider: ENID GALINDO Primary Care Provider Discharge Diagnosis: 1:36 weeks gestation of ; 2:Labor without complication; Normal spontaneous vaginal delivery Weight on Admission: 164 lb, 0 oz Comment: Follow-up Instructions: With: Address: When: [address], [address] [place] [id number] Business (1) Within 6 weeks Discharge Instructions: Immunizations Documented During Stay: tetanus/diphtheria/pertussis, acel(Tdap) 03/09/2021 Heart Failure Discharge Instructions (if any): Stroke Related Discharge Instructions (if any): Warfarin Related Discharge Instructions (if any): Final Medication List: Other Medications ibuprofen (ibuprofen 600 mg oral tablet) 1 Tablet(s) Oral Every 6 Hours. multivitamin, ( 19 ([place])) Every Day. Patient Allergies: No Known Allergies [...] work with your health care provider or oracle distribution consultant. ??? If you are not : [...] methods of control (contraception). Medicines ??? Take yfas-uza-avptbwp and prescription medicines only as told by [...] provider. Document Revised: 07/29/2018 Document Reviewed: 05/09/2018 [employer] Patient Education ? 2020 [employer]. Choosing to breastfeed is one of the [...] to meet your baby?s needs compared to formula. ??? Breast milk improves your baby's [...] smacking lips, cooing, sighing, or squeaking. ??? Tnaa-qd-qylfh movements and sucking on fingers or hands. [...] able to be present during feedings. Your oracle distribution consultant can help you find a method [...] contact your health care provider or a oracle distribution consultant. Overall health care recommendations while ??? [...] provider before taking any medicines. These include lunh-yyo-mrmdkqj and prescription medicines as well as vitamins [...] Talk with your health care provider or oracle distribution consultant if you have questions or you face problems as you breastfeed. This information is not intended to replace advice given to you by your health care provider. Make sure you discuss any questions you have with your health care provider. Document Revised: 10/20/2018 Document Reviewed: 08/27/2017 [employer]Reader Patient Education ? 2020 [employer]. Medication Leaflets: ibuprofen (EYE bue PROE [...] may report side effects to FDA at 9-416-YVN-8562. What other drugs will affect ibuprofen? Ask [...] drugs may affect ibuprofen, including prescription and nuxe-hal-ozwlwit medicines, vitamins, and herbal products. Not all [...] to ensure that the information provided by [employer]. ('[employer]') is accurate, up-to-date, and complete, but no guarantee is made to that effect. Drug information contained herein may be time sensitive. [employer] information has been compiled for use by healthcare practitioners and consumers in the [place] and therefore [employer] does not warrant that uses outside of the [place] are appropriate, unless specifically indicated otherwise. [employer]'s drug information does not endorse drugs, diagnose patients or recommend therapy. Shoppable drug information is an informational resource designed [...] effective or appropriate for any given patient. [facility] does not assume any responsibility for any aspect of healthcare administered with the aid of information [facility] provides. The information contained herein is not intended to cover all possible uses, directions, precautions, warnings, drug interactions, allergic reactions, or adverse effects. If you have questions about the drugs you are taking, check with your doctor, nurse or pharmacist. Copyright 1464-0049 [employer]. Version: 22.01. Revision Date: 07/03/2020. CIGARETTE SMOKING: The facts are clear, cigarette smoking will shorten your life. Smoking can cause many illnesses along the way. As a healthcare provider, we recommend that you stop smoking. Assistance with quitting is available by contacting 3-177-GDTG-NOW. This is a free resource providing counseling, [...] Be sure to sign up for the [employer] patient portal, which gives you 01/03 access to your medical information ??? including these discharge instructions ??? using your computer, smartphone, or tablet. Just go to [employer] to get started. Questions? Call . [facility] would like to thank you for allowing us to assist you with your healthcare needs. VERÓNICA Hall ERIN MARIE, (or inside sales representative) have received the above patient education materials/instructions and have verbalized understanding: Patient Signature _ Date/Time Patient Insurance Manager Signature (if needed) Date/Time Clinician/Hospital Insurance Manager Signature (if needed) Date/Time documented in this encounter Plan of Treatment Not on file documented as of this encounter Visit Diagnoses Not on filedocumented in this encounter Care Teams Awning Finisher Relationship Specialty Start Date End Date Annette Alonzo MD [address] [place] [address] PCP - General Obstetrics and Gynecology 02/26/23 documented as of this encounter
--- OUTSIDE RECORDS SUMMARY | 2025-05-08 20:33 | XMS_ITS | Encounter Summary ---
Author Organization [employer] ([place], [place], [place], [place]) Address [address] [place] [address] Care Team Providers Care Behavioral Consultant Name Role Phone Annette Alonzo MD Primary Care Provider [phone] Encounter Details Date Type Department Care Team (Late st Contact Info) Description 05/19/2019 Transcribed Document [facility] Medicine [address] [place] [address] ProviderNorman MD [address] [place], [place] [address] Social History Tobacco Use Types Packs/Day Years [...] ALIYA SANCHES./Sex: 1990 Female Med Rec #: [id number] Physician: ANNETTE ALONZO MD-OBG Financial #: [id number] Pt. Type: O Room/Bed: Admit/Disch: 05/19/19 09:30:00 - 05/19/19 15:48:00 Institution: [facility] PreOp Case Times Entry 1 In Preop 05/19/19 09:35:00 Ready for Holding 05/19/19 10:44:00 Room Patient Ready for 05/19/19 10:44:00 Surgery Patient Out of Preop 05/19/19 11:35:00 Patient Out of 05/19/19 10:44:00 Holding Room Last Modified By: Nathaly Moon RN 05/19/19 10:44:30 [facility] PreOp Case Times Audit 05/22/19 08:52:19 Indirect Sales Exec: [id number] Modifier: [email or web address] <+> 1 Patient Out of [...] on filedocumented in this encounter Care Teams Behavioral Consultant Relationship Specialty Start Date End Date Annette Alonzo MD [address] [place] [address] PCP - General Obstetrics and Gynecology 02/26/23 documented as of this encounter
--- OUTSIDE RECORDS SUMMARY | 2025-05-08 20:33 | XMS_ITS | Encounter Summary ---
Author Organization [employer] ([place], [place], [place], [place]) Address [address] [facility] [place] [address] Care Team Providers Care Dub Room Engineer Name Role Phone Sylvia Alonzo MD Primary Care Provider [phone] Encounter Details Date Type Department Care Team (Late st Contact Info) Description 05/26/2022 OB Abstract [facility] Maternal Medicine [address] [place] [address] Linnea العلي RN Social History [...] on filedocumented in this encounter Care Teams Dub Room Engineer Relationship Specialty Start Date End Date Sylvia Alonzo MD [address] [place], [place] [id number] PCP - General Obstetrics and Gynecology 02/26/23 documented as of this encounter
--- OUTSIDE RECORDS SUMMARY | 2025-05-08 20:33 | XMS_ITS | Encounter Summary ---
Author Organization [employer] ([place], [place], [place], [place]) Address [address] [facility] [place] [address] Care Team Providers Care Finishing Range Supervisor Name Role Phone Sylvia Alonzo MD Primary Care Provider Encounter Details Date Type Department Care Team (Late st Contact Info) Description 03/09/2021 Transcribed Document [facility] [place] Family Medicine [address] [place] [address] ProviderNorman MD [address] [place] [address] Social History Tobacco Use Types [...] on filedocumented in this encounter Care Teams Finishing Range Supervisor Relationship Specialty Start Date End Date Sylvia Alonzo MD [address] [facility] [address] [place] [address] PCP - General Obstetrics and Gynecology 02/26/23 documented as of this encounter
--- OUTSIDE RECORDS SUMMARY | 2025-05-08 20:33 | XMS_ITS | Encounter Summary ---
Author Organization [employer] ([place], [place], [place], [place]) Address [address] [place] [address] Care Team Providers Care Authorization Nurse Name Role Phone Annette Alonzo MD Primary Care Provider [phone] Encounter Details Date Type Department Care Team (Late st Contact Info) Description 05/19/2019 Transcribed Document [facility] [place] [address] [place] [address] ProviderNorman MD [address] [place], [place] [address] Social History Tobacco Use Types Packs/Day Years [...] ALIYA SANCHES/Sex: 1990 Female Med Rec #: [id number] Physician: ANNETTE ALONZO MD-OBG Financial #: [id number] Pt. Type: O Room/Bed: Admit/Disch: 05/19/19 09:30:00 [...] on filedocumented in this encounter Care Teams Authorization Nurse Relationship Specialty Start Date End Date Annette Alonzo MD [address] [place] [address] PCP - General Obstetrics and Gynecology 02/26/23 documented as of this encounter
--- OUTSIDE RECORDS SUMMARY | 2025-05-08 20:33 | XMS_ITS | Encounter Summary ---
Author Organization [employer] ([place], [place], [place], [place]) Address [address] [place] [address] Care Team Providers Care Dairy Consultant Name Role Phone Sylvia Alonzo MD Primary Care Provider [phone] Encounter Details Date Type Department Care Team (Late st Contact Info) Description 03/09/2021 Transcribed Document [facility] [place] [address] [place] [address] ProviderNorman MD [address], [place] [address] Social History Tobacco Use Types Packs/Day Years [...] filedocumented in this encounter Care Teams Dairy Consultant Relationship Specialty Start Date End Date Sylvia Alonzo MD [address] [place] [address] PCP - General Obstetrics and Gynecology 02/26/23 documented as of this encounter
--- OUTSIDE RECORDS SUMMARY | 2025-05-08 20:33 | XMS_ITS | Encounter Summary ---
Author Organization [employer] ([place], [place], [place], [place]) Address [address] [facility] [place] [address] Care Team Providers Care Care Specialist Name Role Phone Sylvia Alonzo MD Primary Care Provider [phone] Encounter Details Date Type Department Care Team (Late st Contact Info) Description 02/03/2021 Transcribed Document [facility] [place] Medicine [address] [place] [address] ProviderNorman MD [address], [place] [address] Social History Tobacco Use Types Packs/Day Years [...] On: 02/03/2021 11:37 EDT by TOMÁS EL, revenue analyst Documentation Patient Disposition, General : Discharge Discharge [...] TOMÁS EL RN - 02/03/2021 11:37 EDT documented in this encounter Plan of Treatment Not on file documented as of this encounter Visit Diagnoses Not on filedocumented in this encounter Care Teams Care Specialist Relationship Specialty Start Date End Date Sylvia Alonzo MD [address] [place] [address] PCP - General Obstetrics and Gynecology 02/26/23 documented as of this encounter
--- OUTSIDE RECORDS SUMMARY | 2025-05-08 20:33 | XMS_ITS | Encounter Summary ---
Author Organization [employer] ([place], [place], [place], [place]) Address [address] [place] [address] Care Team Providers Care Electricians Top Helper Name Role Phone Anntete Alonzo MD Primary Care Provider [phone] Encounter Details Date Type Department Care Team (Late st Contact Info) Description 2021 Transcribed Document [facility] [place] Family Medicine [address] [place] [address] ProviderNorman MD [address] [place], [place] [id number] Social History Tobacco Use Types Packs/Day Years [...] Mylicon: 80 mg, Oral, QID, PRN: Gas [place] 5 mg-325 mg oral tablet: 1 Tab, [...] on filedocumented in this encounter Care Teams Electricians Top Helper Relationship Specialty Start Date End Date Annette Alonzo MD [address] [place] [address] PCP - General Obstetrics and Gynecology 02/26/23 documented as of this encounter
--- OUTSIDE RECORDS SUMMARY | 2025-05-08 20:33 | XMS_ITS | Encounter Summary ---
Author Organization [employer] ([place], [place], [place], [place]) Address [address] [place] [address] Care Team Providers Care Manager Home Improvement Name Role Phone Sylvia Alonzo MD Primary Care Provider [phone] Encounter Details Date Type Department Care Team (Late st Contact Info) Description 05/23/2019 Transcribed Document [facility] [place] Family Medicine [address] [place] [address] ProviderNorman MD [address] [place], [place] [address] Social History Tobacco Use Types Packs/Day Years [...] CDT pain fibers Electronically signed by Parris [facility] Conversion Calendering Supervisor Cerner at 11/24/2022 12:00 PM CDT documented in this encounter Plan of Treatment Not on file documented as of this encounter Visit Diagnoses Not on filedocumented in this encounter Care Teams Manager Home Improvement Relationship Specialty Start Date End Date Sylvia Alonzo MD [address] [place] [address] [place] [address] PCP - General Obstetrics and Gynecology 02/26/23 documented as of this encounter
--- OUTSIDE RECORDS SUMMARY | 2025-05-08 20:33 | XMS_ITS | Data Portability ---
Author Organization [facility] telehealth Address [address] [place] [address] Assessment Encounter Date Assessment Date Assessment LastModified by Organization Details LastModified Time 04/20/2023 04/20/2023 33yo F presents for abnormal vaginal discharge. Pt reports bright yellow gel-like discharge. She is not experiencing pain, feels some aches and tenderness. Pt has stopped bleeding since her surgery. Endometrium is thin, consistent with post-ablation appearance. Both mildly polycystic in appearance. Pt is taking Metformin. Tenderness on exam. Spec exam reveals vaginal discharge, culture collected. Cervicitis present and treated with silver nitrate. Bimanual exam shows mild urethral hypermobility and first degree uterovaginal prolapse. Surgery is not indicated. Discussed weight management with pt. Offered Qsymia, called in today. Pt will RTC for WWE, sooner if needed. [email or web address] Not available 04/20/2023 16:47:12 02/28/2024 02/28/2024 34 y/o F here today for annual exam. WNWD female in NAD. Reports inconsistent LLQ cramping and bloating without correlation to her menses and dyspareunia. States menses are irregular, do not occur every 28 days, and alternating between heavy and light, typically lasts 2-3 days. Reports regular bowel movements. PMHx significant for PCOS and endometriosis. S/p RA Laparoscopy w/ laser, Hysteroscopy, D&C w/ use of amniotic membrane allograft, prophylactic bilateral salpingectomy and endometrial ablation with use of resectoscope (02/2023) with Dr. Alonzo. States symptoms resolved after procedure for a short time. She has tried Metformin in the past, will resend RX for one year. Educated pt on how to slowly titrate Metformin. She is sexually active with one male partner. Pt has not had gardasil vaccine, will send into pharmacy. Pt did not start Qsymia previously prescribed and is not interested in starting at this time. FMHx significant for colon CA (father diagnosed at 52 y/o), breast CA (maternal grandmother and maternal aunts, both maternal aunts were diagnosed before age of 40 y/o), cervical CA (maternal grandmother and maternal aunt), and ovarian CA (maternal aunt). Will order genetic testing today. Recommended [facility] ovarian CA screening. Will make GI referral for colonoscopy. Mammogram order provided in office. Annual BW drawn today. Pap today. Denies dysuria or hematochezia. RTC for ULS with Dr. Alonzo for further management of PCOS, endometriosis or PRN. All other ROS neg X HPI. Meds reviewed and accurate. Pleasant mood. [email or web address] Not available 02/28/2024 13:22:59 03/14/2024 03/14/2024 34 yo F presents for for experiencing pelvic pain that has been going on for a couple months. She states that most of the pain is on the left side. She reports that she experiencing irregular bleeding outside of her cycle. She states that her cycles are very heavy. Pt is currently not using BC because she had her tubes removed prophylactically . It is suspected that the area where pt is experiencing pain is form her colon. Ultrasound reveals pelvic congestion. Little amount of blood was present inside the uterus. Right ovary is normal in size, location, and mildly polycystic. Left ovary is located behind the uterus, normal size, and mildly polycystic. Retro flexed cervix and uterus. Pt states that she has pain with intercourse, and with insertion of tampons. Tenderness is noted on exam. Speculum Exam reveals normal tissues with discharge, routine culture obtained. Cervicitis absent . Bimanual exam reveals uterus to have first degree prolapse. Possible adenomyosis was discussed with pt. Surgery is not indicated at this time, recommend monitoring. Myfembree will be prescribed for possible reoccurring endometriosis. It was discussed if the medication does not work, then hysterectomy might be needed. Pt states that she's been lower on energy, testosterone levels from last appointment were low. Supplement for testosterone was discussed. Transdermal cream will include 8 mg of testosterone, and will be ordered today. Pt RTC for testosterone and DHEA BW. [email or web address] Not available 03/14/2024 14:09:45 04/07/2024 04/07/2024 34 y/o F here today for HRT follow up. WNWD female in NAD. Reports increased facial acne and bloating with HRT. She has completed 3 weeks of vitamin D booster pack prescribed 02-28-2024, will recheck vitamin D levels today. Encouraged pt to complete vitamin D booster pack. She has noticed improvement in fatigue. [facility]. She is doing well with Metformin and Myfembree. HRT labs drawn today, pending lab results will adjust HRT dose as needed. RTC for HRT follow up, sooner if needed. All other ROS neg X HPI. Meds reviewed and accurate. Not available 04/07/2024 11:54:26 07/03/2024 07/03/2024 34 y/o F here today for HRT follow up. Name and were confirmed during the audio and video visit. Reports low energy, low libido since decreasing HRT for acne. No hot flashes or breast tenderness. Will increase HRT dose back up to T8mg for three months and see her back at that time for follow up. All other ROS neg X HPI. Meds reviewed and accurate. Pleasant mood. [email or web address] Not available 07/03/2024 13:38:10 Plan of Treatment Reminders Order Date Submit Date Provider Last Modified By Organization Details Last Modified Time Details Appointments None recorded. Lab vitamin D, 25-hydroxy, total, serum 2023 024 [facility]), [address] [place] [address], [address], 4 07:33:31 estradiol, serum 2023 024 [facility] ([facility]), [address] [place], [address], 4 07:33:32 dhea-sulfat e, serum 2023 024 PR[facility] ([facility]), [address] [place] [address], [address], 4 07:33:33 testosteron e, total, serum 2023 024 [facility] ([facility]), [address] [place] [address], [address], 4 07:33:32 CBC w/ auto diff 2023 024 [facility] ([facility]), [address] [place] [address], [address], 4 10:25:28 HbA1c (hemoglobin A1c), blood 2023 024 [facility] ([facility]), [address] [place] [address], [address], 4 10:25:32 TSH, serum or plasma 2023 024 [facility] ([facility]), [address] [place] [address], [address], 4 10:25:32 CMP, serum or plasma 2023 024 [facility] ([facility]), [address] [place] [address], [address], 4 10:25:29 pap, LB 2023 024 [facility] ([facility]), [address] [place] [address], [address], 4 15:36:22 vitamin B12, serum 2023 024 [facility] ([facility]), [address] [place], [address], 4 10:25:31 vitamin D, 25-hydroxy, total, serum 2023 024 [facility] ([facility]), [address] [place] [address], [address], 4 10:25:29 genetic screen, unspecified specimen 2023 [place] [facility], [address], [address], [place], [address], 4 18:34:26 lh + FSH, serum 2023 [facility] ([facility]), [address] [place] [address], [address], 4 10:25:28 testosteron e, total, serum 2023 [facility] ([facility]), [address] [place] [address], [address], 4 10:25:30 Referral None recorded. Procedures None recorded. Surgeries None recorded. Imaging None recorded. Medication Orders Cleocin T 1 % lotion 2023 [facility], [address], [address], 4 11:52:11 Myfembree 40 mg-1 mg-0.5 mg tablet 2023 [facility], [address], [address], 4 14:06:07 metformin ER 500 mg tablet,exte nded release 24 hr 2023 024 [facility], [address], [address], 13:13:25 Patient TargetsNo targets recorded. Patient InstructionsNo instructions recorded. Reason for Referral None Reported. Results Created Date Observation Date Name Description Value Unit Range Abnormal Flag Note LastModifiedBy Organization Detail LastModifiedTime 02/28/20 24 02/29/2024 FSH AND LH luteinizing hormone 6.30 mIU/m L LH Refer ence Range Men: 1.7 - 8.6 Women : Folli cular phase 2.4 - 12.6 Ovula tion phase 14.0 - 95.6 Lutea l phase 1.0 - 11.4 Postm enopa use 7.7 - 58.5 Not Available [facility] ([facility]) [address] [place] [address] Dr Wilkinson, [place], [address], 03/01/2024 10:25:28 02/28/20 24 02/29/2024 FSH AND LH FSH 5.09 mIU/m L FSH Refer ence Range Men: 1.5 - 12.4 Women : Folli cular phase 3.5 - 12.5 Ovula tion phase 4.7 - 21.5 Lutea l phase 1.7 - 7.7 Postm enopa use 25.8 - 134.8 Not Available [facility] ([facility]) [address] [place] [address] Dr Wilkinson, [place], [address], 03/01/2024 10:25:28 02/28/20 24 02/29/2024 CBC WITH PLATE LET AND DIFFE RENTI AL WBC 4.5 K/uL 3.8-11 .5 Not Available [facility] ([facility]) [address] [place] [address] Dr Wilkinson, [place], [address], 03/01/2024 10:25:28 02/28/20 24 02/29/2024 CBC WITH PLATE LET AND DIFFE RENTI AL red blood cell count (RBC) 4.72 M/mm3 3.60-5 .30 Not Available [facility] ([facility]) [address] [place] [address] Dr Wilkinson, [place], [address], 03/01/2024 10:25:28 02/28/20 24 02/29/2024 CBC WITH PLATE LET AND DIFFE RENTI AL hemoglobin (HGB) 12.9 gm/dL 11.5-1 5.5 Not Available [facility] ([facility]) [address] [place] [address] Dr Wilkinson, [place], [address], 03/01/2024 10:25:28 02/28/20 24 02/29/2024 CBC WITH PLATE LET AND DIFFE RENTI AL hematocrit (HCT) 40.0 % 35.2-4 6.4 Not Available [facility]) [address] [place] [address] Dr Wilkinson, [place], [address], 03/01/2024 10:25:28 02/28/20 24 02/29/2024 CBC WITH PLATE LET AND DIFFE RENTI AL MCV 84.7 fL 79.0-9 9.0 Not Available [facility]) [address] [place] [address] Dr Wilkinson, [place], [address], 03/01/2024 10:25:28 02/28/20 24 02/29/2024 CBC WITH PLATE LET AND DIFFE RENTI AL MCH 27.3 pg 26.9-3 5.0 Not Available [facility]) [address] [place] [address] Dr Wilkinson, [place], [address], 03/01/2024 10:25:28 02/28/20 24 02/29/2024 CBC WITH PLATE LET AND DIFFE RENTI AL MCHC 32.3 g/dL 30.4-3 4.8 Not Available [facility]) [address] [place] [address] Dr Wilkinson, [place], [address], 03/01/2024 10:25:28 02/28/20 24 02/29/2024 CBC WITH PLATE LET AND DIFFE RENTI AL RDW 42.4 fL 38.6-5 3.8 Not Available [facility]) [address] [place] [address] Dr Wilkinson, [place], [address], 03/01/2024 10:25:28 02/28/20 24 02/29/2024 CBC WITH PLATE LET AND DIFFE RENTI AL platelet count 392 K/cum m 137-39 7 Not Available [facility] ([facility]) [address] [place] [address] Dr Wilkinson, [place], [address], 03/01/2024 10:25:28 02/28/20 24 02/29/2024 CBC WITH PLATE LET AND DIFFE RENTI AL neutrophils automated 48.6 % 41.0-7 7.0 Not Available [facility] ([facility]) [address] [place] [address] Dr Wilkinson, [place], [address], 03/01/2024 10:25:28 02/28/20 24 02/29/2024 CBC WITH PLATE LET AND DIFFE RENTI AL lymphocytes automated 39.2 % 14.0-4 8.0 Not Available [facility]) [address] [place] [address] Dr Wilkinson, [place], [address], 03/01/2024 10:25:28 02/28/20 24 02/29/2024 CBC WITH PLATE LET AND DIFFE RENTI AL monocytes automated 7.0 % 4.0-13 .0 Not Available [facility]) [address] [place] [address] Dr Wilkinson, [place], [address], 03/01/2024 10:25:28 02/28/20 24 02/29/2024 CBC WITH PLATE LET AND DIFFE RENTI AL eosinophils automated 3.4 % 0.0-8. 0 Not Available [facility] ([facility]) [address] [place] [address] Dr Wilkinson, [place], [address], 03/01/2024 10:25:28 02/28/20 24 02/29/2024 CBC WITH PLATE LET AND DIFFE RENTI AL basophils automated 1.6 % 0.0-1. 5 high Not Available [facility] ([facility]) [address] [place] [address] Dr Wilkinson, [place], [address], 03/01/2024 10:25:28 02/28/20 24 02/29/2024 CBC WITH PLATE LET AND DIFFE RENTI AL immature granulocyte automated 0.2 % 0.0-1. 0 Not Available [facility]) [address] [place] [address] Dr Wilkinson, [place], [address], 03/01/2024 10:25:28 02/28/20 24 02/29/2024 COMPR EHENS KAELYN METAB OLIC PANEL (CMP) sodium 138 mmol/ L 135-14 5 Not Available [facility] ([facility]) [address] [place] [address] Dr Wilkinson, [place], [address], 03/01/2024 10:25:29 02/28/20 24 02/29/2024 COMPR EHENS KAELYN METAB OLIC PANEL (CMP) potassium 5.1 mmol/ L 3.5-5. 3 Not Available [facility] ([facility]) [address] [place] [address] Dr Wilkinson, [place], [address], 03/01/2024 10:25:29 02/28/20 24 02/29/2024 COMPR EHENS KAELYN METAB OLIC PANEL (CMP) chloride 107 mmol/ L 97-108 Not Available [facility] ([facility]) [address] [place] [address] Dr Wilkinson, [place], [address], 03/01/2024 10:25:29 02/28/20 24 02/29/2024 COMPR EHENS KAELYN METAB OLIC PANEL (CMP) CO2 24 mmol/ L 22-32 Not Available [facility] ([facility]) [address] [place] [address] Dr Wilkinson, [place], [address], 03/01/2024 10:25:29 02/28/20 24 02/29/2024 COMPR EHENS KAELYN METAB OLIC PANEL (CMP) glucose 100 mg/dL 65-99 high Not Available [facility]) [address] [place] [address] Dr Wilkinson, [place], [address], 03/01/2024 10:25:29 02/28/20 24 02/29/2024 COMPR EHENS KAELYN METAB OLIC PANEL (CMP) BUN 9 mg/dL 6-20 Not Available [facility] ([facility]) [address] [place] [address] Dr Wilkinson, [place], [address], 03/01/2024 10:25:29 02/28/20 24 02/29/2024 COMPR EHENS KAELYN METAB OLIC PANEL (CMP) creatinine 0.73 mg/dL 0.50-1 .00 Not Available [facility] ([facility]) [address] [place] [address] Dr Wilkinson, [place], [address], 03/01/2024 10:25:29 02/28/20 24 02/29/2024 COMPR EHENS KAELYN METAB OLIC PANEL (CMP) calcium 9.5 mg/dL 8.6-10 .4 Not Available [facility] ([facility]) [address] [place] [address] Dr Wilkinson, [place], [address], 03/01/2024 10:25:29 02/28/20 24 02/29/2024 COMPR EHENS KAELYN METAB OLIC PANEL (CMP) eGFR by creatinine 111 mL/mi n/1.7 3m2 >59 Not Available [facility]) [address] [place] [address] Dr Wilkinson, [place], [address], 03/01/2024 10:25:29 02/28/20 24 02/29/2024 COMPR EHENS KAELYN METAB OLIC PANEL (CMP) protein 7.4 g/dL 6.0-8. 3 Not Available [facility]) [address] [place] [address] Dr Wilkinson, [place], [address], 03/01/2024 10:25:29 02/28/20 24 02/29/2024 COMPR EHENS KAELYN METAB OLIC PANEL (CMP) albumin 4.8 g/dL 3.5-5. 3 Not Available [facility] ([facility]) [address] [place] [address] Dr Wilkinson, [place], [address], 03/01/2024 10:25:29 02/28/20 24 02/29/2024 COMPR EHENS KAELYN METAB OLIC PANEL (CMP) alkaline phosphatase 83 IU/L 35-121 Not Available [facility] ([facility]) [address] [place] [address] Dr Wilkinson, [place], [address], 03/01/2024 10:25:29 02/28/20 24 02/29/2024 COMPR EHENS KAELYN METAB OLIC PANEL (CMP) ALT (SGPT) 12 IU/L <5-47 Not Available [facility] ([facility]) [address] [place] [address] Dr Wilkinson, [place], [address], 03/01/2024 10:25:29 02/28/20 24 02/29/2024 COMPR EHENS KAELYN METAB OLIC PANEL (CMP) AST (SGOT) 18 IU/L <5-40 Not Available [facility] ([facility]) [address] [place] [address] Dr Wilkinson, [place], [address], 03/01/2024 10:25:29 02/28/20 24 02/29/2024 COMPR EHENS KAELYN METAB OLIC PANEL (CMP) bilirubin, total 0.2 mg/dL <0.2-1 .2 Not Available [facility] [address] [place] [address] Dr Wilkinson, [place], [address], 03/01/2024 10:25:29 02/28/20 24 02/29/2024 COMPR EHENS KAELYN METAB OLIC PANEL (CMP) A/G ratio 1.8 mg/dL 1.1-2. [address] [facility] [address] [place] [address] Wilkinson, [place], [address], 03/01/2024 10:25:29 02/28/20 24 02/29/2024 VITAM IN D 25-HY DROXY vitamin D 25-hydroxy 20.4 NG/mL 30.0-1 00.0 low Inter preta tion of Vitam in D 25 OH: < 20 ng/mL - Defic iency 20 - 29 ng/mL - Insuf ficie ncy 30 - 100 ng/mL - Suffi cienc y > 100 ng/mL - Super -ther apeut ic- toxic ity may occur above this level . Clini yuri corre latio n requi red. Not Available [facility]) [address] [place] [address]kinson, [place], [address], 03/01/2024 10:25:29 02/28/20 24 02/29/2024 TESTO STERO NE TOTAL testosterone total SEE BELOW NG/dL 8.00-4 8.00 The resul t is outsi de of the repor table range for this metho dolog y. Pleas e refer to Testo stero ne , Total by LC/MS for the resul t. Not Available [facility]) [address] [place] [address]kinson, [place], [address], 03/01/2024 10:25:30 02/28/20 24 03/01/2024 TESTO STERO NE, TOTAL BY LC/MS testosterone , total by lc/MS 18.1 NG/dL 5.0-55 .0 Preme nopau domenic 5-55 ng/dL (Grea ter than 18 years ) Postm enopa usal 6-30 ng/dL This test was devel oped and its perfo rmanc e chika cteri stics were deter mined by [facility] labor atori es. It has not been clear ed or appro thierno by the FDA. The labor atory is regul ated under CLIA as quali fied to perfo rm high- compl exity testi ng. This test is used for clini yuri purpo ses and shoul d not be regar ded as inves tigat ional or for resea rch. Not Available [facility] ([facility] [employer]) [address]kinson, [place], [address], 03/01/2024 10:25:31 02/28/20 24 02/29/2024 VITAM IN B12 vitamin B12 1043 pg/mL 232-12 45 Not Available [facility] [employer]) [address], [place], [address], 03/01/2024 10:25:31 02/28/20 24 02/29/2024 HEMOG LOBIN A1C hemoglobin A1C 5.4 % <5.7 The follo wing HbA1c range s recom teresa d by the Eliereri can Diabe mima Assoc iatio n (ADA) may be used as an aid in the diagn osis of diabe mima melli tus. HA1c Sugkaylen garcia Diagn osis >=6.5 % Diabe tic 5.7% - 6.4% Pre-D iabet ic <5.7% Non-D iabet ic Not Available [facility] ([employer] [facility] [employer]) [address]kinson, [place], [address], 03/01/2024 10:25:32 02/28/20 24 02/29/2024 HEMOG LOBIN A1C estimated average glucose 108 mg/dL [place] ge Gluco se is calcu lated using the equat ion AG = (28.7 x HgbA1 c) - 46.7 based on the guide lines estab gladis alaniz by the ADA. Not Available [facility] ([facility]) [address], [place], [address], 03/01/2024 10:25:32 02/28/20 24 02/29/2024 TSH TSH 1.96 mU/L 0.43-5 .25 Not Available [facility]) [address], [place], [address], 03/01/2024 10:25:32 02/28/20 24 03/01/2024 PAP TEST THIN PREP Pap test thin prep NEGATI VE FOR INTRAE PITHEL IAL LESION OR MALIGN DIVYA normal ACCES JOY #: [id number] Sour e: Cervi yuri/E ndoce rvica l LMP: unkno wn Date Taken : 02/27 Speci men Type: ThinP rep Vial Date Repor [place]: 2023 Clini yuri Data: Cytot ech: Saida Jovel , CT( CP) Date Repor [place]: 2023 Speci men Adequ acy: Satis facto ry for evalu ation Endoc ervic al/tr ansfo rmati on zone compo nent prese nt Gener al Categ oriza tion: NEGAT KAELYN FOR INTRA EPITH ELIAL LESIO N OR MALIG ABA The follo wing tests have been order ed as reque sted and a separ ate repor t will be issue d: HPV High Risk Scree n (TMA) This speci men has been bill zed by the ThinP rep Imagi ng Syste m, an inter activ e compu ter syste m which esteban ts the lab in the scree delroy of ThinP rep Pap Test slide s. Follo wing imagi ng, the slide was revie wed by a Cytot echno logis t and/o r Patho logis t. End of Repor t Techn ical servi oxana provi ded by [facility], [address] [place] [address] Zoya kingston MD, [facility]. Case revie wed and diagn osis rende red at [facility] iated Patho logis [employer], [employer], d/[facility], [address] [place] [address] Zoya kingston MD, [facility]. CONFI DENTI AL Not Available [facility]) [address], [place], [address], 03/01/2024 15:36:22 02/28/20 24 02/29/2024 HPV HIGH RISK SCREE N (TMA) HPV high risk NOT DETECT ED normal The human papil lomav irus (HPV) High Risk Scree n is an FDA-a pprov ed in-vi tro ampli fied nucle ic acid test for the quali tativ e detec tion of E6/E7 viral mRNA. Resul ts shoul d be corre lated with patie nt prese ntati on, histo ry, cervi yuri cytol ogy and other clini yuri and labor atory findi ngs. See https ://[employer]/s ites/ defau lt/fi les/2 018-0 3/AW- [id number] _002_ 01.pd f for furth er infor matxena n. Test perfo rmed by [facility] iated Patho logis Recite Me, [employer] [facility], [address], [place] [address] , Lizzie Brown ra, DO, [facility], CLIA# [id number] Not Available [facility] ([facility]) [address], [place], [address], 03/01/2024 15:36:23 02/28/20 24 02/28/2024 EMPOW ER COMPR EHENS KAELYN (2+79 ) report summary NEGATI VE normal Negat kaelyn for 81 out of 81 genes . No known patho genic or likel y patho genic varia nts were detec [place] in the 81 genes bill zed. Tyrer -Cuzi ck breas t cance r risk asses sment : 18.3% . Not Available [facility] [address], [place], [address], 03/10/2024 18:34:26 02/28/20 24 02/28/2024 EMPOW ER COMPR EHENS KAELYN (2+79 ) footnotes See Notes CLIA: ID #[id number] 2 Test perfo rmed by [facility]. [address] [address] French Ferguson, Ph.D. , [facility] , Labor atory Direc tor Not Available [facility] [address], [place], [address], 03/10/2024 18:34:26 04/07/20 24 04/08/2024 VITAM IN D 25-HY DROXY vitamin D 25-hydroxy 34.6 NG/mL 30.0-1 00.0 Inter preta tion of Vitam in D 25 OH: < 20 ng/mL - Defic iency 20 - 29 ng/mL - Insuf ficie ncy 30 - 100 ng/mL - Suffi cienc y > 100 ng/mL - Super -ther apeut ic- toxic ity may occur above this level . Clini yuri corre latio n requi red. Not Available [facility] ([facility]) [address], [place], [address], 04/08/2024 07:33:31 04/07/20 24 04/08/2024 TESTO STERO NE TOTAL testosterone total 66.70 NG/dL 8.00-4 8.00 high Not Available [facility] ([facility]) [address], [place], [address], 04/08/2024 07:33:32 04/07/20 24 04/08/2024 ESTRA DIOL estradiol 42 pg/mL Estra diol Refer ence Range Healt hy women Folli cular phase 12.4 - 233 Ovula tion phase 41.0 - 398 Lutea l phase 22.3 - 341 Postm enopa use <5 - 138 Healt hy pregn ant women 1st trime ster 154 - 3243 2nd trime ster 1561 - 55782 3rd trime ster 8525 - >3000 0 Not Available [facility] ([facility]) [address], [place], [address], 04/08/2024 07:33:32 04/07/20 24 04/08/2024 DHEA- SULFA TE DHEA-sulfate 115 ug/dL 99-340 Not Available [facility] ([facility]) [address], [place], [address], 04/08/2024 07:33:33 Result Notes None recorded. Problems Name Problem SNOMED Code Status Onset Date Resolution Date Notes Provider Name and Address Organization Details Recorded Time Pain 16341173 Active 2013 (780.96) - C - GENERALI ZED PAIN; Problem Title: Generali zed pain Not Available [facility] 2 23:33:54 Educatio n Active 2013 (V25.09) - C - OTH GEN CNSL&ADV ICE CNTRACPT MGMT; Problem Title: General counseli ng and advice on contrace ptive manageme nt Not Available [facility] 2 23:33:54 At risk - finding 313141507 Active 2013 (V72.31) - C - ROUTINE GYNECOLO GICAL EXAMINAT ION; Problem Title: Well female exam with routine gynecolo gical exam Not Available [facility] 23:33[facility] 100[facility] 4106 Active 2015 (V22.1) - C - SUPERVIS ION OTHER NORMAL PREGNANC Y; Problem Title: Supervis ion of other normal pregnanc y Not Available [facility] 2 23:33:53 Postpart um care Active 2017 (V24.2) - C - ROUTINE POSTPART UM FOLLOW-U P; Problem Title: Routine postpart um follow-u p Not Available [facility] 2 23:33:53 Antenata l ultrasou nd finding 702878598 Active 2020 (V72.40) - C - PREGNANC Y EXAM/MIMA T PG UNCONFIR MED; Problem Title: Pregnanc y examinat ion or test, pregnanc y unconfir med Not Available [facility] 2 23:33:53 Endometr iosis of pelvis 97861782 Active [address] [facility], [place], [address] , [facility] 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 2 19:37:07 Uterine prolapse in pregnanc y 18652239751 915666 Active 2021 [facility] 2 10:40:38 Dysuria 77455613 Active 2021 [facility] 2 11:28:08 Morning sickness 16171763 Active 2021 [facility] 2 11:33:24 Pregnanc y 87792987 Completed 202102/02/[address], [place], [address] , [facility] 3 14:09:43 Placenta l abruptio n 060372533 Active 2021 [facility] 2 12:04:04 Pain in round ligament in pregnanc y 18317081501 798344 Active 2021 [facility] 2 09:35:45 Polyhydr amnios 51358594 Active 2021 [facility] 2 10:52:14 Irregula r periods 91899349 Active [address] [facility], [place], [address] , [facility] 4 13:15:08 Deep pain on intercou rse 348456715 Active [address] [facility], [place], [address] , [facility] 4 13:15:12 Pain in pelvis 56048632 Active 2023 [facility] 4 13:28:52 Bacteria l vaginosi s 909125856 Active 2023 [facility] 4 11:57:33 Vitamin D deficien cy 12145036 Active [address] [facility], [place], [address] , [facility] 4 11:37:27 Acne 69990072 Active [address], [place], [address] , [facility] 4 11:42:19 Reduced libido 7985125 Active [address], [place], [address] , [facility] 4 13:34:36 Fatigue 78182279 Active [address], [place], [address] , [facility] 4 13:34:44 Problem Notes None recorded. Procedures Surgical History Date Name Laterality Status Provider Name and Address Organization Details Recorded Time 03/14/20 24 Non-OB ULS completed MD [address], [place], [address], [facility] 03/14/2024 13:57:39 02/28/20 24 Date of Last Pap Smear completed [facility] 02/28/2024 09:21:46 04/20/20 23 Non-OB ULS completed MD [address], [place], [address], [facility] 04/20/2023 16:38:24 04/20/20 23 Hemostasis completed MD [address], [place], [address], [facility] 04/20/2023 16:41:46 02/03/20 23 Non-OB ULS completed MD [address], [place], [address], [facility] 2023 14:28:47 12/27/19 22 Obstetrical Care completed [facility]athe [facility] 12/26/2021 12:03:33 05/19/20 19 laparoscopy completed [facility] 04/20/2023 16:05:19 08/09/19 10 Colonoscopy completed [facility] 04/20/2023 16:02:37 cholecystectomy completed MD [address], [place], [address], [facility] 11/27/2021 19:35:13 Hysteroscopy completed [facility] 04/20/2023 16:04:18 Dilation and Curettage completed [facility] 04/20/2023 16:04:25 partial salpingectomy completed [facility] 04/20/2023 16:05:05 Endometrial Ablation completed [facility] 04/20/2023 16:05:12 Imaging Results None recorded. Procedure Notes None recorded. Medical Equipment None Reported. Allergies No known drug allergies Medications Name Sig Start Date Stop Date Status Note LastModified by Organization Details LastModified Time terbutali ne 2.5 mg tablet 04/19 completed Days To Take: 14 Comme nts: Take one tablet every 4 hours as needed for uterine contract ions.; Drug Identifi cation Code: 915456 F ree Text SIG: Terbutal ine Sulfate 2.5mg, 1 Tablet(s ) Q4-6H # 30, 04/06/20 13, No Refill. Inactive Not Available Not Available Not Available clindamyc in HCl 300 mg capsule 08/24 completed Days To Take: 7 #ofRef ills: 0 Drug Identifi cation Code: 125411 F ree Text SIG: Clindamy salazar HCl 300MG, 1 (one) Capsule two times daily # 14, 08/17/19 20, No Refill. Inactive Not Available Not Available Not Available ampicilli n 500 mg capsule 04/02 completed Days To Take: 3 #ofRef ills: 0 Drug Identifi cation Code: 986187 F ree Text SIG: Ampicill in 500MG, 1 (one) Capsule four times daily # 12, 03/30/20 16, No Refill. Inactive Not Available Not Available Not Available ondansetr on HCl 4 mg tablet 06/07 completed Days To Take: 30 #ofRe fills: 45 Drug Identifi cation Code: 365757 F ree Text SIG: Ondanset efra HCl 4MG, 1 (one) Tablet every 8 hours as needed # 45, 05/04/20 17, Ref. x1. Active Not Available Not Available Not Available Macrobid 100 mg capsule 06/28 completed Days To Take: 5 #ofRef ills: 0 Drug Identifi cation Code: 907469 F ree Text SIG: Macrobid 100MG, 1 Capsule( s) BID # 10, 06/23/20 19, No Refill. Inactive Not Available Not Available Not Available Zofran 8 mg tablet 11/19 completed Days To Take: 10 #ofRe fills: 30 Comme nts: Take one every 8 hours.; Drug Identifi cation Code: 908512 F ree Text SIG: Zofran 8mg, 1 Tablet(s ) Q6-8H # 30, 10/12/19 13, Ref. x3. Inactive Not Available Not Available Not Available Loestrin 08/28 (21) 1 mg-20 mcg tablet 05/06 completed Days To Take: 30 #ofRe fills: 30 Drug Identifi cation Code: 311814 F ree Text SIG: Loestrin 08/28 (21) 1-20MG-M CG, 1 (one) Tablet daily # 30, 01/31/20 14, Ref. x5. Inactive Not Available Not Available Not Available ondansetr on 4 mg disintegr ating tablet Place 1 tablet 3 times a day by translin gual route for 10 days. 02/02 completed Not Available Not Available Not Available metformin ER 500 mg tablet,ex tended release 24 hr Take 3 tablets every day by oral route in the evening for 90 days. 2023 active Not Available Not Available Not Avai lable Diflucan 200 mg tablet 08/19 completed Days To Take: 2 #ofRef ills: 0 Commen ts: take one tab day 3 of antibiot ic, repeat in 3 days Elijah kingston Identifi cation Code: 829201 F ree Text SIG: Diflucan 200MG, 1 (one) Tablet daily # 2, 08/17/19 20, No Refill. Inactive Not Available Not Available Not Available Ambien 5 mg tablet 12/13 completed Days To Take: 30 #ofRe fills: 0 Drug Identifi cation Code: 360302 F ree Text SIG: Ambien 5MG, 1 (one) Tablet at bedtime # 30, 11/14/19 21, No Refill. Inactive Not Available Not Available Not Available Cleocin T 1 % lotion APPLY A THIN LAYER TO THE AFFECTED AREA(S) BY TOPICAL ROUTE 2 TIMES PER DAY 2023 active Not Available Not Available Not Avai lable NuvaRing 0.12 mg-0.015 mg/24 hr vaginal 02/02 completed Days To Take: 90 #ofRe fills: 3 Commen ts: insert one ring vaginall y leave for three weeks, remove for one week before insertin g new ring Elijah kingston Identifi cation Code: 910537 F ree Text SIG: NuvaRing 0.12-0.0 15MG/24H R, 1 (one) Ring use as directed per instruct ions in pack # 3, 08/15/19 20, Ref. x3. Active Not Available Not Available Not Available Viri 0.35 mg tablet 02/02 completed Days To Take: 30 #ofRe fills: 1 Drug Identifi cation Code: 862692 F ree Text SIG: Viri 0.35MG, 1 (one) Tablet daily # 1, 05/08/20 21, Ref. x11. Active Not Available Not Available Not Available biotin active Not Available Not Availa ble Not Available Vitamin D active Not Available Not Yoselin ilable Not Available 02/02 completed Not Available Not Available Not Available collagen active Not Available Not Avai lable Not Available tranexami c acid 650 mg tablet Take 2 tablets 3 times a day by oral route as directed for 5 days. 04/20 completed Not Available Not Available Not Available Probiotic active Not Available Not Yoselin ilable Not Available Gynazole- 1 2 % vaginal cream 07/30 completed Days To Take: 1 #ofRef ills: 0 Drug Identifi cation Code: 372392 F ree Text SIG: Gynazole -1 2%, 1 (one) Applicat ion once # 1, 07/29/20 17, No Refill. Inactive Not Available Not Available Not Available Nuvessa 1.3 % (65 mg/5 gram) vaginal gel Insert 1 applicat orful by vaginal route at bedtime for 1 day. 04/07 completed Not Available Not Available Not Available Slynd 4 mg (28) tablet Take 1 tablet every day by oral route for 90 days. 02/02 completed Not Available Not Available Not Available Myfembree 40 mg-1 mg-0.5 mg tablet Take 1 tablet every day by oral route as directed for 30 days. 2023 active Not Available Not Available Not Avai lable Vitals Date Recorded Body height Body mass index (BMI) Body weight Systolic And Diastolic Provider Name and Address Organization Details Last Updated DateTime 02/28/2024 165.1 cm 26.5 kg/m2 72283.62 g 130/82 mm[Hg] [facility] 02/28/2024 09:19:57 Date Recorded Body height Body mass index (BMI) Body weight Systolic And Diastolic Provider Name and Address Organization Details Last Updated DateTime 03/14/2024 165.1 cm 26.9 kg/m2 60351.53 g 122/74 mm[Hg] L[facility]ette [facility] 03/14/2024 13:29:19 Date Recorded Body height Body mass index (BMI) Body weight Systolic And Diastolic Provider Name and Address Organization Details Last Updated DateTime 04/07/2024 165.1 cm 26.6 kg/m2 30143.78 g 124/78 mm[Hg] [facility] 04/07/2024 10:44:12 Date Recorded Body height Body mass index (BMI) Body weight Provider Name and Address Organization Details Last Updated DateTime 04/20/2023 165.1 cm 27.3 kg/m2 55219.87 g [facility] 04/20/2023 16:00:49 Social History Question Answer Notes LastModified by [employer] Details LastModified Time Tobacco Smoking Status Never Smoker [facility] 02/13/2022 11:22:34 Do You Use Protection During Sex? No [email or web address] Information not available 2023 What Is Your Relationship Status? [email or web address] Information not available 02/13/2022 Are You Sexually Active? Yes [email or web address] Information not available 02/13/2022 Do You Have Any Future Plans To Get ? No, I Don't Want To Become [email or web address] Information not available 02/13/2022 Sex: Unknown Functional Status Question Answer Note LastModified by [employer] Details LastModified Time Do you use any illicit or recreational drugs? No [email or web address] Information not available 02/13/2022 Do you or have you ever used any other forms of tobacco or nicotine? No [email or web address] Information not available 02/13/2022 What is your level of alcohol consumption? None [email or web address] Information not available 02/13/2022 Mental Status None recorded. Family History Relationship Description Onset Age of this Age Resolved Age Notes LastModified by Organization Details LastModified Time Unspecified Relation Endometriosi s (clinical) grandm other, hyster ectomy [email or web address] Not available 11/27/2021 19:34:11 Unspecified Relation Cerebrovascu lar accident grandm other [email or web address] Not available 11/27/2021 19:33:03 Unspecified Relation Malignant neoplasm of brain Grandf ather, Great Grandm other [email or web address] Not available 11/27/2021 19:34:30 Mother Malignant neoplasm of brain mkaron Not available 2021 19:34:33 Maternal Aunt Malignant tumor of breast mkaron Not available 2021 19:34:54 Notes:Grandfather: Cancer: B rain Grandmother: Endometriosis; Stroke: Hysterectomy great grandmother: Stroke Maternal Aunt: Breast cancer; Breast cancer; Breast cancer: Pre-Menopause Mother: Stroke Medical History No medical history recorded. Gynecological History Statement/Question Response Abnormal Pap N Are your periods regular? N HPV Vaccine N Date of Last Pap Smear 02/28/2024 Age at Menarche 12 Colonoscopy 08/09/2009 Hormone Replacement Therapy Y Obstetrics History GPAL:G 7 P 6 1 0 7 Type Value Full Term 6 Premature 1 Living 7 Total 7 Past Encounters Encounter ID Performer Location Encounter Start Date Encounter Closed Date Diagnosis/Indication Diagnosis SNOMED-CT Code Diagnosis ICD10 Code Diagnosis IMO Codes Diagnosis Note [id number] KLEBER Harris MD [address] [place] [address] 11/28/2021 10:36:48 11/28/2021 12:45:21 test positive 717312459 Z32.01 Dysuria 64028625 R30.9 Morning sickness 1144729 6 O21.9 [id number] KLEBER Harris MD [address] [place] [address] 12/26/2021 10:55:38 12/26/2021 12:57:44 Routine care 852698799 Z34.90 Dysuria 24356126 O26.899 Placental abruption 4151 78965 O45.92 [id number] KLEBER Mejia MD [address] [place] [address] 5 01/16/2022 13:42:58 01/16/2022 14:07:15 Routine care 941201883 Z34.90 Dysuria 84939536 O26.899 [id number] KLEBER Harris MD [address] [place] [address] 5 02/13/2022 11:15:06 02/13/2022 11:40:29 Routine care 064469432 Z34.90 Dysuria 58603348 O26.899 [id number] KLEBER Harris MD [address] [place] [address] 5 03/17/2022 08:53:38 03/17/2022 09:37:06 Routine care 486808973 Z34.90 Dysuria 53791924 O26.899 Pain in ro und ligament in 7167386958 9799198 O26.899 [id number] KLEBER Harris MD [address] [place] [address] 5 04/10/2022 09:47:34 04/10/2022 10:34:41 Routine care 733401857 Z34.90 Dysuria 23703279 O26.899 Polyhydramnios 36221381 O40.2XX0 [id number] KLEBER Harris MD [address] [place] [address] 5 04/24/2022 10:41:10 04/24/2022 11:28:56 Routine care 025259927 Z34.90 Dysuria 15194448 O26.899 [id number] KLEBER Harris MD [address] [place] [address] 5 05/08/2022 11:23:44 05/08/2022 11:57:08 Routine care 772409387 Z34.90 Dysuria 20774169 O26.899 [id number] KLEBER Mejia MD [address] [place] [address] 05/22/2022 09:09:18 05/25/2022 10:14:08 Routine care 664965508 Z34.90 [id number] KLEBER Harris MD [address] [place] [address] 07/14/2022 10:56:07 07/14/2022 11:17:22 Contraception care management 459879075 Z30.9 state 2815055 1 Z39.2 [id number] MD SYLVIA Rodriguez MD [address] [place] [address] 2023 13:08:17 2023 14:47:47 Menorrhagia 897686449 N92.0 Polycystic ovary syndrome 741951232 E28.2 Vaginal discharge 162533 006 N89.8 will culture via PCL Dysmenorrhea 456777289 N 94.6 Dyspareunia 28147550 N94 .10 Pain in pelvis 64579883 R10.2 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 Uterovaginal prolapse 18 409815 N81.4 Pre-surger y evaluation 500174464 Z01.818 [id number] KLEBER Harris MD [address] [place] [address] 03/25/2023 15:17:46 03/25/2023 16:08:30 Postoperative visit 757200005 Z09 [id number] MD SYLVIA Rodriguez MD [address] [place] [address] 04/20/2023 15:50:21 04/20/2023 16:51:31 Abdominal pain 32820594 R10.9 Vaginal discharge 396951 006 N89.8 will culture via PCL 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 Uterovaginal prolapse 18 736328 N81.4 first degree Acute cervicitis 6859534 0 N72 Patient ad vised about weight management 318592403 Z71.3 [id number] MARK Coker MD [address] [place] [address] 02/28/2024 09:01:53 02/28/2024 14:36:38 Routine gynecologic examination done 0622028157 9101 Z01.419 Polycystic ovary syndrome 498721922 E28.2 Family his tory of breast cancer 099928529 Z80.3 Family his tory of cancer of colon 188418181 Z80.0 Family his tory of malignant neoplasm of ovary 798882375 Z80.41 Immunization advised 310 991047 Z71.9 Endometrio sis of pelvis 41558893 N80.9 Deep pain on intercourse 945875228 N94.12 Irregular periods 891509 07 N92.6 [id number] MD SYLVIA Rodriguez MD [address] [place] [address] 03/14/2024 13:18:45 03/14/2024 14:11:00 Pain in pelvis 95970033 R10.2 Dyspareunia 81166689 N94 .12 Retroflexed uterus 59321 007 N85.4 First degr ee uterine prolapse 90439243 N81.2 Uterine adenomyosis 7843 95255 N80.03 Endometrio sis of pelvis 58279005 N80.02 [id number] MARK Coker MD [address] [place] [address] 04/07/2024 10:37:03 04/07/2024 12:12:31 Hormone replacement therapy 272465135 Z79.890 Vitamin D deficiency 347 15024 E55.9 Acne 85942306 L70.9 [id number] MARK Coker MD [address] [place] [address] 07/03/2024 09:05:27 07/03/2024 14:09:46 Hormone replacement therapy 370563925 Z79.890 Reduced libido 3720705 R 68.82 Fatigue 71579888 R53.83 Health Concerns Section Related Observation LastModified by Organization Detai ls LastModified Time None Recorded Concern Status LastModified by Organization Details LastModified Time None Recorded Advance Directives Directive None Recorded Payers Insurance Date Sequence Insurance Name Policy Number Policy Fields Covered Member ID Fields Member ID Guarantor Name 09/29/2024 1 [place] [id number] Fab Cohen [id number] 06/14/2022 PAYMENT PLAN 12/26/2021 PAYMENT PLAN 12/26/2021 PAYMENT PLAN Notes Date Note Type Note Provider Name and Address Organization Details Recorded Time 04/20/2023 text/html Pt here for abnormal vaginal discharge. Pt reports bright yellow gel-like discharge. She is not experiencing pain, feels some aches and tenderness. Pt has stopped bleeding since her surgery. MD [address], [place], [address], [facility] 04/20/2023 16:47:50 02/28/2024 text/html Annual GYNReport ed by PatientRep[facility] inconsistent LLQ cramping, LLQ bloating, dyspareunia, and irregular menses [address], [place], [address], [facility] 02/28/2024 13:26:17 03/14/2024 text/html Pelvic PainRepor [place] by PatientPt is here for experiencing pelvic pain that has been going on for a couple months. She states that most of the pain is on the left side. She reports that she experiencing irregular bleeding outside of her cycle. She states that her cycles are very heavy. Pt is currently not using BC because she had her tubes removed prophylactically. Pt is here for MD [address], [place], [address], [facility] 03/14/2024 14:10:32 04/07/2024 text/html ROS as noted in the HPI HRT management - reports facial acne Carmel Cook PA-C [address], [place], [address], [facility] 04/07/2024 11:54:50 07/03/2024 text/html ROS as noted in the [facility] HRT cream - reports low energy, low libido Carmel Cook PA-C [address], [place], [address], [facility] 07/03/2024 13:38:18 OBGyn Episode Ob Episode Information Episode Created Date Number of Fetuses Patient Bloodtype Patient rh Status Prepregnancy Weight lbs Domestic Partner Domestic Partner Phone Father Name Supervisor [employer] Status 12/27/19 22 1 CLOSED Fetus Data First Name Last Name Admitted to NICU Weight (g) Sex Living Outcome Pediatric Complications Fetus ID Race Codes Race Delivery Type true F true Prematur e 96 Aiden Calculation Initial Aiden Date Initial Exam Date Initial Exam Provider Initial Ultrasound Date Last Menstrual Period Date Ultra Sound Weeks Gestation 07/02/2022 12/26/2021 0 Eighteen To Twenty Week Aiden Update Ultra Sound Date Fundal Height At Umbil Quickening Date Ultra Sound Latest Weeks Gestation Final Aiden Confirmed By Final Aiden Confirmed Date Final Aiden Date Ultra Sound Latest Days Gestation 0 0 Pre- Flowsheet Flowsheet Date 12/26/2021 Joshi Score Blood Edema Fundus Height Fundus Units Glucose Ketones Leukocytes Nitrite Labor Signs Protein Cervic Dilation Cervic Effacement Cervic Station 1+ none none none Negative Cramping neg Type Weight in lbs Pre/Post Dialysis Refused Weight 155.308364642488 BP Diastolic BP Location Tested BP Systolic BP Type 74 110 Fetus Heart Rate Present A 158 Fetus Movement Comments 31 y/o F here today for NOB visit and f/u ULS. She is 13 weeks and 1/7 days GA. ULS preformed by Glenna showed FHR but significant partial placental abruption. Discussed this at length with pt. She has been experiencing cramping and vaginal bleeding. Denies loss of fluids. Advised pt to RTC immediately if she experiences a change in cramping or heavier bleeding. She expressed understanding. RTC 3 weeks for OB visit and ULS to monitor abruption, sooner if needed. Flowsheet Date 01/16/2022 Joshi Score Blood Edema Fundus Height Fundus Units Glucose Ketones Leukocytes Nitrite Labor Signs Protein Cervic Dilation Cervic Effacement Cervic Station Type Weight in lbs Pre/Post Dialysis Refused BP Diastolic BP Location Tested BP Systolic BP Type 80 L arm 122 sitting Fetus Heart Rate Present A 152 Present Fetus Movement Comments 31 yo GP here today for OB v isit at 16 wks 1 days. She is doing well w/o OB complaint. Ultrasound shows the partial abruption is stable. There does appear to be a clot. Denies loss of fluids, bleeding. RTC in 4 wks for OB visit/anatomy scan, sooner if needed. NIPT test today, Flowsheet Date 02/13/2022 Joshi Score Blood Edema Fundus Height Fundus Units Glucose Ketones Leukocytes Nitrite Labor Signs Protein Cervic Dilation Cervic Effacement Cervic Station neg none 20 none none Negative none neg Type Weight in lbs Pre/Post Dialysis Refused Weight 153.133874239862 BP Diastolic BP Location Tested BP Systolic BP Type 74 132 Fetus Heart Rate Present A 140 Fetus Movement A Yes Comments 32 y/o F here today for GUIDO scan and OB visit. She is 20 weeks and 1/7 days GA. She is doing well and is without OB complaint. Taking PNV daily. GUIDO scan by Glenna showed SIUP with cardiac activity and movement noted. Size = Dates. Normal GUIDO seen. CL adequate. Profile not seen. F/U at 28 weeks. FHT detected on doppler. Denies bleeding. Denies loss of fluids. She will RTC in 4 weeks for 1 hour GLU and OB visit, sooner if needed. Pleasant mood. Flowsheet Date 03/17/2022 Joshi Score Blood Edema Fundus Height Fundus Units Glucose Ketones Leukocytes Nitrite Labor Signs Protein Cervic Dilation Cervic Effacement Cervic Station neg none 25 none none Negative none neg Type Weight in lbs Pre/Post Dialysis Refused With clothes 158.124613580000 BP Diastolic BP Location Tested BP Systolic BP Type 84 118 Fetus Heart Rate Present A 148 Fetus Movement A Yes Comments 32 y/o F here today for OB visit and 1 hour GLU. She is 24 weeks and 5/7 days GA. She is doing well but has noticed some lower pelvic pain. Denies any bleeding. Denies any loss of fluids. Consistent with round ligament pain but advised pt to continue to rest and monitor. If it worsens or bleeding occurs RTC immediately. She expressed understanding. FHT detected with doppler, good variability noted. 1 hour GLU completed. Taking PNV daily. RTC in 2 weeks for growth ULS with Glenna and OB visit, sooner if needed. Flowsheet Date 04/10/2022 Joshi Score Blood Edema Fundus Height Fundus Units Glucose Ketones Leukocytes Nitrite Labor Signs Protein Cervic Dilation Cervic Effacement Cervic Station neg none 28 none none Negative none neg Type Weight in lbs Pre/Post Dialysis Refused With clothes 157.372995277507 BP Diastolic BP Location Tested BP Systolic BP Type 78 L arm 110 sitting Fetus Heart Rate Present A 138 Fetus Movement A Yes Comments 32 y/o F here today for OB visit at 28 wks and 1/7 days GA. She is doing well w/o OB complaint. heart tones detected with doppler, good variability noted. Growth ULS with Glenna showed poly - will follow every 2 weeks with NIPT / BPP. Denies loss of fluids, bleeding. RTC in wks for OB visit, sooner if needed. Flowsheet Date 04/24/2022 Joshi Score Blood Edema Fundus Height Fundus Units Glucose Ketones Leukocytes Nitrite Labor Signs Protein Cervic Dilation Cervic Effacement Cervic Station neg none 30 none none Negative none neg Type Weight in lbs Pre/Post Dialysis Refused With clothes 160.336394805336 BP Diastolic BP Location Tested BP Systolic BP Type 86 L arm 124 sitting Fetus Heart Rate Present A 146 Fetus Movement A Yes Comments 32 y/o F here today for OB visit at 30 wks and 1/7 days GA. She is doing well w/o OB complaint. heart tones detected on ULS. Poly has resolved. Reports good movement. Denies loss of fluids, bleeding. RTC in 2 wks for OB visit, sooner if needed. She will follow with growth ULS in 4 weeks. Flowsheet Date 05/08/2022 Joshi Score Blood Edema Fundus Height Fundus Units Glucose Ketones Leukocytes Nitrite Labor Signs Protein Cervic Dilation Cervic Effacement Cervic Station neg none 32 none none Negative none neg Type Weight in lbs Pre/Post Dialysis Refused With clothes 162.200837083558 BP Diastolic BP Location Tested BP Systolic BP Type 76 124 Fetus Heart Rate Present A 135 Fetus Movement A Yes Comments 32 y/o F here today for OB visit at 32 wks and 1/7 days GA. She is doing well w/o OB complaint. heart tones detected on doppler. Good variability noted. Reports good movement. Taking PNV daily. Denies loss of fluids, bleeding. RTC in 2 wks for OB visit, sooner if needed. Growth ULS with Glenna will also be preformed at this time. Pleasant mood. Flowsheet Date 05/22/2022 Joshi Score Blood Edema Fundus Height Fundus Units Glucose Ketones Leukocytes Nitrite Labor Signs Protein Cervic Dilation Cervic Effacement Cervic Station Type Weight in lbs Pre/Post Dialysis Refused With clothes 159.949755788065 BP Diastolic BP Location Tested BP Systolic BP Type 68 L arm 118 sitting Fetus Heart Rate Present A 142 Present Fetus Movement Comments 32 yo here today for OB visit at 34 wks 1 days. She is doing well w/o OB complaint. SARI 19, baby is measuring 86th percentile. Denies loss of fluids, bleeding. GBS sent. Pt. has a history of . She is having some contractions on monitor. Discussed with Dr. Alonzo and will send to labor [facility]. Patient was already in parking lot but was notified and he will let her know. Flowsheet Date 07/14/2022 Joshi Score Blood Edema Fundus Height Fundus Units Glucose Ketones Leukocytes Nitrite Labor Signs Protein Cervic Dilation Cervic Effacement Cervic Station Type Weight in lbs Pre/Post Dialysis Refused With clothes 142.294264358316 BP Diastolic BP Location Tested BP Systolic BP Type 70 L arm 122 sitting Fetus Heart Rate Present Fetus Movement Comments Flowsheet Date 2023 Joshi Score Blood Edema Fundus Height Fundus Units Glucose Ketones Leukocytes Nitrite Labor Signs Protein Cervic Dilation Cervic Effacement Cervic Station Type Weight in lbs Pre/Post Dialysis Refused With clothes 169.352319328709 BP Diastolic BP Location Tested BP Systolic BP Type 78 L arm 126 sitting Fetus Heart Rate Present Fetus Movement Comments Menstrual History Last Menstrual Date Menses Monthly On Bcp Conception Prior Menses Frequency Hcg Plus Date Menarche Onset Age Delivery Information Delivery Date Delivery Type Labor Anesthesia Weeks Gestation Incision Type Labor Labor Length Hrs Delivered By Post Complications Tubal Sterilization Discharge Date Comments 2 [facility] id[facility] Sylvia Blake MD 05/29/2022 Discharge Information Feeding Method Contraceptive Method Maternal HG B and HCT Levels
--- OUTSIDE RECORDS SUMMARY | 2025-05-08 20:33 | XMS_ITS | Encounter Summary ---
Author Organization [employer] ([place], [place], [place], [place]) Address [address] [place] [address] Care Team Providers Care Manager Bench Name Role Phone Sylvia Alonzo MD Primary Care Provider [phone] Encounter Details Date Type Department Care Team (Late st Contact Info) Description 03/08/2021 Transcribed Document [facility] [place] Family Medicine [address] [place] [address] ProviderNorman MD [address], [place] [address] Social History Tobacco Use Types Packs/Day Years [...] KIN SNYDER RN - 03/08/2021 22:19 EDT documented in this encounter Plan of Treatment Not on file documented as of this encounter Visit Diagnoses Not on filedocumented in this encounter Care Teams Manager Bench Relationship Specialty Start Date End Date Sylvia Alonzo MD [address] [place] [address] PCP - General Obstetrics and Gynecology 02/26/23 documented as of this encounter
--- OUTSIDE RECORDS SUMMARY | 2025-05-08 20:33 | XMS_ITS | Referral Summary ---
Author Organization [employer] ([place], [place], [place], [place]) Address [address] [place] [address] Care Team Providers Care Dog Raiser Name Role Phone Sylvia Alonzo MD Primary Care Provider [phone] Allergies No known active allergies Medications metFORMIN [...] Date Gray rded Speak language other than Palestinian at home Not on file 08/27/2023 Want [...] on file Medical Devices Implanted Type Area Electronics Technician Apprentice Device Identifier Shelf Expiration Date Model / Serial / Lot Biodfence G3 3x6cm [id number] - [id number] Implanted:Qty : 1 on 02/26/2023 by Sylvia Alonzo MD at [facility] IMPLANTS N/A: Pelvis [employer] 12/15/2027 [id number] / / [id number] Insurance BLUE CROSS/BLUE SHIELD BLUE CROSS/BLUE SHIELD Advance Directives For more information, please contact: [phone] * Full Code (Latest Code Status on File) Date Activated Date Inactivated Comments 02/26/2023 10:51 AM 02/26/2023 4:39 PM * Full Code Date Activated Date Inactivated Comments 02/26/2023 9:24 AM 02/26/2023 10:51 AM Care Teams Dog Raiser Relationship Specialty Start Date End Date Sylvia Alonzo MD [address] [place] [address] PCP - General Obstetrics and Gynecology 02/26/23
--- OUTSIDE RECORDS SUMMARY | 2025-05-08 20:33 | XMS_ITS | Encounter Summary ---
Author Organization [employer] ([place], [place], [place], [place]) Address [address] [place] [address] Care Team Providers Care Workflow Developer Name Role Phone Sylvia Alonzo MD Primary Care Provider [phone] Encounter Details Date Type Department Care Team (Late st Contact Info) Description 2021 Transcribed Document [facility] [place] [address] [place] [address] ProviderNorman MD [address] [place] [address] Social History Tobacco Use Types [...] Source : Measured Height Entry Format : [place] Height, Feet : 5 ft(Converted to: 152 cm, 60 Inch) Clinical Height : 165.1 cm Height, Inches : 5 Inch(Converted to: 0 ft 5 Inch, 12.70 cm) Weight Source : Bed scale Weight Entry Format : [place] Weight, Pounds : 162 lb Clinical Dosing Weight : 73.64 kg Body Surface Area (BSA) : 1.81 m2 Body Mass Index : 27 kg/m2 (HI) [place] Body Weight (IBW) : 56.59 kg Sandie [...] Patient Needs Meds Crushed/Liquid : No Chanelle Martiinlori Aguilar 2021 5:15 EDT Infectious Disease History [...] None Sandie Martini - 2021 5:15 EDT Major Suicide Severity Rating Scale (C-SSRS) CSSRS Past Month Wish to be : No CSSRS Past Month Suicidal Thoughts : No CSSRS Lifetime Suicide Behavior : No Suicide Severity Rating Score : 0 Suicide Severity Rating : No Additional Care Required at this time Sandie Martini - 2021 5:15 EDT documented in this encounter Plan of Treatment Not on file documented as of this encounter Visit Diagnoses Not on filedocumented in this encounter Care Teams Workflow Developer Relationship Specialty Start Date End Date Sylvia Alonzo MD [address] [place] [address] [place] [address] PCP - General Obstetrics and Gynecology 02/26/23 documented as of this encounter
--- OUTSIDE RECORDS SUMMARY | 2025-05-08 20:33 | XMS_ITS | Encounter Summary ---
Author Organization [employer] ([place], [place], [place], [place]) Address [address] [place] [address] Care Team Providers Care Turning Machine Operator Name Role Phone Sylvia Alonzo MD Primary Care Provider [phone] Encounter Details Date Type Department Care Team (Late st Contact Info) Description 03/09/2021 Transcribed Document [facility] [place] [address] [place] [address] ProviderNorman MD [address], [place] [address] Social History Tobacco Use Types Packs/Day Years [...] on filedocumented in this encounter Care Teams Turning Machine Operator Relationship Specialty Start Date End Date Sylvia Alonzo MD [address] [place] [address] PCP - General Obstetrics and Gynecology 02/26/23 documented as of this encounter
--- OUTSIDE RECORDS SUMMARY | 2025-05-08 20:33 | XMS_ITS | Encounter Summary ---
Author Organization [employer] ([place], [place], [place], [place]) Address [address] [place] [address] Care Team Providers Care Nutrition Aide Name Role Phone Sylvia Alonzo MD Primary Care Provider Encounter Details Date Type Department Care Team (Late st Contact Info) Description 05/19/2019 Transcribed Document [facility] [place] Family Medicine [address] [place] [address] ProviderNorman MD [address] [place], [place] [id number] Social History Tobacco Use Types Packs/Day Years [...] : Standing scale Weight Entry Format : [place] Clinical Dosing Weight : 61.36 kg Weight, Pounds : 135 lb LORNE LINDSEY - 05/19/2019 10:02 EDT documented in this encounter Plan of Treatment Not on file documented as of this encounter Visit Diagnoses Not on filedocumented in this encounter Care Teams Nutrition Aide Relationship Specialty Start Date End Date Sylvia Alonzo MD [address] [facility] [address] [place] [address] PCP - General Obstetrics and Gynecology 02/26/23 documented as of this encounter
--- OUTSIDE RECORDS SUMMARY | 2025-05-08 20:33 | XMS_ITS | Encounter Summary ---
Author Organization [employer] ([place], [place], [place], [place]) Address [address] [place] [address] Care Team Providers Care Sample Maker Name Role Phone Annette Alonzo MD Primary Care Provider [phone] Encounter Details Date Type Department Care Team (Late st Contact Info) Description 03/10/2021 Transcribed Document [facility] [place] Family Medicine [address] [place] [address] ProviderNorman MD [address] [place] [address] Social History Tobacco Use Types [...] Norman ProviderMD - 03/10/2021 10:26 [place] [address] VERÓNICAALIYA :1990 Visit Time:03/07/2021 Your Visit Summary [...] Comments Appointment has been made Where: [address] [facility] [address] [place] [address]- Business (1) Medications What How Much When [...] work with your health care provider or webmethods consultant. ??? If you are not : [...] methods of control (contraception). Medicines ??? Take oivy-ucv-cfubjkj and prescription medicines only as told by [...] provider. Document Revised: 07/29/2018 Document Reviewed: 05/09/2018 VCV Patient Education ?? 2020 [employer]. Choosing to breastfeed is one of the [...] to meet your baby???s needs compared to formula. ??? Breast milk [...] smacking lips, cooing, sighing, or squeaking. ??? Elam-br-ymjkj movements and sucking on fingers or hands. [...] able to be present during feedings. Your webmethods consultant can help you find a method [...] contact your health care provider or a webmethods consultant. Overall health care recommendations while ??? [...] provider before taking any medicines. These include beuz-bbc-qpvfbon and prescription medicines as well as vitamins [...] Talk with your health care provider or webmethods consultant if you have questions or you face problems as you breastfeed. This information is not intended to replace advice given to you by your health care provider. Make sure you discuss any questions you have with your health care provider. Document Revised: 10/20/2018 Document Reviewed: 08/27/2017 VCV Patient Education ?? 2020 [employer] Cloud. ibuprofen (EYE bue PROE fen) Advil, Genpril, [...] may report side effects to FDA at 3-590-DMF-9322. What other drugs will affect ibuprofen? Ask [...] drugs may affect ibuprofen, including prescription and ugfe-djm-awumxdm medicines, vitamins, and herbal products. Not all [...] to ensure that the information provided by [employer] ('[employer]') is accurate, up-to-date, and complete, but no guarantee is made to that effect. Drug information contained herein may be time sensitive. [employer] information has been compiled for use by healthcare practitioners and consumers in the [place] and therefore [employer] does not warrant that uses outside of the [place] are appropriate, unless specifically indicated otherwise. [employer] drug information does not endorse drugs, diagnose patients or recommend therapy. [employer] drug information is an informational resource designed [...] effective or appropriate for any given patient. [employer] does not assume any responsibility for any aspect of healthcare administered with the aid of information [facility] provides. The information contained herein is not intended to cover all possible uses, directions, precautions, warnings, drug interactions, allergic reactions, or adverse effects. If you have questions about the drugs you are taking, check with your doctor, nurse or pharmacist. Copyright 0471-1564 [employer]. Version: 22.01. Revision Date: 07/03/2020. Emergency Awareness [...] Assistance with quitting is available by contacting 9-081-OKZEECS TuningNOW. This is a free resource providing counseling, [...] range between ( 1.0 and 7.0 ) [place] #: 0.52 K/uL -- Normal range between ( 0.24 and 0.82 ) Eos #: 0.14 K/uL -- Normal range between ( 0.04 and 0.54 ) [place] %: 6.6 % -- Normal range between [...] ) Urine Bilirubin Dipstick: Negative Urine Specific [place]: 1.013 -- Normal range between ( 1.005 [...] was given the opportunity to ask questions. Patient/B2B Sales Manager Name: Patient/B2B Sales Manager Signature: Relationship to Patient: Clinician/Hospital B2B Sales Manager Signature: Date: Electronically signed by [facility], [facility] Conversion Ibm Bpm Developer Ningner at 11/24/2022 11:52 AM CDT documented in this encounter Plan of Treatment Not on file documented as of this encounter Visit Diagnoses Not on filedocumented in this encounter Care Teams Sample Maker Relationship Specialty Start Date End Date Annette Alonzo MD [address] [place] [address] PCP - General Obstetrics and Gynecology 02/26/23 documented as of this encounter
--- OUTSIDE RECORDS SUMMARY | 2025-05-08 20:33 | XMS_ITS | Encounter Summary ---
Author Organization [email or web address] ([place], [place], [place], [place]) Address [address] [place] [address] Care Team Providers Care Commercial Loan Officer Name Role Phone Sylvia Alonzo MD Primary Care Provider Encounter Details Date Type Department Care Team (Late st Contact Info) Description 03/07/2021 Transcribed Document [facility] [place] Family Medicine [address] [place] [address] ProviderNorman MD [address] [place] [address] Social History Tobacco Use Types [...] Source : Stated Height Entry Format : [place] Height, Feet : 5 ft(Converted to: 152 cm, 60 Inch) Clinical Height : 165.1 cm Height, Inches : 5 Inch(Converted to: 0 ft 5 Inch, 12.70 cm) Weight Source : Standing scale Weight Entry Format : [place] Weight, Pounds : 164 lb Clinical Dosing Weight : 74.55 kg Body Surface Area (BSA) : 1.82 m2 Body Mass Index : 27.3 kg/m2 (HI) [place] Body Weight (IBW) : 56.59 kg Haven [...] Haven Rico Rn - 03/07/2021 22:13 EDT [place] Suicide Severity Rating Scale (C-SSRS) CSSRS Past Month Wish to be : No CSSRS Past Month Suicidal Thoughts : No CSSRS Lifetime Suicide Behavior : No Suicide Severity Rating Score : 0 Suicide Severity Rating : No Additional Care Required at this time Haven Rico Rn - 03/07/2021 22:13 EDT Electronically signed by Parris [facility] Conversion Cs Associate Cerner at 11/24/2022 12:04 PM CDT documented in this encounter Plan of Treatment Not on file documented as of this encounter Visit Diagnoses Not on filedocumented in this encounter Care Teams Commercial Loan Officer Relationship Specialty Start Date End Date Sylvia Alonzo MD [address] [facility] [address] [place] [address] PCP - General Obstetrics and Gynecology 02/26/23 documented as of this encounter
--- OUTSIDE RECORDS SUMMARY | 2025-05-08 20:33 | XMS_ITS | Encounter Summary ---
Author Organization [employer] ([place], [place], [place], [place]) Address [address] [place] [address] Care Team Providers Care Music Theory Teacher Name Role Phone Sylvia Alonzo MD Primary Care Provider [phone] Encounter Details Date Type Department Care Team (Late st Contact Info) Description 03/08/2021 Transcribed Document [facility] [place] Family Medicine [facility] [place] [address] ProviderNorman MD [address] [place], [place] [id number] Social History Tobacco Use Types Packs/Day Years [...] a first-degree midline episiotomy of a female with scores of 8 and 9, weighing [...] was the baby kangaroo care was performed. /[id number] MD RACH Luevano/HEAVENLY / RACH / MODL /[id number] Electronically signed by Parris, [facility] Conversion Machine I Coremaker Cerner at 11/24/2022 11:59 AM CDT documented in this encounter Plan of Treatment Not on file documented as of this encounter Visit Diagnoses Not on filedocumented in this encounter Care Teams Music Theory Teacher Relationship Specialty Start Date End Date Sylvia Alonzo MD [address] [place] [address] PCP - General Obstetrics and Gynecology 02/26/23 documented as of this encounter
--- OUTSIDE RECORDS SUMMARY | 2025-05-08 20:33 | XMS_ITS | Encounter Summary ---
Author Organization [employer] ([place], [place], [place], [place]) Address [address] [place] [address] Care Team Providers Care Re Dye Hand Name Role Phone Annette Alonzo MD Primary Care Provider [phone] Encounter Details Date Type Department Care Team (Late st Contact Info) Description 03/09/2021 Transcribed Document [facility] [place] Family Medicine [address] [place] [address] ProviderNorman MD [address] [place], [place] [address] Social History Tobacco Use Types Packs/Day Years Used Date Smoking Tobacco: Never Assessed Comments Unknown Sex and Gender Information Value Date Recorded Sex Assigned at Not on file Legal Sex Female 1:09 PM CDT Gender Identity Not on file Sexual Orientation Not on file documented as of this encounter Miscellaneous Notes * Cerner Conversion Note - Norman ProviderMD - 03/09/2021 4:33 PM CDT Patient: [...] (See Comment) Dermoplast 20% topical spray: 1 [place], Topical, Q4H, PRN: Pain HYDROmorphone: 0.5 mg, [...] Other (See Comment) Documented Medications Documented 19 ([place]): Daily, 0 Refill(s), Home Medications (1) Active 19 ([place]) , Daily , Medications (19) Active Scheduled: [...] 30 mL, Oral, Q4H benzocaine-menthol spray 1 [place], Topical, Q4H carboprost 250 mcg/1 mL inj 250 mcg 1 mL, IntraMuscular, 1-Time diphth/pertus/tet tox *ADULT* inj 0.5 mL 0.5 mL, IntraMuscular, 1-Time famotidine 20 mg tab 20 mg 1 Tab, Oral, Q12H lanolin oint 8.5 gram 1 Application, Topical, See Comment xtdbehf-ogznj-afenx vaccine inj 0.5 mL, SubCutaneous, 1-Time methylergonovine [...] on filedocumented in this encounter Care Teams Re Dye Hand Relationship Specialty Start Date End Date Annette Alonzo MD [address] [place] [address] PCP - General Obstetrics and Gynecology 02/26/23 documented as of this encounter
--- OUTSIDE RECORDS SUMMARY | 2025-05-08 20:33 | XMS_ITS | Encounter Summary ---
Author Organization [employer] ([place], [place], [place], [place]) Address [address] [place] [address] Care Team Providers Care Auto Claim Representative Name Role Phone Sylvia Alonzo MD Primary Care Provider [phone] Encounter Details Date Type Department Care Team (Late st Contact Info) Description 05/19/2019 Transcribed Document [facility] [place] [facility] [place] [address] ProviderNorman MD [address] [place], [place] [id number] Social History Tobacco Use Types Packs/Day Years [...] including vitamins, herbs, eye drops, creams, and qbue-nkx-zawrkwg medicines. This is especially important if you [...] 07/26/2006 Document Revised: 04/11/2017 Document Reviewed: 04/11/2017 ElseFiberLight Interactive Patient Education ? 2019 Inuk Networks Inc. Hysteroscopy, Care After This sheet gives [...] taking prescription pain medicines. Medicines ??? Take gmhf-hvx-ccyftnw and prescription medicines only as told by [...] urine clear or pale yellow. ? Take jjqo-zyi-hqliehl or prescription medicines. ? Eat foods that [...] 05/16/2014 Document Revised: 08/24/2017 Document Reviewed: 08/24/2017 Inuk Networks Interactive Patient Education ? 2019 [employer] Inc. Diagnostic Laparoscopy, Care After This sheet [...] these instructions at home: Medicines ??? Take etjw-vcu-xpkrkuv and prescription medicines only as told by [...] and water are not available, use hand department administrator. ? Change your dressing as told by [...] keep your urine pale yellow. ? Take fhqs-gob-hodwgcy or prescription medicines. ? Eat foods that [...] 07/06/2016 Document Revised: 01/19/2018 Document Reviewed: 01/19/2018 Inuk Networks Interactive Patient Education ? 2019 In[employer] Inc. General Anesthesia, Adult, Care After This [...] activities are safe for you. ??? Take ocgo-fav-lsxhzmk and prescription medicines only as told by [...] 03/11/2018 Elsevier Interactive Patient Education ? 2019 Inuk [employer] Inc. documented in this encounter Plan of Treatment Not on file documented as of this encounter Visit Diagnoses Not on filedocumented in this encounter Care Teams Auto Claim Representative Relationship Specialty Start Date End Date Sylvia Alonzo MD [address] [place] [address] PCP - General Obstetrics and Gynecology 02/26/23 documented as of this encounter
--- OUTSIDE RECORDS SUMMARY | 2025-05-08 20:33 | XMS_ITS | Encounter Summary ---
Author Organization [facility] ([place], [place], [place], [place]) Address [address] [place] [address] Care Team Providers Care Custodial Maintenance Worker Name Role Phone Annette Alonzo MD Primary Care Provider [phone] Encounter Details Date Type Department Care Team (Late st Contact Info) Description 05/19/2019 Transcribed Document [facility] [place] [address] [place] [address] ProviderNorman MD [address] [place] [address] Social History Tobacco Use Types Packs/Day Years [...] ALIYA SANCHES/Sex: 1990 Female Med Rec #: [id number] Physician: ANNETTE ALONZO MD-OBG Financial #: [id number] Pt. Type: O Room/Bed: Admit/Disch: 05/19/19 09:30:00 - Institution: [facility] OR PACU Case Times Entry 1 In PACU I 05/19/19 13:11:00 Ready for PACU 05/19/19 14:08:00 Discharge Discharge from PACU 05/19/19 14:08:00 I Last Modified By: MADISYN CARCAMO RN 05/19/19 14:08:15 Finalized By: MADISYN CARCAMO, RN Document Signatures Signed By: MADISYN CARCAMO RN 05/19/19 14:08 documented in this encounter Plan of Treatment Not on file documented as of this encounter Visit Diagnoses Not on filedocumented in this encounter Care Teams Custodial Maintenance Worker Relationship Specialty Start Date End Date Annette Alonzo MD [address] [place] [address] PCP - General Obstetrics and Gynecology 02/26/23 documented as of this encounter
--- OUTSIDE RECORDS SUMMARY | 2025-05-08 20:33 | XMS_ITS | Encounter Summary ---
Author Organization [employer] ([place], [place], [place], [place]) Address [address] [place] [address] Care Team Providers Care Electric Tripper Machine Operator Name Role Phone Sylvia Alonzo MD Primary Care Provider [phone] Encounter Details Date Type Department Care Team (Late st Contact Info) Description 02/03/2021 Transcribed Document [facility] [place] [address] [place] [address] ProviderNorman MD [address] [place] [address] Social History Tobacco Use Types [...] on filedocumented in this encounter Care Teams Electric Tripper Machine Operator Relationship Specialty Start Date End Date Sylvia Alonzo MD [facility] [address] [place] [address] PCP - General Obstetrics and Gynecology 02/26/23 documented as of this encounter
--- OUTSIDE RECORDS SUMMARY | 2025-05-08 20:33 | XMS_ITS | Clinical Summary ---
Author Organization [employer] ([place], [place], [place]) Address [address] [place] [address] Care Team Providers Care Field Marketing Coordinator Name Role Phone Sylvia Alonzo MD Primary Care Provider [phone] Allergies No known active allergies Medications metFORMIN [...] Date Gray rded Speak language other than Guyanese at home Not on file 08/27/2023 Want [...] COVID-19 VACCINE ( - 2023-2 5 season) 2025 Influenza Vaccine (#1) 2025 DTAP/TDAP/TD VACCINES (2 - T d or Tdap) 03/09/2031 03/09/2021 Pneumococcal Vaccine: 0-49 Years Aged Out No longer eligible based on patient's age to complete this topic Medical Devices Implanted Type Area Applier Device Identifier Shelf Expiration Date Model / Serial / Lot Saúl G3 3x6cm [id number] - [id number] Implanted:Qty : 1 on 02/26/2023 by Sylvia Alonzo MD at [facility] IMPLANTS N/A: Pelvis [employer] 12/15/2027 [id number] / / [id number] Insurance BLUE CROSS/BLUE SHIELD Member Subscriber Plan / Payer (Ef fective 2016-Present) Name:Aliya Cohen Relation to Subscriber:Spouse Name:KOKI COHEN Date of :1991 Address: [address] [place] [address] Payer ID:Not on file Type:Not on file Address: [place] [phone] BLUE CROSS/BLUE SHIELD Advance Directives For more information, please contact: [phone] * Full Code (Latest Code Status on File) Date Activated Date Inactivated Comments 02/26/2023 10:51 AM 02/26/2023 4:39 PM * Full Code Date Activated Date Inactivated Comments 02/26/2023 9:24 AM 02/26/2023 10:51 AM Care Teams Field Marketing Coordinator Relationship Specialty Start Date End Date Sylvia Alonzo MD [address] [facility] [address] [place] [address] PCP - General Obstetrics and Gynecology 02/26/23
--- OUTSIDE RECORDS SUMMARY | 2025-05-08 20:33 | XMS_ITS | Encounter Summary ---
Author Organization [employer] ([place], [place], [place], [place]) Address [address] [place] [address] Care Team Providers Care Property Management Accountant Name Role Phone Sylvia Alonzo MD Primary Care Provider [phone] Encounter Details Date Type Department Care Team (Late st Contact Info) Description 05/23/2019 Transcribed Document [facility] [place] [facility] [place] [address] Norman Valera MD [address] [place], [place] [address] Social History Tobacco Use Types Packs/Day Years [...] Sylvia Alonzo M.D. Electronically signed by Parris [facility] Conversion Bariatric Coordinator [employer]ner at 11/24/2022 12:03 PM CDT documented in this encounter Plan of Treatment Not on file documented as of this encounter Visit Diagnoses Not on filedocumented in this encounter Care Teams Property Management Accountant Relationship Specialty Start Date End Date Sylvia Alozno MD 160 [facility] [address] [place] [address] PCP - General Obstetrics and Gynecology 02/26/23 documented as of this encounter
--- OUTSIDE RECORDS SUMMARY | 2025-05-08 20:33 | XMS_ITS | Encounter Summary ---
Author Organization [employer] ([place], [place], [place], [place]) Address [address] [place] [address] Care Team Providers Care Director Of Market Research Name Role Phone Annette Alonzo MD Primary Care Provider [phone] Encounter Details Date Type Department Care Team (Late st Contact Info) Description 02/03/2021 Transcribed Document [facility] [place] [address] [place] [address] ProviderNorman MD [address] [place] [address] Social History Tobacco Use Types [...] Norman ProviderMD - 02/03/2021 11:38 [place] [address] VERÓNICAALIYA :1990 Visit Time:02/01/2021 Your Visit Summary Your [...] already scheduled one Where: [address] [facility] [employer] [address] [place] [address]- [employer] (1) Medications What How Much When Instructions [...] Rhubarb. ? Beets. ? Potato chips and japanese fries. ? Nuts. ??? If you regularly take a diuretic medicine, make sure to eat at least 1???2 fruits or vegetables high in potassium each day. These include: ? Avocado. ? Banana. ? [place], prune, carrot, or tomato juice. ? Baked [...] Casseroles. Pizza. Lasagna. Frozen meals. Potato chips. Swedish fries. Summary ??? You can reduce your [...] provider. Document Revised: 11/15/2019 Document Reviewed: 07/06/2017 SpendCrowd Patient Education ?? 2020 SpendCrowd Inc. Kidney Stones Kidney stones are rock-like [...] these instructions at home: Medicines ??? Take skwl-dll-zpsaymr and prescription medicines only as told by [...] provider. Document Revised: 12/12/2019 Document Reviewed: 12/12/2019 SpendCrowd Patient Education ?? 2020 Interview Master. Urinary Tract Infection, Adult A urinary tract [...] these instructions at home: Medicines ??? Take zljz-gaf-urjmbhw and prescription medicines only as told by [...] provider. Document Revised: 07/13/2019 Document Reviewed: 2019 SpendCrowd Patient Education ?? 2020 Interview Master. Third Trimester of The third trimester is from week 28 through week 40 (months 7 through 9). This trimester is when your unborn baby (fetus) is growing very fast. At the end of the ninth month, the unborn baby is about 20 inches in length. It weighs about 6???10 pounds. Follow these instructions at home: Medicines ??? Take toej-bua-xfzeore and prescription medicines only as told by [...] provider. Document Revised: 11/16/2019 Document Reviewed: 08/31/2017 SpendCrowd Patient Education ?? 2020 SpendCrowd Inc. Emergency Awareness and Preventative Care STROKE [...] Assistance with quitting is available by contacting 0-141-OYMNSkypazNOW. This is a free resource providing counseling, support, and referral. Or you may contact your personal physician. Viyet Suicide Prevention Lifeline: The National Suicide Prevention [...] range between ( 1.0 and 7.0 ) Stanley #: 0.72 K/uL -- Normal range between ( 0.24 and 0.82 ) Eos #: 0.06 K/uL -- Normal range between ( 0.04 and 0.54 ) Stanley %: 7.0 % -- Normal range between [...] Squamous Epithelial Cells: 0-2 /HPF Urine Color: [place] Ur WBC: 5-10 /HPF Urine Ketones Dipstick: >=80 Urine pH Dipstick: 6.5 -- Normal range between ( 6.0 and 8.0 ) Urine Bilirubin Dipstick: Negative Urine Specific [place]: 1.010 -- Normal range between ( 1.005 [...] was given the opportunity to ask questions. Patient/Accounting Office Manager Name: Patient/Accounting Office Manager Signature: Relationship to Patient: Clinician/Hospital Accounting Office Manager Signature: Date: documented in this encounter Plan of Treatment Not on file documented as of this encounter Visit Diagnoses Not on filedocumented in this encounter Care Teams Director Of Market Research Relationship Specialty Start Date End Date Annette Alonzo MD [address] [place] [address] PCP - General Obstetrics and Gynecology 02/26/23 documented as of this encounter
--- OUTSIDE RECORDS SUMMARY | 2025-05-08 20:33 | XMS_ITS | Encounter Summary ---
Author Organization [employer] ([place], [place], [place], [place]) Address [address] [place] [address] Care Team Providers Care Telemetry Tech Name Role Phone Sylvia Alonzo MD Primary Care Provider [phone] Encounter Details Date Type Department Care Team (Late st Contact Info) Description 03/10/2021 Transcribed Document [facility] [place] [address] [place] [address] ProviderNorman MD [address], [place] [id number] Social History Tobacco Use Types Packs/Day Years [...] work with your health care provider or aviation consultant. ??? If you are not : [...] methods of control (contraception). Medicines ??? Take nqmy-dsd-hdxotcx and prescription medicines only as told by [...] provider. Document Revised: 07/29/2018 Document Reviewed: 05/09/2018 Zane Prep Patient Education ? 2020 PonoMusic. Choosing to breastfeed is one of the [...] or silent sucking, without causing you pain. Infant's lips should be extended outward (flanged). ??? [...] smacking lips, cooing, sighing, or squeaking. ??? Zrkh-xk-eszbq movements and sucking on fingers or hands. [...] able to be present during feedings. Your aviation consultant can help you find a method [...] contact your health care provider or a aviation consultant. Overall health care recommendations while ??? [...] provider before taking any medicines. These include rhva-bcm-kcyckbt and prescription medicines as well as vitamins [...] Talk with your health care provider or aviation consultant if you have questions or you face problems as you breastfeed. This information is not intended to replace advice given to you by your health care provider. Make sure you discuss any questions you have with your health care provider. Document Revised: 10/20/2018 Document Reviewed: 08/27/2017 Zane Prep Patient Education ? 2020 PonoMusic. documented in this encounter Plan of Treatment Not on file documented as of this encounter Visit Diagnoses Not on filedocumented in this encounter Care Teams Telemetry Tech Relationship Specialty Start Date End Date Sylvia Alonzo MD [address] [facility] [address] [place] [address] PCP - General Obstetrics and Gynecology 02/26/23 documented as of this encounter
--- OUTSIDE RECORDS SUMMARY | 2025-05-08 20:33 | XMS_ITS | Encounter Summary ---
Author Organization [employer] ([place], [place], [place], [place]) Address [address] [place] [address] Care Team Providers Care Jewelry Sales Coordinator Name Role Phone Sylvia Alonzo MD Primary Care Provider [phone] Encounter Details Date Type Department Care Team (Late st Contact Info) Description 03/09/2021 Transcribed Document [facility] [place] [address] [place] [address] ProviderNorman MD [address] [place], [place] [address] Social History Tobacco Use Types Packs/Day Years [...] 1 Health Plan: ANTHEM HMOPPO Policy Number: [id number] Authorization Number: Insurance Primary Name : ANTHEM HMOPPO Policy Number: [id number] Authorization Status-Primary : No precert required Authorization Number-Primary : Auto 2/4 Number of Days Authorized-Primary : 2 Day(s) Authorized Service Begin Date-Primary : 03/07/2021 EDT Authorized Service End Date-Primary : 03/09/2021 EDT Historical Authorization Comments-Primary : No Authorization Comments Found Gypsy Pate Rn-Utilization Review - 03/09/2021 8:52 EDT Electronically signed by Parris [facility] [employer] Founder And Chief Strategy Officer Cerner at 11/24/2022 11:54 AM CDT documented in this encounter Plan of Treatment Not on file documented as of this encounter Visit Diagnoses Not on filedocumented in this encounter Care Teams Jewelry Sales Coordinator Relationship Specialty Start Date End Date Sylvia Alonzo MD [address] [place] [address] [place] [address] PCP - General Obstetrics and Gynecology 02/26/23 documented as of this encounter
--- OUTSIDE RECORDS SUMMARY | 2025-05-08 20:33 | XMS_ITS | Encounter Summary ---
Author Organization [employer] ([place], [place], [place], [place]) Address [address] [facility] [facility] [place] [address] Care Team Providers Care Volunteer Services Coordinator Name Role Phone Sylvia Alonzo MD Primary Care Provider [phone] Encounter Details Date Type Department Care Team (Late st Contact Info) Description 05/23/2019 Transcribed Document [facility] [place] [address] ProviderNorman MD [address], [place] [id number] Social History Tobacco Use Types Packs/Day Years [...] taken to recovery room in good condition. /[id number] MD RACH Luevano/HEAVENLY / RACH / MODL /[id number] documented in this encounter Plan of Treatment Not on file documented as of this encounter Visit Diagnoses Not on filedocumented in this encounter Care Teams Volunteer Services Coordinator Relationship Specialty Start Date End Date Sylvia Alonzo MD [address] [place] [address] PCP - General Obstetrics and Gynecology 02/26/23 documented as of this encounter
--- OUTSIDE RECORDS SUMMARY | 2025-05-08 20:33 | XMS_ITS | Encounter Summary ---
Author Organization [employer] ([place], [place], [place], [place]) Address [address] [place] [address] Care Team Providers Care Head Waiter Name Role Phone Sylvia Alonzo MD Primary Care Provider [phone] Encounter Details Date Type Department Care Team (Late st Contact Info) Description 03/10/2021 Transcribed Document [facility] [place] [address] [place] [address] ProviderNorman MD [address] [place] [address] Social History Tobacco Use Types [...] 03/10/2021 6:03 EDT Electronically signed by Parris [facility] Conversion Die Tester Cerner at 11/24/2022 11:50 AM CDT documented in this encounter Plan of Treatment Not on file documented as of this encounter Visit Diagnoses Not on filedocumented in this encounter Care Teams Head Waiter Relationship Specialty Start Date End Date Sylvia Alonzo MD [address] [facility] [address] [place] [address] PCP - General Obstetrics and Gynecology 02/26/23 documented as of this encounter
--- OUTSIDE RECORDS SUMMARY | 2025-05-08 20:33 | XMS_ITS | Encounter Summary ---
Author Organization [employer] ([place], [place], [place], [place]) Address [address] [place] [address] Care Team Providers Care Cutter Out Name Role Phone Annette Alonzo MD Primary Care Provider [phone] Encounter Details Date Type Department Care Team (Late st Contact Info) Description 05/19/2019 Transcribed Document [facility] [place] [address] [place] [address] ProviderNorman MD [address] [place] [address] Social History Tobacco Use Types [...] Norman ProviderMD - 05/19/2019 3:18 PM CDT [place] [id number] VERÓNICA ALIYA JANETTE :1990 Visit Time:05/19/2019 What to do [...] month follow up appt Where: [address] [place] [phone] Medications What How Much When Instructions Next [...] including vitamins, herbs, eye drops, creams, and mvug-opd-bumwhvu medicines. This is especially important if you [...] 07/26/2006 Document Revised: 04/11/2017 Document Reviewed: 04/11/2017 ElseRadiate Media Interactive Patient Education ?? 2019 Bulzi Media Inc. Hysteroscopy, Care After This sheet gives [...] taking prescription pain medicines. Medicines ??? Take ykvs-lim-xcvkahw and prescription medicines only as told by [...] urine clear or pale yellow. ? Take ptuk-cpk-jlbctgf or prescription medicines. ? Eat foods that [...] 05/16/2014 Document Revised: 08/24/2017 Document Reviewed: 08/24/2017 Bulzi Media Interactive Patient Education ?? 2019 Bulzi Media Inc. Diagnostic Laparoscopy, Care After This sheet [...] these instructions at home: Medicines ??? Take nyty-mnb-bjvcsiy and prescription medicines only as told by [...] and water are not available, use hand registered nurse supervisor. ? Change your dressing as told by [...] keep your urine pale yellow. ? Take zlrq-rgk-nlxynou or prescription medicines. ? Eat foods that [...] 07/06/2016 Document Revised: 01/19/2018 Document Reviewed: 01/19/2018 Bulzi Media Interactive Patient Education ?? 2019 Bulzi Media Inc. General Anesthesia, Adult, Care After This [...] activities are safe for you. ??? Take lvvc-bxp-hzgfwmz and prescription medicines only as told by [...] 11/01/2001 Document Revised: 03/11/2018 Document Reviewed: 03/11/2018 Bulzi Media Interactive Patient Education ?? 2019 Quartzy. acetaminophen and oxycodone (a SEET a MIN [...] may report side effects to FDA at 9-159-OOC-9390. What other drugs will affect acetaminophen and [...] affect acetaminophen and oxycodone, including prescription and rlnj-dqn-ndykxty medicines, vitamins, and herbal products. Not all [...] to ensure that the information provided by [employer].com. ('Multum') is accurate, up-to-date, and complete, but no guarantee is made to that effect. Drug information contained herein may be time sensitive. Connected Data information has been compiled for use by healthcare practitioners and consumers in the [place] and therefore Conne[employer] Data does not warrant that uses outside of the [place] are appropriate, unless specifically indicated otherwise. GuestSpans drug information does not endorse drugs, diagnose patients or recommend therapy. Liquid Accounts drug information is an informational resource designed [...] effective or appropriate for any given patient. Conne[employer] does not assume any responsibility for any aspect of healthcare administered with the aid of information Conne[employer] Data provides. The information contained herein is not intended to cover all possible uses, directions, precautions, warnings, drug interactions, allergic reactions, or adverse effects. If you have questions about the drugs you are taking, check with your doctor, nurse or pharmacist. Copyright 5369-9766 [employer]. Version: 18.02. Revision Date: 07/06/2018. Emergency Awareness [...] Assistance with quitting is available by contacting 7-401-GTFE-NOW. This is a free resource providing counseling, [...] was given the opportunity to ask questions. Patient/Bag Loader Machine Operator Name: Patient/Bag Loader Machine Operator Signature: Relationship to Patient: Clinician/Hospital Bag Loader Machine Operator Signature: Date: Electronically signed by Parris [facility] Conversion Game Agent Cerner at 11/24/2022 11:49 AM CDT documented in this encounter Plan of Treatment Not on file documented as of this encounter Visit Diagnoses Not on filedocumented in this encounter Care Teams Cutter Out Relationship Specialty Start Date End Date Annette Alonzo MD [address] [employer] [place] [id number] PCP - General Obstetrics and Gynecology 02/26/23 documented as of this encounter
--- OUTSIDE RECORDS SUMMARY | 2025-05-08 20:33 | XMS_ITS | Encounter Summary ---
Author Organization [employer] ([place], [place], [place], [place]) Address [address] [place] [address] Care Team Providers Care Machine Shorthand Teacher Name Role Phone Sylvia Alonzo MD Primary Care Provider [phone] Encounter Details Date Type Department Care Team (Late st Contact Info) Description 03/10/2021 Transcribed Document [facility] [place] [address] [place] [address] ProviderNorman MD [address] [place], [place] [address] Social History Tobacco Use Types Packs/Day Years [...] on filedocumented in this encounter Care Teams Machine Shorthand Teacher Relationship Specialty Start Date End Date Sylvia Alonzo MD [address] [place] [address] PCP - General Obstetrics and Gynecology 02/26/23 documented as of this encounter
--- OUTSIDE RECORDS SUMMARY | 2025-05-08 20:33 | XMS_ITS | Encounter Summary ---
Author Organization [employer] ([place], [place], [place], [place]) Address [address] [place] [address] Care Team Providers Care Humanities Coordinator Name Role Phone Annette Alonzo MD Primary Care Provider [phone] Encounter Details Date Type Department Care Team (Late st Contact Info) Description 02/03/2021 Transcribed Document [facility] [place] Family Medicine [address] [place] [address] ProviderNorman MD [address] [place] [address] Social History Tobacco Use Types [...] Norman ProviderMD - 02/03/2021 11:42 [place] [address] VERÓNICAALIYA :1990 Visit Time:02/01/2021 Your Visit Summary [...] keep the already scheduled one Where: [address] [facility] [address] [place] [address]- [employer] (1) Medications What How Much When Instructions [...] Rhubarb. ? Beets. ? Potato chips and polish fries. ? Nuts. ??? If you regularly take a diuretic medicine, make sure to eat at least 1???2 fruits or vegetables high in potassium each day. These include: ? Avocado. ? Banana. ? Mark, prune, carrot, or tomato juice. ? Baked [...] Casseroles. Pizza. Lasagna. Frozen meals. Potato chips. Luxembourgish fries. Summary ??? You can reduce your [...] provider. Document Revised: 11/15/2019 Document Reviewed: 07/06/2017 [employer] Patient Education ?? 2020 [employer] Kidney Stones Kidney stones are rock-like [...] these instructions at home: Medicines ??? Take fvft-wfw-omktbhl and prescription medicines only as told by [...] provider. Document Revised: 12/12/2019 Document Reviewed: 12/12/2019 [employer] Patient Education ?? 2020 [employer]. Urinary Tract Infection, Adult A urinary tract [...] these instructions at home: Medicines ??? Take dbeo-ges-nlyvmts and prescription medicines only as told by [...] provider. Document Revised: 07/13/2019 Document Reviewed: 2019 [employer] Patient Education ?? 2020 [employer]. Third Trimester of The third trimester is from week 28 through week 40 (months 7 through 9). This trimester is when your unborn baby (fetus) is growing very fast. At the end of the ninth month, the unborn baby is about 20 inches in length. It weighs about 6???10 pounds. Follow these instructions at home: Medicines ??? Take nazn-idl-locqxnw and prescription medicines only as told by [...] provider. Document Revised: 11/16/2019 Document Reviewed: 08/31/2017 [employer] Patient Education ?? 2020 [employer] Emergency Awareness and Preventative Care STROKE [...] Assistance with quitting is available by contacting 2-649-RCPNLancopeNOW. This is a free resource providing counseling, support, and referral. Or you may contact your personal physician. [employer] Suicide Prevention Lifeline: The National Suicide Prevention [...] range between ( 1.0 and 7.0 ) Alfalfa #: 0.72 K/uL -- Normal range between ( 0.24 and 0.82 ) Eos #: 0.06 K/uL -- Normal range between ( 0.04 and 0.54 ) Alfalfa %: 7.0 % -- Normal range between [...] Squamous Epithelial Cells: 0-2 /HPF Urine Color: Mark Ur WBC: 5-10 /HPF Urine Ketones Dipstick: >=80 Urine pH Dipstick: 6.5 -- Normal range between ( 6.0 and 8.0 ) Urine Bilirubin Dipstick: Negative Urine Specific [place]: 1.010 -- Normal range between ( 1.005 [...] was given the opportunity to ask questions. Patient/Sluice Tender Name: Patient/Sluice Tender Signature: Relationship to Patient: Clinician/Hospital Sluice Tender Signature: Date: documented in this encounter Plan of Treatment Not on file documented as of this encounter Visit Diagnoses Not on filedocumented in this encounter Care Teams Humanities Coordinator Relationship Specialty Start Date End Date Annette Alonzo MD [address] [place] [address] PCP - General Obstetrics and Gynecology 02/26/23 documented as of this encounter
--- OUTSIDE RECORDS SUMMARY | 2025-05-08 20:33 | XMS_ITS | Encounter Summary ---
Author Organization [employer] ([place], [place], [place], [place]) Address [address] [place] [address] Care Team Providers Care Court Officer Name Role Phone Annette Alonzo MD Primary Care Provider [phone] Encounter Details Date Type Department Care Team (Late st Contact Info) Description 03/08/2021 Transcribed Document [facility] [place] [address] [place] [address] ProviderNorman MD [address] [place] [address] Social History Tobacco Use Types [...] Norman ProviderMD - 03/08/2021 4:11 PM CDT [facility] [address], [place] [address] Patient Copy Patient Information: Name: ALIYA SANCHES Current Date: 03/08/2021 16:11:57 : 1990 Patient Address: [address] [place] [address] [facility] [address] Patient Attending Physician: ANNETTE ALONZO MD-OBG Primary [...] Medication List: Other Medications multivitamin, ( 19 ([place])) Every Day. Patient Allergies: No Known Allergies [...] Assistance with quitting is available by contacting 1-546-RWLK-NOW. This is a free resource providing counseling, [...] Be sure to sign up for the [facility] patient portal, which gives you 24/ access to your medical information ??? including these discharge instructions ??? using your computer, smartphone, or tablet. Just go to [employer] to get started. Questions? Call . [facility] would like to thank you for allowing us to assist you with your healthcare needs. VERÓNICA Hall ERIN MARIE, (or passenger representative) have received the above patient education materials/instructions and have verbalized understanding: Patient Signature _ Date/Time Patient Coding Analyst Signature (if needed) Date/Time Clinician/Hospital Coding Analyst Signature (if needed) Date/Time Electronically signed by Parris, [facility] Conversion Reservoir Caretaker Cerner at 11/24/2022 11:55 AM CDT documented in this encounter Plan of Treatment Not on file documented as of this encounter Visit Diagnoses Not on filedocumented in this encounter Care Teams Court Officer Relationship Specialty Start Date End Date Annette Alonzo MD [address] [place] [address] PCP - General Obstetrics and Gynecology 02/26/23 documented as of this encounter
--- OUTSIDE RECORDS SUMMARY | 2025-05-08 20:33 | XMS_ITS | Encounter Summary ---
Author Organization [employer] ([place], [place], [place], [place]) Address [address] [place] [address] Care Team Providers Care Computing Consultant Name Role Phone Annette Alonzo MD Primary Care Provider [phone] Encounter Details Date Type Department Care Team (Late st Contact Info) Description 03/08/2021 Transcribed Document [facility] [place] [address] [place] [address] ProviderNorman MD [address] [place], [place] [address] Social History Tobacco Use Types Packs/Day Years Used Date Smoking Tobacco: Never Assessed Comments Unknown Sex and Gender Information Value Date Recorded Sex Assigned at Not on file Legal Sex Female 1:09 PM CDT Gender Identity Not on file Sexual Orientation Not on file documented as of this encounter Miscellaneous Notes * Cerner Conversion Note - Norman ProviderMD - 03/08/2021 7:31 PM CDT [facility] [address], [place] [address] Patient Copy Patient Information: Name: ALIYA SANCHES Current Date: 03/08/2021 19:31:26 : 1990 Patient Address: [address] [place] [address] [facility] [id number] Patient Attending Physician: ANNETTE ALONZO MD-OBG Primary [...] Medication List: Other Medications multivitamin, ( 19 ([place])) Every Day. Patient Allergies: No Known Allergies [...] Assistance with quitting is available by contacting 7-384-WTVZ-NOW. This is a free resource providing counseling, [...] Be sure to sign up for the [facility] patient portal, which gives you 24/ access to your medical information ??? including these discharge instructions ??? using your computer, smartphone, or tablet. Just go to [employer] to get started. Questions? Call . [facility] would like to thank you for allowing us to assist you with your healthcare needs. VERÓNICA Hall ERIN MARIE, (or it sales representative) have received the above patient education materials/instructions and have verbalized understanding: Patient Signature _ Date/Time Patient Exhibit Preparator Signature (if needed) Date/Time Clinician/Hospital Exhibit Preparator Signature (if needed) Date/Time Electronically signed by Interface, [facility] Conversion Main Line Station Engineer Cerner at 11/24/2022 12:09 PM CDT documented in this encounter Plan of Treatment Not on file documented as of this encounter Visit Diagnoses Not on filedocumented in this encounter Care Teams Computing Consultant Relationship Specialty Start Date End Date Annette Alonzo MD [address] [place] [address] PCP - General Obstetrics and Gynecology 02/26/23 documented as of this encounter
--- OUTSIDE RECORDS SUMMARY | 2025-05-08 20:33 | XMS_ITS | Encounter Summary ---
Author Organization [employer] ([place], [place], [place], [place]) Address [address] [place] [address] Care Team Providers Care Car Pusher Name Role Phone Sylvia Alonzo MD Primary Care Provider [phone] Encounter Details Date Type Department Care Team (Late st Contact Info) Description 03/10/2021 Transcribed Document [facility] [place] Family Medicine [address] [place] [address] ProviderNorman MD [address] [place], [place] [address] Social History Tobacco Use Types Packs/Day Years [...] signed by [facility] Conversion Trailer Truck Driver Cerner at 11/24/2022 11:56 AM CDT documented in this encounter Plan of Treatment Not on file documented as of this encounter Visit Diagnoses Not on filedocumented in this encounter Care Teams Car Pusher Relationship Specialty Start Date End Date Sylvia Alonzo MD [address] [place] [address] PCP - General Obstetrics and Gynecology 02/26/23 documented as of this encounter
--- OUTSIDE RECORDS SUMMARY | 2025-05-08 20:33 | XMS_ITS | Encounter Summary ---
Author Organization [employer] ([place], [place], [place], [place]) Address [address] [place] [address] Care Team Providers Care Song Writer Name Role Phone Annette Alonzo MD Primary Care Provider [phone] Encounter Details Date Type Department Care Team (Late st Contact Info) Description 02/03/2021 Transcribed Document [facility] [place] [address] [place] [address] ProviderNorman MD [address] [place] [address] Social History Tobacco Use Types [...] Norman ProviderMD - 02/03/2021 9:41 AM CDT [facility] [address], [place] [address] Patient Copy Patient Information: Name: ALIYA SANCHES Current Date: 02/03/2021 09:41:49 : 1990 Patient Address: [address] [place] [address] [facility] [address] Patient Attending Physician: ANNETTE ALONZO MD-OBG Primary Care Provider: ANNETTE ALONZO MD-OBG Primary Care Provider Discharge Diagnosis: 1:31 weeks gestation of ; 2:UTI (urinary tract infection) during ; 3:Kidney stone complicating ; 4:Right flank pain Weight on Admission: 162 lb, 0 oz Comment: Follow-up Instructions: With: Address: When: ANNETTE ALONZO [address], [address] [place] [address] Business (1) Within 2 to 3 days [...] Assistance with quitting is available by contacting 7-152-HVDA-NOW. This is a free resource providing counseling, [...] Be sure to sign up for the [employer] patient portal, which gives you 01/03 access to your medical information ??? including these discharge instructions ??? using your computer, smartphone, or tablet. Just go to [email or web address] to get started. Questions? Call . [facility] would like to thank you for allowing us to assist you with your healthcare needs. VERÓNICA Hall ERIN MARIE, (or retention representative) have received the above patient education materials/instructions and have verbalized understanding: Patient Signature _ Date/Time Patient Golf Club Head Inspector And Adjuster Signature (if needed) Date/Time Clinician/Hospital Golf Club Head Inspector And Adjuster Signature (if needed) Date/Time documented in this encounter Plan of Treatment Not on file documented as of this encounter Visit Diagnoses Not on filedocumented in this encounter Care Teams Song Writer Relationship Specialty Start Date End Date Annette Alonzo MD [address] [place] [address] PCP - General Obstetrics and Gynecology 02/26/23 documented as of this encounter
[2025-05-08 20:34] VITALS: BP 124/98; PULSE 106; RESP 20; TEMP 36.9; O2SAT 99; BMI 31.6
--- NOTE | 2025-05-08 21:34 | HMH.EDGENADL ---
Discharge Plan Disposition Patient Disposition: Home, Self-Care Prescriptions Prescriptions: New prednisone 20 mg tablet 20 mg PO BID 5 Days Qty: 10 0RF ondansetron 4 mg tablet,disintegrating 4 mg PO Q8H 5 Days Qty: 15 0RF No Action penicillin V potassium 500 mg tablet 500 mg PO BID 10 Days Qty: 20 0RF amitriptyline 50 mg tablet 50 mg PO DAILY Patient Comments: TAKE 1 TABLET BY MOUTH ONCE DAILY AT BEDTIME hydrochlorothiazide 12.5 mg tablet 12.5 mg PO DAILY Wegovy 0.25 mg/0.5 mL pen injector 0.25 mg SQ WEEKLY Rx Instructions: administer weeks 1 through 4 of therapy Referrals Follow up/Referrals: Elena Smith APRN [Nurse Practitioner, Ear, Nose, Throat] - See instructions Provider,Referral, [Primary Care Provider, Medical] - See instructions Activity Restrictions/Add. Instructions Additional Instructions/Restrictions: Increase fluids and rest. Take meds as directed. Continue your penicillin 1 twice a day. Clinical Impressions Clinical Impression: Strep throat, Elevated liver enzymes Instructions Patient Instructions: DI for Strep Throat Print Language Print Language: Samoan Discharge ED Provider: Arturo Castanon General Adult HPI <Kae Villarreal (ED), CONNOR - Last Filed: 05/08/25 22:08> General Chief complaint: Sore Throat Stated complaint: sore throat,swollen throat,vomiting Time Seen by Provider: 05/08/25 20:39 Mode of Arrival: Ambulatory Source of Information: Patient Description of Symptoms (Recalled from ER Triage Doc. by RN): Pt states she was dx with strep throat last week and now worse History of Present Illness HPI narrative: 35-year-old female presents to the ED today for complaint of sore throat, swollen, and she feels like her symptoms are worsening. She does not have a fever any longer. She has been taking penicillin twice a day for 3 days. She has some nausea as well. She just feels like she is getting worse and not better. She has been taken Tylenol and Motrin but the pain is not improving. She came in because she is not able to eat and drink as much. Related Data Home Medications ?Medication ?Instructions ?Recorded ?Confirmed amitriptyline 50 mg tablet 50 mg PO DAILY 03/08/25 05/06/25 hydrochlorothiazide 12.5 mg tablet 12.5 mg PO DAILY 03/08/25 05/06/25 semaglutide (weight loss) 0.25 0.25 mg SQ WEEKLY 03/28/25 05/06/25 mg/0.5 mL subcutaneous pen injector (Wegovy) Previous Rx's ?Medication ?Instructions ?Recorded penicillin V potassium 500 mg 500 mg PO BID 10 days #20 tabs 05/06/25 tablet ondansetron 4 mg disintegrating 4 mg PO Q8H 5 days #15 tabs 05/08/25 tablet prednisone 20 mg tablet 20 mg PO BID 5 days #10 tabs 05/08/25 Allergies Allergy/AdvReac Type Severity Reaction Status Date / Time No Known Allergies Allergy Verified 05/06/25 15:14 PFS <Kae Villarreal (ED), HYSTER MACHINE OPERATOR - Last Filed: 05/08/25 22:08> PFS Disclaimer: The information contained in this section may have been updated after the patient was seen, as this information can be updated by other users. Medical History (Updated 05/08/25 @ 23:05 by Arturo Castanon MD) Strep throat Sepsis Insulin resistance Metabolic acidosis History of anemia Urinary tract infection Kidney stone Migraine Surgical History History of laparoscopy History of endometrial ablation History of tubal ligation History of cholecystectomy Family History Father Colon cancer Other Cervical cancer Social History Smoking Status: Never smoker alcohol intake: never current occupational status: other Travel in the last 8 weeks?: None housing: house Have you lived/traveled outside US in past 30 days?: No Contact w/someone who lives/traveled outside US past 30 days?: No Exposure to someone with infectious disease in past 14 days?: No Do you have a fever (greater than 100.4 F or 38 C)?: No Have you tested positive for COVID-19?: No Exposed to someone with COVID-19 in past 14 days?: No Do you have a sore throat?: Yes Do you have a cough?: No Do you have any weakness?: No Do you have any diarrhea?: No Are you experiencing any unusual bleeding?: No Do you have any muscle aches/pain?: No Do you have any abdominal pain?: No Are you experiencing loss of taste or smell?: No Other Medical History Have you received the Flu Vaccine for this season: No Have you received the Pneumonia Vaccine: No <Kae Kilelana (ED), HYSTER MACHINE OPERATOR - Last Filed: 05/08/25 22:08> ROS Obtained: Yes Systems reviewed as appropriate & no additional complaints except as documented Constitutional Constitutional: Reports as per HPI Physical Exam <Kae Kilelana (ED), HYSTER MACHINE OPERATOR - Last Filed: 05/08/25 22:08> General General appearance: alert and in distress Head Head exam: normocephalic Eye Eye exam: Present PERRL and EOMI ENT ENT exam: Present mucous membranes moist and other (Erythema and white spots on bilateral tonsils) Neck Neck exam: Present full ROM, tenderness and lymphadenopathy Respiratory Respiratory exam: Present normal lung sounds bilaterally Cardiovascular Cardiovascular exam: Present normal rhythm, tachycardia, normal heart sounds, +S1 and +S2 Abdominal Exam Abdominal exam: Present soft and normal bowel sounds Extremities Exam Extremities exam: Present full ROM and normal capillary refill Neurological Exam Neurological exam: Present alert and oriented X3 Skin Skin exam: Present warm, dry and intact Medical Decision Making <Kae Jakeelana (ED), HYSTER MACHINE OPERATOR - Last Filed: 05/08/25 22:08> Medical Records Screening: Per USPSTF and CDC recommendations, given the prevalence of disease in our region, it is our hospital?s policy to screen for HIV and viral Hepatitis for all patients aged 18 and over and those with ongoing risk factors. Kali Inquiry Pt receiving controlled substance: No Kali was queried for this patient: No Vital Signs: 05/08/25 20:34 Temperature 98.4 F Temperature Source Oral Pulse Rate [Left Radial] 106 H Respiratory Rate 20 Blood Pressure [Left Arm] 124/98 H Blood Pressure Mean [Left Arm] 106 Blood Pressure Source [Left Arm] Automatic Cuff Blood Pressure Position [Left Arm] Sitting 02 Sat by Pulse Oximetry 99 Oxygen Delivery Method Room Air Lab Data Lab Results 05/08/25 21:31: WBC 11.9 H, RBC 5.12, Hgb 14.2, Hct 43.0, MCV 84.0, MCH 27.7, MCHC 33.0, RDW 13.5, Plt Count 390, MPV 9.7, Neut % (Auto) 69.5, Lymph % (Auto) 22.6, [place] % (Auto) 4.9, Eos % (Auto) 2.2, Baso % (Auto) 0.5, Neut # (Auto) 8.3 H, Lymph # (Auto) 2.7, [place] # (Auto) 0.6, Eos # (Auto) 0.3, Baso # (Auto) 0.1, Sodium 138, Potassium 4.2, Chloride 102, Carbon Dioxide 23, Anion Gap 17.2 H, BUN 7, Creatinine 0.80, Estimated Creat Clear 135, Estimated GFR 82, Est GFR ( Amer) 99, Glucose 92, Calcium 9.7, Magnesium 2.1, Total Bilirubin 0.6, AST 107 H, ALT 151 H, Alkaline Phosphatase 284 H, Total Protein 8.3 H, Albumin 4.5, Globulin 3.8 H, Albumin/Globulin Ratio 1.2 05/08/25 21:31 05/08/25 21:31 Orders (Tests/Meds): ED MEDICATIONS Generic Name Dose Route Start Last Admin Trade Name Freq PRN Reason Stop Dose Admin Ceftriaxone Sodium 2 gm/ 100 mls @ 200 mls/hr 05/08/25 21:00 05/08/25 22:47 Sodium Chloride IV 05/18/25 20:59 Infused Q24H GALLO Infusion Discontinued Medications Generic Name Dose Route Start Last Admin Trade Name Deanq PRN Reason Stop Dose Admin Dexamethasone Sodium Phosphate 8 mg 05/08/25 20:57 05/08/25 21:40 Dexamethasone 4mg/Ml 1ml Vial IV 05/08/25 20:58 8 mg ONCE ONE Administration Sodium Chloride 1,000 mls @ 999 mls/hr 05/08/25 20:57 05/08/25 23:02 Sod Chlor 0.9% 1000ml Bag IV 05/08/25 21:57 Infused .Q1H1M ONE Infusion Ketorolac Tromethamine 30 mg 05/08/25 20:57 05/08/25 21:42 Ketorolac 30mg/Ml Vial IV 05/08/25 20:58 30 mg ONCE ONE Administration Ondansetron HCl 4 mg 05/08/25 21:00 05/08/25 21:37 Ondansetron 4mg/2ml Vial IV 05/08/25 21:01 4 mg ONCE ONE Administration ORDERS Category Date Time Status CBC [Complete Blood Count Auto Diff] Stat Lab 05/08/25 21:31 Completed Comprehensive Metabolic Panel Stat Lab 05/08/25 21:31 Completed HIV Combo Routine Lab 05/08/25 21:31 Received Hepatitis C Ab Qual. W/ RFX Routine Lab 05/08/25 21:31 Received Magnesium Stat Lab 05/08/25 21:31 Completed Monoscreen (Rapid) Stat Lab 05/08/25 23:03 Ordered Medical Decision Narrative: patient is a 35-year-old female presenting to the emergency department for evaluation of sore throat, erythema to tonsils and feeling worse. Patient is hemodynamically stable and nontoxic-appearing upon arrival, afebrile. Differential diagnosis includes peritonsillar abscess, worsening strep throat,. Workup will be conducted with hematologic labs. I have considered imaging but at this time she looks like she just has some swelling and no peritonsillar abscess visible. Initial inventions include crystalloid bolus, analgesics. Will wait for blood work to return and give patient fluids. <Charles Pate MD - Last Filed: 05/08/25 22:47> Vital Signs: 05/08/25 20:34 Temperature 98.4 F Temperature Source Oral Pulse Rate [Left Radial] 106 H Respiratory Rate 20 Blood Pressure [Left Arm] 124/98 H Blood Pressure Mean [Left Arm] 106 Blood Pressure Source [Left Arm] Automatic Cuff Blood Pressure Position [Left Arm] Sitting 02 Sat by Pulse Oximetry 99 Oxygen Delivery Method Room Air Lab Data Lab Results 05/08/25 21:31: WBC 11.9 H, RBC 5.12, Hgb 14.2, Hct 43.0, MCV 84.0, MCH 27.7, MCHC 33.0, RDW 13.5, Plt Count 390, MPV 9.7, Neut % (Auto) 69.5, Lymph % (Auto) 22.6, [place] % (Auto) 4.9, Eos % (Auto) 2.2, Baso % (Auto) 0.5, Neut # (Auto) 8.3 H, Lymph # (Auto) 2.7, [place] # (Auto) 0.6, Eos # (Auto) 0.3, Baso # (Auto) 0.1, Sodium 138, Potassium 4.2, Chloride 102, Carbon Dioxide 23, Anion Gap 17.2 H, BUN 7, Creatinine 0.80, Estimated Creat Clear 135, Estimated GFR 82, Est GFR ( Amer) 99, Glucose 92, Calcium 9.7, Magnesium 2.1, Total Bilirubin 0.6, AST 107 H, ALT 151 H, Alkaline Phosphatase 284 H, Total Protein 8.3 H, Albumin 4.5, Globulin 3.8 H, Albumin/Globulin Ratio 1.2 Orders (Tests/Meds): ED MEDICATIONS Generic Name Dose Route Start Last Admin Trade Name Freq PRN Reason Stop Dose Admin Ceftriaxone Sodium 2 gm/ 100 mls @ 200 mls/hr 05/08/25 21:00 05/08/25 22:47 Sodium Chloride IV 05/18/25 20:59 Infused Q24H GALLO Infusion Discontinued Medications Generic Name Dose Route Start Last Admin Trade Name Freq PRN Reason Stop Dose Admin Dexamethasone Sodium Phosphate 8 mg 05/08/25 20:57 05/08/25 21:40 Dexamethasone 4mg/Ml 1ml Vial IV 05/08/25 20:58 8 mg ONCE ONE Administration Sodium Chloride 1,000 mls @ 999 mls/hr 05/08/25 20:57 05/08/25 23:02 Sod Chlor 0.9% 1000ml Bag IV 05/08/25 21:57 Infused .Q1H1M ONE Infusion Ketorolac Tromethamine 30 mg 05/08/25 20:57 05/08/25 21:42 Ketorolac 30mg/Ml Vial IV 05/08/25 20:58 30 mg ONCE ONE Administration Ondansetron HCl 4 mg 05/08/25 21:00 05/08/25 21:37 Ondansetron 4mg/2ml Vial IV 05/08/25 21:01 4 mg ONCE ONE Administration ORDERS Category Date Time Status CBC [Complete Blood Count Auto Diff] Stat Lab 05/08/25 21:31 Completed Comprehensive Metabolic Panel Stat Lab 05/08/25 21:31 Completed HIV Combo Routine Lab 05/08/25 21:31 Received Hepatitis C Ab Qual. W/ RFX Routine Lab 05/08/25 21:31 Received Magnesium Stat Lab 05/08/25 21:31 Completed Monoscreen (Rapid) Stat Lab 05/08/25 23:03 Ordered Medical Decision Narrative: patient is a 35-year-old female presenting to the emergency department for evaluation of sore throat, erythema to tonsils and feeling worse. Patient is hemodynamically stable and nontoxic-appearing upon arrival, afebrile. Differential diagnosis includes peritonsillar abscess, worsening strep throat,. Workup will be conducted with hematologic labs. I have considered imaging but at this time she looks like she just has some swelling and no peritonsillar abscess visible. Initial inventions include crystalloid bolus, analgesics. Will wait for blood work to return and give patient fluids. Charles Pate: I was consulted by the HONG, and we discussed the complexity of the problems being addressed. I approved the treatment and management plan for this patient's care in the emergency department, thus performing a substantive portion of the medical decision making. Repeat evaluation pending at time of transfer of care to the oncoming physician, Dr. Castanon. <Arturo Castanon MD - Last Filed: 05/08/25 23:08> Vital Signs: 05/08/25 20:34 Temperature 98.4 F Temperature Source Oral Pulse Rate [Left Radial] 106 H Respiratory Rate 20 Blood Pressure [Left Arm] 124/98 H Blood Pressure Mean [Left Arm] 106 Blood Pressure Source [Left Arm] Automatic Cuff Blood Pressure Position [Left Arm] Sitting 02 Sat by Pulse Oximetry 99 Oxygen Delivery Method Room Air Lab Data Lab Results 05/08/25 21:31: WBC 11.9 H, RBC 5.12, Hgb 14.2, Hct 43.0, MCV 84.0, MCH 27.7, MCHC 33.0, RDW 13.5, Plt Count 390, MPV 9.7, Neut % (Auto) 69.5, Lymph % (Auto) 22.6, [place] % (Auto) 4.9, Eos % (Auto) 2.2, Baso % (Auto) 0.5, Neut # (Auto) 8.3 H, Lymph # (Auto) 2.7, [place] # (Auto) 0.6, Eos # (Auto) 0.3, Baso # (Auto) 0.1, Sodium 138, Potassium 4.2, Chloride 102, Carbon Dioxide 23, Anion Gap 17.2 H, BUN 7, Creatinine 0.80, Estimated Creat Clear 135, Estimated GFR 82, Est GFR ( Amer) 99, Glucose 92, Calcium 9.7, Magnesium 2.1, Total Bilirubin 0.6, AST 107 H, ALT 151 H, Alkaline Phosphatase 284 H, Total Protein 8.3 H, Albumin 4.5, Globulin 3.8 H, Albumin/Globulin Ratio 1.2 Orders (Tests/Meds): ED MEDICATIONS Generic Name Dose Route Start Last Admin Trade Name Lucila PRN Reason Stop Dose Admin Ceftriaxone Sodium 2 gm/ 100 mls @ 200 mls/hr 05/08/25 21:00 05/08/25 22:47 Sodium Chloride IV 05/18/25 20:59 Infused Q24H GALLO Infusion Discontinued Medications Generic Name Dose Route Start Last Admin Trade Name Lucila PRN Reason Stop Dose Admin Dexamethasone Sodium Phosphate 8 mg 05/08/25 20:57 05/08/25 21:40 Dexamethasone 4mg/Ml 1ml Vial IV 05/08/25 20:58 8 mg ONCE ONE Administration Sodium Chloride 1,000 mls @ 999 mls/hr 05/08/25 20:57 05/08/25 23:02 Sod Chlor 0.9% 1000ml Bag IV 05/08/25 21:57 Infused .Q1H1M ONE Infusion Ketorolac Tromethamine 30 mg 05/08/25 20:57 05/08/25 21:42 Ketorolac 30mg/Ml Vial IV 05/08/25 20:58 30 mg ONCE ONE Administration Ondansetron HCl 4 mg 05/08/25 21:00 05/08/25 21:37 Ondansetron 4mg/2ml Vial IV 05/08/25 21:01 4 mg ONCE ONE Administration ORDERS Category Date Time Status CBC [Complete Blood Count Auto Diff] Stat Lab 05/08/25 21:31 Completed Comprehensive Metabolic Panel Stat Lab 05/08/25 21:31 Completed HIV Combo Routine Lab 05/08/25 21:31 Received Hepatitis C Ab Qual. W/ RFX Routine Lab 05/08/25 21:31 Received Magnesium Stat Lab 05/08/25 21:31 Completed Monoscreen (Rapid) Stat Lab 05/08/25 23:03 Ordered Medical Decision Narrative: patient is a 35-year-old female presenting to the emergency department for evaluation of sore throat, erythema to tonsils and feeling worse. Patient is hemodynamically stable and nontoxic-appearing upon arrival, afebrile. Differential diagnosis includes peritonsillar abscess, worsening strep throat,. Workup will be conducted with hematologic labs. I have considered imaging but at this time she looks like she just has some swelling and no peritonsillar abscess visible. Initial inventions include crystalloid bolus, analgesics. Will wait for blood work to return and give patient fluids. Charles Pate: I was consulted by the HONG, and we discussed the complexity of the problems being addressed. I approved the treatment and management plan for this patient's care in the emergency department, thus performing a substantive portion of the medical decision making. Repeat evaluation pending at time of transfer of care to the oncoming physician, Dr. Castanon. Kina FERRELL: I assumed care of the patient at the time of handoff from the prior provider. On reassessment patient reports symptomatic improvement. On my exam, no evidence of peritonsillar or retropharyngeal abscess. Her liver enzymes are mildly elevated on my independent interpretation of her labs. Given her worsening symptoms despite penicillin, it is possible that she has a concomitant viral infection that could be causing LFT elevation. Ordered a Monospot screening as well. She was discharged in stable condition. She has PCP follow-up for further assessment, I discussed her LFT elevation and she will have her labs reassessed. Critical Care <Kae Villarreal (ED), HYSTER MACHINE OPERATOR - Last Filed: 05/08/25 22:08> Critical Care Time Critical Care Time: No
[2025-05-08] MEDS: ONDANSETRON 4MG/2ML VIAL 4 MG IV (21:37)
[2025-05-08 21:39] LABS: Hematocrit 43.0 % (37.0-47.0); Hemoglobin 14.2 g/dL (12.2-16.2); Immature Granulocytes % 0.3 %; Mean Corpuscular HGB Conc 33.0 g/dL (31.8-35.4); Mean Corpuscular Hemoglobin 27.7 pg (27.0-31.2); Mean Corpuscular Volume 84.0 fl (81-99); Nucleated Red Blood Cells % 0 %; Platelet Count 390 K/mm3 (142-424); Red Blood Count 5.12 M/mm3 (4.20-5.40); Red Cell Distribution Width-SD 41.8 fL; White Blood Count 11.9 K/mm3 (4.8-10.8)
[2025-05-08] MEDS: DEXAMETHASONE 4MG/ML 1ML VIAL 8 MG IV (21:40)
[2025-05-08] MEDS: KETOROLAC 30MG/ML VIAL 30 MG IV (21:42)
[2025-05-08 22:01] LABS: Alanine Aminotransferase 151 U/L (12-78); Albumin Level 4.5 g/dl (3.5-5.0); Albumin/Globulin Ratio 1.2 (1.1-1.8); Alkaline Phosphatase 284 U/L (38-126); Anion Gap 17.2 mEq/L (5-15); Aspartate Amino Transferase 107 U/L (14-36); Bilirubin,Total 0.6 mg/dl (0.2-1.3); Blood Urea Nitrogen 7 mg/dl (7-17); Calcium 9.7 mg/dl (8.4-10.2); Carbon Dioxide 23 mmol/L (22.0-30.0); Chloride 102 mmol/L (98-107); Creatinine Clearance Estimated 135 mL/min (50-200); Creatinine,Serum 0.80 mg/dl (0.52-1.04); Estimated Glomerular Filt Rate 82 ml/min (>60); GFR (African American) 99 ML/MIN (>60); Globulin 3.8 g/dL (1.3-3.2); Glucose 92 mg/dl (74-100); Magnesium 2.1 mg/dl (1.6-2.3); Potassium 4.2 mmoL/L (3.5-5.1); Sodium 138 mmol/L (136-145); Total Protein,Serum 8.3 g/dl (6.3-8.2)
[2025-05-08] MEDS: 0.9 % SODIUM CHLORIDE 1000ML 1,000 ML 999 ML IV (22:06)
[2025-05-08 23:09] VITALS: BP 120/80; PULSE 102; RESP 20; TEMP 36.9; O2SAT 100
[2025-05-08 23:23] LABS: Monoscreen (Rapid) Positive (Negative)
[2025-05-08 23:31] LABS: Hepatitis C Ab Qual. W/ RFX NEGATIVE (Negative)
== END 2025-05-08 23:10 | disposition home or self-care (01) ==
PROVIDERS: Emergency Medicine; Nurse Practitioner; Emergency Provider Emergency Medicine
DX: J02.0 Streptococcal pharyngitis (principal); B27.90 Infectious mononucleosis, unspecified without complication; R11.0 Nausea; R74.01 Elevation of levels of liver transaminase levels
CPT/HCPCS: 80053; 83735; 85025; 86318; 86803; 87389; 96365; 96375; 99283; 99284; J0696; J1100; J1885; J2405; J7030

== ENCOUNTER 2025-06-01 11:02 | Outpatient (CLI) | payer BC, SELFPAY ==
[2025-06-01 07:36] VITALS: BMI 30.9
--- OUTSIDE RECORDS SUMMARY | 2025-06-01 11:17 | XMS_ITS | Encounter Summary ---
Author Organization [employer] ([place], [place], [place], [place]) Address [address] [place] [address] Care Team Providers Care Fisher Spear Name Role Phone Sylvia Alonzo MD Primary Care Provider [phone] Encounter Details Date Type Department Care Team (Late st Contact Info) Description 05/19/2019 Transcribed Document [facility] [place] Family Medicine [address] [place] [address] ProviderNorman MD [address] [place], [place] [id number] Social History Tobacco Use Types Packs/Day Years [...] Source : Stated Height Entry Format : [place] Height, Feet : 5 ft(Converted to: 152 cm, 60 Inch) Height, Inches : 5 Inch(Converted to: 0 ft 5 Inch, 12.70 cm) Clinical Height : 165.1 cm Weight Source : Standing scale Weight Entry Format : [place] Clinical Dosing Weight : 61.36 kg Weight, Pounds : 135 lb Body Surface Area (BSA) : 1.68 m2 Body Mass Index : 22.5 kg/m2 [place] Body Weight : 57 kg aNthaly Moon RN - 05/19/2019 10:21 EDT Health Histories Smoking Status : Never (less than 100 in lifetime; none in last 30 days) Smokeless Tobacco Status : Never Nathaly Moon RN - 05/19/2019 10:21 EDT Social History (As Of: 05/19/2019 10:26:50 EDT) Tobacco: Smoking Status Never smoker. (Last Updated: 04/08/2014 15:21:23 EDT by SOFIE MENSAH, UX DESIGN LEAD-[facility]) Alcohol: Use in Last 12 Months: No. (Last Updated: 04/08/2014 15:21:30 EDT by SOFIE MENSAH, UX DESIGN LEAD-[facility]) Substance Abuse: Drug Use Hx: No. Use in Last 12 Months: No. (Last Updated: 04/08/2014 15:21:27 EDT by SOFIE MENSAH, UX DESIGN LEAD-[facility]) Infectious Disease History Infectious Disease [...] #2 Relationship : . Primary Language : Chilean Communication Barrier : None Nathaly Moon RN [...] on filedocumented in this encounter Care Teams Fisher Spear Relationship Specialty Start Date End Date Sylvia Alonzo MD [address] [facility] [address] [place] [address] PCP - General Obstetrics and Gynecology 02/26/23 documented as of this encounter
--- OUTSIDE RECORDS SUMMARY | 2025-06-01 11:18 | XMS_ITS | Encounter Summary ---
Author Organization [employer] ([place], [place], [place], [place]) Address [address] [place] [address] Care Team Providers Care General Utility Worker Name Role Phone Annette Alonzo MD Primary Care Provider [phone] Encounter Details Date Type Department Care Team (Late st Contact Info) Description 03/08/2021 Transcribed Document [facility] [place] Family Medicine [address] [place] [address] ProviderNorman MD [address] [place], [place] [id number] Social History Tobacco Use Types Packs/Day Years Used Date Smoking Tobacco: Never Assessed Comments Unknown Sex and Gender Information Value Date Recorded Sex Assigned at Not on file Legal Sex Female 1:09 PM CDT Gender Identity Not on file Sexual Orientation Not on file documented as of this encounter Miscellaneous Notes * Cerner Conversion Note - Norman ProviderMD - 03/08/2021 7:[address] [facility] [address], [place] [address] Patient Copy Patient Information: Name: ALIYA SANCHES Current Date: 03/08/2021 19:31:26 : 1990 Patient Address: [address] [place] [address] [facility] [address] Patient Attending Physician: ANNETTE ALONZO MD-OBG Primary [...] Medication List: Other Medications multivitamin, ( 19 (Roxana)) Every Day. Patient Allergies: No Known Allergies [...] Assistance with quitting is available by contacting [phone]-HMTH-NOW. This is a free resource providing counseling, [...] Be sure to sign up for the [facility] patient portal, which gives you 24/ access to your medical information ??? including these discharge instructions ??? using your computer, smartphone, or tablet. Just go to [employer] to get started. Questions? Call . [facility] would like to thank you for allowing us to assist you with your healthcare needs. VERÓNICA Hall ERIN MARIE, (or quality assurance representative) have received the above patient education materials/instructions and have verbalized understanding: Patient Signature _ Date/Time Patient Sintering Plant Supervisor Signature (if needed) Date/Time Clinician/Hospital Sintering Plant Supervisor Signature (if needed) Date/Time Electronically signed by Interface, [facility] Conversion Fugitive Detective Cerner at 11/24/2022 12:09 PM CDT documented in this encounter Plan of Treatment Not on file documented as of this encounter Visit Diagnoses Not on filedocumented in this encounter Care Teams General Utility Worker Relationship Specialty Start Date End Date Annette Alonzo MD [address] [place] [address] PCP - General Obstetrics and Gynecology 02/26/23 documented as of this encounter
--- OUTSIDE RECORDS SUMMARY | 2025-06-01 11:18 | XMS_ITS | Encounter Summary ---
Author Organization [employer] ([place], [place], [place], [place]) Address [address] [place] [address] Care Team Providers Care Belt Turner Name Role Phone Sylvia Alonzo MD Primary Care Provider [phone] Encounter Details Date Type Department Care Team (Late st Contact Info) Description 03/08/2021 Transcribed Document [facility] [place] Family Medicine [facility] [place] [address] ProviderNorman MD [address], [place] [id number] Social History Tobacco Use Types Packs/Day Years [...] delivered intact and uterus was explored afterwards. Infant, female. Complications, none. Episiotomy was repaired with 2-0 Monocryl suture, a single suture that was run in subcuticular and then internal layer, reinforcing the perineal body. The patient was stable afterwards so was the baby kangaroo care was performed. /[id number] MD [facility]/HEAVENLY / RACH / MODL /[id number] Electronically signed by Parris, [facility] Conversion Compressor Station Engineer Chief Cerner at 11/24/2022 11:59 AM CDT documented in this encounter Plan of Treatment Not on file documented as of this encounter Visit Diagnoses Not on filedocumented in this encounter Care Teams Belt Turner Relationship Specialty Start Date End Date Sylvia Alonzo MD [address] [place] [address] PCP - General Obstetrics and Gynecology 02/26/23 documented as of this encounter
--- OUTSIDE RECORDS SUMMARY | 2025-06-01 11:18 | XMS_ITS | Encounter Summary ---
Author Organization [employer] ([place], [place], [place], [place]) Address [address] [facility] [place] [address] Care Team Providers Care Automobile Parker Name Role Phone Sylvia Alonzo MD Primary Care Provider [phone] Encounter Details Date Type Department Care Team (Late st Contact Info) Description 02/03/2021 Transcribed Document [facility] [place] Family Medicine [address] [place] [address] ProviderNorman MD [address], [place] [id number] Social History Tobacco Use Types Packs/Day Years [...] On: 02/03/2021 11:37 EDT by TOMÁS EL, valve and regulator repairer Documentation Patient Disposition, General : Discharge Discharge [...] on filedocumented in this encounter Care Teams Automobile Parker Relationship Specialty Start Date End Date Sylvia Alonzo MD [address] [place] [address] PCP - General Obstetrics and Gynecology 02/26/23 documented as of this encounter
--- OUTSIDE RECORDS SUMMARY | 2025-06-01 11:18 | XMS_ITS | Encounter Summary ---
Author Organization [employer] ([place], [place], [place], [place]) Address [address] [place] [address] Care Team Providers Care Tailer Out Name Role Phone Sylvia Alonzo MD Primary Care Provider [phone] Encounter Details Date Type Department Care Team (Late st Contact Info) Description 05/23/2019 Transcribed Document [facility] [place] [address] Norman Valera MD [address], [place] [id number] Social History Tobacco Use Types Packs/Day Years [...] Sylvia Alonzo M.D. Electronically signed by [facility] Conversion Server Security Administrator [employer] at 11/24/2022 12:03 PM CDT documented in this encounter Plan of Treatment Not on file documented as of this encounter Visit Diagnoses Not on filedocumented in this encounter Care Teams Tailer Out Relationship Specialty Start Date End Date Sylvia Alonzo MD [address] [facility] [address] [place] [address] PCP - General Obstetrics and Gynecology 02/26/23 documented as of this encounter
--- OUTSIDE RECORDS SUMMARY | 2025-06-01 11:18 | XMS_ITS | Encounter Summary ---
Author Organization [employer] ([place], [place], [place], [place]) Address [address] [place] [address] Care Team Providers Care Upward Bound Director Name Role Phone Sylvia Alonzo MD Primary Care Provider [phone] Encounter Details Date Type Department Care Team (Late st Contact Info) Description 03/08/2021 Transcribed Document [facility] [place] [address] [place] [address] ProviderNorman MD [address] [place], [place] [address] Social History Tobacco Use Types Packs/Day Years [...] on filedocumented in this encounter Care Teams Upward Bound Director Relationship Specialty Start Date End Date Sylvia Alonzo MD [address] [place] [address] PCP - General Obstetrics and Gynecology 02/26/23 documented as of this encounter
--- OUTSIDE RECORDS SUMMARY | 2025-06-01 11:18 | XMS_ITS | Encounter Summary ---
Author Organization [employer] ([place], [place], [place], [place]) Address [address] [place] [address] Care Team Providers Care Precision Inspector Name Role Phone Annette Alonzo MD Primary Care Provider [phone] Encounter Details Date Type Department Care Team (Late st Contact Info) Description 02/03/2021 Transcribed Document [facility] [place] [address] [place] [address] ProviderNorman MD [address] [place] [address] Social History Tobacco Use Types [...] Norman ProviderMD - 02/03/2021 9:41 AM CDT [facility] [address], [place] [address] Patient Copy Patient Information: Name: ALIYA SANCHES Current Date: 02/03/2021 09:41:49 : 1990 Patient Address: [address] [place] [address] [facility] [id number] Patient Attending Physician: ANNETTE ALONZO MD-OBG Primary Care Provider: ANNETTE ALONZO MD-OBG Primary Care Provider Discharge Diagnosis: 1:31 weeks gestation of ; 2:UTI (urinary tract infection) during ; 3:Kidney stone complicating ; 4:Right flank pain Weight on Admission: 162 lb, 0 oz Comment: Follow-up Instructions: With: Address: When: ANNETTE ALONZO [address] [place] [address] Business (1) Within 2 to 3 days [...] Assistance with quitting is available by contacting 6-789-XIAQ-NOW. This is a free resource providing counseling, [...] Be sure to sign up for the [employer] patient portal, which gives you 01/03 access to your medical information ??? including these discharge instructions ??? using your computer, smartphone, or tablet. Just go to [employer] to get started. Questions? Call . [facility] would like to thank you for allowing us to assist you with your healthcare needs. VERÓNICA Hall ERIN MARIE, (or retail representative) have received the above patient education materials/instructions and have verbalized understanding: Patient Signature _ Date/Time Patient Card Lacer Signature (if needed) Date/Time Clinician/Hospital Card Lacer Signature (if needed) Date/Time documented in this encounter Plan of Treatment Not on file documented as of this encounter Visit Diagnoses Not on filedocumented in this encounter Care Teams Precision Inspector Relationship Specialty Start Date End Date Annette Alonzo MD [address] [place] [address] PCP - General Obstetrics and Gynecology 02/26/23 documented as of this encounter
--- OUTSIDE RECORDS SUMMARY | 2025-06-01 11:18 | XMS_ITS | Encounter Summary ---
Author Organization [employer] ([place], [place], [place], [place]) Address [address] [place] [address] Care Team Providers Care Hotel Services Supervisor Name Role Phone Sylvia Alonzo MD Primary Care Provider [phone] Encounter Details Date Type Department Care Team (Late st Contact Info) Description 03/10/2021 Transcribed Document [facility] [place] [address] [place] [address] ProviderNorman MD [address], [place] [address] Social History Tobacco Use Types Packs/Day Years [...] on filedocumented in this encounter Care Teams Hotel Services Supervisor Relationship Specialty Start Date End Date Sylvia Alonzo MD [address] [place] [address] PCP - General Obstetrics and Gynecology 02/26/23 documented as of this encounter
--- OUTSIDE RECORDS SUMMARY | 2025-06-01 11:18 | XMS_ITS | Data Portability ---
Author Organization [facility] telehealth Address [address] [place] [address] Assessment Encounter Date Assessment Date Assessment LastModified [...] HPI. Meds reviewed and accurate. Pleasant mood. Not available 02/28/2024 13:22:59 03/14/2024 03/14/2024 33 [...] has noticed improvement in fatigue. [facility] She is doing [...] HPI. Meds reviewed and accurate. Pleasant mood. Not available 07/03/2024 13:38:10 Plan of Treatment Reminders Order Date Submit Date Provider Last Modified By Organization Details Last Modified Time Details Appointments None recorded. Lab vitamin D, 25-hydroxy, total, serum 2023 024 A[facility]URN [facility] ([facility]), [address] [place] [address], [address], 4 07:33:31 estradiol, serum 2023 024 [facility] ([facility]), [address] [place], [address], 4 07:33:32 dhea-sulfat e, serum 2023 024 PRAKASH [facility] ([facility]), [address] [place] [address], [address], 4 07:33:33 testosteron e, total, serum 2023 024 PRAKASH [facility] ([facility]), [address] [place] [address], [address], 4 07:33:32 CBC w/ auto diff 2023 024 PRAKASH [facility] ([facility]), [address] [place] [address], [address], 4 10:25:28 HbA1c (hemoglobin A1c), blood 2023 024 PRAKASH [facility] ([facility]), [address] [place] [address], [address], 4 10:25:32 TSH, serum or plasma 2023 024 PRAKASH [facility] ([facility]), [address] [place] [address], [address], 4 10:25:32 CMP, serum or plasma 2023 024 PRAKASH [facility] ([facility]), [address] [place] [address], [address], 4 10:25:29 pap, LB 2023 024 PRAKASH [facility] ([facility]), [address] [place] [address], [address], 4 15:36:22 vitamin B12, serum 2023 024 [facility] ([facility]), [address] [place], [address], 4 10:25:31 vitamin D, 25-hydroxy, total, serum 2023 024 [facility]), [address] [place] [address], [address], 4 10:25:29 genetic screen, unspecified specimen 2023 AUBURN [employer], [address], [place], [address], 4 18:34:26 lh + FSH, serum 2023 [facility]), [address] [place] [address], [address], 4 10:25:28 testosteron e, total, serum 2023 [facility]), [address] [place] [address], [address], 4 10:25:30 Referral None recorded. Procedures None recorded. Surgeries None recorded. Imaging None recorded. Medication Orders Cleocin T 1 % lotion 2023 [facility], [address], [address], 4 11:52:11 Myfembree 40 mg-1 mg-0.5 mg tablet 2023 [facility], [address], [address], 4 14:06:07 metformin ER 500 mg tablet,exte nded release 24 hr 2023 024 PRAKASH [facility], [address], [address], 13:13:25 Patient TargetsNo targets recorded. Patient InstructionsNo [...] enopa use 7.7 - 58.5 Not Available [facility] ([facility]) [address] [place] [address] Dr Wilkinson, [place], [address], 03/01/2024 10:25:28 02/28/20 24 02/29/2024 FSH AND LH FSH 5.09 mIU/m L FSH Refer ence Range Men: 1.5 - 12.4 Women : Folli cular phase 3.5 - 12.5 Ovula tion phase 4.7 - 21.5 Lutea l phase 1.7 - 7.7 Postm enopa use 25.8 - 134.8 Not Available [facility] ([facility]) [address] [place] [address] Dr Wilkinson, [place], [address], 03/01/2024 10:25:28 02/28/20 24 02/29/2024 CBC WITH PLATE LET AND DIFFE RENTI AL WBC 4.5 K/uL 3.8-11 .5 Not Available [facility] ([facility]) [address] [place] [address] Dr Wilkinson, [place], [address], 03/01/2024 10:25:28 02/28/20 24 02/29/2024 CBC WITH PLATE LET AND DIFFE RENTI AL red blood cell count (RBC) 4.72 M/mm3 3.60-5 .30 Not Available [facility] ([facility]) [address] [place] [address] Dr Wilkinson, [place], [address], 03/01/2024 10:25:28 02/28/20 24 02/29/2024 CBC WITH PLATE LET AND DIFFE RENTI AL hemoglobin (HGB) 12.9 gm/dL 11.5-1 5.5 Not Available [facility] ([facility]) [address] [place] [address] Dr Wilkinson, [place], [address], 03/01/2024 10:25:28 02/28/20 24 02/29/2024 CBC WITH PLATE LET AND DIFFE RENTI AL hematocrit (HCT) 40.0 % 35.2-4 6.4 Not Available [facility] ([facility]) [address] [place] [address] Dr Wilkinson, [place], [address], 03/01/2024 10:25:28 02/28/20 24 02/29/2024 CBC WITH PLATE LET AND DIFFE RENTI AL MCV 84.7 fL 79.0-9 9.0 Not Available [facility] ([facility]) [address] [place] [address] Dr Wilkinson, [place], [address], 03/01/2024 10:25:28 02/28/20 24 02/29/2024 CBC WITH PLATE LET AND DIFFE RENTI AL MCH 27.3 pg 26.9-3 5.0 Not Available [facility] ([facility]) [address] [place] [address] Dr Wilkinson, [place], [address], 03/01/2024 10:25:28 02/28/20 24 02/29/2024 CBC WITH PLATE LET AND DIFFE RENTI AL MCHC 32.3 g/dL 30.4-3 4.8 Not Available [facility] ([facility]) [address] [place] [address] Dr Wilkinson, [place], [address], 03/01/2024 10:25:28 02/28/20 24 02/29/2024 CBC WITH PLATE LET AND DIFFE RENTI AL RDW 42.4 fL 38.6-5 3.8 Not Available [facility] ([facility]) [address] [place] [address] Dr Wilkinson, [place], [address], 03/01/2024 10:25:28 02/28/20 24 02/29/2024 CBC WITH PLATE LET AND DIFFE RENTI AL platelet count 392 K/cum m 137-39 7 Not Available [facility] ([facility]) [address] [place] [address] Dr Wilkinson, [place], [address], 03/01/2024 10:25:28 02/28/20 24 02/29/2024 CBC WITH PLATE LET AND DIFFE RENTI AL neutrophils automated 48.6 % 41.0-7 7.0 Not Available [facility] ([facility]) [address] [place] [address] Dr Wilkinson, [place], [address], 03/01/2024 10:25:28 02/28/20 24 02/29/2024 CBC WITH PLATE LET AND DIFFE RENTI AL lymphocytes automated 39.2 % 14.0-4 8.0 Not Available [facility] ([facility]) [address] [place] [address] Dr Wilkinson, [place], [address], 03/01/2024 10:25:28 02/28/20 24 02/29/2024 CBC WITH PLATE LET AND DIFFE RENTI AL monocytes automated 7.0 % 4.0-13 .0 Not Available [facility] ([facility]) [address] [place] [address] Dr Wilkinson, [place], [address], 03/01/2024 10:25:28 02/28/20 24 02/29/2024 CBC WITH PLATE LET AND DIFFE RENTI AL eosinophils automated 3.4 % 0.0-8. 0 Not Available [facility] ([facility]) [address] [place] [address] Dr Wilkinson, [place], [address], 03/01/2024 10:25:28 02/28/20 24 02/29/2024 CBC WITH PLATE LET AND DIFFE RENTI AL basophils automated 1.6 % 0.0-1. 5 high Not Available [facility] ([facility]) [address] [place] [address] Dr Wilkinson, [place], [address], 03/01/2024 10:25:28 02/28/20 24 02/29/2024 CBC WITH PLATE LET AND DIFFE RENTI AL immature granulocyte automated 0.2 % 0.0-1. 0 Not Available [facility] ([facility]) [address] [place] [address] Dr Wilkinson, [place], [address], 03/01/2024 10:25:28 02/28/20 24 02/29/2024 COMPR EHENS KAELYN METAB OLIC PANEL (CMP) sodium 138 mmol/ L 135-14 5 Not Available [facility] ([facility]) [address] [place] [address] Dr Wilkinson, [place], [address], 03/01/2024 10:25:29 02/28/20 24 02/29/2024 COMPR EHENS KAELYN METAB OLIC PANEL (CMP) potassium 5.1 mmol/ L 3.5-5. 3 Not Available [facility] ([facility]) [address] [place] [address] Dr Wilkinson, [place], [address], 03/01/2024 10:25:29 02/28/20 24 02/29/2024 COMPR EHENS KAELYN METAB OLIC PANEL (CMP) chloride 107 mmol/ L 97-108 Not Available [facility] ([facility]) [address] [place] [address] Dr Wilkinson, [place], [address], 03/01/2024 10:25:29 02/28/20 24 02/29/2024 COMPR EHENS KAELYN METAB OLIC PANEL (CMP) CO2 24 mmol/ L 22-32 Not Available [facility] ([facility]) [address] [place] [address] Dr Wilkinson, [place], [address], 03/01/2024 10:25:29 02/28/20 24 02/29/2024 COMPR EHENS KAELYN METAB OLIC PANEL (CMP) glucose 100 mg/dL 65-99 high Not Available [facility] ([facility]) [address] [place] [address] Dr Wilkinson, [place], [address], 03/01/2024 10:25:29 02/28/20 24 02/29/2024 COMPR EHENS KAELYN METAB OLIC PANEL (CMP) BUN 9 mg/dL 6-20 Not Available [facility] ([facility]) [address] [place] [address] Dr Wilkinson, [place], [address], 03/01/2024 10:25:29 02/28/20 24 02/29/2024 COMPR EHENS KAELYN METAB OLIC PANEL (CMP) creatinine 0.73 mg/dL 0.50-1 .00 Not Available [facility] ([facility]) [address] [place] [address] Dr Wilkinson, [place], [address], 03/01/2024 10:25:29 02/28/20 24 02/29/2024 COMPR EHENS KAELYN METAB OLIC PANEL (CMP) calcium 9.5 mg/dL 8.6-10 .4 Not Available [facility] ([facility]) [address] [place] [address] Dr Wilkinson, [place], [address], 03/01/2024 10:25:29 02/28/20 24 02/29/2024 COMPR EHENS KAELYN METAB OLIC PANEL (CMP) eGFR by creatinine 111 mL/mi n/1.7 3m2 >59 Not Available [facility] ([facility]) [address] [place] [address] Dr Wilkinson, [place], [address], 03/01/2024 10:25:29 02/28/20 24 02/29/2024 COMPR EHENS KAELYN METAB OLIC PANEL (CMP) protein 7.4 g/dL 6.0-8. 3 Not Available [facility] ([facility]) [address] [place] [address] Dr Wilkinson, [place], [address], 03/01/2024 10:25:29 02/28/20 24 02/29/2024 COMPR EHENS KAELYN METAB OLIC PANEL (CMP) albumin 4.8 g/dL 3.5-5. 3 Not Available [facility] ([facility]) [address] [place] [address] Dr Wilkinson, [place], [address], 03/01/2024 10:25:29 02/28/20 24 02/29/2024 COMPR EHENS KAELYN METAB OLIC PANEL (CMP) alkaline phosphatase 83 IU/L 35-121 Not Available [facility] ([facility]) [address] [place] [address] Dr Wilkinson, [place], [address], 03/01/2024 10:25:29 02/28/20 24 02/29/2024 COMPR EHENS KAELYN METAB OLIC PANEL (CMP) ALT (SGPT) 12 IU/L <5-47 Not Available [facility] ([facility]) [address] [place] [address] Dr Wilkinson, [place], [address], 03/01/2024 10:25:29 02/28/20 24 02/29/2024 COMPR EHENS KAELYN METAB OLIC PANEL (CMP) AST (SGOT) 18 IU/L <5-40 Not Available [facility] ([facility]) [address] [place] [address] Dr Wilkinson, [place], [address], 03/01/2024 10:25:29 02/28/20 24 02/29/2024 COMPR EHENS KAELYN METAB OLIC PANEL (CMP) bilirubin, total 0.2 mg/dL <0.2-1 .2 Not Available [facility] [address] [place] [address] Dr Wilkinson, [place], [address], 03/01/2024 10:25:29 02/28/20 24 02/29/2024 COMPR EHENS KAELYN METAB OLIC PANEL (CMP) A/G ratio 1.8 mg/dL 1.1-2. 5 Not Available [facility]) [address] [place] [address] Wilkinson, [place], [address], 03/01/2024 10:25:29 02/28/20 24 02/29/2024 VITAM IN [...] corre latio n requi red. Not Available [facility]) [address] [place] [address]kinson, [place], [address], 03/01/2024 10:25:29 02/28/20 24 02/29/2024 TESTO STERO NE TOTAL testosterone total SEE BELOW NG/dL 8.00-4 8.00 The resul t is outsi de of the repor table range for this metho dolog y. Pleas e refer to Testo stero ne , Total by LC/MS for the resul t. Not Available [facility]) [address] [place] [address]kinson, [place], [address], 03/01/2024 10:25:30 02/28/20 24 03/01/2024 TESTO STERO [...] ional or for resea rch. Not Available [facility] ([facility] [employer]) [address] [facility] [address] Wilkinson, [place], [address], 03/01/2024 10:25:31 02/28/20 24 02/29/2024 VITAM IN B12 vitamin B12 1043 pg/mL 232-12 45 Not Available [facility] ([facility] [employer]) [address] [facility] [address] Wilkinson, [place], [address], 03/01/2024 10:25:31 02/28/20 24 02/29/2024 HEMOG LOBIN [...] ic <5.7% Non-D iabet ic Not Available [facility] ([facility] [employer]) [address] [facility] [address] Wilkinson, [place], [address], 03/01/2024 10:25:32 02/28/20 24 02/29/2024 HEMOG LOBIN A1C estimated average glucose 108 mg/dL F[place] ge Gluco se is calcu lated using the equat ion AG = (28.7 x HgbA1 c) - 46.7 based on the guide lines estab gladis alaniz by the ADA. Not Available [facility] ([facility]) [address]kinson, [place], [address], 03/01/2024 10:25:32 02/28/20 24 02/29/2024 TSH TSH 1.96 mU/L 0.43-5 .25 Not Available [facility]) [address], [place], [address], 03/01/2024 10:25:32 02/28/20 24 03/01/2024 PAP TEST [...] logis ts, LLC, d/b/a [facility], [address] [place] [address] Zoya kingston MD, [facility]. Case revie wed and diagn osis rende red at [facility]o logis [employer], [employer], d/b/a [facility], [address] [place] [address] Zoya kingston MD, [facility]. CONFI DENTI AL Not Available [facility] ([facility]) [address]kinson, [place], [address], 03/01/2024 15:36:22 02/28/20 24 02/29/2024 HPV HIGH [...] and labor atory findi ngs. See https ://Fittr/s ites/ defau lt/fi les/2 018-0 3/AW- 26471 _002_ 01.pd f for furth er infor matxena n. Test perfo rmed by [facility] iated Patho log[facility] [employer], [employer] d/b/a [facility], [address], [place] [address] , Lizzie Brown ra, DO, [facility], CLIA# [id number] Not Available [facility] ([facility]) [address], [place], [address], 03/01/2024 15:36:23 02/28/20 24 02/28/2024 EMPOW ER [...] [facility] [address], [place], [address], 03/10/2024 18:34:26 02/28/20 24 02/28/2024 EMPOW ER COMPR EHENS KAELYN (2+79 ) footnotes See Notes CLIA: ID #[id number] 2 Test perfo rmed by [facility]. [address] [address] French Ferguson, Ph.D. , [facility] , Labor atory Direc tor Not Available [facility] [address], [place], [address], 03/10/2024 18:34:26 04/07/20 24 04/08/2024 VITAM IN [...] [facility]) [address], [place], [address], 04/08/2024 07:33:31 04/07/20 24 04/08/2024 TESTO STERO NE TOTAL testosterone total 66.70 NG/dL 8.00-4 8.00 high Not Available [facility] ([facility]) [address], [place], [address], 04/08/2024 07:33:32 04/07/20 24 04/08/2024 ESTRA DIOL estradiol 42 pg/mL Estra diol Refer ence Range Healt hy women Folli cular phase 12.4 - 233 Ovula tion phase 41.0 - 398 Lutea l phase 22.3 - 341 Postm enopa use <5 - 138 Healt hy pregn ant women 1st trime ster 154 - 3243 2nd trime ster 1561 - 45933 3rd trime ster 8525 - >3000 0 Not Available [facility]) [address], [place], [address], 04/08/2024 07:33:32 04/07/20 24 04/08/2024 DHEA- SULFA TE DHEA-sulfate 115 ug/dL 99-340 Not Available [facility] ([facility]) [address], [place], [address], 04/08/2024 07:33:33 Result Notes None recorded. Problems Name Problem SNOMED Code Status Onset Date Resolution Date Notes Provider Name and Address Organization Details Recorded Time Pain 55187870 Active 2013 (780.96) - C - GENERALI ZED PAIN; Problem Title: Generali zed pain Not Available [facility] 2 23:33:54 Procedur e by method Active 2013 (V25.09) - C - OTH GEN CNSL&ADV ICE CNTRACPT MGMT; Problem Title: General counseli ng and advice on contrace ptive manageme nt Not Available [facility] 2 23:33:54 At risk - finding [id number] Active 2013 (V72.31) - C - ROUTINE GYNECOLO GICAL EXAMINAT ION; Problem Title: Well female exam with routine gynecolo gical exam Not Available [facility] 2 23:33:51 [facility] [id number] 4106 Active 2015 (V22.1) - C - SUPERVIS ION OTHER NORMAL PREGNANC Y; Problem Title: Supervis ion of other normal pregnanc y Not Available [facility] 2 23:33:53 Postpart um care Active 2017 (V24.2) - C - ROUTINE POSTPART UM FOLLOW-U P; Problem Title: Routine postpart um follow-u p Not Available [facility] 2 23:33:53 Antenata l ultrasou nd finding 062219499 Active 2020 (V72.40) - C - PREGNANC Y EXAM/MIMA T PG UNCONFIR MED; Problem Title: Pregnanc y examinat ion or test, pregnanc y unconfir med Not Available [facility] 2 23:33:53 Endometr iosis of pelvis 50599570 Active [address] [facility], [place], [address] , [facility] 2 19:37:00 Polycyst ic ovary syndrome 474228307 Active [address] [facility], [place], [address] , [facility] 2 19:37:07 Uterine prolapse in pregnanc y 19788932257 782280 Active 2021 [facility] 2 10:40:38 Dysuria 53546148 Active 2021 [facility] 2 11:28:08 Morning sickness 01699684 Active 2021 [facility] 2 11:33:24 Pregnanc y 30487542 Completed 202102/02/[address], [place], [address] , [facility] 3 14:09:43 Placenta l abruptio n 408812601 Active 2021 [facility] 2 12:04:04 Pain in round ligament in pregnanc y 98997951460 365699 Active 2021 [facility] 2 09:35:45 Polyhydr amnios 26207001 Active 2021 [facility] 2 10:52:14 Irregula r periods 17448596 Active [address] [facility], [place], [address] , [facility] 4 13:15:08 Deep pain on intercou rse 349725737 Active [address] [facility], [place], [address] , [facility] 4 13:15:12 Pain in pelvis 62541884 Active 2023 [facility] 4 13:28:52 Bacteria l vaginosi s 392659108 Active 2023 [facility] 4 11:57:33 Vitamin D deficien cy 93974346 Active [address] [facility], [place], [address] , [facility] 4 11:37:27 Acne 03827108 Active [address], [place], [address] , [facility] 4 11:42:19 Reduced libido 7565691 Active [address], [place], [address] , [facility] 4 13:34:36 Fatigue 32605811 Active [address], [place], [address] , [facility] 4 13:34:44 Problem Notes None recorded. Procedures Surgical History Date Name Laterality Status Provider Name and Address Organization Details Recorded Time 03/14/20 24 Non-OB ULS completed MD Lavinia [address], [place], [address], [facility] 03/14/2024 13:57:39 02/28/20 24 Date of Last Pap Smear completed [facility] 02/28/2024 09:21:46 04/20/20 23 Non-OB ULS completed MD Lavin[address], [place], [address], [facility] 04/20/2023 16:38:24 04/20/20 23 Hemostasis completed MD [address], [place], [address], [facility] 04/20/2023 16:41:46 02/03/20 23 Non-OB ULS completed MD [address], [place], [address], [facility] 2023 14:28:47 12/27/19 22 Obstetrical Care completed Kathe [facility] 12/26/2021 12:03:33 05/19/20 19 laparoscopy completed Celina [facility] 04/20/2023 16:05:19 08/09/19 10 Colonoscopy completed [facility] 04/20/2023 16:02:37 cholecystectomy completed MD [address], [place], [address], [facility] 11/27/2021 19:35:13 Hysteroscopy [...] uterine contract ions.; Drug Identifi cation Code: 032802 F ree Text SIG: Terbutal ine Sulfate 2.5mg, 1 Tablet(s ) Q4-6H # 30, 04/06/20 13, No Refill. Inactive Not Available Not Available Not Available clindamyc in HCl 300 mg capsule 08/24 completed Days To Take: 7 #ofRef ills: 0 Drug Identifi cation Code: 441502 F ree Text SIG: Clindamy salazar HCl 300MG, 1 (one) Capsule two times daily # 14, 08/17/19 20, No Refill. Inactive Not Available Not Available Not Available ampicilli n 500 mg capsule 04/02 completed Days To Take: 3 #ofRef ills: 0 Drug Identifi cation Code: 519013 F ree Text SIG: Ampicill in 500MG, 1 (one) Capsule four times daily # 12, 03/30/20 16, No Refill. Inactive Not Available Not Available Not Available ondansetr on HCl 4 mg tablet 06/07 completed Days To Take: 30 #ofRe fills: 45 Drug Identifi cation Code: 027677 F ree Text SIG: Ondanset efra HCl 4MG, 1 (one) Tablet every 8 hours as needed # 45, 05/04/20 17, Ref. x1. Active Not Available Not Available Not Available Macrobid 100 mg capsule 06/28 completed Days To Take: 5 #ofRef ills: 0 Drug Identifi cation Code: 538331 F ree Text SIG: Macrobid 100MG, 1 Capsule( s) BID # 10, 06/23/20 19, No Refill. Inactive Not Available Not Available Not Available Zofran 8 mg tablet 11/19 completed Days To Take: 10 #ofRe fills: 30 Comme nts: Take one every 8 hours.; Drug Identifi cation Code: 280290 F ree Text SIG: Zofran 8mg, 1 Tablet(s ) Q6-8H # 30, 10/12/19 13, Ref. x3. Inactive Not Available Not Available Not Available Loestrin 08/28 (21) 1 mg-20 mcg tablet 05/06 completed Days To Take: 30 #ofRe fills: 30 Drug Identifi cation Code: 228336 F ree Text SIG: Loestrin 08/28 (21) [...] 3 days Elijah kingston Identifi cation Code: 403408 F ree Text SIG: Diflucan 200MG, 1 (one) Tablet daily # 2, 08/17/19 20, No Refill. Inactive Not Available Not Available Not Available Ambien 5 mg tablet 12/13 completed Days To Take: 30 #ofRe fills: 0 Drug Identifi cation Code: 023708 F ree Text SIG: Ambien 5MG, 1 [...] new ring Elijah kingston Identifi cation Code: 422617 F ree Text SIG: NuvaRing 0.12-0.0 15MG/24H R, 1 (one) Ring use as directed per instruct ions in pack # 3, 08/15/19 20, Ref. x3. Active Not Available Not Available Not Available Viri 0.35 mg tablet 02/02 completed Days To Take: 30 #ofRe fills: 1 Drug Identifi cation Code: 142821 F ree Text SIG: Viri 0.35MG, 1 [...] #ofRef ills: 0 Drug Identifi cation Code: 953699 F ree Text SIG: Gynazole -1 2%, [...] Updated DateTime 02/28/2024 165.1 cm 26.5 kg/m2 33281.62 g 130/82 mm[Hg] [facility] 02/28/2024 09:19:57 Date Recorded Body height Body mass index (BMI) Body weight Systolic And Diastolic Provider Name and Address Organization Details Last Updated DateTime 03/14/2024 165.1 cm 26.9 kg/m2 35021.53 g 122/74 mm[Hg] Lizzette [facility] 03/14/2024 13:29:19 Date Recorded Body height Body mass index (BMI) Body weight Systolic And Diastolic Provider Name and Address Organization Details Last Updated DateTime 04/07/2024 165.1 cm 26.6 kg/m2 69949.78 g 124/78 mm[Hg] Lizzette [facility] 04/07/2024 10:44:12 Date Recorded Body height Body mass index (BMI) Body weight Provider Name and Address Organization Details Last Updated DateTime 04/20/2023 165.1 cm 27.3 kg/m2 82248.87 g [facility]ina [facility] 04/20/2023 16:00:49 Social History Question Answer Notes LastModified by [employer] Details LastModified Time Tobacco Smoking Status Never Smoker FR[facility]CA [facility]no [facility] 02/13/2022 11:22:34 Do You Use Protection During Sex? No [email or web address] Information not available 2023 What Is Your Relationship Status? Information not available 02/13/2022 Are You Sexually Active? Yes [email or web address] Information not available 02/13/2022 Do You Have Any Future Plans To Get ? No, I Don't Want To Become [email or web address] Information not available 02/13/2022 Sex: Unknown Functional Status Question Answer Note LastModified by [employer] Details LastModified Time Do you use any illicit or recreational drugs? No [email or web address] Information not available 02/13/2022 Do you or have you ever used any other forms of tobacco or nicotine? No [email or web address] Information not available 02/13/2022 What is your level of alcohol consumption? None [email or web address] Information not available 02/13/2022 Mental Status None [...] Not available 2021 19:34:33 Maternal Aunt Malignant neoplasm of breast [email or web address] Not available 2021 19:34:54 [...] Diagnosis Note 536 KLEBER Harris MD [address] [place] [address] 11/28/2021 10:36:48 11/28/2021 12:45:21 test positive 162496650 Z32.01 Dysuria 76191037 R30.9 Morning sickness 9533106 6 O21.9 1374 KLEBER Harris MD [address] [place] [address] 12/26/2021 10:55:38 12/26/2021 12:57:44 Routine care 459708884 Z34.90 Dysuria 97166430 O26.899 Placental abruption 4151 82180 O45.92 1380 KLEBER Mejia MD [address] [place] [address] 5 01/16/2022 13:42:58 01/16/2022 14:07:15 Routine care 083791161 Z34.90 Dysuria 33770783 O26.899 2403 KLEBER Harris MD [address] [place] [address] 5 02/13/2022 11:15:06 02/13/2022 11:40:29 Routine care 235096057 Z34.90 Dysuria 99942398 O26.899 2982 KLEBER Harris MD [address] [place] [address] 5 03/17/2022 08:53:38 03/17/2022 09:37:06 Routine care 546340125 Z34.90 Dysuria 21271753 O26.899 Pain in ro und ligament in 4301226266 6636993 O26.899 3536 KLEBER Harris MD [address] [place] [address] 5 04/10/2022 09:47:34 04/10/2022 10:34:41 Routine care 450945434 Z34.90 Dysuria 88278381 O26.899 Polyhydramnios 15488556 O40.2XX0 37681 KLEBER Harris MD [address] [place] [address] 5 04/24/2022 10:41:10 04/24/2022 11:28:56 Routine care 125300749 Z34.90 Dysuria 78662993 O26.899 86141 KLEBER Harris MD [address] [place] [address] 5 05/08/2022 11:23:44 05/08/2022 11:57:08 Routine care 559459312 Z34.90 Dysuria 23586372 O26.899 81708 KLEBER Mejia MD [address] [place] [address] 05/22/2022 09:09:18 05/25/2022 10:14:08 Routine care 227115579 Z34.90 85570 KLEBER Harris MD [address] [place] [address] 07/14/2022 10:56:07 07/14/2022 11:17:22 Contraception care management 418191384 Z30.9 state 7549914 1 Z39.2 64858 MD SYLVIA Rodriguez MD [address] [place] [address] 2023 13:08:17 2023 14:47:47 Menorrhagia 264853934 N92.0 Polycystic ovary syndrome 232681241 E28.2 Vaginal discharge 601032 006 N89.8 will culture via PCL Dysmenorrhea 258502538 N 94.6 Dyspareunia 00110677 N94 .10 Pain in pelvis 61882451 R10.2 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 Uterovaginal prolapse 18 394399 N81.4 Pre-surger y evaluation 831442620 Z01.818 07614 KLEBER Harris MD [address] [place] [address] 03/25/2023 15:17:46 03/25/2023 16:08:30 Postoperative visit 368581882 Z09 05879 MD SYLVIA Rodriguez MD [address] [place] [address] 04/20/2023 15:50:21 04/20/2023 16:51:31 Abdominal pain 90273796 R10.9 Vaginal discharge 617601 006 N89.8 will culture via PCL 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 Uterovaginal prolapse 18 592640 N81.4 first degree Acute cervicitis 4678343 0 N72 Patient ad vised about weight management 092163698 Z71.3 99862 MARK Coker MD [address] [place] [address] 02/28/2024 09:01:53 02/28/2024 14:36:38 Routine gynecologic examination done 2647858603 9101 Z01.419 Polycystic ovary syndrome 291311442 E28.2 Family his tory of breast cancer 636326620 Z80.3 Family his tory of cancer of colon 891858681 Z80.0 Family his tory of malignant neoplasm of ovary 194812265 Z80.41 Immunization advised 310 792746 Z71.9 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 Deep pain on intercourse 671028006 N94.12 Irregular periods 521614 07 N92.6 30338 MD SYLVIA Rodriguez MD [address] [place] [address] 5 03/14/2024 13:18:45 03/14/2024 14:11:00 Pain in pelvis 36766639 R10.2 Dyspareunia 94167069 N94 .12 Retroflexed uterus 69820 007 N85.4 First degr ee uterine prolapse 72065305 N81.2 Uterine adenomyosis 7843 58000 N80.03 Endometrio sis of pelvis 39465438 N80.02 49870 MARK Coker MD [address] [place] [address] 04/07/2024 10:37:03 04/07/2024 12:12:31 Hormone replacement therapy 310029797 Z79.890 Vitamin D deficiency 347 62325 E55.9 Acne 39703190 L70.9 08121 MARK Coker MD [address] [place] [address] 07/03/2024 09:05:27 07/03/2024 14:09:46 Hormone replacement therapy 664159286 Z79.890 Reduced libido 7081680 R 68.82 Fatigue 32592561 R53.83 Health Concerns Section Related Observation LastModified by Organization Detai ls LastModified Time None Recorded Concern Status LastModified by Organization Details LastModified Time None Recorded Advance Directives Directive None Recorded Payers Insurance Date Sequence Insurance Name Policy Number Policy Fields Covered Member ID Fields Member ID Guarantor Name 09/29/2024 1 [place] [id number] Fab Cohen [id number] 06/14/2022 PAYMENT PLAN 12/26/2021 PAYMENT PLAN 12/26/2021 PAYMENT PLAN Notes Date Note Type Note Provider Name and Address Organization Details Recorded Time 04/20/2023 text/html Pt here for abnormal vaginal discharge. Pt reports bright yellow gel-like discharge. She is not experiencing pain, feels some aches and tenderness. Pt has stopped bleeding since her surgery. MD Lavinia Rodriguez Dr [facility], [place], [address], [facility] 04/20/2023 16:47:50 02/28/2024 text/html Annual GYNReport ed by PatientReports inconsistent LLQ cramping, LLQ bloating, dyspareunia, and irregular menses [address], [place], [address], [facility] 02/28/2024 13:26:17 03/14/2024 [...] is here for MD [address], [place], [address], [facility] 03/14/2024 14:10:32 04/07/2024 text/html ROS as noted in the HPI HRT management - reports facial acne Carmel Cook PA-C [address], [place], [address], [facility] 04/07/2024 11:54:50 07/03/2024 text/html ROS as noted in the [facility] HRT cream - reports low energy, low libido Carmel Cook PA-C [address], [place], [address], [facility] 07/03/2024 13:38:18 OBGyn Episode Ob Episode Information Episode Created Date Number of Fetuses Patient Bloodtype Patient rh Status Prepregnancy Weight lbs Domestic Partner Domestic Partner Phone Father Name Cmm Inspector Status 12/27/19 22 1 CLOSED Fetus Data [...] Weight in lbs Pre/Post Dialysis Refused Weight 155.631670162570 BP Diastolic BP Location Tested BP Systolic [...] Weight in lbs Pre/Post Dialysis Refused Weight 153.569402618788 BP Diastolic BP Location Tested BP Systolic [...] in lbs Pre/Post Dialysis Refused With clothes 158.335617198151 BP Diastolic BP Location Tested BP Systolic [...] in lbs Pre/Post Dialysis Refused With clothes 157.991330103732 BP Diastolic BP Location Tested BP Systolic [...] in lbs Pre/Post Dialysis Refused With clothes 160.441369846643 BP Diastolic BP Location Tested BP Systolic [...] in lbs Pre/Post Dialysis Refused With clothes 162.842899891111 BP Diastolic BP Location Tested BP Systolic [...] in lbs Pre/Post Dialysis Refused With clothes 159.447628492560 BP Diastolic BP Location Tested BP Systolic [...] in lbs Pre/Post Dialysis Refused With clothes 142.881148057890 BP Diastolic BP Location Tested BP Systolic BP Type 70 L arm 122 sitting Fetus Heart Rate Present Fetus Movement Comments Flowsheet Date 2023 Joshi Score Blood Edema Fundus Height Fundus Units Glucose Ketones Leukocytes Nitrite Labor Signs Protein Cervic Dilation Cervic Effacement Cervic Station Type Weight in lbs Pre/Post Dialysis Refused With clothes 169.457531924719 BP Diastolic BP Location Tested BP Systolic [...]
--- OUTSIDE RECORDS SUMMARY | 2025-06-01 11:18 | XMS_ITS | Encounter Summary ---
Author Organization [employer] ([place], [place], [place], [place]) Address [address] [place] [address] Care Team Providers Care Cryptoanalysis Teacher Name Role Phone Sylvia Alonzo MD Primary Care Provider [phone] Encounter Details Date Type Department Care Team (Late st Contact Info) Description 2021 Transcribed Document [facility] [place] Family Medicine [address] [place] [address] ProviderNorman MD [address] [place] [address] Social History Tobacco Use Types [...] Source : Measured Height Entry Format : Dewitt Height, Feet : 5 ft(Converted to: 152 cm, 60 Inch) Clinical Height : 165.1 cm Height, Inches : 5 Inch(Converted to: 0 ft 5 Inch, 12.70 cm) Weight Source : Bed scale Weight Entry Format : Dewitt Weight, Pounds : 162 lb Clinical Dosing Weight : 73.64 kg Body Surface Area (BSA) : 1.81 m2 Body Mass Index : 27 kg/m2 (HI) Lott Body Weight (IBW) : 56.59 kg Sandie [...] None Sandie Martini - 2021 5:15 EDT Spencer Suicide Severity Rating Scale (C-SSRS) CSSRS Past [...] on filedocumented in this encounter Care Teams Cryptoanalysis Teacher Relationship Specialty Start Date End Date Sylvia Alonzo MD [address] [place] [address] [place] [address] PCP - General Obstetrics and Gynecology 02/26/23 documented as of this encounter
--- OUTSIDE RECORDS SUMMARY | 2025-06-01 11:18 | XMS_ITS | Referral Summary ---
Author Organization [employer] ([place], [place], [place], [place]) Address [address] [place] [address] Care Team Providers Care Order Processing Clerk Name Role Phone Sylvia Alonzo MD Primary Care Provider [phone] Allergies No known active allergies Medications metFORMIN [...] Date Gray rded Speak language other than Venezuelan at home Not on file 08/27/2023 Want [...] on file Medical Devices Implanted Type Area Bus Matron Device Identifier Shelf Expiration Date Model / Serial / Lot Biodfence G3 3x6cm [id number] - [id number] Implanted:Qty : 1 on 02/26/2023 by Sylvia Alonzo MD at [facility] IMPLANTS N/A: Pelvis [employer] 12/15/2027 [id number] / / [id number] Insurance BLUE CROSS/BLUE SHIELD BLUE CROSS/BLUE SHIELD Advance Directives For more information, please contact: [phone] * Full Code (Latest Code Status on File) Date Activated Date Inactivated Comments 02/26/2023 10:51 AM 02/26/2023 4:39 PM * Full Code Date Activated Date Inactivated Comments 02/26/2023 9:24 AM 02/26/2023 10:51 AM Care Teams Order Processing Clerk Relationship Specialty Start Date End Date Sylvia Alonzo MD [address] [place] [address] PCP - General Obstetrics and Gynecology 02/26/23
--- OUTSIDE RECORDS SUMMARY | 2025-06-01 11:18 | XMS_ITS | Encounter Summary ---
Author Organization [employer] ([place], [place], [place], [place]) Address [address] [place] [address] Care Team Providers Care Mail Carrier Name Role Phone Sylvia Alonzo MD Primary Care Provider [phone] Encounter Details Date Type Department Care Team (Late st Contact Info) Description 02/03/2021 Transcribed Document [facility] [place] [address] [place] [address] ProviderNorman MD [address] [place] [address] Social History Tobacco Use Types [...] these instructions at home: Medicines ??? Take yutw-hvs-itislci and prescription medicines only as told by [...] provider. Document Revised: 07/13/2019 Document Reviewed: 2019 [employer] Patient Education ? 2020 [employer]. Third Trimester of The third trimester is from week 28 through week 40 (months 7 through 9). This trimester is when your unborn baby (fetus) is growing very fast. At the end of the ninth month, the unborn baby is about 20 inches in length. It weighs about 6?10 pounds. Follow these instructions at home: Medicines ??? Take znbg-jtm-diwuezm and prescription medicines only as told by [...] provider. Document Revised: 11/16/2019 Document Reviewed: 08/31/2017 [employer] Patient Education ? 2020 [employer] Urology Dietary Guidelines to Help Prevent [...] Rhubarb. ? Beets. ? Potato chips and telugu fries. ? Nuts. ??? If you regularly take a diuretic medicine, make sure to eat at least 1?2 fruits or vegetables high in potassium each day. These include: ? Avocado. ? Banana. ? [place], prune, carrot, or tomato juice. ? Baked [...] Casseroles. Pizza. Lasagna. Frozen meals. Potato chips. Mohawk fries. Summary ??? You can reduce your [...] provider. Document Revised: 11/15/2019 Document Reviewed: 07/06/2017 [employer] Patient Education ? 2020 [employer]. Kidney Stones Kidney stones are rock-like masses [...] these instructions at home: Medicines ??? Take eajg-ggw-azxazxr and prescription medicines only as told by [...] provider. Document Revised: 12/12/2019 Document Reviewed: 12/12/2019 [employer] Patient Education ? 2020 [employer] Electronically signed by Jessica Nye Conversion Director Electrical Engineering [employer] at 11/24/2022 11:46 AM CDT documented in this encounter Plan of Treatment Not on file documented as of this encounter Visit Diagnoses Not on filedocumented in this encounter Care Teams Mail Carrier Relationship Specialty Start Date End Date Sylvia Alonzo MD [address] [facility] [address] [place] [address] PCP - General Obstetrics and Gynecology 02/26/23 documented as of this encounter
--- OUTSIDE RECORDS SUMMARY | 2025-06-01 11:18 | XMS_ITS | Encounter Summary ---
Author Organization [employer] ([place], [place], [place], [place]) Address [address] [place] [address] Care Team Providers Care Frame Builder Name Role Phone Annette Alonzo MD Primary Care Provider [phone] Encounter Details Date Type Department Care Team (Late st Contact Info) Description 03/08/2021 Transcribed Document [facility] Family Medicine [address] [place] [address] ProviderNorman MD [address] [place] [address] Social History Tobacco Use [...] Norman ProviderMD - 03/08/2021 4:11 PM CDT [facility] [address], [place] [address] Patient Copy Patient Information: Name: ALIYA SANCHES Current Date: 03/08/2021 16:11:57 : 1990 Patient Address: [address] [place] [address] [facility] [address] Patient Attending Physician: ANNETTE ALONZO MD-OBG Primary [...] Medication List: Other Medications multivitamin, ( 19 ([place])) Every Day. Patient Allergies: No Known Allergies [...] Assistance with quitting is available by contacting [phone]. This is a free resource providing counseling, [...] Be sure to sign up for the [facility] patient portal, which gives you 24/ access to your medical information ??? including these discharge instructions ??? using your computer, smartphone, or tablet. Just go to [employer] to get started. Questions? Call . [facility] would like to thank you for allowing us to assist you with your healthcare needs. VERÓNICA Hall ERIN MARIE, (or sales representative door to door) have received the above patient education materials/instructions and have verbalized understanding: Patient Signature _ Date/Time Patient Operator Control Room Signature (if needed) Date/Time Clinician/Hospital Operator Control Room Signature (if needed) Date/Time Electronically signed by Parris, [facility] Conversion Lever Operator Cerner at 11/24/2022 11:55 AM CDT documented in this encounter Plan of Treatment Not on file documented as of this encounter Visit Diagnoses Not on filedocumented in this encounter Care Teams Frame Builder Relationship Specialty Start Date End Date Annette Alonzo MD [address] [place] [address] PCP - General Obstetrics and Gynecology 02/26/23 documented as of this encounter
--- OUTSIDE RECORDS SUMMARY | 2025-06-01 11:18 | XMS_ITS | Encounter Summary ---
Author Organization [employer] ([place], [place], [place], [place]) Address [address] [place] [address] Care Team Providers Care Porter Used Car Lot Name Role Phone Sylvia Alonzo MD Primary Care Provider [phone] Encounter Details Date Type Department Care Team (Late st Contact Info) Description 03/09/2021 Transcribed Document [facility] [place] Family Medicine [address] [place] [address] ProviderNorman MD [address] [place], [place] [address] Social History Tobacco Use Types Packs/Day Years [...] on filedocumented in this encounter Care Teams [employer] Relationship Specialty Start Date End Date Sylvia Alonzo MD [address] [place] [address] PCP - General Obstetrics and Gynecology 02/26/23 documented as of this encounter
--- OUTSIDE RECORDS SUMMARY | 2025-06-01 11:18 | XMS_ITS | Encounter Summary ---
Author Organization [employer] ([place], [place], [place], [place]) Address [address] [place] [address] Care Team Providers Care Aviation Safety Inspector Name Role Phone Annette Alonzo MD Primary Care Provider [phone] Encounter Details Date Type Department Care Team (Late st Contact Info) Description 2021 Transcribed Document [facility] Family Medicine [address] [place] [address] ProviderNorman MD [address] [place] [id number] Social History Tobacco Use Types Packs/Day Years [...] Mylicon: 80 mg, Oral, QID, PRN: Gas [place] 5 mg-325 mg oral tablet: 1 Tab, [...] on filedocumented in this encounter Care Teams Aviation Safety Inspector Relationship Specialty Start Date End Date Annette Alonzo MD [address] [place] [address] PCP - General Obstetrics and Gynecology 02/26/23 documented as of this encounter
--- OUTSIDE RECORDS SUMMARY | 2025-06-01 11:18 | XMS_ITS | Encounter Summary ---
Author Organization [employer] ([place], [place], [place], [place]) Address [address] [place] [address] Care Team Providers Care Service Dispatcher Name Role Phone Sylvia Alonzo MD Primary Care Provider [phone] Encounter Details Date Type Department Care Team (Late st Contact Info) Description 03/09/2021 Transcribed Document [facility] [place] Family Medicine [address] [place] [address] ProviderNorman MD [address] [place], [place] [address] Social History Tobacco Use Types Packs/Day Years [...] 1 Health Plan: ANTHEM HMOPPO Policy Number: [id number] Authorization Number: Insurance Primary Name : ANTHEM HMOPPO Policy Number: [id number] Authorization Status-Primary : No precert required Authorization Number-Primary : Auto 2/4 Number of Days Authorized-Primary : 2 Day(s) Authorized Service Begin Date-Primary : 03/07/2021 EDT Authorized Service End Date-Primary : 03/09/2021 EDT Historical Authorization Comments-Primary : No Authorization Comments Found Gypsy Pate Rn-Utilization Review - 03/09/2021 8:52 EDT Electronically signed by Parris [facility] Conversion Design Center Consultant Cerner at 11/24/2022 11:54 AM CDT documented in this encounter Plan of Treatment Not on file documented as of this encounter Visit Diagnoses Not on filedocumented in this encounter Care Teams Service Dispatcher Relationship Specialty Start Date End Date Sylvia Alonzo MD [address] [place] [address] [place] [address] PCP - General Obstetrics and Gynecology 02/26/23 documented as of this encounter
--- OUTSIDE RECORDS SUMMARY | 2025-06-01 11:18 | XMS_ITS | Encounter Summary ---
Author Organization [employer] ([place], [place], [place], [place]) Address [address] [facility] [place] [address] Care Team Providers Care Forecast Analyst Name Role Phone Sylvia Alonzo MD Primary Care Provider [phone] Encounter Details Date Type Department Care Team (Late st Contact Info) Description 03/09/2021 Transcribed Document [facility] [place] Family Medicine [address] [place] [address] ProviderNorman MD [address] [place] [address] Social History Tobacco Use Types [...] on filedocumented in this encounter Care Teams Forecast Analyst Relationship Specialty Start Date End Date Sylvia Alonzo MD [address] [facility] [address] [place] [address] PCP - General Obstetrics and Gynecology 02/26/23 documented as of this encounter
--- OUTSIDE RECORDS SUMMARY | 2025-06-01 11:18 | XMS_ITS | Encounter Summary ---
Author Organization [employer] ([place], [place], [place], [place]) Address [address] [place] [address] Care Team Providers Care Implementation Director Name Role Phone Annette Alonzo MD Primary Care Provider [phone] Encounter Details Date Type Department Care Team (Late st Contact Info) Description 05/19/2019 Transcribed Document [facility] [place] Family Medicine [address] [place] [address] ProviderNorman MD [address] [place], [place] [address] Social History Tobacco Use Types Packs/Day Years Used Date Smoking Tobacco: Never Assessed Comments Unknown Sex and Gender Information Value Date Recorded Sex Assigned at Not on file Legal Sex Female 1:09 PM CDT Gender Identity Not on file Sexual Orientation Not on file documented as of this encounter Miscellaneous Notes * Cerner Conversion Note - Norman ProviderMD - 05/19/2019 1:21 PM CDT [facility] [address], [place] [address] Patient Copy Patient Information: Name: ALIYA SANCHES Current Date: 05/19/2019 13:21:55 : 1990 Patient [address]: [address] [place] [id number] Patient Attending Physician: ANNETTE ALONZO MD-OBG Primary [...] Assistance with quitting is available by contacting 9-129-JFJC-NOW. This is a free resource providing counseling, [...] Be sure to sign up for the Digiscend patient portal, which gives you 01/03 access to your medical information ??? including these discharge instructions ??? using your computer, smartphone, or tablet. Just go to VeriShow to get started. Questions? Call . [facility] would like to thank you for allowing us to assist you with your healthcare needs. VERÓNICA Hall ERIN MARIE, (or chemical sales representative) have received the above patient education materials/instructions and have verbalized understanding: Patient Signature _ Date/Time Patient Veneer Sample Maker Signature (if needed) Date/Time Clinician/Hospital Veneer Sample Maker Signature (if needed) Date/Time Electronically signed by Interface, [facility] Conversion Optometry Professor Cerner at 11/24/2022 12:03 PM CDT documented in this encounter Plan of Treatment Not on file documented as of this encounter Visit Diagnoses Not on filedocumented in this encounter Care Teams Implementation Director Relationship Specialty Start Date End Date Annette Alonzo MD [address] [place] [address] PCP - General Obstetrics and Gynecology 02/26/23 documented as of this encounter
--- OUTSIDE RECORDS SUMMARY | 2025-06-01 11:18 | XMS_ITS | Encounter Summary ---
Author Organization [employer] ([place], [place], [place], [place]) Address [address] [facility] [place] [address] Care Team Providers Care Environmental Economist Name Role Phone Sylvia Alonzo MD Primary Care Provider [phone] Encounter Details Date Type Department Care Team (Late st Contact Info) Description 02/03/2021 Transcribed Document [facility] [place] [facility] [place] [address] [place] [address] ProviderNorman MD [address] [place] [address] Social History Tobacco Use Types [...] filedocumented in this encounter Care Teams Environmental Economist Relationship Specialty Start Date End Date Sylvia Alonzo MD [address] [facility] [address] [place] [address] PCP - General Obstetrics and Gynecology 02/26/23 documented as of this encounter
--- OUTSIDE RECORDS SUMMARY | 2025-06-01 11:18 | XMS_ITS | Encounter Summary ---
Author Organization [employer] ([place], [place], [place], [place]) Address [address] [place] [address] Care Team Providers Care Assembler Metal Furniture Name Role Phone Sylvia Alonzo MD Primary Care Provider [phone] Encounter Details Date Type Department Care Team (Late st Contact Info) Description 03/10/2021 Transcribed Document [facility] [place] Family Medicine [address] [place] [address] ProviderNorman MD [address] [place] [address] Social History Tobacco Use Types [...] 03/10/2021 6:03 EDT Electronically signed by Parris [facility] Conversion Wicker Worker Cerner at 11/24/2022 11:50 AM CDT documented in this encounter Plan of Treatment Not on file documented as of this encounter Visit Diagnoses Not on filedocumented in this encounter Care Teams Assembler Metal Furniture Relationship Specialty Start Date End Date Sylvia Alonzo MD [address] [facility] [address] [place] [address] PCP - General Obstetrics and Gynecology 02/26/23 documented as of this encounter
--- OUTSIDE RECORDS SUMMARY | 2025-06-01 11:18 | XMS_ITS | Encounter Summary ---
Author Organization [employer] ([place], [place], [place], [place]) Address [address] [place] [address] Care Team Providers Care Hairmasters Manager Name Role Phone Sylvia Alonzo MD Primary Care Provider [phone] Encounter Details Date Type Department Care Team (Late st Contact Info) Description 05/19/2019 Transcribed Document [facility] [place] Family Medicine [address] [place] [address] ProviderNorman MD [address] [place], [place] [address] Social History Tobacco Use Types Packs/Day Years [...] CHRISTIE SANCHES./Sex: 1990 Female Med Rec #: [id number] Physician: SYLVIA ALONZO MD-OBG Financial #: [id number] Pt. Type: O Room/Bed: Admit/Disch: 05/19/19 09:30:00 - Institution: [facility] [place] IntraOp Case Attendance Entry 1 Entry 2 Entry 3 Case Attendee SYLVIA ALONZO WICKER, KAREN KIM, COLLINS CHRISTINE, MARK FERRELL-OBG LEAD SUPPLY WORKER-ANS Role Performed Surgeon/Proceduralist, BUTTON STATION WORKER/Nurse Instructional Paraprofessional Physician executive staff assistant First Time In 05/19/19 11:44:00 05/19/19 [...] RN West, Jeff, Surgical JOHN ORO ST Salon Customer Experience Specialist Cert Role Performed Therapeutic Recreation Leader, First Scrub, Second Scrub, First Time [...] OTHER, ATTENDEE SEVERIANO OBREGON RN Role Performed Salon Customer Experience Specialist, Ancillary Student Therapeutic Recreation Leader, Second Time In 05/19/19 11:44:00 05/19/19 [...] SJE IntraOp Case Attendance Audit 05/19/19 13:09:13 Clinical Dermatologist: HESSTL Modifier: HESSTL <+> 8 Procedure 05/19/19 13:08:52 Clinical Dermatologist: HESSTL Modifier: HESSTL 1 <+> Time Out [...] Uterine D and C Hysteroscopy 05/19/19 12:43:51 Clinical Dermatologist: HESSTL Modifier: HESSTL 9 <+> Time Out 9 <*> Procedure Laparoscopy Operative Robotic, Uterine D and C Hysteroscopy 05/19/19 12:26:20 Clinical Dermatologist: HESSTL Modifier: HESSTL 1 <*> Procedure Laparoscopy [...] Uterine D and C Hysteroscopy 05/19/19 12:13:25 Clinical Dermatologist: HESSTL Modifier: HESSTL 5 <+> Time Out 5 <*> Procedure Laparoscopy Operative Robotic, Uterine D and C Hysteroscopy <+> 10 Case Attendee <+> 10 Role Performed <+> 10 Procedure <+> 10 Other Attendee 05/19/19 12:06:37 Clinical Dermatologist: HESSTL Modifier: HESSTL 1 <*> Procedure Laparoscopy [...] [facility] IntraOp Case Times Audit 05/19/19 13:08:51 Clinical Dermatologist: MITCHELL Modifier: DARCITL <+> 1 Out Room Time <+> 1 Stop Time <+> 1 Stop Time 05/19/19 12:55:20 Clinical Dermatologist: MITCHELL Modifier: DARCITL <+> 1 Start Time [...] 12:33:13 SJE IntraOp Cautery Audit 05/19/19 12:33:13 Clinical Dermatologist: MITCHELL Modifier: DARCITL <+> 1 Coag Setting [...] S[facility] IntraOp Counts Final Audit 05/19/19 12:55:56 Clinical Dermatologist: MITCHELL Modifier: MITCHELL 1 <*> Procedure Laparoscopy [...] RN 05/19/19 12:13:35 SJE IntraOp General Case Silhouette Artist 1 Case Information OR OR 07 SJE [...] Implant Log Implant TISS MTRX BIODRESTORE Identification [id number] Description Implant Quantity 1 Implant Site pelvic Implant [id number] Identification Model Number Implant [employer] Identification Advanced Practice Nurse Psychotherapist Name: Implant [id number] Identification Catalog Number Implant Expiration 09/15/20 Date [...] personnel Measures Included received laser safety information, [place] of water/Saline immediately available, Fire extinguisher location [...] 2 Entry 3 Medication/Irrigant Bacitracin 15Gm Indigo [place] 0.8% 5ml Anesthesia Cocktail - ointment - [id number] - [id number] Cheri Combo Med List Time Administered Route [...] S[facility] IntraOp Medication Admin Audit 05/19/19 12:38:15 Clinical Dermatologist: MITCHELL Modifier: DARCITL <+> 3 Medication/Irrigant <+> [...] SJE IntraOp Surgical Procedures Audit 05/19/19 13:08:53 Clinical Dermatologist: MITCHELL Modifier: HESSTL <+> 1 Stop <+> 2 Stop 05/19/19 12:55:41 Clinical Dermatologist: DARCITL Modifier: HESSTL <+> 1 Start 2 [...] on filedocumented in this encounter Care Teams Hairmasters Manager Relationship Specialty Start Date End Date Sylvia Alonzo MD [address] [place] [address] PCP - General Obstetrics and Gynecology 02/26/23 documented as of this encounter
--- OUTSIDE RECORDS SUMMARY | 2025-06-01 11:18 | XMS_ITS | Encounter Summary ---
Author Organization [employer] ([place], [place], [place], [place]) Address [address] [place] [address] Care Team Providers Care Commercial Collections Specialist Name Role Phone Annette Alonzo MD Primary Care Provider [phone] Encounter Details Date Type Department Care Team (Late st Contact Info) Description 02/03/2021 Transcribed Document [facility] [place] Family Medicine [address] [place] [address] ProviderNorman MD [address] [place] [address] Social History Tobacco Use Types [...] Norman ProviderMD - 02/03/2021 11:38 [place] [address] VERÓNICAALIYA :1990 Visit Time:02/01/2021 Your Visit Summary [...] keep the already scheduled one Where: [address] [facility] [employer] [address] [place] [address]- Extole (1) Medications What How Much When Instructions [...] Rhubarb. ? Beets. ? Potato chips and spanish fries. ? Nuts. ??? If you regularly take a diuretic medicine, make sure to eat at least 1???2 fruits or vegetables high in potassium each day. These include: ? Avocado. ? Banana. ? [place], prune, carrot, or tomato juice. ? Baked [...] Casseroles. Pizza. Lasagna. Frozen meals. Potato chips. Polish fries. Summary ??? You can reduce your [...] provider. Document Revised: 11/15/2019 Document Reviewed: 07/06/2017 [employer] Patient Education ?? 2020 [employer] Inc. Kidney Stones Kidney stones are rock-like [...] these instructions at home: Medicines ??? Take uukn-ltc-aztjayk and prescription medicines only as told by [...] provider. Document Revised: 12/12/2019 Document Reviewed: 12/12/2019 [employer] Patient Education ?? 2020 [employer]. Urinary Tract Infection, Adult A urinary tract [...] these instructions at home: Medicines ??? Take dfmk-uht-tqvmnht and prescription medicines only as told by [...] provider. Document Revised: 07/13/2019 Document Reviewed: 2019 [employer] Patient Education ?? 2020 [employer]Media. Third Trimester of The third trimester is from week 28 through week 40 (months 7 through 9). This trimester is when your unborn baby (fetus) is growing very fast. At the end of the ninth month, the unborn baby is about 20 inches in length. It weighs about 6???10 pounds. Follow these instructions at home: Medicines ??? Take lgzq-sah-thwjgth and prescription medicines only as told by [...] provider. Document Revised: 11/16/2019 Document Reviewed: 08/31/2017 [employer]ia Patient Education ?? 2020 [employer] Inc. Emergency Awareness and Preventative Care STROKE [...] Assistance with quitting is available by contacting 1-272-USCCBay MicrosystemsNOW. This is a free resource providing counseling, support, and referral. Or you may contact your personal physician. ParkTAG Social Parking Suicide Prevention Lifeline: The National Suicide Prevention [...] range between ( 1.0 and 7.0 ) Logan #: 0.72 K/uL -- Normal range between ( 0.24 and 0.82 ) Eos #: 0.06 K/uL -- Normal range between ( 0.04 and 0.54 ) Logan %: 7.0 % -- Normal range between [...] Squamous Epithelial Cells: 0-2 /HPF Urine Color: [place] Ur WBC: 5-10 /HPF Urine Ketones Dipstick: >=80 Urine pH Dipstick: 6.5 -- Normal range between ( 6.0 and 8.0 ) Urine Bilirubin Dipstick: Negative Urine Specific Ozone: 1.010 -- Normal range between ( 1.005 [...] was given the opportunity to ask questions. Patient/Audit Practice Intern Name: Patient/Audit Practice Intern Signature: Relationship to Patient: Clinician/Hospital Audit Practice Intern Signature: Date: documented in this encounter Plan of Treatment Not on file documented as of this encounter Visit Diagnoses Not on filedocumented in this encounter Care Teams Commercial Collections Specialist Relationship Specialty Start Date End Date Annette Alonzo MD [address] [place] [address] PCP - General Obstetrics and Gynecology 02/26/23 documented as of this encounter
--- OUTSIDE RECORDS SUMMARY | 2025-06-01 11:18 | XMS_ITS | Encounter Summary ---
Author Organization [employer] ([place], [place], [place], [place]) Address [address] [place] [address] Care Team Providers Care Insurance And Benefits Clerk Name Role Phone Sylvia Alonzo MD Primary Care Provider [phone] Encounter Details Date Type Department Care Team (Late st Contact Info) Description 03/07/2021 Transcribed Document [facility] [place] Family Medicine [address] [place] [address] ProviderNorman MD [address] [place] [address] Social History Tobacco Use Types [...] Source : Stated Height Entry Format : Harmony Height, Feet : 5 ft(Converted to: 152 cm, 60 Inch) Clinical Height : 165.1 cm Height, Inches : 5 Inch(Converted to: 0 ft 5 Inch, 12.70 cm) Weight Source : Standing scale Weight Entry Format : [place] Weight, Pounds : 164 lb Clinical Dosing Weight : 74.55 kg Body Surface Area (BSA) : 1.82 m2 Body Mass Index : 27.3 kg/m2 ([place]) [place] Body Weight (IBW) : 56.59 kg Haven [...] Haven Rico Rn - 03/07/2021 22:13 EDT [place] Suicide Severity Rating Scale (C-SSRS) CSSRS Past Month Wish to be : No CSSRS Past Month Suicidal Thoughts : No CSSRS Lifetime Suicide Behavior : No Suicide Severity Rating Score : 0 Suicide Severity Rating : No Additional Care Required at this time Haven Rico Rn - 03/07/2021 22:13 EDT Electronically signed by Parris [facility] Conversion Ldr Nurse Cerner at 11/24/2022 12:04 PM CDT documented in this encounter Plan of Treatment Not on file documented as of this encounter Visit Diagnoses Not on filedocumented in this encounter Care Teams Insurance And Benefits Clerk Relationship Specialty Start Date End Date Sylvia Alonzo MD [address] [facility] [address] [place] [address] PCP - General Obstetrics and Gynecology 02/26/23 documented as of this encounter
--- OUTSIDE RECORDS SUMMARY | 2025-06-01 11:18 | XMS_ITS | Encounter Summary ---
Author Organization [employer] ([place], [place], [place], [place]) Address [address] [place] [address] Care Team Providers Care Binding End Stitcher Name Role Phone Sylvia Alonzo MD Primary Care Provider [phone] Encounter Details Date Type Department Care Team (Late st Contact Info) Description 05/19/2019 Transcribed Document [facility] [place] Family Medicine [facility] [place] [address] ProviderNorman MD [address], [place] [address] Social History Tobacco Use Types Packs/Day Years [...] including vitamins, herbs, eye drops, creams, and lfzb-hfh-wstxajo medicines. This is especially important if you [...] 07/26/2006 Document Revised: 04/11/2017 Document Reviewed: 04/11/2017 ElseElepago Interactive Patient Education ? 2019 [employer] Inc. Hysteroscopy, Care After This sheet gives [...] taking prescription pain medicines. Medicines ??? Take ashk-hmh-skpzfiu and prescription medicines only as told by [...] urine clear or pale yellow. ? Take ptwz-nsh-wzstjbm or prescription medicines. ? Eat foods that [...] 05/16/2014 Document Revised: 08/24/2017 Document Reviewed: 08/24/2017 [employer] Interactive Patient Education ? 2019 [employer]. Diagnostic Laparoscopy, Care After This sheet [...] these instructions at home: Medicines ??? Take dddg-ihe-xdcgmdf and prescription medicines only as told by [...] and water are not available, use hand clinical veterinarian. ? Change your dressing as told by [...] keep your urine pale yellow. ? Take nrfg-whk-vrhmztp or prescription medicines. ? Eat foods that [...] 07/06/2016 Document Revised: 01/19/2018 Document Reviewed: 01/19/2018 [employer] Interactive Patient Education ? 2019 [employer]. General Anesthesia, Adult, Care After This [...] activities are safe for you. ??? Take fxks-mjw-vzkcepy and prescription medicines only as told by [...] 03/11/2018 Elsevier Interactive Patient Education ? 2019 [employer] Inc. documented in this encounter Plan of Treatment Not on file documented as of this encounter Visit Diagnoses Not on filedocumented in this encounter Care Teams Binding End Stitcher Relationship Specialty Start Date End Date Sylvia Alonzo MD [address] [place] [address] PCP - General Obstetrics and Gynecology 02/26/23 documented as of this encounter
--- OUTSIDE RECORDS SUMMARY | 2025-06-01 11:18 | XMS_ITS | Encounter Summary ---
Author Organization [employer] ([place], [place], [place], [place]) Address [address] [facility] [place] [address] Care Team Providers Care Competency Evaluated Nurse Aide Name Role Phone Annette Alonzo MD Primary Care Provider Encounter Details Date Type Department Care Team (Late st Contact Info) Description 05/19/2019 Transcribed Document [facility] [place] Family Medicine [address] [place] [address] ProviderNorman MD [address] [place], [place] [address] Social History Tobacco Use Types Packs/Day Years [...] ALIYA SANCHES./Sex: 1990 Female Med Rec #: [id number] Physician: ANNETTE ALONZO MD-OBG Financial #: [id number] Pt. Type: O Room/Bed: Admit/Disch: 05/19/19 09:30:00 - 05/19/19 15:48:00 [place] [facility] [place] PreOp Case Times Entry 1 In Preop 05/19/19 09:35:00 Ready for Holding 05/19/19 10:44:00 Room Patient Ready for 05/19/19 10:44:00 Surgery Patient Out of Preop 05/19/19 11:35:00 Patient Out of 05/19/19 10:44:00 Holding Room Last Modified By: Nathaly Moon RN 05/19/19 10:44:30 [facility] PreOp Case Times Audit 05/22/19 08:52:19 Web Merchandiser: [id number] Modifier: [email or web address] <+> 1 Patient Out of [...] on filedocumented in this encounter Care Teams Competency Evaluated Nurse Aide Relationship Specialty Start Date End Date Annette Alonzo MD [address] [place] [address] PCP - General Obstetrics and Gynecology 02/26/23 documented as of this encounter
--- OUTSIDE RECORDS SUMMARY | 2025-06-01 11:18 | XMS_ITS | Encounter Summary ---
Author Organization [employer] ([place], [place], [place], [place]) Address [address] [place] [address] Care Team Providers Care Home Demonstration Agent Name Role Phone Annette Alonzo MD Primary Care Provider [phone] Encounter Details Date Type Department Care Team (Late st Contact Info) Description 02/03/2021 Transcribed Document [facility] [place] Family Medicine [address] [place] [address] ProviderNorman MD [address] [place] [address] Social History Tobacco Use Types [...] Norman ProviderMD - 02/03/2021 11:42 [place] [address] VERÓNICAALIYA :1990 Visit Time:02/01/2021 Your Visit Summary [...] keep the already scheduled one Where: [address] [facility] [employer] [address] [place] [address]- [employer] (1) Medications What How Much When Instructions [...] Rhubarb. ? Beets. ? Potato chips and chinese fries. ? Nuts. ??? If you regularly take a diuretic medicine, make sure to eat at least 1???2 fruits or vegetables high in potassium each day. These include: ? Avocado. ? Banana. ? [place], prune, carrot, or tomato juice. ? Baked [...] Casseroles. Pizza. Lasagna. Frozen meals. Potato chips. Turkmen fries. Summary ??? You can reduce your [...] provider. Document Revised: 11/15/2019 Document Reviewed: 07/06/2017 [employer] Patient Education ?? 2020 [employer] Inc. Kidney Stones Kidney stones are rock-like [...] these instructions at home: Medicines ??? Take buhm-nfs-wcjkwww and prescription medicines only as told by [...] provider. Document Revised: 12/12/2019 Document Reviewed: 12/12/2019 [employer] Patient Education ?? 2020 flatev. Urinary Tract Infection, Adult A urinary tract [...] these instructions at home: Medicines ??? Take rpwm-ptb-greovqg and prescription medicines only as told by [...] provider. Document Revised: 07/13/2019 Document Reviewed: 2019 [employer] Patient Education ?? 2020 flatev. Third Trimester of The third trimester is from week 28 through week 40 (months 7 through 9). This trimester is when your unborn baby (fetus) is growing very fast. At the end of the ninth month, the unborn baby is about 20 inches in length. It weighs about 6???10 pounds. Follow these instructions at home: Medicines ??? Take nsfi-pkr-yjxtcsh and prescription medicines only as told by [...] provider. Document Revised: 11/16/2019 Document Reviewed: 08/31/2017 [employer] Patient Education ?? 2020 [employer] Inc. Emergency Awareness and Preventative Care STROKE [...] Assistance with quitting is available by contacting 8-290-JENXUnited PrototypeNOW. This is a free resource providing counseling, support, and referral. Or you may contact your personal physician. [employer] Suicide Prevention Lifeline: The National Suicide Prevention [...] range between ( 1.0 and 7.0 ) Jewell #: 0.72 K/uL -- Normal range between ( 0.24 and 0.82 ) Eos #: 0.06 K/uL -- Normal range between ( 0.04 and 0.54 ) Jewell %: 7.0 % -- Normal range between [...] Squamous Epithelial Cells: 0-2 /HPF Urine Color: [place] Ur WBC: 5-10 /HPF Urine Ketones Dipstick: >=80 Urine pH Dipstick: 6.5 -- Normal range between ( 6.0 and 8.0 ) Urine Bilirubin Dipstick: Negative Urine Specific [place]: 1.010 -- Normal range between ( 1.005 [...] was given the opportunity to ask questions. Patient/Demand Planning Analyst Name: Patient/Demand Planning Analyst Signature: Relationship to Patient: Clinician/Hospital Demand Planning Analyst Signature: Date: documented in this encounter Plan of Treatment Not on file documented as of this encounter Visit Diagnoses Not on filedocumented in this encounter Care Teams Home Demonstration Agent Relationship Specialty Start Date End Date Annette Alonzo MD [address] [place] [address] PCP - General Obstetrics and Gynecology 02/26/23 documented as of this encounter
--- OUTSIDE RECORDS SUMMARY | 2025-06-01 11:18 | XMS_ITS | Encounter Summary ---
Author Organization [employer] ([place], [place], [place], [place]) Address [address] [place] [address] Care Team Providers Care Engraver Tender Name Role Phone Sylvia Alonzo MD Primary Care Provider [phone] Encounter Details Date Type Department Care Team (Late st Contact Info) Description 05/23/2019 Transcribed Document [facility] [place] [address] [place] [address] ProviderNorman MD [address] [place], [place] [id number] Social History Tobacco Use Types Packs/Day Years [...] CDT pain fibers Electronically signed by Parris [facility] Conversion Woven Label Designer Cerner at 11/24/2022 12:00 PM CDT documented in this encounter Plan of Treatment Not on file documented as of this encounter Visit Diagnoses Not on filedocumented in this encounter Care Teams Engraver Tender Relationship Specialty Start Date End Date Sylvia Alonzo MD [address] [place] [address] [place] [address] PCP - General Obstetrics and Gynecology 02/26/23 documented as of this encounter
--- OUTSIDE RECORDS SUMMARY | 2025-06-01 11:18 | XMS_ITS | Encounter Summary ---
Author Organization [employer] ([place], [place], [place], [place]) Address [address] [place] [address] Care Team Providers Care Technical Sales Representatives Name Role Phone Annette Alonzo MD Primary Care Provider [phone] Encounter Details Date Type Department Care Team (Late st Contact Info) Description 03/09/2021 Transcribed Document [facility] [place] [address] [place] [address] ProviderNorman MD [address] [place], [place] [address] Social History Tobacco Use Types Packs/Day Years [...] (See Comment) Dermoplast 20% topical spray: 1 [place], Topical, Q4H, PRN: Pain HYDROmorphone: 0.5 mg, [...] Other (See Comment) Documented Medications Documented 19 (Baker): Daily, 0 Refill(s), Home Medications (1) Active 19 (Baker) , Daily , Medications (19) Active Scheduled: [...] 30 mL, Oral, Q4H benzocaine-menthol spray 1 [place], Topical, Q4H carboprost 250 mcg/1 mL inj 250 mcg 1 mL, IntraMuscular, 1-Time diphth/pertus/tet tox *ADULT* inj 0.5 mL 0.5 mL, IntraMuscular, 1-Time famotidine 20 mg tab 20 mg 1 Tab, Oral, Q12H lanolin oint 8.5 gram 1 Application, Topical, See Comment ezidzpe-tasjk-rxfqv vaccine inj 0.5 mL, SubCutaneous, 1-Time methylergonovine [...] on filedocumented in this encounter Care Teams Technical Sales Representatives Relationship Specialty Start Date End Date Annette Alonzo MD [address] [place] [address] PCP - General Obstetrics and Gynecology 02/26/23 documented as of this encounter
--- OUTSIDE RECORDS SUMMARY | 2025-06-01 11:18 | XMS_ITS | Encounter Summary ---
Author Organization [employer] ([place], [place], [place], [place]) Address [address] [place] [address] Care Team Providers Care Academic Support Director Name Role Phone Sylvia Alonzo MD Primary Care Provider [phone] Encounter Details Date Type Department Care Team (Late st Contact Info) Description 03/09/2021 Transcribed Document [facility] [place] [address] [place] [address] ProviderNorman MD [address] [place], [place] [address] Social History Tobacco Use Types Packs/Day Years [...] on filedocumented in this encounter Care Teams Academic Support Director Relationship Specialty Start Date End Date Sylvia Alonzo MD [address] [place] [address] PCP - General Obstetrics and Gynecology 02/26/23 documented as of this encounter
--- OUTSIDE RECORDS SUMMARY | 2025-06-01 11:18 | XMS_ITS | Encounter Summary ---
Author Organization [email or web address] ([place], [place], [place], [place]) Address [address] [place] [address] Care Team Providers Care Skiver Blockers Name Role Phone Sylvia Alonzo MD Primary Care Provider [phone] Encounter Details Date Type Department Care Team (Late st Contact Info) Description 05/23/2019 Transcribed Document [facility] [place] [facility] [place] [address] ProviderNorman MD [address] [place], [place] [id number] Social History Tobacco Use Types Packs/Day Years [...] prepped and draped in a sterile manner. Estrdaa was placed. Speculum was placed. Cervix was [...] taken to recovery room in good condition. /[id number] MD RACH Luevano/HEAVENLY / RACH / MODL /[id number] documented in this encounter Plan of Treatment Not on file documented as of this encounter Visit Diagnoses Not on filedocumented in this encounter Care Teams Skiver Blockers Relationship Specialty Start Date End Date Sylvia Alonzo MD [address] [place] [address] PCP - General Obstetrics and Gynecology 02/26/23 documented as of this encounter
--- OUTSIDE RECORDS SUMMARY | 2025-06-01 11:19 | XMS_ITS | Encounter Summary ---
Author Organization [employer] ([place], [place], [place], [place]) Address [address] [facility] [place] [address] Care Team Providers Care Shear Scrapman Name Role Phone Sylvia Alonzo MD Primary Care Provider [phone] Encounter Details Date Type Department Care Team (Late st Contact Info) Description 05/26/2022 OB [facility] Maternal Medicine [address] [place] [address] Linnea العلي RN Social History [...] on filedocumented in this encounter Care Teams Shear Scrapman Relationship Specialty Start Date End Date Sylvia Alonzo MD [address] [place], [place] [id number] PCP - General Obstetrics and Gynecology 02/26/23 documented as of this encounter
--- OUTSIDE RECORDS SUMMARY | 2025-06-01 11:19 | XMS_ITS | Encounter Summary ---
Author Organization [employer] ([place], [place], [place], [place]) Address [address] [place] [address] Care Team Providers Care Subscription Crew Leader Name Role Phone Annette Alonzo MD Primary Care Provider [phone] Encounter Details Date Type Department Care Team (Late st Contact Info) Description 05/19/2019 Transcribed Document [facility] [place] [address] [place] [address] ProviderNorman MD [address] [place], [place] [address] Social History Tobacco Use Types Packs/Day Years [...] ALIYA SANCHES/Sex: 1990 Female Med Rec #: [id number] Physician: ANNETTE ALONZO MD-OBG Financial #: [id number] Pt. Type: O Room/Bed: Admit/Disch: 05/19/19 09:30:00 [...] on filedocumented in this encounter Care Teams Subscription Crew Leader Relationship Specialty Start Date End Date Annette Alonzo MD [address] [place] [address] PCP - General Obstetrics and Gynecology 02/26/23 documented as of this encounter
--- OUTSIDE RECORDS SUMMARY | 2025-06-01 11:19 | XMS_ITS | Encounter Summary ---
Author Organization [employer] ([place], [place], [place], [place]) Address [address] [place] [address] Care Team Providers Care Manager Aerospace Name Role Phone Annette Alonzo MD Primary Care Provider [phone] Encounter Details Date Type Department Care Team (Late st Contact Info) Description 03/10/2021 Transcribed Document [facility] [place] [address] [place] [address] ProviderNorman MD [address], [place] [id number] Social History Tobacco Use Types Packs/Day Years Used Date Smoking Tobacco: Never Assessed Comments Unknown Sex and Gender Information Value Date Recorded Sex Assigned at Not on file Legal Sex Female 1:09 PM CDT Gender Identity Not on file Sexual Orientation Not on file documented as of this encounter Miscellaneous Notes * Cerner Conversion Note - Norman ProviderMD - 03/10/2021 10:22 AM CDT [facility] [address], [place] [address] Patient Copy Patient Information: Name: ALIYA SANCHES Current Date: 03/10/2021 10:22:31 : 1990 Patient Address: [address] [place] [address] [facility] [address] Patient Attending Physician: ANNETTE ALONZO MD-OBG Primary Care Provider: ENID GALINDO Primary Care Provider Discharge Diagnosis: 1:36 weeks gestation of ; 2:Labor without complication; Normal spontaneous vaginal delivery Weight on Admission: 164 lb, 0 oz Comment: Follow-up Instructions: With: Address: When: ANNETTE Kate [employer], [address] [place] [id number] Business (1) Within 6 weeks Discharge Instructions: Immunizations Documented During Stay: tetanus/diphtheria/pertussis, acel(Tdap) 03/09/2021 Heart Failure Discharge Instructions (if any): Stroke Related Discharge Instructions (if any): Warfarin Related Discharge Instructions (if any): Final Medication List: Other Medications ibuprofen (ibuprofen 600 mg oral tablet) 1 Tablet(s) Oral Every 6 Hours. multivitamin, ( 19 ([place])) Every Day. Patient Allergies: No Known Allergies [...] work with your health care provider or hospice care sales consultant. ??? If you are not : [...] methods of control (contraception). Medicines ??? Take nzlh-frx-tmhfiwz and prescription medicines only as told by [...] provider. Document Revised: 07/29/2018 Document Reviewed: 05/09/2018 [employer] Collaborative Patient Education ? 2020 [employer]. Choosing to breastfeed is one of the [...] smacking lips, cooing, sighing, or squeaking. ??? Sczt-ld-chmeq movements and sucking on fingers or hands. [...] able to be present during feedings. Your hospice care sales consultant can help you find a method [...] contact your health care provider or a hospice care sales consultant. Overall health care recommendations while ??? [...] provider before taking any medicines. These include opgl-wlk-gqalvmh and prescription medicines as well as vitamins [...] Talk with your health care provider or hospice care sales consultant if you have questions or you face problems as you breastfeed. This information is not intended to replace advice given to you by your health care provider. Make sure you discuss any questions you have with your health care provider. Document Revised: 10/20/2018 Document Reviewed: 08/27/2017 [employer] Collaborative Patient Education ? 2020 [employer]. Medication Leaflets: ibuprofen (EYE bue PROE [...] may report side effects to FDA at 7-616-OWA-0403. What other drugs will affect ibuprofen? Ask [...] drugs may affect ibuprofen, including prescription and yizl-eld-pmzllvi medicines, vitamins, and herbal products. Not all [...] to ensure that the information provided by [employer]. ('Multum') is accurate, up-to-date, and complete, but no guarantee is made to that effect. Drug information contained herein may be time sensitive. Vizify information has been compiled for use by healthcare practitioners and consumers in the [place] and therefore Vizify does not warrant that uses outside of the [place] are appropriate, unless specifically indicated otherwise. Vizify's drug information does not endorse drugs, diagnose patients or recommend therapy. Progressus drug information is an informational resource designed [...] effective or appropriate for any given patient. [facility] does not assume any responsibility for any aspect of healthcare administered with the aid of information [facility] provides. The information contained herein is not intended to cover all possible uses, directions, precautions, warnings, drug interactions, allergic reactions, or adverse effects. If you have questions about the drugs you are taking, check with your doctor, nurse or pharmacist. Copyright 3343-5323 [employer]. Version: 22.01. Revision Date: 07/03/2020. CIGARETTE SMOKING: The facts are clear, cigarette smoking will shorten your life. Smoking can cause many illnesses along the way. As a healthcare provider, we recommend that you stop smoking. Assistance with quitting is available by contacting 2-649-URLN-NOW. This is a free resource providing counseling, [...] Be sure to sign up for the Ankota patient portal, which gives you 01/03 access to your medical information ??? including these discharge instructions ??? using your computer, smartphone, or tablet. Just go to AdGrok to get started. Questions? Call . [facility] would like to thank you for allowing us to assist you with your healthcare needs. VERÓNICA Hall ERIN MARIE, (or client support representative) have received the above patient education materials/instructions and have verbalized understanding: Patient Signature _ Date/Time Patient Law Firm Consultant Signature (if needed) Date/Time Clinician/Hospital Law Firm Consultant Signature (if needed) Date/Time documented in this encounter Plan of Treatment Not on file documented as of this encounter Visit Diagnoses Not on filedocumented in this encounter Care Teams Manager Aerospace Relationship Specialty Start Date End Date Annette Alonzo MD [address] [place] [address] PCP - General Obstetrics and Gynecology 02/26/23 documented as of this encounter
--- OUTSIDE RECORDS SUMMARY | 2025-06-01 11:19 | XMS_ITS | Encounter Summary ---
Author Organization [employer] ([place], [place], [place], [place]) Address [address] [place] [address] Care Team Providers Care Formulation Technician Name Role Phone Annette Alonzo MD Primary Care Provider [phone] Encounter Details Date Type Department Care Team (Late st Contact Info) Description 05/19/2019 Transcribed Document [facility] [place] Family Medicine [address] [place] [address] ProviderNorman MD [address] [place], [place] [address] Social History Tobacco Use Types Packs/Day Years Used Date Smoking Tobacco: Never Assessed Comments Unknown Sex and Gender Information Value Date Recorded Sex Assigned at Not on file Legal Sex Female 1:09 PM CDT Gender Identity Not on file Sexual Orientation Not on file documented as of this encounter Miscellaneous Notes * Cerner Conversion Note - Norman ProviderMD - 05/19/2019 1:26 PM CDT [facility] [address], [place] [address] Patient Copy Patient Information: Name: ALIYA SANCHES Current Date: 05/19/2019 13:26:26 : 1990 Patient Address: [address] [place] [id number] Patient Attending Physician: ANNETTE ALONZO MD-OBG Primary [...] Assistance with quitting is available by contacting 6-425-YRCF-NOW. This is a free resource providing counseling, [...] Be sure to sign up for the National Banana patient portal, which gives you 01/03 access to your medical information ??? including these discharge instructions ??? using your computer, smartphone, or tablet. Just go to Snipshot to get started. Questions? Call . [facility] would like to thank you for allowing us to assist you with your healthcare needs. VERÓNICA Hall ERIN MARIE, (or tour sales representative) have received the above patient education materials/instructions and have verbalized understanding: Patient Signature _ Date/Time Patient Orthopedic Physician Signature (if needed) Date/Time Clinician/Hospital Orthopedic Physician Signature (if needed) Date/Time Electronically signed by Interface, [facility] Conversion Route Driver Coin Machines Cerner at 11/24/2022 11:55 AM CDT documented in this encounter Plan of Treatment Not on file documented as of this encounter Visit Diagnoses Not on filedocumented in this encounter Care Teams Formulation Technician Relationship Specialty Start Date End Date Annette Alonzo MD [address] [place] [address] PCP - General Obstetrics and Gynecology 02/26/23 documented as of this encounter
--- OUTSIDE RECORDS SUMMARY | 2025-06-01 11:19 | XMS_ITS | Clinical Summary ---
Author Organization [employer] ([place], [place], [place], [place]) Address [address] [place] [address] Care Team Providers Care Syrup Maker Cook Name Role Phone Sylvia Alonzo MD Primary Care Provider [phone] Allergies No known active allergies Medications metFORMIN [...] Date Gray rded Speak language other than Spanish at home Not on file 08/27/2023 Want [...] this topic Medical Devices Implanted Type Area Moshgiach Device Identifier Shelf Expiration Date Model / Serial / Lot Saúl G3 3x6cm [id number] - [id number] Implanted:Qty : 1 on 02/26/2023 by Sylvia Alonzo MD at [facility] IMPLANTS N/A: Pelvis [employer] 12/15/2027 [id number] / / [id number] Insurance BLUE CROSS/BLUE SHIELD Member Subscriber Plan / Payer (Ef fective 2016-Present) Name:Aliya Cohen Relation to Subscriber:Spouse Name:KOKI COHEN Date of :1991 Address: [address] [place] [address] Payer ID:Not on file Type:Not on file Address: [place] [phone] BLUE CROSS/BLUE SHIELD Advance Directives For more information, please contact: [phone] * Full Code (Latest Code Status on File) Date Activated Date Inactivated Comments 02/26/2023 10:51 AM 02/26/2023 4:39 PM * Full Code Date Activated Date Inactivated Comments 02/26/2023 9:24 AM 02/26/2023 10:51 AM Care Teams Syrup Maker Cook Relationship Specialty Start Date End Date Sylvia Alonzo MD [address] [facility] [address] [place] [address] PCP - General Obstetrics and Gynecology 02/26/23
--- OUTSIDE RECORDS SUMMARY | 2025-06-01 11:19 | XMS_ITS | Encounter Summary ---
Author Organization [employer] ([place], [place], [place], [place]) Address [address] [place] [address] Care Team Providers Care Solutions Consultant Name Role Phone Sylvia Alonzo MD Primary Care Provider [phone] Encounter Details Date Type Department Care Team (Late st Contact Info) Description 03/10/2021 Transcribed Document [facility] [place] Family Medicine [address] [place] [address] ProviderNorman MD [address] [place], [place] [address] Social History Tobacco Use Types Packs/Day Years [...] 03/10/2021 11:59 EDT Electronically signed by Parris [facility] Conversion First Coat Operator Cerner at 11/24/2022 11:56 AM CDT documented in this encounter Plan of Treatment Not on file documented as of this encounter Visit Diagnoses Not on filedocumented in this encounter Care Teams Solutions Consultant Relationship Specialty Start Date End Date Sylvia Alonzo MD [address] [place] [address] PCP - General Obstetrics and Gynecology 02/26/23 documented as of this encounter
--- OUTSIDE RECORDS SUMMARY | 2025-06-01 11:19 | XMS_ITS | Encounter Summary ---
Author Organization [employer] ([place], [place], [place], [place]) Address [address] [place] [address] Care Team Providers Care Laboratory Sampler Name Role Phone Sylvia Alonzo MD Primary Care Provider Encounter Details Date Type Department Care Team (Late st Contact Info) Description 05/19/2019 Transcribed Document [facility] [place] [address] [place] [address] ProviderNorman MD [address] [place], [place] [id number] Social History Tobacco Use Types Packs/Day Years [...] : Standing scale Weight Entry Format : [place] Clinical Dosing Weight : 61.36 kg Weight, Pounds : 135 lb LORNE LINDSEY - 05/19/2019 10:02 EDT documented in this encounter Plan of Treatment Not on file documented as of this encounter Visit Diagnoses Not on filedocumented in this encounter Care Teams Laboratory Sampler Relationship Specialty Start Date End Date Sylvia Alonzo MD [address] [facility] [address] [place] [address] PCP - General Obstetrics and Gynecology 02/26/23 documented as of this encounter
--- OUTSIDE RECORDS SUMMARY | 2025-06-01 11:19 | XMS_ITS | Encounter Summary ---
Author Organization [employer] ([place], [place], [place], [place]) Address [address] [place] [address] Care Team Providers Care Racing Car Driver Name Role Phone Annette Alonzo MD Primary Care Provider [phone] Encounter Details Date Type Department Care Team (Late st Contact Info) Description 05/19/2019 Transcribed Document [facility] [place] [address] [place] [address] ProviderNorman MD [address] [place] [address] Social History Tobacco Use Types [...] Norman ProviderMD - 05/19/2019 3:18 PM CDT [place] [id number] VERÓNICA ALIYA JANETTE :1990 Visit Time:05/19/2019 What [...] month follow up appt Where: [address] [place] [phone] Medications What How Much When Instructions Next [...] including vitamins, herbs, eye drops, creams, and wmtz-khi-gnlkewk medicines. This is especially important if you [...] 07/26/2006 Document Revised: 04/11/2017 Document Reviewed: 04/11/2017 ElseIngenious Med Interactive Patient Education ?? 2019 [employer] Hysteroscopy, Care After This sheet gives [...] taking prescription pain medicines. Medicines ??? Take ihwa-qmp-ggllotq and prescription medicines only as told by [...] urine clear or pale yellow. ? Take rwwe-yyp-odfhrrl or prescription medicines. ? Eat foods that [...] 05/16/2014 Document Revised: 08/24/2017 Document Reviewed: 08/24/2017 [employer]a Interactive Patient Education ?? 2019 [employer] Inc[employer] Diagnostic Laparoscopy, Care After This sheet [...] these instructions at home: Medicines ??? Take fisn-dqb-fetoeyg and prescription medicines only as told by [...] and water are not available, use hand marketing systems manager. ? Change your dressing as told by [...] keep your urine pale yellow. ? Take qtms-wse-egqjvrq or prescription medicines. ? Eat foods that [...] 07/06/2016 Document Revised: 01/19/2018 Document Reviewed: 01/19/2018 [employer]a Interactive Patient Education ?? 2019 [employer] Inc. General Anesthesia, Adult, Care After This [...] activities are safe for you. ??? Take splk-cjw-mbtnumt and prescription medicines only as told by [...] 11/01/2001 Document Revised: 03/11/2018 Document Reviewed: 03/11/2018 Alliqua Interactive Patient Education ?? 2019 [employer] acetaminophen and oxycodone (a SEET a MIN [...] may report side effects to FDA at 1-731-NPF-7534. What other drugs will affect acetaminophen and [...] affect acetaminophen and oxycodone, including prescription and akkb-ewc-hrisfln medicines, vitamins, and herbal products. Not all [...] to ensure that the information provided by GateRocket. ('Multum') is accurate, up-to-date, and complete, but no guarantee is made to that effect. Drug information contained herein may be time sensitive. Eletrog[employer]es information has been compiled for use by healthcare practitioners and consumers in the [place] and therefore [employer] does not warrant that uses outside of the [place] are appropriate, unless specifically indicated otherwise. [employer] drug information does not endorse drugs, diagnose patients or recommend therapy. [employer] drug information is an informational resource designed [...] effective or appropriate for any given patient. [employer] does not assume any responsibility for any aspect of healthcare administered with the aid of information [employer] provides. The information contained herein is not intended to cover all possible uses, directions, precautions, warnings, drug interactions, allergic reactions, or adverse effects. If you have questions about the drugs you are taking, check with your doctor, nurse or pharmacist. Copyright 4612-8924 GateRocket. Version: 18.02. Revision Date: 07/06/2018. Emergency Awareness [...] Assistance with quitting is available by contacting 9-157-ABWS-NOW. This is a free resource providing counseling, [...] was given the opportunity to ask questions. Patient/Cake Cutter Machine Name: Patient/Cake Cutter Machine Signature: Relationship to Patient: Clinician/Hospital Cake Cutter Machine Signature: Date: Electronically signed by Parris [facility] Conversion Catalog Librarian Cerner at 11/24/2022 11:49 AM CDT documented in this encounter Plan of Treatment Not on file documented as of this encounter Visit Diagnoses Not on filedocumented in this encounter Care Teams Racing Car Driver Relationship Specialty Start Date End Date Annette Alonzo MD [address] [place] [id number] PCP - General Obstetrics and Gynecology 02/26/23 documented as of this encounter
--- OUTSIDE RECORDS SUMMARY | 2025-06-01 11:19 | XMS_ITS | Encounter Summary ---
Author Organization [email or web address] ([place], [place], [place], [place]) Address [address] [place] [address] Care Team Providers Care Dentist/Owner Name Role Phone Sylvia Alonzo MD Primary Care Provider [phone] Encounter Details Date Type Department Care Team (Late st Contact Info) Description 03/10/2021 Transcribed Document [facility] [place] Family Medicine [address] [place] [address] ProviderNorman MD [address] [place], [place] [id number] Social History Tobacco Use Types Packs/Day Years [...] work with your health care provider or practice consultant. ??? If you are not : [...] methods of control (contraception). Medicines ??? Take zzxb-kxn-kaewzpk and prescription medicines only as told by [...] provider. Document Revised: 07/29/2018 Document Reviewed: 05/09/2018 Aspyra Patient Education ? 2020 [employer]. Choosing to breastfeed is one of the [...] smacking lips, cooing, sighing, or squeaking. ??? Zcwv-ta-upnej movements and sucking on fingers or hands. [...] able to be present during feedings. Your practice consultant can help you find a method [...] contact your health care provider or a practice consultant. Overall health care recommendations while ??? [...] provider before taking any medicines. These include ygpl-lau-rnjnbuv and prescription medicines as well as vitamins [...] Talk with your health care provider or practice consultant if you have questions or you face problems as you breastfeed. This information is not intended to replace advice given to you by your health care provider. Make sure you discuss any questions you have with your health care provider. Document Revised: 10/20/2018 Document Reviewed: 08/27/2017 Aspyra Patient Education ? 2020 [employer]. documented in this encounter Plan of Treatment Not on file documented as of this encounter Visit Diagnoses Not on filedocumented in this encounter Care Teams Dentist/Owner Relationship Specialty Start Date End Date Sylvia Alonzo MD [address] [facility] [address] [place] [address] PCP - General Obstetrics and Gynecology 02/26/23 documented as of this encounter
--- OUTSIDE RECORDS SUMMARY | 2025-06-01 11:19 | XMS_ITS | Encounter Summary ---
Author Organization [employer] ([place], [place], [place], [place]) Address [address] [place] [address] Care Team Providers Care Leaf Conditioner Name Role Phone Annette Alonzo MD Primary Care Provider [phone] Encounter Details Date Type Department Care Team (Late st Contact Info) Description 05/19/2019 Transcribed Document [facility] [place] Family Medicine [address] [place] [address] ProviderNorman MD [address], [place] [id number] Social History Tobacco Use Types Packs/Day Years [...] ALIYA SANCHES/Sex: 1990 Female Med Rec #: [id number] Physician: ANNETTE ALONZO MD-OBG Financial #: [id number] Pt. Type: O Room/Bed: Admit/Disch: 05/19/19 09:30:00 [...] on filedocumented in this encounter Care Teams Leaf Conditioner Relationship Specialty Start Date End Date Annette Alonzo MD [address] [place] [address] PCP - General Obstetrics and Gynecology 02/26/23 documented as of this encounter
--- OUTSIDE RECORDS SUMMARY | 2025-06-01 11:19 | XMS_ITS | Encounter Summary ---
Author Organization [employer] ([place], [place], [place], [place]) Address [address] [place] [address] Care Team Providers Care Manager Manufacturing Name Role Phone Annette Alonzo MD Primary Care Provider [phone] Encounter Details Date Type Department Care Team (Late st Contact Info) Description 03/10/2021 Transcribed Document [facility] [place] Family Medicine [address] [place] [address] ProviderNorman MD [address] [place] [address] Social History Tobacco Use Types [...] Norman ProviderMD - 03/10/2021 10:26 [place] [address] VERÓNICAALIYA :1990 Visit Time:03/07/2021 Your Visit Summary [...] Comments Appointment has been made Where: [address] [facility] [address] [place] [address]- Business (1) Medications What How Much When [...] work with your health care provider or media consultant. ??? If you are not : [...] methods of control (contraception). Medicines ??? Take tksh-qvl-flhuyon and prescription medicines only as told by [...] provider. Document Revised: 07/29/2018 Document Reviewed: 05/09/2018 Viblio Patient Education ?? 2020 [employer]. Choosing to breastfeed is one of the [...] smacking lips, cooing, sighing, or squeaking. ??? Avjr-gs-cutlz movements and sucking on fingers or hands. [...] able to be present during feedings. Your media consultant can help you find a method [...] contact your health care provider or a media consultant. Overall health care recommendations while ??? [...] provider before taking any medicines. These include iwps-bpu-kfdrxbz and prescription medicines as well as vitamins [...] Talk with your health care provider or media consultant if you have questions or you face problems as you breastfeed. This information is not intended to replace advice given to you by your health care provider. Make sure you discuss any questions you have with your health care provider. Document Revised: 10/20/2018 Document Reviewed: 08/27/2017 Viblio Patient Education ?? 2020 [employer]. ibuprofen (EYE bue PROE fen) Advil, Genpril, [...] may report side effects to FDA at 4-697-RPL-4431. What other drugs will affect ibuprofen? Ask [...] drugs may affect ibuprofen, including prescription and lqqo-zao-uorftxl medicines, vitamins, and herbal products. Not all [...] to ensure that the information provided by [employer]. ('[employer]') is accurate, up-to-date, and complete, but no guarantee is made to that effect. Drug information contained herein may be time sensitive. [employer] information has been compiled for use by healthcare practitioners and consumers in the [place] and therefore [employer] does not warrant that uses outside of the [place] are appropriate, unless specifically indicated otherwise. [employer] drug information does not endorse drugs, diagnose patients or recommend therapy. [employer] drug information is an informational resource designed [...] effective or appropriate for any given patient. [employer] does not assume any responsibility for any aspect of healthcare administered with the aid of information [facility] provides. The information contained herein is not intended to cover all possible uses, directions, precautions, warnings, drug interactions, allergic reactions, or adverse effects. If you have questions about the drugs you are taking, check with your doctor, nurse or pharmacist. Copyright 8755-7121 [employer]. Version: 22.01. Revision Date: 07/03/2020. Emergency Awareness [...] Assistance with quitting is available by contacting 4-780-PAKTAdonitNOW. This is a free resource providing counseling, [...] range between ( 1.0 and 7.0 ) Nolan #: 0.52 K/uL -- Normal range between ( 0.24 and 0.82 ) Eos #: 0.14 K/uL -- Normal range between ( 0.04 and 0.54 ) Nolan %: 6.6 % -- Normal range between [...] ) Urine Bilirubin Dipstick: Negative Urine Specific Perry: 1.013 -- Normal range between ( 1.005 [...] given the opportunity to ask questions. Patient/Supervisor Correspondence Section Name: Patient/Supervisor Correspondence Section Signature: Relationship to Patient: Clinician/Hospital Supervisor Correspondence Section Signature: Date: Electronically signed by [facility], [facility] Conversion Cotton Classer Aide Ningner at 11/24/2022 11:52 AM CDT documented in this encounter Plan of Treatment Not on file documented as of this encounter Visit Diagnoses Not on filedocumented in this encounter Care Teams Manager Manufacturing Relationship Specialty Start Date End Date Annette Alonzo MD [address] [place] [address] PCP - General Obstetrics and Gynecology 02/26/23 documented as of this encounter
--- OUTSIDE RECORDS SUMMARY | 2025-06-01 11:19 | XMS_ITS | Encounter Summary ---
Author Organization [employer] ([place], [place], [place], [place]) Address [address] [place] [address] Care Team Providers Care Robotic Machine Operator Name Role Phone Annette Alonzo MD Primary Care Provider [phone] Encounter Details Date Type Department Care Team (Late st Contact Info) Description 03/10/2021 Transcribed Document [facility] [place] Family Medicine [address] [place] [address] ProviderNorman MD [address] [place], [place] [id number] Social History Tobacco Use Types Packs/Day Years [...] (See Comment) Dermoplast 20% topical spray: 1 [place], Topical, Q4H, PRN: Pain HYDROmorphone: 0.5 mg, [...] Other (See Comment) Documented Medications Documented 19 ([facility]): Daily, 0 Refill(s) ibuprofen 600 mg oral tablet: 1 Tab, Oral, Q6H, 0 Refill(s), Home Medications (2) Active ibuprofen 600 mg oral tablet 600 mg = 1 Tab, Oral, Q6H 19 ([facility]) , Daily , Medications (18) Active Scheduled: [...] 30 mL, Oral, Q4H benzocaine-menthol spray 1 [place], Topical, Q4H carboprost 250 mcg/1 mL inj 250 mcg 1 mL, IntraMuscular, 1-Time famotidine 20 mg tab 20 mg 1 Tab, Oral, Q12H lanolin oint 8.5 gram 1 Application, Topical, See Comment ibmppvc-zvmej-hdibd vaccine inj 0.5 mL, SubCutaneous, 1-Time methylergonovine [...] on filedocumented in this encounter Care Teams Robotic Machine Operator Relationship Specialty Start Date End Date Annette Alonzo MD [address] [facility] [address] [place] [address] PCP - General Obstetrics and Gynecology 02/26/23 documented as of this encounter
--- NOTE | 2025-06-01 11:37 | ECG_ITS ---
APPROVED REPORT Exam: Resting ECG HR:83 bpm ECG Measurements Heart Rate 83 AXES NM 126 P 67 QRSd 90 QRS 64 QT 358 T 53 QTc 398 Conclusion SINUS RHYTHM NORMAL ECG UNCONFIRMED REPORT Electronically signed by : Lamine Hussein MD 06/02/2025 08:47:01
[2025-06-01 11:54] LABS: Hematocrit 38.7 % (37.0-47.0); Hemoglobin 12.9 g/dL (12.2-16.2); Immature Granulocytes % 0.2 %; Mean Corpuscular HGB Conc 33.3 g/dL (31.8-35.4); Mean Corpuscular Hemoglobin 28.0 pg (27.0-31.2); Mean Corpuscular Volume 84.1 fl (81-99); Nucleated Red Blood Cells % 0 %; Platelet Count 383 K/mm3 (142-424); Red Blood Count 4.60 M/mm3 (4.20-5.40); Red Cell Distribution Width-SD 42.6 fL; White Blood Count 5.2 K/mm3 (4.8-10.8)
[2025-06-01 12:00] LABS: Albumin Level 4.4 g/dl (3.5-5.0); Chloride 104 mmol/L (98-107); Sodium 139 mmol/L (136-145)
[2025-06-01 12:01] LABS: Potassium 3.9 mmoL/L (3.5-5.1)
[2025-06-01 12:03] LABS: Alanine Aminotransferase 39 U/L (12-78); Albumin/Globulin Ratio 1.3 (1.1-1.8); Alkaline Phosphatase 82 U/L (38-126); Anion Gap 14.9 mEq/L (5-15); Aspartate Amino Transferase 35 U/L (14-36); Bilirubin,Total 0.4 mg/dl (0.2-1.3); Blood Urea Nitrogen 9 mg/dl (7-17); Calcium 9.1 mg/dl (8.4-10.2); Carbon Dioxide 24 mmol/L (22.0-30.0); Creatinine Clearance Estimated 151 mL/min (50-200); Creatinine,Serum 0.70 mg/dl (0.52-1.04); Estimated Glomerular Filt Rate 96 ml/min (>60); GFR (African American) 116 ML/MIN (>60); Globulin 3.5 g/dL (1.3-3.2); Glucose 91 mg/dl (74-100); Total Protein,Serum 7.9 g/dl (6.3-8.2)
[2025-06-01 12:05] LABS: HCG Qualitative, Serum Negative (Negative)
== END 2025-06-01 23:59 | disposition home or self-care (01) ==
LOC: PREOP 11:03
PROVIDERS: PCP Nurse Practitioner Family; Visit Provider Obstetrics & Gynecology
DX: Z01.810 Encounter for preprocedural cardiovascular examination (principal); Z01.812 Encounter for preprocedural laboratory examination
CPT/HCPCS: 80053; 84703; 85025; 93005

== ENCOUNTER 2025-06-07 05:57 | Day surgery (SDC) | payer BC, SELFPAY ==
[2025-06-01 12:45] VITALS: BMI 31.9
[2025-06-07] VITALS (13 sets, daily range): BP systolic 123–143; BP diastolic 66–90; PULSE 87–101; RESP 16–20; TEMP 36.1–38; O2SAT 94–98; BMI 31.9
[2025-06-07] MEDS: ACETAMINOPHEN 500MG TAB 1000 MG (07:03)
[2025-06-07] MEDS: CELECOXIB 100MG CAPSULE 400 MG PO (07:04)
[2025-06-07] MEDS: GABAPENTIN 600MG TABLET 600 MG (07:04)
--- NOTE | 2025-06-07 07:04 | P.PNANES_ITS ---
[facility] Disclaimer: The information contained in this section may have been updated after the patient was seen, as this information can be updated by other users. Medical History Encounter for preoperative assessment Strep throat Sepsis Insulin resistance Metabolic acidosis History of anemia Urinary tract infection Kidney stone Migraine Surgical History History of laparoscopy History of endometrial ablation History of tubal ligation History of cholecystectomy Family History Father Colon cancer Other Cervical cancer Social History Smoking Status: Never smoker alcohol intake: never substance use type: unknown current occupational status: unemployed Travel in the last 8 weeks?: Inside the [facility] housing: house [facility] Anesthesia Checklist Patient Identification Patient Identification: Arm Band and Verbal (Name & ) Structural Data Admitted From: Home Planned Operative Procedure/s: hyserectomy Consent for Planned Operative Procedure(s) Verified: Yes Verified Documents: Surgical Consent and History and Physical NPO Status Verified Time NPO: 00:00 Additional verifications Patient : No Anesthesia Reactions: No Airway Assessment Mallampati Score:: Class I C-Spine Mobility Assessed: Yes TMJ Mobility Assessed: Yes Dentition: Good Dentition Neurological Assessment Level of Consciousness: Awake and Alert Hx Seizures: No Numbness or tingling in extremities: No Anesthesia Plan Anesthesia Risk discussed: Yes Anesthesia Plan: Verified ASA Class: II Anesthesia Type: General
[2025-06-07] MEDS: CEFAZOLIN 2GM VIAL 2 GM (07:31)
[2025-06-07] MEDS: METRONIDAZ/SOD CHL 500 MG/100 ML PIGGYBACK 25 MG IV (07:37)
--- NOTE | 2025-06-07 07:50 | EXP.HP ---
History of Present Illness *Admission Date: 06/07/25 *Reason for visit:: hyesterectomy *History of present illness: Aliya Cohen is a 35-year-old -1-0-7 who presents for TVH, cystoscopy Several fibroids noted and some that impinge on the uterine cavity We discussed her history of methods to control abnormal bleeding she has tried the Depo for a year with irregular menses throughout she has tried Sprintec and Loestrin without any improvement. She has tried to IUDs but the Mirena and the Kiarra and they were spontaneously expelled. She has had 7 vaginal deliveries. She also reports that contraception causes severe mood changes for her she is not interested in medical management Past medical history: - She had a tubal and ablation 2 years ago. Her other surgical history includes diagnostic laparoscopy x 3 for endometriosis and gallbladder removal in 2008. She was previously on Myfembree for endometriosis and stopped that about 3 months ago. - Reports that she has had endometriosis her whole life and that all of her family members have had severe endo as well. States that all the women on her mom's side of the family have needed a hysterectomy before the age of 35 and she states that the pain from her endometriosis is so debilitating sometimes that she cannot get out of bed. She also has insulin resistance. She denies any complications with any of her pregnancies. - She lives here in [place] and she has children ranging from 2 to 16 years old. She has children at [place], in middle school, in high school. She is a eylo-og-ypom mom. - She has previously tried several options to control her endometriosis to include Myfembree, Mirena IUD, and OCPs. - Reports that following her ablation she had amenorrhea but recently she has had a heavy cycle that lasted 6 days and was excruciatingly painful. She does report that throughout the last 2 years she has had 1 or 2 episodes of light spotting but states that the pain has been fairly well-controlled. She largely attributes this to being on Myfembree for the last 2 years and recently stopping it 3 months ago. But she does state that the pain had occurred prior to that time - Patient reports that her pain is significantly worse on the left side and is interested in left ovarian removal [facility] Disclaimer: The information contained in this section may have been updated after the patient was seen, as this information can be updated by other users. Medical History Encounter for preoperative assessment Strep throat Sepsis Insulin resistance Metabolic acidosis History of anemia Urinary tract infection Kidney stone Migraine Surgical History History of laparoscopy History of endometrial ablation History of tubal ligation History of cholecystectomy Family History Father Colon cancer Other Cervical cancer Social History (Updated 06/07/25 @ 07:10 by Marybeth Amaral RN) Smoking Status: Never smoker alcohol intake: never substance use type: unknown current occupational status: unemployed Travel in the last 8 weeks?: Inside the [place] housing: house Have you lived/traveled outside US in past 30 days?: No Contact w/someone who lives/traveled outside US past 30 days?: No Exposure to someone with infectious disease in past 14 days?: No Do you have a fever (greater than 100.4 F or 38 C)?: No Have you tested positive for COVID-19?: No Exposed to someone with COVID-19 in past 14 days?: No Do you have a sore throat?: No Do you have a cough?: No Do you have any weakness?: No Do you have any diarrhea?: No Are you experiencing any unusual bleeding?: No Do you have any muscle aches/pain?: No Do you have any abdominal pain?: No Are you experiencing loss of taste or smell?: No Other Medical History Have you received the Flu Vaccine for this season: No Have you received the Pneumonia Vaccine: No Review of Systems Review of Systems Review of systems (narrative): Review of Systems Constitutional: Denies fever, chills, and sweats Eyes: Denies vision change/ pain Respiratory: Denies cough and shortness of breath Cardiovascular: Denies chest pain and lightheadedness Gastrointestinal: denies abdominal pain. Denies nausea, vomiting. Genitourinary: Denies dysuria and incontinence Musculoskeletal: Denies shoulder pain and back pain Neurological: Denies change in speech or headaches Meds Home Medications and Allergies Home Medications ?Medication ?Instructions ?Recorded ?Confirmed ?Type No Known Home Medications 06/01/25 06/01/25 History New Prescriptions to Start Prescriptions: Allergies Allergy/AdvReac Type Severity Reaction Status Date / Time No Known Allergies Allergy Verified 06/07/25 07:23 Exam Data for Last 24 hours Vital signs and Labs for Last 24 Hours: Temp Pulse Resp BP Pulse Ox O2 Del Method 97.0 F L 87 16 123/77 98 Room Air 06/07/25 07:09 06/07/25 07:09 06/07/25 07:09 06/07/25 07:09 06/07/25 07:09 06/07/25 07:09 I & O for Last 24 hours: Intake & Output 06/04/25 06/05/25 06/06/25 06/07/25 23:59 23:59 23:59 23:59 Weight 192 lb Constitutional Constitutional: no acute distress *Routine HEENT Exam Head: Present normocephalic Eye: Present EOMI and PERRL ENT: Present mucous membranes moist *Routine Neck Exam Neck: Present supple; Absent lymphadenopathy *Routine Respiratory Exam Respiratory: Present CTA bilaterally *Routine Cardiovascular Exam Cardiovascular: Present RRR *Routine Abdominal Exam Abdominal: Present soft and normoactive bowel sounds; Absent tenderness *Routine Rectal Exam Rectal:: deferred *Routine Genitalia Exam Genitalia:: deferred *Routine Extremities Exam Extremities: Absent cyanosis, clubbing or edema *Routine Skin Exam Skin: Present warm; Absent rash *Routine Neurological Exam Neurological: Present alert and oriented X3 Assessment and Plan *Assessment and plan (1) Obesity (BMI 30.0-34.9): Status: Acute Category: Medical Code(s): E66.811 - Obesity, class 1 (2) Pelvic pain: Status: Acute Category: Medical Code(s): R10.2 - Pelvic and perineal pain (3) Insulin resistance: Status: Acute Category: Medical Code(s): E88.819 - Insulin resistance, unspecified (4) History of tubal ligation: Status: Acute Category: Surgical Code(s): Z98.51 - Tubal ligation status (5) Abnormal uterine bleeding (AUB): Status: Acute Category: Medical Code(s): N93.9 - Abnormal uterine and vaginal bleeding, unspecified (6) History of laparoscopy: Problem Comment: endometriosis removal x4 Status: Acute Category: Surgical Code(s): Z98.890 - Other specified postprocedural states (7) History of endometrial ablation: Status: Acute Category: Surgical Code(s): Z98.890 - Other specified postprocedural states Plan Plan for TVH and cystoscopy with Larose culdoplasty -TVUS: Uterus: 7.2 x 5.7 x 4.4 cm. The endometrium measures 6.5 mm. Few fibroids are seen in the uterus; the largest one measures 1.5 cm. Some of the fibroids are seen to impinge on the uterine cavity Ovaries: The right ovary measure 3.9 x 2.8 x 2.1 cm. Right ovarian volume: 1.5 mL. The left ovary measure 3.4 x 2.4 x 2.4 cm. Left ovarian volume: 10 mL. No evidence of adnexal mass. Trace free fluid in the pelvic cavity. -The patient is requesting definitive surgical management with hysterectomy. -Diagnosis: Abnormal uterine bleeding, dysmenorrhea, dyspareunia, fibroids, laparoscopic proven endometriosis -She declines continued medical intervention. Previous failed therapies include: OCPs, Depo, IUDs, endometrial ablation -Reviewed the risks of major gynecologic surgery with the pt to include bleeding, infection and risk of damage to surrounding structures. I assessed the patient's understanding from her last visit and she was able to review most of the risk that I reviewed with her at the last visit. She thoroughly understands the risk of hysterectomy. Discussed risks of Hemorrhage requiring life saving blood transfusion that carries a risk of viral infection was explained to the pt and she consented to transfusion if deemed medically necessary. Discussed risks of infection, and the use of antibiotics for infection ppx. Discussed risks of injury to the surrounding structures to include her bowel, bladder, ureters, and neurovascular bundles. Discussed that this could require further surgeries and prolong recovery and hospital stay. Discussed risk of fistula formation. She voiced understanding of all risks. I ensured she understood with teachback method of risks. -Pt desires to proceed with: TVH, Larose culdoplasty, and cystoscopy. -Pap smear: Up-to-date and benign -CBC, test, type and screen ordered. -Infection prophylactic antibiotics ordered: Ancef 2g and metronidazole -Reviewed with the pt the risk that hysterectomy would not alleviate her pelvic pain. Pt voiced understanding of the risks and consented to hysterectomy. -Postoperative course reviewed with the patient: Anticipate DC home the same day after meeting all DC criteria, including pain is well controlled, N/V controlled, tolerating PO and voiding. Discussed overnight stay if not meeting this criteria. Much of this encounter note is an electronic central lab technician of spoken language to printed text. Electronic central lab technician of spoken language may permit errors, and at times, nonsensical words or phrases to be inadvertently transcribed. I have reviewed the note for such errors, some may still exist.
[2025-06-07] MEDS: WATER FOR IRRIGATION,STERILE 3,000 ML 25 ML IR (08:02)
[2025-06-07] MEDS: METHYLENE BLUE 0.5% 10ML AMPULE 50 MG IV (08:02)
[2025-06-07] MEDS: LIDOCAINE 1% W/EPI 1:100,000 20ML VIAL 20 ML (08:02)
--- NOTE | 2025-06-07 09:38 | P.OP_ITS ---
Date of procedure: 06/07/25 Pre-op Diagnosis:: 1. Abnormal uterine bleeding 2. Heavy uterine bleeding 3. Fibroid uterus 4. Stage II apical prolapse 5. Dysmenorrhea 6. Dyspareunia 7. Failed IUD 8. Failed Depo-Provera 9. Endometriosis Post-op Diagnosis:: 1. Abnormal uterine bleeding 2. Heavy uterine bleeding 3. Fibroid uterus 4. Stage II apical prolapse 5. Dysmenorrhea 6. Dyspareunia 7. Failed IUD 8. Failed Depo-Provera 9. Endometriosis Procedure performed:: 1. Total vaginal hysterectomy 2. Larose culdoplasty 3. Cystoscopy Surgeon:: Kathy Muhammad DO Flea Market Seller(s):: Fuentes Peres MD SENIOR MARKETING ASSOCIATE:: Aresnio Vogt Anesthesia: GETA Estimated blood loss (mL): 75 Operative findings:: Uterine EUA was significant for 8wk size uterus with regular borders at the fundus. Stage 2 apical descent was appreciated. No gross adnexal masses were appreciated. Operative note:: Pt was taken back to the OR where GETA was obtained without difficulty. SCDs were placed and found to be working. The patient was placed in dorsal lithotomy position using yellowfin stirrups. The vagina was prepped and draped in the normal sterile fashion. An in and out catheter was used to drain the bladder and 20 mL of methylene blue normal saline were inserted into the bladder. A weighted speculum and Francisca were used to visualize the cervix. Two Martinez tenaculums were used to grasp the anterior and posterior ectocervix on the right and left. The bovie was used to make a circumferential incision at the cervicovaginal junction. A raytec was used to bluntly dissect the paracervical fascia from the cervix off the vaginal mucosa. Crespo scissors and pickups were used to enter the colpotomy posteriorly and a long weighted speculum was placed. Abdominal entry was confirmed by the presence of the ovary and omentum. The left uterosacral ligament was grasped with a mynor clamp, cut, and suture ligated with 0-Vicryl. This was tagged for later incorporation to the cuff. This process was repeated on the contralateral side. The anterior vaginal tissue was further dissected off the cervix. Pickups and Metzenbaum scissors were used to make the anterior colpotomy. A [place] retractor was placed. Entry to the abdominal cavity was confirmed with the presence of omentum and the left ovary was visualized. The Enseal was used to dissect the broad ligament down the lateral aspect of the uterine body on the left side. The cardinal ligaments and uterine vessels were identified bilaterally, grasped with the Enseal, coagulated and transected. This process was repeated on the right. The utero-ovarian ligament was clamped, transected and suture-ligated on the left. This process was repeated on the right. The uterus was free and removed from the vagina, passed off the operative field and sent to pathology for evaluation. The posterior peritoneum was fixed to the posterior vaginal cuff with a running locking stitch. 0-PDS was used to place a Larose stitch for the culdoplasty, incorporating the bilateral uterosacral ligaments. The anterior peritoneum was grasped with an Dora clamp and pursestringed closed. Anterior peritoneum was difficult to locate. Following placement of the pressuring suture bleeding near the uterosacral ligaments at each side was noted at the peritoneal edge and vaginal cuff mucosa. 2 rihlxr-fv-luwme's were required on the patient's left apex to obtain hemostasis and 1 smwcdw-jh-bsonk was required on the patient's right apex grasping the peritoneum and suture ligating it to the vaginal mucosa for hemostasis. Hemostasis was noted. The vaginal cuff was then closed with 0 Vicryl in a running locking fashion. Larose culdoplasty was tied to suspend the apex of the vagina. Hemostasis was noted. Cystoscopy Cystoscopy was performed with a 70 degree cystoscope and distended with normal saline. Inspection of the bladder showed a normal-looking, blue dyed, smooth bladder mucosa with no evidence of injury, suture, puckering, or other abnormalities.? Both ureteral meatuses were visualized and were noted to be expelling urine in routine fashion.? Cystoscope was removed. Sponge, instrument and needle counts were correct x3, per nursing. The patient was awakened from general anesthesia and transferred to the PACU in stable condition. Condition: stable Disposition: PACU Specimens:: Uterine body, cervix Complications:: None
--- NOTE | 2025-06-07 09:41 | P.PNANES_ITS ---
[facility] Anesthesia Record Part I Anesthesia Record I Intake, IV Amount: 900 Hydration: Adequate Estimated blood loss (mL): 50 Urine output (mL): 50 Blood Products used (#): none Blood Pressure: 124/68 SaO2: 94 Pulse Rate: 95 Airway Patency: Patent Respiratory Rate: 16 Temperature: 97.8 F Patient is:: Drowsy and Stable Stable to PACU at:: 09:40
[2025-06-07] MEDS: HYDROMORPHONE 2MG/ML SYRINGE 0.5 MG IV ×2 (10:06→10:16)
[2025-06-07] MEDS: MORPHINE 2MG/ML SYRINGE 2 MG IV (10:26)
--- NOTE | 2025-06-08 07:41 | P.PNANES_ITS ---
[facility] Anesthesia Record Part II Anesthesia Record Part II Discharge Time: 10:40 Destination: Surgical Day Care (OP Surgery) PACU nurse assessment reviewed?: Yes Patient Condition:: Good Anesthesia Complications:: None Swallowing reflex intact?: Yes Airway Patency: Patent Cyanosis?: No Blood Pressure: 135/80 SaO2: 98 Respiratory Rate: 18 Pulse Rate: 88 Temperature: 97.8 F Mental Status: Alert & Oriented Pain level:: 4 Nausea and/or vomitting:: None Intake, IV Amount: 0 Hydration: Adequate
[2025-06-08 07:42] VITALS: BP 135/80; PULSE 88; RESP 18; TEMP 36.6; O2SAT 98
== END 2025-06-07 11:12 | disposition home or self-care (01) ==
PROVIDERS: PCP Nurse Practitioner Family; Visit Provider Obstetrics & Gynecology
PROC: (CPT 52000; principal; 2025-06-07 07:30)
DX: D25.9 Leiomyoma of uterus, unspecified (principal); N32.89 Other specified disorders of bladder; N72 Inflammatory disease of cervix uteri; N81.2 Incomplete uterovaginal prolapse; N80.9 Endometriosis, unspecified; N93.9 Abnormal uterine and vaginal bleeding, unspecified; E88.819 Insulin resistance, unspecified; E66.811 Obesity, class 1; Z98.51 Tubal ligation status
CPT/HCPCS: 52000; 58260; 36415; 86850; 96374; J0690; J1100; J1171; J1836; J1885; J2003; J2004; J2250; J2270; J2405; J2704; J3010

== ENCOUNTER 2025-07-28 08:26 | Outpatient (CLI) | payer MEDICAID, SELFPAY ==
--- OUTSIDE RECORDS SUMMARY | 2025-07-30 08:31 | XMS_ITS | Encounter Summary ---
Author Organization [employer] ([place], [place], [place], [place], [place]) Address [address] [place] [address] Care Team Providers Care Chronic Care Nurse Name Role Phone Annette Alonzo MD Primary Care Provider [phone] Encounter Details Date Type Department Care Team (Late st Contact Info) Description 02/03/2021 Transcribed Document [facility] [place] Family Medicine [address] [place] [address] ProviderNorman MD [address], [place] [id number] Social History Tobacco Use Types Packs/Day Years Used Date Smoking Tobacco: Never Assessed Comments Unknown Sex and Gender Information Value Date Recorded Sex Assigned at Not on file Legal Sex Female 1:09 PM CDT Gender Identity Not on file Sexual Orientation Not on file documented as of this encounter Miscellaneous Notes * Cerner Conversion Note - Norman ProviderMD - 02/03/2021 9:41 AM CDT [facility] [address], [place] [address] Patient Copy Patient Information: Name: ALIYA SANCHES Current Date: 02/03/2021 09:41:49 : 1990 Patient Address: [address] [place] [address] [facility] [id number] Patient Attending Physician: ANNETTE ALONZO MD-OBG Primary Care Provider: ANNETTE ALONZO MD-OBG Primary Care Provider Discharge Diagnosis: 1:31 weeks gestation of ; 2:UTI (urinary tract infection) during ; 3:Kidney stone complicating ; 4:Right flank pain Weight on Admission: 162 lb, 0 oz Comment: Follow-up Instructions: With: Address: When: ANNETTE SMITHON [address], [address] [place] [address] Business (1) Within 2 to 3 days [...] Assistance with quitting is available by contacting 6-707-EGDN-NOW. This is a free resource providing counseling, [...] Be sure to sign up for the [employer] patient portal, which gives you 01/03 access to your medical information ??? including these discharge instructions ??? using your computer, smartphone, or tablet. Just go to [employer] to get started. Questions? Call . [facility] would like to thank you for allowing us to assist you with your healthcare needs. VERÓNICA Hall ERIN MARIE, (or sales and merchandising representative) have received the above patient education materials/instructions and have verbalized understanding: Patient Signature _ Date/Time Patient President Ceo & Founder Signature (if needed) Date/Time Clinician/Hospital President Ceo & Founder Signature (if needed) Date/Time documented in this encounter Plan of Treatment Not on file documented as of this encounter Visit Diagnoses Not on filedocumented in this encounter Care Teams Chronic Care Nurse Relationship Specialty Start Date End Date Annette Alonzo MD [address] [place] [address] PCP - General Obstetrics and Gynecology 02/26/23 documented as of this encounter
--- OUTSIDE RECORDS SUMMARY | 2025-07-30 08:31 | XMS_ITS | Encounter Summary ---
Author Organization [employer] [facility] ([place], [place], [place], [place], [place]) Address [address] [place] [address] Care Team Providers Care Turn Machine Operator Name Role Phone Annette Alonzo MD Primary Care Provider [phone] Encounter Details Date Type Department Care Team (Late st Contact Info) Description 2021 Transcribed Document [facility] [place] Family Medicine [address] [place] [address] ProviderNorman MD [address], [place] [id number] Social History Tobacco Use Types Packs/Day Years Used Date Smoking Tobacco: Never Assessed Comments Unknown Sex and Gender Information Value Date Recorded Sex Assigned at Not on file Legal Sex Female 1:09 PM CDT Gender Identity Not on file Sexual Orientation Not on file documented as of this encounter Miscellaneous Notes * Cerner Conversion Note - Norman Valera MD - 2021 8:06 AM CDT Patient: ALIYA [...] Mylicon: 80 mg, Oral, QID, PRN: Gas [place] 5 mg-325 mg oral tablet: 1 Tab, [...] on filedocumented in this encounter Care Teams Turn Machine Operator Relationship Specialty Start Date End Date Annette Alonzo MD [address] [place] [address] PCP - General Obstetrics and Gynecology 02/26/23 documented as of this encounter
--- OUTSIDE RECORDS SUMMARY | 2025-07-30 08:31 | XMS_ITS | Encounter Summary ---
Author Organization [employer] ([place], [place], [place], [place], [place]) Address [address] [place] [address] Care Team Providers Care Supervisor Concrete Pipe Plant Name Role Phone Annette Alonzo MD Primary Care Provider [phone] Encounter Details Date Type Department Care Team (Late st Contact Info) Description 03/10/2021 Transcribed Document [facility] [place] Family Medicine [address] [place] [address] ProviderNorman MD [address] [place], [place] [id number] Social History Tobacco Use Types Packs/Day Years [...] (See Comment) Dermoplast 20% topical spray: 1 Raymond, Topical, Q4H, PRN: Pain HYDROmorphone: 0.5 mg, [...] Other (See Comment) Documented Medications Documented 19 ([place]): Daily, 0 Refill(s) ibuprofen 600 mg oral tablet: 1 Tab, Oral, Q6H, 0 Refill(s), Home Medications (2) Active ibuprofen 600 mg oral tablet 600 mg = 1 Tab, Oral, Q6H 19 ([place]) , Daily , Medications (18) Active Scheduled: [...] 30 mL, Oral, Q4H benzocaine-menthol spray 1 Raymond, Topical, Q4H carboprost 250 mcg/1 mL inj 250 mcg 1 mL, IntraMuscular, 1-Time famotidine 20 mg tab 20 mg 1 Tab, Oral, Q12H lanolin oint 8.5 gram 1 Application, Topical, See Comment qipjsci-afbib-gryep vaccine inj 0.5 mL, SubCutaneous, 1-Time methylergonovine [...] followup in 6 weeks unless otherwise necessary. Electronically signed by Jessica Nye Conversion Cath Lab Radiological Technologist Cerner at 11/24/2022 12:00 PM CDT documented in this encounter Plan of Treatment Not on file documented as of this encounter Visit Diagnoses Not on filedocumented in this encounter Care Teams Supervisor Concrete Pipe Plant Relationship Specialty Start Date End Date Annette Alonzo MD [address] [facility] [address] [place] [address] PCP - General Obstetrics and Gynecology 02/26/23 documented as of this encounter
--- OUTSIDE RECORDS SUMMARY | 2025-07-30 08:31 | XMS_ITS | Clinical Summary ---
Author Organization [employer] ([place], [place], [place], [place], [place]) Address [address] [place] [address] Care Team Providers Care Sonogram Technician Name Role Phone Sylvia Alonzo MD Primary Care Provider [phone] Allergies No known active allergies Medications metFORMIN [...] Feeling Lonely or Isolated Not on file 01/19 /2024 Educational Attainment Answer Date Gray rded Speak language other than Hungarian at home Not on file 08/27/2023 Want [...] HIV Screening 2006 Hepatitis C Screening 2009 Pneumococcal Vaccine: 0-49 Years (1 of 2 - PCV) 2009 Pap Smear 02/03/2012 Tobacco Cessation Counseling and Screening (12+) 02/2602/26/2023 COVID-19 VACCINE (1 - 2023- season) 2025 Influenza Vaccine (#1) 2025 DTAP/TDAP/TD VACCINES (2 - Td or Tdap) 03/09/2031 Medical Devices Implanted Type Area Vice President Talent Management Device Identifier Shelf Expiration Date Model / Serial / Lot Nancyce G3 3x6cm [id number] - [id number] Implanted:Qty : 1 on 02/26/2023 by Sylvia Alonzo MD at [facility] IMPLANTS N/A: Pelvis [employer] [place] 12/15/2027 [id number] / / [id number] Insurance BLUE CROSS/BLUE SHIELD Member Subscriber Plan / Payer (Ef fective 2016-Present) Name:Aliya Cohen Relation to Subscriber:Spouse Name:KOKI COHEN Date of :1991 Address: [address] [place] [address] Payer ID:Not on file Type:Not on file Address: [place] [phone] BLUE CROSS/BLUE SHIELD Advance Directives For more information, please contact: [phone] * Full Code (Latest Code Status on File) Date Activated Date Inactivated Comments 02/26/2023 10:51 AM 02/26/2023 4:39 PM * Full Code Date Activated Date Inactivated Comments 02/26/2023 9:24 AM 02/26/2023 10:51 AM Care Teams Sonogram Technician Relationship Specialty Start Date End Date Sylvia Alonzo MD [address] [facility] [address] [place] [address] PCP - General Obstetrics and Gynecology 02/26/23
--- OUTSIDE RECORDS SUMMARY | 2025-07-30 08:31 | XMS_ITS | Encounter Summary ---
Author Organization [employer] ([place], [place], [place], [place], [place]) Address [address] [place] [address] Care Team Providers Care Heel Curver Name Role Phone Sylvia Alonzo MD Primary Care Provider [phone] Encounter Details Date Type Department Care Team (Late st Contact Info) Description 05/19/2019 Transcribed Document [facility] [place] Family Medicine [address] [place] [address] ProviderNorman MD [address], [place] [id number] Social History Tobacco Use Types Packs/Day Years [...] Source : Stated Height Entry Format : Dawes Height, Feet : 5 ft(Converted to: 152 cm, 60 Inch) Height, Inches : 5 Inch(Converted to: 0 ft 5 Inch, 12.70 cm) Clinical Height : 165.1 cm Weight Source : Standing scale Weight Entry Format : Dawes Clinical Dosing Weight : 61.36 kg Weight, Pounds : 135 lb Body Surface Area (BSA) : 1.68 m2 Body Mass Index : 22.5 kg/m2 Huron Body Weight : 57 kg Nathaly Moon RN - 05/19/2019 10:21 EDT Health Histories Smoking Status : Never (less than 100 in lifetime; none in last 30 days) Smokeless Tobacco Status : Never Nathaly Moon RN - 05/19/2019 10:21 EDT Social History (As Of: 05/19/2019 10:26:50 EDT) Tobacco: Smoking Status Never smoker. (Last Updated: 04/08/2014 15:21:23 EDT by SOFIE MENSAH, TERRAZZO FINISHER HELPER-[facility]) Alcohol: Use in Last 12 Months: No. (Last Updated: 04/08/2014 15:21:30 EDT by SOFIE MENSAH, TERRAZZO FINISHER HELPER-[facility]) Substance Abuse: Drug Use Hx: No. Use in Last 12 Months: No. (Last Updated: 04/08/2014 15:21:27 EDT by SOFIE MENSAH, TERRAZZO FINISHER HELPER-[facility]) Infectious Disease History Infectious [...] #2 Relationship : . Primary Language : Ethiopian Communication Barrier : None Nathaly Moon RN [...] form. Electronically signed by Jessica Nye Conversion Commercial Real Estate Associate Cerner at 11/24/2022 12:07 PM CDT documented in this encounter Plan of Treatment Not on file documented as of this encounter Visit Diagnoses Not on filedocumented in this encounter Care Teams Heel Curver Relationship Specialty Start Date End Date Sylvia Alonzo MD [address] [place] [address] PCP - General Obstetrics and Gynecology 02/26/23 documented as of this encounter
--- OUTSIDE RECORDS SUMMARY | 2025-07-30 08:31 | XMS_ITS | Encounter Summary ---
Author Organization [employer] ([place], [place], [place], [place], [place]) Address [address] [place] [address] Care Team Providers Care Relations Manager Name Role Phone Sylvia Alonzo MD Primary Care Provider [phone] Encounter Details Date Type Department Care Team (Late st Contact Info) Description 2021 Transcribed Document [facility] [place] [address] [place] [address] ProviderNorman MD [address] [place] [address] Social History Tobacco Use Types [...] Source : Measured Height Entry Format : Henry Height, Feet : 5 ft(Converted to: 152 cm, 60 Inch) Clinical Height : 165.1 cm Height, Inches : 5 Inch(Converted to: 0 ft 5 Inch, 12.70 cm) Weight Source : Bed scale Weight Entry Format : Henry Weight, Pounds : 162 lb Clinical Dosing Weight : 73.64 kg Body Surface Area (BSA) : 1.81 m2 Body Mass Index : 27 kg/m2 (HI) [place]on Body Weight (IBW) : 56.59 kg Sandie [...] Tetanus Immunization : Less than 5 years Sandie Martini 2021 5:15 EDT Influenza Vaccine Asmt, Adult [...] No Patient Needs Meds Crushed/Liquid : No Sandie Martini Jeff 2021 5:15 EDT Infectious Disease History Has [...] None Sandie Martini - 2021 5:15 EDT [place] Suicide Severity Rating Scale (C-SSRS) CSSRS Past [...] on filedocumented in this encounter Care Teams Relations Manager Relationship Specialty Start Date End Date Sylvia Alonzo MD [address] [place] [address] PCP - General Obstetrics and Gynecology 02/26/23 documented as of this encounter
--- OUTSIDE RECORDS SUMMARY | 2025-07-30 08:31 | XMS_ITS | Encounter Summary ---
Author Organization [employer] ([place], [place], [place], [place], [place]) Address [address] [place] [address] Care Team Providers Care Career Center Advisor Name Role Phone Sylvia Alonzo MD Primary Care Provider [phone] Encounter Details Date Type Department Care Team (Late st Contact Info) Description 03/09/2021 Transcribed Document [facility] [place] Family Medicine [address] [place] [address] ProviderNorman MD [address] [place], [place] [address] Social History Tobacco Use Types Packs/Day Years [...] 1 Health Plan: ANTHEM HMOPPO Policy Number: [id number] Authorization Number: Insurance Primary Name : ANTHEM HMOPPO Policy Number: [id number] Authorization Status-Primary : No precert required Authorization Number-Primary : Auto 2/4 Number of Days Authorized-Primary : 2 Day(s) Authorized Service Begin Date-Primary : 03/07/2021 EDT Authorized Service End Date-Primary : 03/09/2021 EDT Historical Authorization Comments-Primary : No Authorization Comments Found Gypsy Pate Rn-Utilization Review - 03/09/2021 8:52 EDT Electronically signed by Parris [facility] Conversion Mill Platform Supervisor Cerner at 11/24/2022 11:54 AM CDT documented in this encounter Plan of Treatment Not on file documented as of this encounter Visit Diagnoses Not on filedocumented in this encounter Care Teams Career Center Advisor Relationship Specialty Start Date End Date Sylvia Alonzo MD [address] [place] [address] [place] [address] PCP - General Obstetrics and Gynecology 02/26/23 documented as of this encounter
--- OUTSIDE RECORDS SUMMARY | 2025-07-30 08:31 | XMS_ITS | Encounter Summary ---
Author Organization [employer] ([place], [place], [place], [place], [place]) Address [address] [place] [address] Care Team Providers Care Auto Former Machine Operator Name Role Phone Annette Alonzo MD Primary Care Provider [phone] Encounter Details Date Type Department Care Team (Late st Contact Info) Description 02/03/2021 Transcribed Document [facility] [place] Family Medicine [address] [place] [address] ProviderNorman MD [address] [place] [address] Social History Tobacco Use Types Packs/Day Years Used Date Smoking Tobacco: Never Assessed Comments Unknown Sex and Gender Information Value Date Recorded Sex Assigned at Not on file Legal Sex Female 1:09 PM CDT Gender Identity Not on file Sexual Orientation Not on file documented as of this encounter Miscellaneous Notes * Cerner Conversion Note - Norman Valera MD - 02/03/2021 11:42 [place] [address] VERÓNICA ALIYA JANETTE :1990 Visit Time:02/01/2021 Your Visit Summary Your [...] keep the already scheduled one Where: [address] [facility] [employer] [address] [place] [address] [facility] (1) Medications What How Much When Instructions [...] Rhubarb. ? Beets. ? Potato chips and citizen of [place] fries. ? Nuts. ??? If you regularly take a diuretic medicine, make sure to eat at least 1???2 fruits or vegetables high in potassium each day. These include: ? Avocado. ? Banana. ? [place], prune, carrot, or tomato juice. ? Baked [...] Casseroles. Pizza. Lasagna. Frozen meals. Potato chips. Hong Konger fries. Summary ??? You can reduce your [...] provider. Document Revised: 11/15/2019 Document Reviewed: 07/06/2017 [employer] Patient Education ?? 2020 [employer] Kidney Stones Kidney stones are rock-like [...] these instructions at home: Medicines ??? Take vggb-jlv-imvtxgp and prescription medicines only as told by [...] provider. Document Revised: 12/12/2019 Document Reviewed: 12/12/2019 [employer] Patient Education ?? 2020 [employer]. Urinary Tract Infection, Adult A urinary tract [...] these instructions at home: Medicines ??? Take ajjk-qku-lbhosqf and prescription medicines only as told by [...] provider. Document Revised: 07/13/2019 Document Reviewed: 2019 [employer] Patient Education ?? 2020 [employer]. Third Trimester of The third trimester is from week 28 through week 40 (months 7 through 9). This trimester is when your unborn baby (fetus) is growing very fast. At the end of the ninth month, the unborn baby is about 20 inches in length. It weighs about 6???10 pounds. Follow these instructions at home: Medicines ??? Take tjdy-bqj-ibiacor and prescription medicines only as told by [...] provider. Document Revised: 11/16/2019 Document Reviewed: 08/31/2017 [employer] Patient Education ?? 2019 [employer] Emergency Awareness and Preventative Care STROKE [...] Assistance with quitting is available by contacting 8-942-XVXDContour SemiconductorNOW. This is a free resource providing counseling, [...] range between ( 1.0 and 7.0 ) Wilson #: 0.72 K/uL -- Normal range between ( 0.24 and 0.82 ) Eos #: 0.06 K/uL -- Normal range between ( 0.04 and 0.54 ) Wilson %: 7.0 % -- Normal range between [...] Squamous Epithelial Cells: 0-2 /HPF Urine Color: [place] Ur WBC: 5-10 /HPF Urine Ketones Dipstick: >=80 Urine pH Dipstick: 6.5 -- Normal range between ( 6.0 and 8.0 ) Urine Bilirubin Dipstick: Negative Urine Specific [place]: 1.010 -- Normal range between ( 1.005 [...] US Renal Comp: US Renal Comp Patient Name:VERÓNICAALIYA I have received and understand this information and was given the opportunity to ask questions. Patient/Senior Loan Officer Name: Patient/Senior Loan Officer Signature: Relationship to Patient: Clinician/Hospital Senior Loan Officer Signature: Date: documented in this encounter Plan of Treatment Not on file documented as of this encounter Visit Diagnoses Not on filedocumented in this encounter Care Teams Auto Former Machine Operator Relationship Specialty Start Date End Date Annette Alonzo MD [address] [place] [address] PCP - General Obstetrics and Gynecology 02/26/23 documented as of this encounter
--- OUTSIDE RECORDS SUMMARY | 2025-07-30 08:31 | XMS_ITS | Encounter Summary ---
Author Organization [employer] ([place], [place], [place], [place], [place]) Address [address] [place] [address] Care Team Providers Care Town Planner Name Role Phone Sylvia Alonzo MD Primary Care Provider [phone] Encounter Details Date Type Department Care Team (Late st Contact Info) Description 03/10/2021 Transcribed Document [facility] [place] [facility] [place] [address] ProviderNorman MD [address] [place], [place] [id number] Social History Tobacco Use Types Packs/Day Years Used Date Smoking Tobacco: Never Assessed Comments Unknown Sex and Gender Information Value Date Recorded Sex Assigned at Not on file Legal Sex Female 1:09 PM CDT Gender Identity Not on file Sexual Orientation Not on file documented as of this encounter Miscellaneous Notes * Cerner Conversion Note - Norman Valera MD - 03/10/2021 10:22 AM CDT Patient Education [...] work with your health care provider or hadoop consultant. ??? If you are not : [...] methods of control (contraception). Medicines ??? Take qdws-scw-vintkzm and prescription medicines only as told by [...] provider. Document Revised: 07/29/2018 Document Reviewed: 05/09/2018 J[employer]i Patient Education ? 2020 E-Semble. Choosing to breastfeed is one of the [...] smacking lips, cooing, sighing, or squeaking. ??? Nxus-kj-nmubk movements and sucking on fingers or hands. [...] able to be present during feedings. Your hadoop consultant can help you find a method [...] contact your health care provider or a hadoop consultant. Overall health care recommendations while ??? [...] provider before taking any medicines. These include rkzk-xwf-cxsjida and prescription medicines as well as vitamins [...] Talk with your health care provider or hadoop consultant if you have questions or you face problems as you breastfeed. This information is not intended to replace advice given to you by your health care provider. Make sure you discuss any questions you have with your health care provider. Document Revised: 10/20/2018 Document Reviewed: 08/27/2017 Jinni Patient Education ? 2020 E-Semble. documented in this encounter Plan of Treatment Not on file documented as of this encounter Visit Diagnoses Not on filedocumented in this encounter Care Teams Town Planner Relationship Specialty Start Date End Date Sylvia Alonzo MD [address] [facility] [address] [place] [address] PCP - General Obstetrics and Gynecology 02/26/23 documented as of this encounter
--- OUTSIDE RECORDS SUMMARY | 2025-07-30 08:31 | XMS_ITS | Referral Summary ---
Author Organization [employer] ([place], [place], [place], [place], [place]) Address [address] [place] [address] Care Team Providers Care Applications Administrator Name Role Phone Sylvia Alonzo MD Primary Care Provider [phone] Allergies No known active allergies Medications metFORMIN [...] Date Gray rded Speak language other than Uzbek at home Not on file 08/27/2023 Want [...] on file Medical Devices Implanted Type Area Small Business Banking Officer Device Identifier Shelf Expiration Date Model / Serial / Lot Biodfence G3 3x6cm [id number] - [id number] Implanted:Qty : 1 on 02/26/2023 by Sylvia Alonzo MD at [facility] IMPLANTS N/A: Pelvis [employer] [place] 12/15/2027 [id number] / / [id number] Insurance BLUE CROSS/BLUE SHIELD BLUE CROSS/BLUE SHIELD Advance Directives For more information, please contact: [phone] * Full Code (Latest Code Status on File) Date Activated Date Inactivated Comments 02/26/2023 10:51 AM 02/26/2023 4:39 PM * Full Code Date Activated Date Inactivated Comments 02/26/2023 9:24 AM 02/26/2023 10:51 AM Care Teams Applications Administrator Relationship Specialty Start Date End Date Sylvia Alonzo MD [address] [place] [address] [place] [address] PCP - General Obstetrics and Gynecology 02/26/23
--- OUTSIDE RECORDS SUMMARY | 2025-07-30 08:31 | XMS_ITS | Encounter Summary ---
Author Organization [employer] ([place], [place], [place], [place], [place]) Address [address] [place] [address] Care Team Providers Care Rod Mill Tender Name Role Phone Sylvia Alonzo MD Primary Care Provider [phone] Encounter Details Date Type Department Care Team (Late st Contact Info) Description 03/09/[address] [facility] [place] [address] [place] [address] ProviderNorman MD [address] [place] [address] Social History Tobacco Use Types [...] on filedocumented in this encounter Care Teams Rod Mill Tender Relationship Specialty Start Date End Date Sylvia Alonzo MD 160 [facility] [address] [place] [address] PCP - General Obstetrics and Gynecology 02/26/23 documented as of this encounter
--- OUTSIDE RECORDS SUMMARY | 2025-07-30 08:31 | XMS_ITS | Encounter Summary ---
Author Organization [employer] ([place], [place], [place], [place], [place]) Address [address] [place] [address] Care Team Providers Care Barrel Brander Name Role Phone Sylvia Alonzo MD Primary Care Provider Encounter Details Date Type Department Care Team (Late st Contact Info) Description 02/03/2021 Transcribed Document [facility] [place] [address] [place] [address] ProviderNorman MD [address] [place] [address] Social History Tobacco Use Types Packs/Day Years Used Date Smoking Tobacco: Never Assessed Comments Unknown Sex and Gender Information Value Date Recorded Sex Assigned at Not on file Legal Sex Female 1:09 PM CDT Gender Identity Not on file Sexual Orientation Not on file documented as of this encounter Miscellaneous Notes * Cerner Conversion Note - Norman ProviderMD - 02/03/2021 11:36 AM CDT Stroke/Warfarin [...] on filedocumented in this encounter Care Teams Barrel Brander Relationship Specialty Start Date End Date Sylvia Alonzo MD [facility] [address] [place] [address] PCP - General Obstetrics and Gynecology 02/26/23 documented as of this encounter
--- OUTSIDE RECORDS SUMMARY | 2025-07-30 08:31 | XMS_ITS | Encounter Summary ---
Author Organization [employer] ([place], [place], [place], [place], [place]) Address [address] [place] [address] Care Team Providers Care Cartridge Maker Name Role Phone Sylvia Alonzo MD Primary Care Provider [phone] Encounter Details Date Type Department Care Team (Late st Contact Info) Description 05/19/2019 Transcribed Document [facility] [place] [address] [place] [address] ProviderNorman MD [address] [place], [place] [id number] Social History Tobacco Use Types Packs/Day Years Used Date Smoking Tobacco: Never Assessed Comments Unknown Sex and Gender Information Value Date Recorded Sex Assigned at Not on file Legal Sex Female 1:09 PM CDT Gender Identity Not on file Sexual Orientation Not on file documented as of this encounter Miscellaneous Notes * Cerner Conversion Note - Historical ProviderMD - 05/19/2019 3:15 PM CDT Patient [...] including vitamins, herbs, eye drops, creams, and bxjb-brn-tmzyzth medicines. This is especially important if you [...] 07/26/2006 Document Revised: 04/11/2017 Document Reviewed: 04/11/2017 [employer] Interactive Patient Education ? 2019 Spreadsave Inc. Hysteroscopy, Care After This sheet gives [...] taking prescription pain medicines. Medicines ??? Take arwq-quh-rmrfwwa and prescription medicines only as told by [...] urine clear or pale yellow. ? Take jwaf-rrj-mpjpmzs or prescription medicines. ? Eat foods that [...] 05/16/2014 Document Revised: 08/24/2017 Document Reviewed: 08/24/2017 Spreadsave Interactive Patient Education ? 2019 Spreadsave Inc. Diagnostic Laparoscopy, Care After This sheet [...] these instructions at home: Medicines ??? Take etgo-azz-cmjycqh and prescription medicines only as told by [...] and water are not available, use hand student loan counselor. ? Change your dressing as told by [...] keep your urine pale yellow. ? Take vozp-uzr-ahahayp or prescription medicines. ? Eat foods that [...] 07/06/2016 Document Revised: 01/19/2018 Document Reviewed: 01/19/2018 Spreadsave Interactive Patient Education ? 2019 Spreadsave Inc. General Anesthesia, Adult, Care After This [...] activities are safe for you. ??? Take xyos-neo-nvbqnlq and prescription medicines only as told by [...] 03/11/2018 Elsevier Interactive Patient Education ? 2019 Spreadsave Inc. documented in this encounter Plan of Treatment Not on file documented as of this encounter Visit Diagnoses Not on filedocumented in this encounter Care Teams Cartridge Maker Relationship Specialty Start Date End Date Sylvia Alonzo MD [address] [place] [address] PCP - General Obstetrics and Gynecology 02/26/23 documented as of this encounter
--- OUTSIDE RECORDS SUMMARY | 2025-07-30 08:31 | XMS_ITS | Encounter Summary ---
Author Organization [employer] ([place], [place], [place], [place], [place]) Address [address] [place] [address] Care Team Providers Care Forestry Instructor Name Role Phone Sylvia Alonzo MD Primary Care Provider Encounter Details Date Type Department Care Team (Late st Contact Info) Description 05/19/2019 Transcribed Document [facility] [place] [address] [place] [address] ProviderNorman MD [address] [place], [place] [id number] Social History Tobacco Use Types Packs/Day Years Used Date Smoking Tobacco: Never Assessed Comments Unknown Sex and Gender Information Value Date Recorded Sex Assigned at Not on file Legal Sex Female 1:09 PM CDT Gender Identity Not on file Sexual Orientation Not on file documented as of this encounter Miscellaneous Notes * Cerner Conversion Note - Historical ProviderMD - 05/19/2019 12:06 PM CDT JULIETH Main OR IntraOp Summary Primary Physician: SYLVIA ALONZO MD-OBG Finalized Date/Time: 05/19/19 13:40:07 Pt. Name: CHRISTIE COHEN./Sex: 1990 Female Med Rec #: [id number] Physician: SYLVIA ALONZO MD-OBG Financial #: [id number] Pt. Type: O Room/Bed: Admit/Disch: 05/19/19 09:30:00 - Institution: [facility] IntraOp Case Attendance Entry 1 Entry 2 Entry 3 Case Attendee SYLVIA ALONZO WICKER, KAREN KIM, COLLINS CHRISTINE, MARK FERRELL-OBG MOTORS ASSEMBLER-ANS Role Performed Surgeon/Proceduralist, SPORTING GOODS SALES MANAGER/Nurse Landscape Designer Physician administrative assistant First Time In 05/19/19 11:44:00 05/19/19 [...] Case Attendee Evelia Nuñez RN West, Jeff, JOHN White ST Party Plan Sales Agent Cert Role Performed Ice Puller, First Scrub, Second Scrub, First Time In 05/19/19 11:44:00 05/19/19 11:44:00 05/19/19 11:44:00 Time Out 05/19/19 13:08:00 05/19/19 12:10:00 05/19/19 13:08:00 Procedure Laparoscopy Operative Laparoscopy Operative Laparoscopy Operative Robotic, Uterine D and Robotic, Uterine D and Robotic, Uterine D and C Hysteroscopy C Hysteroscopy C Hysteroscopy Other Attendee st break Superficial Wound Closed By: Last Modified By: Evelia Nuñez RN Evelia Nuñez RN Hess, Tabetha L, RN 05/19/19 13:08:52 05/19/19 13:08:52 05/19/19 13:08:52 Entry 7 Entry 8 Entry 9 Case Attendee Jose Dockery REP - TISH OTHER, ATTENDEE SEVERIANO OBREGON, LISA Role Performed Party Plan Sales Agent, Ancillary Student Ice Puller, Second Time In 05/19/19 11:44:00 05/19/19 11:44:00 [...] [facility] Case Attendance Audit 05/19/19 13:09:13 Ciaio Lumite Injector: HESSTL Modifier: HESSTL <+> 8 Procedure 05/19/19 13:08:52 Ciaio Lumite Injector: HESSTL Modifier: HESSTL 1 <+> Time Out [...] Uterine D and C Hysteroscopy 05/19/19 12:43:51 Ciaio Lumite Injector: HESSTL Modifier: HESSTL 9 <+> Time Out 9 <*> Procedure Laparoscopy Operative Robotic, Uterine D and C Hysteroscopy 05/19/19 12:26:20 Ciaio Lumite Injector: HESSTL Modifier: HESSTL 1 <*> Procedure Laparoscopy [...] Uterine D and C Hysteroscopy 05/19/19 12:13:25 Ciaio Lumite Injector: HESSTL Modifier: HESSTL 5 <+> Time Out 5 <*> Procedure Laparoscopy Operative Robotic, Uterine D and C Hysteroscopy <+> 10 Case Attendee <+> 10 Role Performed <+> 10 Procedure <+> 10 Other Attendee 05/19/19 12:06:37 Ciaio Lumite Injector: HESSTL Modifier: HESSTL 1 <*> Procedure Laparoscopy [...] [facility] Case Times Audit 05/19/19 13:08:51 Ciaio Lumite Injector: MITCHELL Modifier: HESSTL <+> 1 Out Room Time <+> 1 Stop Time <+> 1 Stop Time 05/19/19 12:55:20 Ciaio Lumite Injector: MITCHELL Modifier: DARCITL <+> 1 Start Time [...] 12:33:13 [facility] Cautery Audit 05/19/19 12:33:13 Ciaio Lumite Injector: MITCHELL Modifier: DARCITL <+> 1 Coag Setting [...] [facility] Intra[facility] Counts Final Audit 05/19/19 12:55:56 Ciaio Lumite Injector: MITCHELL Modifier: MITCHELL 1 <*> Procedure Laparoscopy [...] Transport Evelia Nuñez RN, Accompanied by LINDSAY BENDER, CONNOR-CARLINE Last Modified By: Evelia Nuñez RN 05/19/19 [...] RN 05/19/19 12:13:35 [facility] Intra[facility] General Case Grey Roll Man 1 Case Information OR OR 07 [facility] [...] Implant Log Implant TISS MTRX BIODRESTORE Identification [id number] Description Implant Quantity 1 Implant Site pelvic Implant [id number] Identification Model Number Implant [employer] Identification Control Clerk Auditing Name: Implant [id number] Identification Catalog Number Implant Expiration 09/15/20 Date [...] personnel Measures Included received laser safety information, [place] of water/Saline immediately available, Fire extinguisher location [...] liquid around surgical area, Secure laser operation vidal, Implement fire protection measures Last Modified By: Evelia Nuñez RN 05/19/19 12:50:26 [facility] Intra[facility] Medication Admin Entry 1 Entry 2 Entry 3 Medication/Irrigant Bacitracin 15Gm Indigo Grant 0.8% 5ml Anesthesia Cocktail - ointment - [id number] - [id number] Cheri Combo Med List Time Administered Route [...] [facility] Medication Admin Audit 05/19/19 12:38:15 Ciaio Lumite Injector: MITCHELL Modifier: DARCITL <+> 3 Medication/Irrigant <+> [...] Correctly Urinary Catheter Yes Documented in IView Vidal Patient Yes Recovery Concerns Reviewed with Anesthesia Provider, Surgeon and RN Vidal Patient Yes Management Concerns Reviewed with Anesthesia [...] Primary Surgeon SYLVIA ALONZO, SYLVIA ALONZO MD-OBG MD-OBG Start 05/19/19 12:06:00 05/19/19 12:06:00 Stop 05/19/19 13:05:00 05/19/19 13:05:00 Physician States Cecum Reached Anesthesia Type General General Specialty SN Gynecology SN Gynecology Wound Class I - Clean II - Clean-Contaminated Last Modified By: Evelia Nuñez RN Hess, Tabetha L, RN 05/19/19 13:08:53 05/19/19 13:08:53 [facility] Intra[facility] Surgical Procedures Audit 05/19/19 13:08:53 Ciaio Lumite Injector: MITCHELL Modifier: HESSTL <+> 1 Stop <+> 2 Stop 05/19/19 12:55:41 Ciaio Lumite Injector: DARCITL Modifier: HESSTL <+> 1 Start 2 [...] 12:07:07 Case Comments <None> Finalized By: Rebekah Estrada, LISA Document Signatures Signed By: Evelia Nuñez RN 05/19/19 13:09 Rebekah Estrada RN 05/19/19 13:40 Unfinalized History Date/Time Username Reason for Unfinalizing Freetext Reason for Unfinalizing 05/19/19 13:39 THEODORA Correct Billing documented in this encounter Plan of Treatment Not on file documented as of this encounter Visit Diagnoses Not on filedocumented in this encounter Care Teams Forestry Instructor Relationship Specialty Start Date End Date Sylvia Alonzo MD [address] [place] [address] PCP - General Obstetrics and Gynecology 02/26/23 documented as of this encounter
--- OUTSIDE RECORDS SUMMARY | 2025-07-30 08:31 | XMS_ITS | Encounter Summary ---
Author Organization [employer] ([place], [place], [place], [place], [place]) Address [address] [place] [address] Care Team Providers Care School Traffic Supervisor Name Role Phone Sylvia Alonzo MD Primary Care Provider [phone] Encounter Details Date Type Department Care Team (Late st Contact Info) Description 02/03/2021 Transcribed Document [facility] [place] [address] [place] [address] Norman Valera MD [address], [place] [id number] Social History Tobacco Use Types Packs/Day Years [...] these instructions at home: Medicines ??? Take ukjx-dnu-khllzss and prescription medicines only as told by [...] provider. Document Revised: 07/13/2019 Document Reviewed: 2019 [employer] [place] Patient Education ? 2020 Cloud Content. Third Trimester of The third trimester is from week 28 through week 40 (months 7 through 9). This trimester is when your unborn baby (fetus) is growing very fast. At the end of the ninth month, the unborn baby is about 20 inches in length. It weighs about 6?10 pounds. Follow these instructions at home: Medicines ??? Take kkky-oig-vepblaj and prescription medicines only as told by [...] provider. Document Revised: 11/16/2019 Document Reviewed: 08/31/2017 [employer] Patient Education ? 2020 Cloud Content. Urology Dietary Guidelines to Help Prevent Kidney [...] Rhubarb. ? Beets. ? Potato chips and setswana fries. ? Nuts. ??? If you regularly take a diuretic medicine, make sure to eat at least 1?2 fruits or vegetables high in potassium each day. These include: ? Avocado. ? Banana. ? [place], prune, carrot, or tomato juice. ? Baked [...] Casseroles. Pizza. Lasagna. Frozen meals. Potato chips. Niuean fries. Summary ??? You can reduce your [...] provider. Document Revised: 11/15/2019 Document Reviewed: 07/06/2017 [employer] Patient Education ? 2020 Cloud Content. Kidney Stones Kidney stones are rock-like masses [...] these instructions at home: Medicines ??? Take zqoh-wug-ociorrc and prescription medicines only as told by [...] provider. Document Revised: 12/12/2019 Document Reviewed: 12/12/2019 [employer] Patient Education ? 2020 [employer] Inc[employer] documented in this encounter Plan of Treatment Not on file documented as of this encounter Visit Diagnoses Not on filedocumented in this encounter Care Teams School Traffic Supervisor Relationship Specialty Start Date End Date Sylvia Alonzo MD [facility] [address] [place] [address] PCP - General Obstetrics and Gynecology 02/26/23 documented as of this encounter
--- OUTSIDE RECORDS SUMMARY | 2025-07-30 08:31 | XMS_ITS | Encounter Summary ---
Author Organization [employer] ([place], [place], [place], [place], [place]) Address [address] [place] [address] Care Team Providers Care Apparel Fashion Designer Name Role Phone Sylvia Alonzo MD Primary Care Provider [phone] Encounter Details Date Type Department Care Team (Late st Contact Info) Description 05/23/2019 Transcribed Document [facility] [place] [address] [place] [address] ProviderNorman MD [address], [place] [id number] Social History Tobacco Use Types Packs/Day Years [...] CDT pain fibers Electronically signed by Parris [facility] Conversion Diesel Locomotive Firer/Fireman Cerner at 11/24/2022 12:00 PM CDT documented in this encounter Plan of Treatment Not on file documented as of this encounter Visit Diagnoses Not on filedocumented in this encounter Care Teams Apparel Fashion Designer Relationship Specialty Start Date End Date Sylvia Alonzo MD 160 [facility] [address] [place] [address] PCP - General Obstetrics and Gynecology 02/26/23 documented as of this encounter
--- OUTSIDE RECORDS SUMMARY | 2025-07-30 08:31 | XMS_ITS | Encounter Summary ---
Author Organization [employer] ([place], [place], [place], [place], [place]) Address [address] [place] [address] Care Team Providers Care Oil Field Laborer Name Role Phone Annette Alonzo MD Primary Care Provider [phone] Encounter Details Date Type Department Care Team (Late st Contact Info) Description 05/19/2019 Transcribed Document [facility] [place] [address] [place] [address] ProviderNorman MD [address] [place] [address] Social History Tobacco Use Types [...] Norman ProviderMD - 05/19/2019 3:18 [place] [address] ALIYA SANCHES :1990 Visit Time:05/19/2019 What to do next [...] 1 month follow up appt Where: [address] [place] [phone] Medications What How Much When Instructions Next [...] including vitamins, herbs, eye drops, creams, and jwko-qww-ldetlun medicines. This is especially important if you [...] 07/26/2006 Document Revised: 04/11/2017 Document Reviewed: 04/11/2017 [employer]arix Interactive Patient Education ?? 2019 Telarix Inc. Hysteroscopy, Care After This sheet gives [...] taking prescription pain medicines. Medicines ??? Take vopf-juy-njlwclp and prescription medicines only as told by [...] urine clear or pale yellow. ? Take crll-nvf-akmnwzt or prescription medicines. ? Eat foods that [...] 05/16/2014 Document Revised: 08/24/2017 Document Reviewed: 08/24/2017 [employer] Interactive Patient Education ?? 2019 [employer]ix Inc. Diagnostic Laparoscopy, Care After This sheet [...] these instructions at home: Medicines ??? Take egjl-daw-yiuihoj and prescription medicines only as told by [...] and water are not available, use hand research manager. ? Change your dressing as told [...] keep your urine pale yellow. ? Take foua-fay-ctrtmxm or prescription medicines. ? Eat foods that [...] 07/06/2016 Document Revised: 01/19/2018 Document Reviewed: 01/19/2018 [employer] Interactive Patient Education ?? 2019 SavvySource for Parents. General Anesthesia, Adult, Care After This sheet [...] activities are safe for you. ??? Take kkrl-evc-pgnmlhx and prescription medicines only as told by [...] 11/01/2001 Document Revised: 03/11/2018 Document Reviewed: 03/11/2018 [employer]ix Interactive Patient Education ?? 2019 Sav[employer]Source for Parents. acetaminophen and oxycodone (a SEET a MIN [...] may report side effects to FDA at 3-662-CMJ-6207. What other drugs will affect acetaminophen and [...] affect acetaminophen and oxycodone, including prescription and ldhh-azo-cdyllqw medicines, vitamins, and herbal products. Not all [...] to ensure that the information provided by [employer]. ('[employer]') is accurate, up-to-date, and complete, but no guarantee is made to that effect. Drug information contained herein may be time sensitive. [employer] information has been compiled for use by healthcare practitioners and consumers in the [place] and therefore [employer] does not warrant that uses outside of the [place] are appropriate, unless specifically indicated otherwise. [employer] drug information does not endorse drugs, diagnose patients or recommend therapy. [employer] drug information is an informational resource designed [...] effective or appropriate for any given patient. [employer] does not assume any responsibility for any aspect of healthcare administered with the aid of information [employer] provides. The information contained herein is not intended to cover all possible uses, directions, precautions, warnings, drug interactions, allergic reactions, or adverse effects. If you have questions about the drugs you are taking, check with your doctor, nurse or pharmacist. Copyright 9597-1003 [employer]. Version: 18.02. Revision Date: 07/06/2018. Emergency Awareness [...] Assistance with quitting is available by contacting 3-025-RNSU-NOW. This is a free resource providing counseling, [...] was given the opportunity to ask questions. Patient/Intern Architect Name: Patient/Intern Architect Signature: Relationship to Patient: Clinician/Hospital Intern Architect Signature: Date: Electronically signed by Parris [facility] Conversion Revolving Inventory Clerk Cerner at 11/24/2022 11:49 AM CDT documented in this encounter Plan of Treatment Not on file documented as of this encounter Visit Diagnoses Not on filedocumented in this encounter Care Teams Oil Field Laborer Relationship Specialty Start Date End Date Annette Alonzo MD [address] [place] [id number] (work) PCP - General Obstetrics and Gynecology 02/26/23 documented as of this encounter
--- OUTSIDE RECORDS SUMMARY | 2025-07-30 08:31 | XMS_ITS | Encounter Summary ---
Author Organization [employer] ([place], [place], [place], [place], [place]) Address [address] [place] [address] Care Team Providers Care Environmental Services Worker Name Role Phone Sylvia Alonzo MD Primary Care Provider [phone] Encounter Details Date Type Department Care Team (Late st Contact Info) Description 03/09/2021 Transcribed Document [facility] [place] [address] [place] [address] ProviderNorman MD [address], [place] [id number] Social History Tobacco Use Types Packs/Day Years [...] filedocumented in this encounter Care Teams Environmental Services Worker Relationship Specialty Start Date End Date Sylvia Alonzo MD [address] [place] [address] PCP - General Obstetrics and Gynecology 02/26/23 documented as of this encounter
--- OUTSIDE RECORDS SUMMARY | 2025-07-30 08:31 | XMS_ITS | Encounter Summary ---
Author Organization [employer] ([place], [place], [place], [place], [place]) Address [address] [place] [address] Care Team Providers Care Wireless Retail Manager Name Role Phone Sylvia Alonzo MD Primary Care Provider [phone] Encounter Details Date Type Department Care Team (Late st Contact Info) Description 03/09/2021 Transcribed Document [facility] [place] [address] [place] [address] ProviderNorman MD [address] [place], [place] [id number] Social History Tobacco Use Types Packs/Day Years [...] on filedocumented in this encounter Care Teams Wireless Retail Manager Relationship Specialty Start Date End Date Sylvia Alonzo MD [address] [place] [address] PCP - General Obstetrics and Gynecology 02/26/23 documented as of this encounter
--- OUTSIDE RECORDS SUMMARY | 2025-07-30 08:31 | XMS_ITS | Encounter Summary ---
Author Organization [employer] ([place], [place], [place], [place], [place]) Address [address] [place] [address] Care Team Providers Care Entry Table Operator Name Role Phone Annette Alonzo MD Primary Care Provider Encounter Details Date Type Department Care Team (Late st Contact Info) Description 03/10/2021 Transcribed Document [facility] [place] [address] [place] [address] ProviderNorman MD [address] [place] [address] Social History Tobacco Use Types [...] Norman ProviderMD - 03/10/2021 10:26 [place] [address] ALIYA SANCHESE :1990 Visit Time:03/07/2021 Your Visit Summary Your Care Team Admitting Physician - ANNETTE ALONZO MD-OBG Attending Physician - ANNETTE ALONZO MD-OBShane Primary Care Physician - ENID GALINDO DR Referring Physician - ANNETTE ALONZO MD-OBShane Your Diagnosis 36 weeks gestation of Labor [...] Comments Appointment has been made Where: [address] [facility] [address] [place] [address]- Business (1) Medications What How Much When [...] work with your health care provider or workforce consultant. ??? If you are not : [...] methods of control (contraception). Medicines ??? Take kdfq-osx-xuibmpd and prescription medicines only as told by [...] provider. Document Revised: 07/29/2018 Document Reviewed: 05/09/2018 Conject Patient Education ?? 2020 City Notes. Choosing to breastfeed is one of the [...] smacking lips, cooing, sighing, or squeaking. ??? Eeyv-bq-yncda movements and sucking on fingers or hands. [...] able to be present during feedings. Your workforce consultant can help you find a method [...] contact your health care provider or a workforce consultant. Overall health care recommendations while ??? [...] provider before taking any medicines. These include johl-ylb-stgccqb and prescription medicines as well as vitamins [...] Talk with your health care provider or workforce consultant if you have questions or you face problems as you breastfeed. This information is not intended to replace advice given to you by your health care provider. Make sure you discuss any questions you have with your health care provider. Document Revised: 10/20/2018 Document Reviewed: 08/27/2017 Conject Patient Education ?? 2020 City Notes. ibuprofen (EYE bue PROE fen) Advil, Genpril, [...] may report side effects to FDA at 0-914-HEE-8715. What other drugs will affect ibuprofen? Ask [...] drugs may affect ibuprofen, including prescription and oskp-pba-pbslccl medicines, vitamins, and herbal products. Not all [...] to ensure that the information provided by [employer]. ('[employer]') is accurate, up-to-date, and complete, but no guarantee is made to that effect. Drug information contained herein may be time sensitive. [employer] information has been compiled for use by healthcare practitioners and consumers in the [place] and therefore [employer] does not warrant that uses outside of the [place] are appropriate, unless specifically indicated otherwise. [employer] drug information does not endorse drugs, diagnose patients or recommend therapy. [employer] drug information is an informational resource designed [...] effective or appropriate for any given patient. [facility] does not assume any responsibility for any aspect of healthcare administered with the aid of information [facility] provides. The information contained herein is not intended to cover all possible uses, directions, precautions, warnings, drug interactions, allergic reactions, or adverse effects. If you have questions about the drugs you are taking, check with your doctor, nurse or pharmacist. Copyright 3271-[address] [facility] [address] [employer]. Version: 22.01. Revision Date: 07/03/2020. Emergency Awareness [...] Assistance with quitting is available by contacting 6-889-PUECStereobotNOW. This is a free resource providing counseling, [...] range between ( 1.0 and 7.0 ) [place] #: 0.52 K/uL -- Normal range between ( 0.24 and 0.82 ) Eos #: 0.14 K/uL -- Normal range between ( 0.04 and 0.54 ) [place] %: 6.6 % -- Normal range between [...] ) Urine Bilirubin Dipstick: Negative Urine Specific Calvin: 1.013 -- Normal range between ( 1.005 [...] 10:38 PM Amniotic Fluid ROM: Negative Patient Name:VERÓNICA ALIYA JANETTE Hall have received and understand this information and was given the opportunity to ask questions. Patient/Press Machine Feeder Name: Patient/Press Machine Feeder Signature: Relationship to Patient: Clinician/Hospital Press Machine Feeder Signature: Date: Electronically signed by [facility] Conversion Fish Bait Processing Supervisor Ningner at 11/24/2022 11:52 AM CDT documented in this encounter Plan of Treatment Not on file documented as of this encounter Visit Diagnoses Not on filedocumented in this encounter Care Teams Entry Table Operator Relationship Specialty Start Date End Date Annette Alonzo MD [address] [place] [address] PCP - General Obstetrics and Gynecology 02/26/23 documented as of this encounter
--- OUTSIDE RECORDS SUMMARY | 2025-07-30 08:31 | XMS_ITS | Encounter Summary ---
Author Organization [employer] ([place], [place], [place], [place], [place]) Address [address] [place] [address] Care Team Providers Care Unmanned Aircraft Systems Roboticist Name Role Phone Annette Alonzo MD Primary Care Provider [phone] Encounter Details Date Type Department Care Team (Late st Contact Info) Description 05/19/2019 Transcribed Document [facility] [place] [address] [place] [address] ProviderNorman MD [address] [place], [place] [id number] Social History Tobacco Use Types Packs/Day Years [...] ALIYA SANCHES./Sex: 1990 Female Med Rec #: [id number] Physician: ANNETTE ALONZO MD-OBG Financial #: [id number] Pt. Type: O Room/Bed: Admit/Disch: 05/19/19 09:30:00 - 05/19/19 15:48:00 Institution: [facility] PreOp Case Times Entry 1 In Preop 05/19/19 09:35:00 Ready for Holding 05/19/19 10:44:00 Room Patient Ready for 05/19/19 10:44:00 Surgery Patient Out of Preop 05/19/19 11:35:00 Patient Out of 05/19/19 10:44:00 Holding Room Last Modified By: Nathaly Moon RN 05/19/19 10:44:30 [facility] PreOp Case Times Audit 05/22/19 08:52:19 Labor Training Manager: [id number] Modifier: [email or web address] <+> 1 Patient Out of Preop Finalized By: Monique Kelly, RN Document Signatures Signed By: LORNE LINDSEY 05/22/19 08:52 Monique Kelly RN 05/23/19 08:40 Unfinalized History Date/Time Username Reason for Unfinalizing Freetext Reason for Unfinalizing 05/23/19 08:40 RADERTAN Correct Documentation documented in this encounter Plan of Treatment Not on file documented as of this encounter Visit Diagnoses Not on filedocumented in this encounter Care Teams Unmanned Aircraft Systems Roboticist Relationship Specialty Start Date End Date Annette Alonzo MD [address] [place] [address] PCP - General Obstetrics and Gynecology 02/26/23 documented as of this encounter
--- OUTSIDE RECORDS SUMMARY | 2025-07-30 08:31 | XMS_ITS | Encounter Summary ---
Author Organization [employer] ([place], [place], [place], [place], [place]) Address [address] [place] [address] Care Team Providers Care Lacing Cutter Name Role Phone Sylvia Alonzo MD Primary Care Provider [phone] Encounter Details Date Type Department Care Team (Late st Contact Info) Description 05/23/2019 Transcribed Document [facility] [place] [address] [place] [address] ProviderNorman MD [address], [place] [phone] Social History Tobacco Use Types Packs/Day Years [...] taken to recovery room in good condition. /[id number] MD RACH Luevano/HEAVENLY / RACH / MODL /[id number] documented in this encounter Plan of Treatment Not on file documented as of this encounter Visit Diagnoses Not on filedocumented in this encounter Care Teams Lacing Cutter Relationship Specialty Start Date End Date Sylvia Alonzo MD [address] [place] [address] PCP - General Obstetrics and Gynecology 02/26/23 documented as of this encounter
--- OUTSIDE RECORDS SUMMARY | 2025-07-30 08:31 | XMS_ITS | Encounter Summary ---
Author Organization [employer] ([place], [place], [place], [place], [place]) Address [address] [place] [address] Care Team Providers Care Production Operations Inspector Name Role Phone Sylvia Alonzo MD Primary Care Provider [phone] Encounter Details Date Type Department Care Team (Late st Contact Info) Description 03/10/2021 Transcribed Document [facility] [place] [address] [place] [address] ProviderNorman MD [address], [place] [phone] Social History Tobacco Use Types Packs/Day Years [...] - 03/10/2021 6:03 EDT Electronically signed by [facility] Conversion Cattle Knocker Cerner at 11/24/2022 11:50 AM CDT documented in this encounter Plan of Treatment Not on file documented as of this encounter Visit Diagnoses Not on filedocumented in this encounter Care Teams Production Operations Inspector Relationship Specialty Start Date End Date Sylvia Alonzo MD [address] [facility] [address] [place] [address] PCP - General Obstetrics and Gynecology 02/26/23 documented as of this encounter
--- OUTSIDE RECORDS SUMMARY | 2025-07-30 08:31 | XMS_ITS | Encounter Summary ---
Author Organization [employer] ([place], [place], [place], [place], [place]) Address [address] [place] [address] Care Team Providers Care Journalism Internship Name Role Phone Sylvia Alonzo MD Primary Care Provider [phone] Encounter Details Date Type Department Care Team (Late st Contact Info) Description 05/23/2019 Transcribed Document [facility] [place] [address] [place] [address] Norman Valera MD [address], [place] [phone] Social History Tobacco Use Types Packs/Day Years [...] cauterization of friable endocervical area. SURGEON: Sylvia lAonzo MD ESTIMATED BLOOD LOSS: 5 mL. FINDINGS: [...] Sylvia Alonzo M.D. Electronically signed by [facility] Conversion Director Of Strategic Marketing Cerner at 11/24/2022 12:03 PM CDT documented in this encounter Plan of Treatment Not on file documented as of this encounter Visit Diagnoses Not on filedocumented in this encounter Care Teams Journalism Internship Relationship Specialty Start Date End Date Sylvia Alonzo MD [address] [place] [address] PCP - General Obstetrics and Gynecology 02/26/23 documented as of this encounter
--- OUTSIDE RECORDS SUMMARY | 2025-07-30 08:31 | XMS_ITS | Encounter Summary ---
Author Organization [employer] ([place], [place], [place], [place], [place]) Address [address] [place] [address] Care Team Providers Care Skills Instructor Name Role Phone Annette Alonzo MD Primary Care Provider [phone] Encounter Details Date Type Department Care Team (Late st Contact Info) Description 05/19/2019 Transcribed Document [facility] [place] [address] [place] [address] ProviderNorman MD [address], [place] [phone] Social History Tobacco Use Types Packs/Day Years Used Date Smoking Tobacco: Never Assessed Comments Unknown Sex and Gender Information Value Date Recorded Sex Assigned at Not on file Legal Sex Female 1:09 PM CDT Gender Identity Not on file Sexual Orientation Not on file documented as of this encounter Miscellaneous Notes * [employer]ner Conversion Note - Norman ProviderMD - 05/19/2019 1:21 PM CDT [facility] [address], [place] [address] Patient Copy Patient Information: Name: ALIYA SANCHES Current Date: 05/19/2019 13:21:55 : 1990 Patient Address: [address] [place] [id number] Patient Attending Physician: ANNETTE ALONZO MD-OBG Primary [...] Assistance with quitting is available by contacting 5-089-WGBI-NOW. This is a free resource providing counseling, [...] Be sure to sign up for the [employer] patient portal, which gives you 01/03 access to your medical information ??? including these discharge instructions ??? using your computer, smartphone, or tablet. Just go to Talkbits to get started. Questions? Call . [facility] would like to thank you for allowing us to assist you with your healthcare needs. VERÓNICA Hall ERIN MARIE, (or off premise service representative) have received the above patient education materials/instructions and have verbalized understanding: Patient Signature _ Date/Time Patient Bilingual Administrative Assistant Signature (if needed) Date/Time Clinician/Hospital Bilingual Administrative Assistant Signature (if needed) Date/Time Electronically signed by Parris, [facility] Conversion Proofsheet Corrector Cerner at 11/24/2022 12:03 PM CDT documented in this encounter Plan of Treatment Not on file documented as of this encounter Visit Diagnoses Not on filedocumented in this encounter Care Teams Skills Instructor Relationship Specialty Start Date End Date Annette Alonzo MD [address] [place] [address] PCP - General Obstetrics and Gynecology 02/26/23 documented as of this encounter
--- OUTSIDE RECORDS SUMMARY | 2025-07-30 08:31 | XMS_ITS | Encounter Summary ---
Author Organization [email or web address] ([place], [place], [place], [place], [place]) Address [address] [place] [address] Care Team Providers Care Commercial Litigation Associate Name Role Phone Sylvia Alonzo MD Primary Care Provider [phone] Encounter Details Date Type Department Care Team (Late st Contact Info) Description 02/03/2021 Transcribed Document [facility] [place] [address] [place] [address] ProviderNorman MD [address], [place] [address] Social History Tobacco Use Types Packs/Day Years [...] Performed On: 02/03/2021 11:37 EDT by TOMÁS EL RN Discharge Documentation Patient Disposition, General : Discharge Discharge [...] Worker's Compensation Paperwork Completed : No TOMÁS EL, RN - 02/03/2021 11:37 EDT documented in this encounter Plan of Treatment Not on file documented as of this encounter Visit Diagnoses Not on filedocumented in this encounter Care Teams Commercial Litigation Associate Relationship Specialty Start Date End Date Sylvia Alonzo MD [address] [place] [address] PCP - General Obstetrics and Gynecology 02/26/23 documented as of this encounter
--- OUTSIDE RECORDS SUMMARY | 2025-07-30 08:31 | XMS_ITS | Encounter Summary ---
Author Organization [employer] ([place], [place], [place], [place], [place]) Address [address] [place] [address] Care Team Providers Care Animal Physiology Teacher Name Role Phone Annette Alonzo MD Primary Care Provider [phone] Encounter Details Date Type Department Care Team (Late st Contact Info) Description 03/09/2021 Transcribed Document [facility] [place] [address] [place] [address] ProviderNorman MD [address], [place] [address] Social History Tobacco Use Types Packs/Day Years [...] (See Comment) Dermoplast 20% topical spray: 1 Perry, Topical, Q4H, PRN: Pain HYDROmorphone: 0.5 mg, [...] Other (See Comment) Documented Medications Documented 19 ([place]): Daily, 0 Refill(s), Home Medications (1) Active 19 ([place]) , Daily , Medications (19) Active Scheduled: [...] 30 mL, Oral, Q4H benzocaine-menthol spray 1 Perry, Topical, Q4H carboprost 250 mcg/1 mL inj 250 mcg 1 mL, IntraMuscular, 1-Time diphth/pertus/tet tox *ADULT* inj 0.5 mL 0.5 mL, IntraMuscular, 1-Time famotidine 20 mg tab 20 mg 1 Tab, Oral, Q12H lanolin oint 8.5 gram 1 Application, Topical, See Comment ompmdfk-kqnsv-mvtbr vaccine inj 0.5 mL, SubCutaneous, 1-Time methylergonovine [...] on filedocumented in this encounter Care Teams Animal Physiology Teacher Relationship Specialty Start Date End Date Annette Alonzo MD [address] [place] [address] [place] [address] PCP - General Obstetrics and Gynecology 02/26/23 documented as of this encounter
--- OUTSIDE RECORDS SUMMARY | 2025-07-30 08:31 | XMS_ITS | Data Portability ---
Author Organization [facility] telehealth Address [address] [place] [address] Assessment Encounter Id Assessment Date Assessment LastModified by Organization Details LastModified Time [id number] 04/20/2023 33yo F presents for abnormal vaginal [...] will RTC for WWE, sooner if needed. MD [facility] 04/20/2023 16:47:50 [id number] 02/28/2024 34 y/o F here today for [...] aunt). Will order genetic testing today. Recommended [facility] ovarian CA screening. Will make GI referral for colonoscopy. Mammogram order provided in office. Annual BW drawn today. Pap today. Denies dysuria or hematochezia. RTC for ULS with Dr. Alonzo for further management of PCOS, endometriosis or PRN. All other ROS neg X HPI. Meds reviewed and accurate. Pleasant mood. MARK [facility] 02/28/2024 13:26:17 [id number] 03/14/2024 34 yo F presents for for [...] Pt RTC for testosterone and DHEA BW. MD [facility] 03/14/2024 14:10:32 [id number] 04/07/2024 34 y/o F here today for HRT follow up. WNWD female in NAD. Reports increased facial acne and bloating with HRT. She has completed 3 weeks of vitamin D booster pack prescribed 02-28-2024, will recheck vitamin D levels today. Encouraged pt to complete vitamin D booster pack. She has noticed improvement in fatigue. Will send [facility] face wash for acne. She is doing well with Metformin and Myfembree. HRT labs drawn today, pending lab results will adjust HRT dose as needed. RTC for HRT follow up, sooner if needed. All other ROS neg X HPI. Meds reviewed and accurate. [facility] 04/07/2024 11:54:50 [id number] 07/03/2024 34 y/o F here today for [...] HPI. Meds reviewed and accurate. Pleasant mood. [facility] 07/03/2024 13:38:18 Plan of Treatment Reminders Order Date Submit Date Provider Last Modified By Organization Details Last Modified Time Details Appointments None recorded. Lab vitamin D, 25-hydroxy, total, serum 2023 024 [facility] ([facility]), [address] [place], [address], 4 07:33:31 estradiol, serum 2023 024 [facility] ([facility]), [address] [place], [address], 4 07:33:32 dhea-sulfat e, serum 2023 024 [facility] ([facility]), [address] [place], [address], 4 07:33:33 testosteron e, total, serum 2023 024 [facility] ([facility]), [address] [place] [address], [address], 4 07:33:32 CBC w/ auto diff 2023 024 PR[facility] ([facility]), [address] [place] [address], [address], 4 10:25:28 HbA1c (hemoglobin A1c), blood 2023 024 [facility] ([facility]), [address] [place] [address], [address], 4 10:25:32 TSH, serum or plasma 2023 024 [facility] ([facility]), [address] [place] [address], [address], 4 10:25:32 CMP, serum or plasma 2023 024 [facility] ([facility]), [address] [place] [address], [address], 4 10:25:29 pap, LB [facility] ([facility]), [address] [place] [address], [address], 4 15:36:22 vitamin B12, serum 2023 024 [facility] ([facility]), [address] [place] [address], [address], 4 10:25:31 vitamin D, 25-hydroxy, total, serum 2023 024 [facility] ([facility]), [address] [place] [address], [address], 4 10:25:29 genetic screen, unspecified specimen 2023 [facility], [address], [place], [address], 4 18:34:26 lh + FSH, serum 2023 024 [facility] ([facility]), [address] [place] [address], [address], 4 10:25:28 testosteron e, total, serum 2023 024 [facility] ([facility]), [address] [place] [address], [address], 4 10:25:30 Referral None recorded. Procedures None recorded. Surgeries None recorded. Imaging None recorded. Medication Orders Cleocin T 1 % lotion 2023 [facility] 591, [address], [place], [address], 4 11:52:11 Myfembree 40 mg-1 mg-0.5 mg tablet 2023 024 [facility] 5[facility], [address] [place], [address], 4 14:06:07 metformin ER 500 mg tablet,exte nded release 24 hr 2023 024 [facility] 591, [address] [place], [address], 4 13:13:25 Patient TargetsNo targets recorded. Patient InstructionsNo [...] enopa use 7.7 - 58.5 Not Available [facility] ([facility]) [facility] [address], [place], [address], 03/01/2024 10:25:28 02/28/20 24 02/29/2024 FSH AND LH FSH 5.09 mIU/m L FSH Refer ence Range Men: 1.5 - 12.4 Women : Folli cular phase 3.5 - 12.5 Ovula tion phase 4.7 - 21.5 Lutea l phase 1.7 - 7.7 Postm enopa use 25.8 - 134.8 Not Available [facility] ([facility]) [facility] [address], [place], [address], 03/01/2024 10:25:28 02/28/20 24 02/29/2024 CBC WITH PLATE LET AND DIFFE RENTI AL WBC 4.5 K/uL 3.8-11 .5 Not Available [facility] ([facility]) [address] [place] [address] [address], [place], [address], 03/01/2024 10:25:28 02/28/20 24 02/29/2024 CBC WITH PLATE LET AND DIFFE RENTI AL red blood cell count (RBC) 4.72 M/mm3 3.60-5 .30 Not Available [facility] ([facility]) [address] [place] [address] [address], [place], [address], 03/01/2024 10:25:28 02/28/20 24 02/29/2024 CBC WITH PLATE LET AND DIFFE RENTI AL hemoglobin (HGB) 12.9 gm/dL 11.5-1 5.5 Not Available [facility] ([facility]) [address] [place] [address] [address], [place], [address], 03/01/2024 10:25:28 02/28/20 24 02/29/2024 CBC WITH PLATE LET AND DIFFE RENTI AL hematocrit (HCT) 40.0 % 35.2-4 6.4 Not Available [facility] ([facility]) [address] [place] [address] [address], [place], [address], 03/01/2024 10:25:28 02/28/20 24 02/29/2024 CBC WITH PLATE LET AND DIFFE RENTI AL MCV 84.7 fL 79.0-9 9.0 Not Available [facility] ([facility]) [address] [place] [address] [address], [place], [address], 03/01/2024 10:25:28 02/28/20 24 02/29/2024 CBC WITH PLATE LET AND DIFFE RENTI AL MCH 27.3 pg 26.9-3 5.0 Not Available [facility] ([facility]) [address] [place] [address] [address], [place], [address], 03/01/2024 10:25:28 02/28/20 24 02/29/2024 CBC WITH PLATE LET AND DIFFE RENTI AL MCHC 32.3 g/dL 30.4-3 4.8 Not Available [facility] ([facility]) [address] [place] [address] [address], [place], [address], 03/01/2024 10:25:28 02/28/20 24 02/29/2024 CBC WITH PLATE LET AND DIFFE RENTI AL RDW 42.4 fL 38.6-5 3.8 Not Available [facility] ([facility]) [address] [place] [address] [address], [place], [address], 03/01/2024 10:25:28 02/28/20 24 02/29/2024 CBC WITH PLATE LET AND DIFFE RENTI AL platelet count 392 K/cum m 137-39 7 Not Available [facility] ([facility]) [address] [place] [address] [address], [place], [address], 03/01/2024 10:25:28 02/28/20 24 02/29/2024 CBC WITH PLATE LET AND DIFFE RENTI AL neutrophils automated 48.6 % 41.0-7 7.0 Not Available [facility] ([facility]) [address] [place] [address] [address], [place], [address], 03/01/2024 10:25:28 02/28/20 24 02/29/2024 CBC WITH PLATE LET AND DIFFE RENTI AL lymphocytes automated 39.2 % 14.0-4 8.0 Not Available [facility]) [address] [place] [address] [address], [place], [address], 03/01/2024 10:25:28 02/28/20 24 02/29/2024 CBC WITH PLATE LET AND DIFFE RENTI AL monocytes automated 7.0 % 4.0-13 .0 Not Available [facility] ([facility]) [address] [place] [address] [address], [place], [address], 03/01/2024 10:25:28 02/28/20 24 02/29/2024 CBC WITH PLATE LET AND DIFFE RENTI AL eosinophils automated 3.4 % 0.0-8. 0 Not Available [facility] ([facility]) [address] [place] [address] [address], [place], [address], 03/01/2024 10:25:28 02/28/20 24 02/29/2024 CBC WITH PLATE LET AND DIFFE RENTI AL basophils automated 1.6 % 0.0-1. 5 high Not Available [facility] ([facility]) [address] [place] [address] [address], [place], [address], 03/01/2024 10:25:28 02/28/20 24 02/29/2024 CBC WITH PLATE LET AND DIFFE RENTI AL immature granulocyte automated 0.2 % 0.0-1. 0 Not Available [facility] ([facility]) [address] [place] [address] [address], [place], [address], 03/01/2024 10:25:28 02/28/20 24 02/29/2024 COMPR EHENS KAELYN METAB OLIC PANEL (CMP) sodium 138 mmol/ L 135-14 5 Not Available [facility] ([facility]) [address] [place] [address] [address], [place], [address], 03/01/2024 10:25:29 02/28/20 24 02/29/2024 COMPR EHENS KAELYN METAB OLIC PANEL (CMP) potassium 5.1 mmol/ L 3.5-5. 3 Not Available [facility] ([facility]) [address] [place] [address] [address], [place], [address], 03/01/2024 10:25:29 02/28/20 24 02/29/2024 COMPR EHENS KAELYN METAB OLIC PANEL (CMP) chloride 107 mmol/ L 97-108 Not Available [facility] ([facility]) [address] [place] [address] [address], [place], [address], 03/01/2024 10:25:29 02/28/20 24 02/29/2024 COMPR EHENS KAELYN METAB OLIC PANEL (CMP) CO2 24 mmol/ L 22-32 Not Available [facility] ([facility]) [address] [place] [address] [address], [place], [address], 03/01/2024 10:25:29 02/28/20 24 02/29/2024 COMPR EHENS KAELYN METAB OLIC PANEL (CMP) glucose 100 mg/dL 65-99 high Not Available [facility] ([facility]) [address] [place] [address] [address], [place], [address], 03/01/2024 10:25:29 02/28/20 24 02/29/2024 COMPR EHENS KAELYN METAB OLIC PANEL (CMP) BUN 9 mg/dL 6-20 Not Available [facility] ([facility]) [address] [place] [address] [address], [place], [address], 03/01/2024 10:25:29 02/28/20 24 02/29/2024 COMPR EHENS KAELYN METAB OLIC PANEL (CMP) creatinine 0.73 mg/dL 0.50-1 .00 Not Available [facility] ([facility]) [address] [place] [address] [address], [place], [address], 03/01/2024 10:25:29 02/28/20 24 02/29/2024 COMPR EHENS KAELYN METAB OLIC PANEL (CMP) calcium 9.5 mg/dL 8.6-10 .4 Not Available [facility] ([facility]) [address] [place] [address] [address], [place], [address], 03/01/2024 10:25:29 02/28/20 24 02/29/2024 COMPR EHENS KAELYN METAB OLIC PANEL (CMP) eGFR by creatinine 111 mL/mi n/1.7 3m2 >59 Not Available [facility] ([facility]) [address] [place] [address] [address], [place], [address], 03/01/2024 10:25:29 02/28/20 24 02/29/2024 COMPR EHENS KAELYN METAB OLIC PANEL (CMP) protein 7.4 g/dL 6.0-8. 3 Not Available [facility] ([facility]) [address] [place] [address] [address], [place], [address], 03/01/2024 10:25:29 02/28/20 24 02/29/2024 COMPR EHENS KAELYN METAB OLIC PANEL (CMP) albumin 4.8 g/dL 3.5-5. 3 Not Available [facility] ([facility]) [address] [place] [address] [address], [place], [address], 03/01/2024 10:25:29 02/28/20 24 02/29/2024 COMPR EHENS KAELYN METAB OLIC PANEL (CMP) alkaline phosphatase 83 IU/L 35-121 Not Available [facility] ([facility]) [address] [place] [address] [address], [place], [address], 03/01/2024 10:25:29 02/28/20 24 02/29/2024 COMPR EHENS KAELYN METAB OLIC PANEL (CMP) ALT (SGPT) 12 IU/L <5-47 Not Available [facility] ([facility]) [address] [place] [address] [address], [place], [address], 03/01/2024 10:25:29 02/28/20 24 02/29/2024 COMPR EHENS KAELYN METAB OLIC PANEL (CMP) AST (SGOT) 18 IU/L <5-40 Not Available [facility] [address] [place] [address] [address], [place], [address], 03/01/2024 10:25:29 02/28/20 24 02/29/2024 COMPR EHENS KAELYN METAB OLIC PANEL (CMP) bilirubin, total 0.2 mg/dL <0.2-1 .2 Not Available [facility] ([facility]) [address] [place] [address] [address], [place], [address], 03/01/2024 10:25:29 02/28/20 24 02/29/2024 COMPR EHENS KAELYN METAB OLIC PANEL (CMP) A/G ratio 1.8 mg/dL 1.1-2. 5 Not Available [facility] [address] [place] [address] [address], [place], [address], 03/01/2024 10:25:29 02/28/20 24 02/29/2024 VITAM IN [...] corre latio n requi red. Not Available [facility] [address] [place] [address] [address], [place], [address], 03/01/2024 10:25:29 02/28/20 24 02/29/2024 TESTO STERO NE TOTAL testosterone total SEE BELOW NG/dL 8.00-4 8.00 The resul t is outsi de of the repor table range for this metho dolog y. Pleas e refer to Testo stero ne , Total by LC/MS for the resul t. Not Available [facility] ([facility]) [address] [place] [address] [address], [place], [address], 03/01/2024 10:25:30 02/28/20 24 03/01/2024 TESTO STERO [...] ional or for resea rch. Not Available [facility] ([facility]) [address] [place] [address] Dr [address], [place], [address], 03/01/2024 10:25:31 02/28/20 24 02/29/2024 VITAM IN B12 vitamin B12 1043 pg/mL 232-12 45 Not Available [facility] ([facility]) [address] [place] [address] [address], [place], [address], 03/01/2024 10:25:31 02/28/20 24 02/29/2024 HEMOG LOBIN A1C hemoglobin A1C 5.4 % <5.7 The follo wing HbA1c range s recom teresa d by the John can Diabe mima Assoc iatio n (ADA) may be used as an aid in the diagn osis of diabe mima melli tus. HA1c Sugkaylen garcia Diagn osis >=6.5 % Diabe tic 5.7% - 6.4% Pre-D iabet ic <5.7% Non-D iabet ic Not Available [facility] ([facility]) [address] [place] [address] [address], [place], [address], 03/01/2024 10:25:32 02/28/20 24 02/29/2024 HEMOG LOBIN A1C estimated average glucose 108 mg/dL Gap ge Gluco se is calcu lated using the equat ion AG = (28.7 x HgbA1 c) - 46.7 based on the guide lines estab lishe d by the ADA. Not Available [facility] ([facility]) [address] [place] [address] [address], [place], [address], 03/01/2024 10:25:32 02/28/20 24 02/29/2024 TSH TSH 1.96 mU/L 0.43-5 .25 Not Available [facility] ([facility]) [address] [place] [address] [address], [place], [address], 03/01/2024 10:25:32 02/28/20 24 03/01/2024 PAP TEST THIN PREP Pap test thin prep NEGATI VE FOR INTRAE PITHEL IAL LESION OR MALIGN DIVYA normal ACCES JOY #: [id number] Sourc e: Cervi yuri/E ndoce rvica l LMP: [...] Techn ical servi oxana provi ded by [facility] iated Patho logis [employer] [facility], [facility], [address] [place] [address] Zoya kingston MD, Labor atory Dire tor. Case revie wed and diagn osis rende red at [facility] [employer], [facility], [facility]/a [facility], [address] [place] [address] Zoya kingston MD, Labor atory Dire tor. CONFI DENTI AL Not Available [facility] [place] [facility] ([facility]) [address], [place], [address], 03/01/2024 15:36:22 02/28/20 24 02/29/2024 HPV HIGH [...] and labor atory findi ngs. See https ://[employer]/s ites/ defkellee lt/fi les/2 018-0 3/AW- 34051 _002_ 01.pd f for jessica ann infor matxena n. Test perfo rmed by [facility] iated Patho logis [employer] [facility] d/b/a Path rou, [address], [place] [address] , Lizzie Brown ra, DO, Labor atory [facility], CLIA# [id number] Not Available [facility] ([facility]) [address], [place], [address], 03/01/2024 15:36:23 02/28/20 24 02/28/2024 EMPOW ER [...] Clinical Laboratories [address], [place], [address], 03/10/2024 18:34:26 02/28/20 24 02/28/2024 EMPOW ER COMPR EHENS KAELYN (2+79 ) footnotes See Notes CLIA: ID #[id number] 2 Test perfo rmed by [facility]. [address] [facility] [address] [place] [address] French Ferguson, Ph.D. , [facility] , [facility] Not Available [facility] [address], [place], [address], 03/10/2024 18:34:26 04/07/20 24 04/08/2024 VITAM IN [...] latio n requi red. Not Available [facility] ([facility]) [address], [place], [address], 04/08/2024 07:33:31 04/07/20 24 04/08/2024 TESTO STERO NE TOTAL testosterone total 66.70 NG/dL 8.00-4 8.00 high Not Available [facility] ([facility]) [address] [place] [address] Dr [address], [place], [address], 04/08/2024 07:33:32 04/07/20 24 04/08/2024 ESTRA DIOL estradiol 42 pg/mL Estra diol Refer ence Range Healt hy women Folli cular phase 12.4 - 233 Ovula tion phase 41.0 - 398 Lutea l phase 22.3 - 341 Postm enopa use <5 - 138 Healt hy pregn ant women 1st trime ster 154 - 3243 2nd trime ster 1561 - 13182 3rd trime ster 8525 - >3000 0 Not Available [facility] ([facility]) [address] [place] [address] [address], [place], [address], 04/08/2024 07:33:32 04/07/20 24 04/08/2024 DHEA- SULFA TE DHEA-sulfate 115 ug/dL 99-340 Not Available [facility] ([facility]) [address] [place] [address] Dr [address], [place], [address], 04/08/2024 07:33:33 Result Notes None recorded. Problems Name Problem SNOMED Code Status Onset Date Resolution Date Notes Provider Name and Address Organization Details Recorded Time Pain 94612871 Active 2013 (780.96) - C - GENERALI ZED PAIN; Problem Title: Generali zed pain Not Available [facility] 2 23:33:54 Procedur e by method Active 2013 (V25.09) - C - OTH GEN CNSL&ADV ICE CNTRACPT MGMT; Problem Title: General counseli ng and advice on contrace ptive manageme nt Not Available [facility] 2 23:33:54 At risk - finding 452660773 Active 2013 (V72.31) - C - ROUTINE GYNECOLO GICAL EXAMINAT ION; Problem Title: Well female exam with routine gynecolo gical exam Not Available [facility] 2 23:33:51 Normal pregnanc y in edward hjai [id number] 4106 Active 2015 (V22.1) - C - SUPERVIS ION OTHER NORMAL PREGNANC Y; Problem Title: Supervis ion of other normal pregnanc y Not Available [facility] 2 23:33:53 Postpart um care Active 2017 (V24.2) - C - ROUTINE POSTPART UM FOLLOW-U P; Problem Title: Routine postpart um follow-u p Not Available [facility] 2 23:33:53 Antenata l ultrasou nd finding 857225237 Active 2020 (V72.40) - C - PREGNANC Y EXAM/MIMA T PG UNCONFIR MED; Problem Title: Pregnanc y examinat ion or test, pregnanc y unconfir med Not Available [facility] 2 23:33:53 Endometr iosis of pelvis 93095945 Active [address], [place], [address] , [facility] 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 2 19:37:07 Uterine prolapse in pregnanc y 57924883146 888262 Active 2021 [facility] 2 10:40:38 Dysuria 22514996 Active 2021 [facility] 2 11:28:08 Morning sickness 05292538 Active 2021 [facility] 2 11:33:24 Pregnanc y 91979947 Completed 202102/02/2023 MD [address], [place], [address] , [facility] 3 14:09:43 Placenta l abruptio n 397771250 Active 2021 [facility] 2 12:04:04 Pain in round ligament in pregnanc y 68166464719 782243 Active 2021 [facility] 2 09:35:45 Polyhydr amnios 30057723 Active 2021 [facility] 2 10:52:14 Irregula r periods 89755004 Active [address], [place], [address] , [facility] 4 13:15:08 Deep pain on intercou rse 411577647 Active [address], [place], [address] , [place] [facility] 4 13:15:12 Pain in pelvis 37528053 Active 2023 [facility] 4 13:28:52 Bacteria l vaginosi s 642608266 Active 2023 [facility] 4 11:57:33 Vitamin D deficien cy 97946626 Active [address], [place], [address] , [facility] 4 11:37:27 Acne 49681835 Active [address], [place], [address] , [facility] 4 11:42:19 Reduced libido 2532736 Active [address], [place], [address] , [facility] 4 13:34:36 Fatigue 94756196 Active [address], [place], [address] , [facility] 4 13:34:44 Problem Notes None recorded. Procedures Surgical History Date Name Laterality Status Provider Name and Address Organization Details Recorded Time 03/14/20 24 Non-OB ULS completed MD [address], [place], [address], [facility] 03/14/2024 13:57:39 02/28/20 24 Date of Last Pap Smear completed [facility] 02/28/2024 09:21:46 04/20/20 23 Non-OB ULS completed MD [address], [place], [address], [facility] 04/20/2023 16:38:24 04/20/20 23 Hemostasis completed MD [address], [place], [address], [facility] 04/20/2023 16:41:46 02/03/20 23 Non-OB ULS completed MD [address], [place], [address], [facility] 2023 14:28:47 12/27/19 22 Obstetrical Care completed Kathe [facility] 12/26/2021 12:03:33 05/19/20 19 laparoscopy completed [facility] 04/20/2023 16:05:19 08/09/19 10 Colonoscopy completed [facility] 04/20/2023 16:02:37 cholecystectomy completed MD [address], [place], [address], [facility] 11/27/2021 19:35:13 Hysteroscopy [...] uterine contract ions.; Drug Identifi cation Code: 056766 F ree Text SIG: Terbutal ine Sulfate 2.5mg, 1 Tablet(s ) Q4-6H # 30, 04/06/20 13, No Refill. Inactive Not Available Not Available Not Available clindamyc in HCl 300 mg capsule 08/24 completed Days To Take: 7 #ofRef ills: 0 Drug Identifi cation Code: 680060 F ree Text SIG: Clindamy salazar HCl 300MG, 1 (one) Capsule two times daily # 14, 08/17/19 20, No Refill. Inactive Not Available Not Available Not Available ampicilli n 500 mg capsule 04/02 completed Days To Take: 3 #ofRef ills: 0 Drug Identifi cation Code: 431295 F ree Text SIG: Ampicill in 500MG, 1 (one) Capsule four times daily # 12, 03/30/20 16, No Refill. Inactive Not Available Not Available Not Available ondansetr on HCl 4 mg tablet 06/07 completed Days To Take: 30 #ofRe fills: 45 Drug Identifi cation Code: 262773 F ree Text SIG: Ondanset efra HCl 4MG, 1 (one) Tablet every 8 hours as needed # 45, 05/04/20 17, Ref. x1. Active Not Available Not Available Not Available Macrobid 100 mg capsule 06/28 completed Days To Take: 5 #ofRef ills: 0 Drug Identifi cation Code: 378593 F ree Text SIG: Macrobid 100MG, 1 Capsule( s) BID # 10, 06/23/20 19, No Refill. Inactive Not Available Not Available Not Available Zofran 8 mg tablet 11/19 completed Days To Take: 10 #ofRe fills: 30 Comme nts: Take one every 8 hours.; Drug Identifi cation Code: 377584 F ree Text SIG: Zofran 8mg, 1 Tablet(s ) Q6-8H # 30, 10/12/19 13, Ref. x3. Inactive Not Available Not Available Not Available Loestrin 08/28 (21) 1 mg-20 mcg tablet 05/06 completed Days To Take: 30 #ofRe fills: 30 Drug Identifi cation Code: 412456 F ree Text SIG: Loestrin 08/28 (21) [...] antibiot ic, repeat in 3 days Elijah g Identifi cation Code: 588259 F ree Text SIG: Diflucan 200MG, 1 (one) Tablet daily # 2, 08/17/19 20, No Refill. Inactive Not Available Not Available Not Available Ambien 5 mg tablet 12/13 completed Days To Take: 30 #ofRe fills: 0 Drug Identifi cation Code: 651270 F ree Text SIG: Ambien 5MG, 1 [...] week before insertin g new ring Elijah vashti Identifi cation Code: 555612 F ree Text SIG: NuvaRing 0.12-0.0 15MG/24H R, 1 (one) Ring use as directed per instruct ions in pack # 3, 08/15/19 20, Ref. x3. Active Not Available Not Available Not Available Viri 0.35 mg tablet 02/02 completed Days To Take: 30 #ofRe fills: 1 Drug Identifi cation Code: 281132 F ree Text SIG: Viri 0.35MG, 1 [...] #ofRef ills: 0 Drug Identifi cation Code: 315748 F ree Text SIG: Gynazole -1 2%, [...] Updated DateTime 02/28/2024 165.1 cm 26.5 kg/m2 01030.62 g 130/82 mm[Hg] [facility] 02/28/2024 09:19:57 Date Recorded Body height Body mass index (BMI) Body weight Systolic And Diastolic Provider Name and Address Organization Details Last Updated DateTime 03/14/2024 165.1 cm 26.9 kg/m2 16356.53 g 122/74 mm[Hg] [facility] 03/14/2024 13:29:19 Date Recorded Body height Body mass index (BMI) Body weight Systolic And Diastolic Provider Name and Address Organization Details Last Updated DateTime 04/07/2024 165.1 cm 26.6 kg/m2 91133.78 g 124/78 mm[Hg] [facility] 04/07/2024 10:44:12 Date Recorded Body height Body mass index (BMI) Body weight Provider Name and Address Organization Details Last Updated DateTime 04/20/2023 165.1 cm 27.3 kg/m2 53549.87 g [facility] 04/20/2023 16:00:49 Social History Question Answer Notes LastModified by Organizat ion Details LastModified Time Tobacco Smoking Status Never Smoker [facility] 02/13/2022 11:22:34 Do You Use Protection During Sex? No [email or web address] Information not available 2023 What Is Your Relationship Status? [email or web address] Information not available 02/13/2022 Are You Sexually Active? Yes Information not available 02/13/2022 Do You Have Any Future Plans To Get ? No, I Don't Want To Become [email or web address] Information not available 02/13/2022 Sex: Unknown Functional Status Question Answer Note LastModified by Organizat ion Details LastModified Time Do you use any illicit or recreational drugs? No [email or web address] Information not available 02/13/2022 Do you or have you ever used any other forms of tobacco or nicotine? No [email or web address] Information not available 02/13/2022 What is your level of alcohol consumption? None [email or web address] Information not available 02/13/2022 Mental Status None [...] Note 536 KLEBER Harris MD [address] [place] [address] 11/28/2021 10:36:48 11/28/2021 12:45:21 test positive 553526278 Z32.01 Dysuria 66261540 R30.9 Morning sickness 3263096 6 O21.9 1374 KLEBER Harris MD [address] [place] [address] 5 12/26/2021 10:55:38 12/26/2021 12:57:44 Routine care 281430052 Z34.90 Dysuria 54714379 O26.899 Placental abruption 4151 42378 O45.92 1380 KLEBER Mejia MD [address] [place] [address] 5 01/16/2022 13:42:58 01/16/2022 14:07:15 Routine care 988271232 Z34.90 Dysuria 22887387 O26.899 2403 KLEBER Harris MD [address] [place] [address] 5 02/13/2022 11:15:06 02/13/2022 11:40:29 Routine care 138047825 Z34.90 Dysuria 08463312 O26.899 2982 KLEBER Harris MD [address] [place] [address] 5 03/17/2022 08:53:38 03/17/2022 09:37:06 Routine care 249977950 Z34.90 Dysuria 88706783 O26.899 Pain in ro und ligament in 7834344113 4346455 O26.899 3536 KLEBER Harris MD [address] [place] [address] 5 04/10/2022 09:47:34 04/10/2022 10:34:41 Routine care 985408073 Z34.90 Dysuria 34552854 O26.899 Polyhydramnios 28744701 O40.2XX0 68768 KLEBER Harris MD [address] [place] [address] 5 04/24/2022 10:41:10 04/24/2022 11:28:56 Routine care 602312572 Z34.90 Dysuria 36200631 O26.899 65719 KLEBER Harris MD [address] [place] [address] 05/08/2022 11:23:44 05/08/2022 11:57:08 Routine care 492731230 Z34.90 Dysuria 67593695 O26.899 55239 KLEBER Mejia MD [address] [place] [address] 5 05/22/2022 09:09:18 05/25/2022 10:14:08 Routine care 814335497 Z34.90 15878 KLEBER Harris MD [address] [place] [address] 5 07/14/2022 10:56:07 07/14/2022 11:17:22 Contraception care management 415414963 Z30.9 state 3047454 1 Z39.2 39381 MD SYLVIA Rodriguez MD [address] [place] [address] 5 2023 13:08:17 2023 14:47:47 Menorrhagia 290217501 N92.0 Polycystic ovary syndrome 649634784 E28.2 Vaginal discharge 094822 006 N89.8 will culture via PCL Dysmenorrhea 612563644 N 94.6 Dyspareunia 04113286 N94 .10 Pain in pelvis 29850188 R10.2 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 Uterovaginal prolapse 18 905998 N81.4 Pre-surger y evaluation 204998020 Z01.818 53858 KLEBER Harris MD [address] [place] [address] 03/25/2023 15:17:46 03/25/2023 16:08:30 Postoperative visit 987229979 Z09 21385 MD SYLVIA Rodriguez MD [address] [place] [place] [address] 04/20/2023 15:50:21 04/20/2023 16:51:31 Abdominal pain 91323745 R10.9 Vaginal discharge 581259 006 N89.8 will culture via PCL 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 Uterovaginal prolapse 18 357519 N81.4 first degree Acute cervicitis 0192942 0 N72 Patient ad vised about weight management 678337738 Z71.3 21940 MARK Coker MD [address] [place] [address] 02/28/2024 09:01:53 02/28/2024 14:36:38 Routine gynecologic examination done 0687994514 9101 Z01.419 Polycystic ovary syndrome 710071822 E28.2 Family his tory of breast cancer 968560535 Z80.3 Family his tory of cancer of colon 988555133 Z80.0 Family his tory of malignant neoplasm of ovary 420923617 Z80.41 Immunization advised 310 822263 Z71.9 Endometrio sis of pelvis 86815760 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.9 Deep pain on intercourse 137876394 N94.12 Irregular periods 336357 07 N92.6 83875 MD SYLVIA Rodriguez MD [address] [place] [address] 03/14/2024 13:18:45 03/14/2024 14:11:00 Pain in pelvis 38945928 R10.2 Dyspareunia 60005757 N94 .12 Retroflexed uterus 78957 007 N85.4 First degr ee uterine prolapse 16991004 N81.2 Uterine adenomyosis 7843 25044 N80.03 Endometrio sis of pelvis 42142024 N80.02 13749 MARK Coker MD [address] [place] [address] 04/07/2024 10:37:03 04/07/2024 12:12:31 Hormone replacement therapy 065178484 Z79.890 Vitamin D deficiency 347 05985 E55.9 Acne 29042527 L70.9 30206 MARK Coker MD [address] [place] [address] 07/03/2024 09:05:27 07/03/2024 14:09:46 Hormone replacement therapy 833533527 Z79.890 Reduced libido 9906108 R 68.82 Fatigue 64775985 R53.83 Health Concerns Section Related Observation LastModified by Organization Detai ls LastModified Time None Recorded Concern Status LastModified by Organization Details LastModified Time None Recorded Advance Directives Directive None Recorded Payers Insurance Date Sequence Insurance Name Policy Number Policy Fields Covered Member ID Fields Member ID Guarantor Name 09/29/2024 1 [place] [id number] Fab Cohen [id number] 06/14/2022 PAYMENT PLAN 12/26/2021 PAYMENT PLAN 12/26/2021 PAYMENT PLAN Notes Date Note Type Note Provider Name and Address Organization Details Recorded Time 04/20/2023 text/html Pt here for abnormal vaginal discharge. Pt reports bright yellow gel-like discharge. She is not experiencing pain, feels some aches and tenderness. Pt has stopped bleeding since her surgery. MD [address] , [place], [address], [facility] 04/20/2023 16:47:50 02/28/2024 text/html Annual GYNReport ed by PatientReports inconsistent LLQ cramping, LLQ bloating, dyspareunia, and irregular menses [address], [place], [address], [facility] 02/28/2024 13:26:17 03/14/2024 [...] is here for MD [address], [place], [address], [facility] 03/14/2024 14:10:32 04/07/2024 text/html ROS as noted in the [facility] HRT management - reports facial acne [address], [place], [address], [facility] 04/07/2024 11:54:50 07/03/2024 text/html ROS as noted in the [facility] HRT cream - reports low energy, low libido [address], [place], [address], [facility] 07/03/2024 13:38:18 OBGyn Episode Ob Episode Information Episode Created Date Number of Fetuses Patient Bloodtype Patient rh Status Prepregnancy Weight lbs Domestic Partner Domestic Partner Phone Father Name Accounts Receivable Accountant Status 12/27/19 22 1 CLOSED Fetus Data [...] Ultra Sound Latest Days Gestation 0 0 Pre-jackie Flowsheet Flowsheet Date 12/26/2021 Joshi Score Blood Edema Fundus Height Fundus Units Glucose Ketones Leukocytes Nitrite Labor Signs Protein Cervic Dilation Cervic Effacement Cervic Station 1+ none none none Negative Cramping neg Type Weight in lbs Pre/Post Dialysis Refused Weight 155.760000313343 BP Diastolic BP Location Tested BP Systolic [...] Weight in lbs Pre/Post Dialysis Refused Weight 153.748003524052 BP Diastolic BP Location Tested BP Systolic [...] in lbs Pre/Post Dialysis Refused With clothes 158.976786073301 BP Diastolic BP Location Tested BP Systolic [...] in lbs Pre/Post Dialysis Refused With clothes 157.858490691610 BP Diastolic BP Location Tested BP Systolic [...] in lbs Pre/Post Dialysis Refused With clothes 160.201760097000 BP Diastolic BP Location Tested BP Systolic [...] in lbs Pre/Post Dialysis Refused With clothes 162.810910661963 BP Diastolic BP Location Tested BP Systolic [...] in lbs Pre/Post Dialysis Refused With clothes 159.841849540931 BP Diastolic BP Location Tested BP Systolic [...] in lbs Pre/Post Dialysis Refused With clothes 142.311781236627 BP Diastolic BP Location Tested BP Systolic BP Type 70 L arm 122 sitting Fetus Heart Rate Present Fetus Movement Comments Flowsheet Date 2023 Joshi Score Blood Edema Fundus Height Fundus Units Glucose Ketones Leukocytes Nitrite Labor Signs Protein Cervic Dilation Cervic Effacement Cervic Station Type Weight in lbs Pre/Post Dialysis Refused With clothes 169.379961951941 BP Diastolic BP Location Tested BP Systolic [...] Date Comments 2 [facility]-Ep idural true Sylvia Alonzo MD 05/29/2022 Discharge Information Feeding Method Contraceptive Method Maternal HG B and HCT Levels
--- OUTSIDE RECORDS SUMMARY | 2025-07-30 08:31 | XMS_ITS | Encounter Summary ---
Author Organization [employer] ([place], [place], [place], [place], [place]) Address [address] [place] [address] Care Team Providers Care Shoe Singer Name Role Phone Annette Alonzo MD Primary Care Provider [phone] Encounter Details Date Type Department Care Team (Late st Contact Info) Description 03/10/2021 Transcribed Document [facility] [place] [facility] Family Medicine [address] [place] [address] ProviderNorman MD [address] [place] [id number] Social History Tobacco Use Types Packs/Day Years Used Date Smoking Tobacco: Never Assessed Comments Unknown Sex and Gender Information Value Date Recorded Sex Assigned at Not on file Legal Sex Female 1:09 PM CDT Gender Identity Not on file Sexual Orientation Not on file documented as of this encounter Miscellaneous Notes * Cerner Conversion Note - Norman ProviderMD - 03/10/2021 10:22 AM CDT [facility] [address], [place] [address] Patient Copy Patient Information: Name: ALIYA SANCHES Current Date: 03/10/2021 10:22:31 : 1990 Patient Address: [address] [place] [address] [facility] [address] Patient Attending Physician: ANNETTE ALONZO MD-OBG Primary Care Provider: ENID GALINDO PRIM Primary Care Provider Discharge Diagnosis: 1:36 weeks gestation of ; 2:Labor without complication; Normal spontaneous vaginal delivery Weight on Admission: 164 lb, 0 oz Comment: Follow-up Instructions: With: Address: When: ANNETTE ALONZO [address], [address] [place] [address] [employer] (1) Within 6 weeks Discharge Instructions: Immunizations Documented During Stay: tetanus/diphtheria/pertussis, acel(Tdap) 03/09/2021 Heart Failure Discharge Instructions (if any): Stroke Related Discharge Instructions (if any): Warfarin Related Discharge Instructions (if any): Final Medication List: Other Medications ibuprofen (ibuprofen 600 mg oral tablet) 1 Tablet(s) Oral Every 6 Hours. multivitamin, ( 19 ([place])) Every Day. Patient Allergies: No Known Allergies [...] work with your health care provider or it infrastructure consultant. ??? If you are not : [...] methods of control (contraception). Medicines ??? Take cunu-ayv-nghqurg and prescription medicines only as told by [...] provider. Document Revised: 07/29/2018 Document Reviewed: 05/09/2018 [employer] Patient Education ? 2020 [employer]. Choosing to breastfeed is one of the [...] smacking lips, cooing, sighing, or squeaking. ??? Qtza-zt-stmwb movements and sucking on fingers or hands. [...] able to be present during feedings. Your it infrastructure consultant can help you find a method [...] contact your health care provider or a it infrastructure consultant. Overall health care recommendations while ??? [...] provider before taking any medicines. These include ygpr-bwo-vyavgfh and prescription medicines as well as vitamins and herbal supplements. Some medicines that may be harmful to your baby can pass through breast milk. ??? It is possible to become while . If control is desired, ask your health care provider about options that will be safe while your baby. Where to find more information: [employer]: www.llli.org Contact a health care [...] Talk with your health care provider or it infrastructure consultant if you have questions or you face problems as you breastfeed. This information is not intended to replace advice given to you by your health care provider. Make sure you discuss any questions you have with your health care provider. Document Revised: 10/20/2018 Document Reviewed: 08/27/2017 Factor 14 Patient Education ? 2020 [employer] Medication Leaflets: ibuprofen (EYE bue PROE [...] may report side effects to FDA at 8-464-HQZ-9084. What other drugs will affect ibuprofen? Ask [...] drugs may affect ibuprofen, including prescription and zgtn-ksi-agkrkhv medicines, vitamins, and herbal products. Not all [...] to ensure that the information provided by [employer]. ('[employer]') is accurate, up-to-date, and complete, but no guarantee is made to that effect. Drug information contained herein may be time sensitive. Amen. information has been compiled for use by healthcare practitioners and consumers in the [place] and therefore [employer]. does not warrant that uses outside of the [place] are appropriate, unless specifically indicated otherwise. [employer]'s drug information does not endorse drugs, diagnose patients or recommend therapy. [employer] drug information is an informational resource designed [...] effective or appropriate for any given patient. [employer] does not assume any responsibility for any aspect of healthcare administered with the aid of information [employer]. provides. The information contained herein is not intended to cover all possible uses, directions, precautions, warnings, drug interactions, allergic reactions, or adverse effects. If you have questions about the drugs you are taking, check with your doctor, nurse or pharmacist. Copyright 1481-1373 [employer]. Version: 22.01. Revision Date: 07/03/2020. CIGARETTE SMOKING: The facts are clear, cigarette smoking will shorten your life. Smoking can cause many illnesses along the way. As a healthcare provider, we recommend that you stop smoking. Assistance with quitting is available by contacting 7-339-FXJR-NOW. This is a free resource providing counseling, [...] Be sure to sign up for the [email or web address] patient portal, which gives you 01/03 access to your medical information ??? including these discharge instructions ??? using your computer, smartphone, or tablet. Just go to [employer] to get started. Questions? Call . [facility] would like to thank you for allowing us to assist you with your healthcare needs. VERÓNICA Hall ERIN MARIE, (or hobbies and crafts sales representative) have received the above patient education materials/instructions and have verbalized understanding: Patient Signature _ Date/Time Patient Bindery Technician Signature (if needed) Date/Time Clinician/Hospital Bindery Technician Signature (if needed) Date/Time documented in this encounter Plan of Treatment Not on file documented as of this encounter Visit Diagnoses Not on filedocumented in this encounter Care Teams Shoe Singer Relationship Specialty Start Date End Date Annette Alonzo MD [address] [place] [address] PCP - General Obstetrics and Gynecology 02/26/23 documented as of this encounter
--- OUTSIDE RECORDS SUMMARY | 2025-07-30 08:31 | XMS_ITS | Encounter Summary ---
Author Organization [employer] ([place], [place], [place], [place], [place]) Address [address] [place] [address] Care Team Providers Care Sales Vendor Name Role Phone Sylvia Alonzo MD Primary Care Provider [phone] Encounter Details Date Type Department Care Team (Late st Contact Info) Description 03/10/2021 Transcribed Document [facility] Family Medicine [address] [place] [address] ProviderNorman MD [address], [place] [id number] Social History Tobacco Use Types Packs/Day Years [...] on filedocumented in this encounter Care Teams Sales Vendor Relationship Specialty Start Date End Date Sylvia Alonzo MD [address] [place] [address] PCP - General Obstetrics and Gynecology 02/26/23 documented as of this encounter
--- OUTSIDE RECORDS SUMMARY | 2025-07-30 08:31 | XMS_ITS | Encounter Summary ---
Author Organization [employer] ([place], [place], [place], [place], [place]) Address [address] [place] [address] Care Team Providers Care Hospitality Recruiter Name Role Phone Annette Alonzo MD Primary Care Provider [phone] Encounter Details Date Type Department Care Team (Late st Contact Info) Description 05/19/2019 Transcribed Document [facility] Family Medicine [address] [place] [address] ProviderNorman MD [address] [place], [place] [id number] Social History Tobacco Use Types Packs/Day Years Used Date Smoking Tobacco: Never Assessed Comments Unknown Sex and Gender Information Value Date Recorded Sex Assigned at Not on file Legal Sex Female 1:09 PM CDT Gender Identity Not on file Sexual Orientation Not on file documented as of this encounter Miscellaneous Notes * Cerner Conversion Note - Norman ProviderMD - 05/19/2019 1:26 PM CDT [facility] [address], [place] [address] Patient Copy Patient Information: Name: ALIYA SANCHES Current Date: 05/19/2019 13:26:26 : 1990 Patient Address: [address] [place] [address] Patient Attending Physician: ANENTTE ALONZO MD-OBG Primary Care Provider: PHY, NOT [...] Assistance with quitting is available by contacting 2-310-LLWK-NOW. This is a free resource providing counseling, [...] Be sure to sign up for the [facility] patient portal, which gives you 01/03 access to your medical information ??? including these discharge instructions ??? using your computer, smartphone, or tablet. Just go to [employer] to get started. Questions? Call . [facility] would like to thank you for allowing us to assist you with your healthcare needs. VERÓNICA Hall ERIN MARIE, (or passenger representative) have received the above patient education materials/instructions and have verbalized understanding: Patient Signature _ Date/Time Patient Electrical Subcontractor Signature (if needed) Date/Time Clinician/Hospital Electrical Subcontractor Signature (if needed) Date/Time Electronically signed by Parris, [facility] Conversion Psychiatric Therapist Ningner at 11/24/2022 11:55 AM CDT documented in this encounter Plan of Treatment Not on file documented as of this encounter Visit Diagnoses Not on filedocumented in this encounter Care Teams Hospitality Recruiter Relationship Specialty Start Date End Date Annette Alonzo MD [address] [place] [address] PCP - General Obstetrics and Gynecology 02/26/23 documented as of this encounter
--- OUTSIDE RECORDS SUMMARY | 2025-07-30 08:31 | XMS_ITS | Encounter Summary ---
Author Organization [employer] ([place], [place], [place], [place], [place]) Address [address] [place] [address] Care Team Providers Care Parking Enforcer Name Role Phone Sylvia Alonzo MD Primary Care Provider [phone] Encounter Details Date Type Department Care Team (Late st Contact Info) Description 03/10/2021 Transcribed Document [facility] [place] Family Medicine [address] [place] [address] ProviderNorman MD [address], [place] [id number] Social History Tobacco Use Types Packs/Day Years [...] LUCILA TOLLIVER RN - 03/10/2021 11:59 EDT documented in this encounter Plan of Treatment Not on file documented as of this encounter Visit Diagnoses Not on filedocumented in this encounter Care Teams Parking Enforcer Relationship Specialty Start Date End Date Sylvia Alonzo MD [address] [place] [address] PCP - General Obstetrics and Gynecology 02/26/23 documented as of this encounter
--- OUTSIDE RECORDS SUMMARY | 2025-07-30 08:31 | XMS_ITS | Encounter Summary ---
Author Organization [employer] ([place], [place], [place], [place], [place]) Address [address] [place] [address] Care Team Providers Care Computer Customer Support Specialist Name Role Phone Annette Alonzo MD Primary Care Provider [phone] Encounter Details Date Type Department Care Team (Late st Contact Info) Description 05/19/[address] [facility] [place] [address] [place] [address] ProviderNorman MD [address] [place], [place] [address] Social History Tobacco Use Types Packs/Day Years [...] Finalized Date/Time: 05/19/19 14:08:59 Pt. Name: ALIYA SANCHES./Sex: 1990 Female Med Rec #: [id number] Physician: ANNETTE ALONZO MD-OBG Financial #: [id number] Pt. Type: O Room/Bed: Admit/Disch: 05/19/19 09:30:00 - Institution: [facility] PACU Case Times Entry 1 [...] on filedocumented in this encounter Care Teams Computer Customer Support Specialist Relationship Specialty Start Date End Date Annette Alonzo MD [address] [place] [address] [place] [address] PCP - General Obstetrics and Gynecology 02/26/23 documented as of this encounter
--- OUTSIDE RECORDS SUMMARY | 2025-07-30 08:32 | XMS_ITS | Encounter Summary ---
Author Organization [employer] ([place], [place], [place], [place], [place]) Address [address] [place] [address] Care Team Providers Care Sizer Hand Name Role Phone Sylvia Alonzo MD Primary Care Provider Encounter Details Date Type Department Care Team (Late st Contact Info) Description 03/08/2021 Transcribed Document [facility] [place] Family Medicine [address] [place] [address] ProviderNorman MD [address] [place], [place] [address] Social History Tobacco Use Types Packs/Day Years Used Date Smoking Tobacco: Never Assessed Comments Unknown Sex and Gender Information Value Date Recorded Sex Assigned at Not on file Legal Sex Female 1:09 PM CDT Gender Identity Not on file Sexual Orientation Not on file documented as of this encounter Miscellaneous Notes * [employer]ner Conversion Note - Norman ProviderMD - 03/08/2021 7:58 PM CDT Pain [...] on filedocumented in this encounter Care Teams Sizer Hand Relationship Specialty Start Date End Date Sylvia Alonzo MD [address] [place] [address] PCP - General Obstetrics and Gynecology 02/26/23 documented as of this encounter
--- OUTSIDE RECORDS SUMMARY | 2025-07-30 08:32 | XMS_ITS | Encounter Summary ---
Author Organization [employer] ([place], [place], [place], [place], [place]) Address [address] [place] [address] Care Team Providers Care Plate Grinder Name Role Phone Sylvia Alonzo MD Primary Care Provider [phone] Encounter Details Date Type Department Care Team (Late st Contact Info) Description 05/19/[address] [facility] [place] Family Medicine [address] [place] [address] ProviderNorman MD [address] [place] [address] Social History Tobacco Use Types [...] : Standing scale Weight Entry Format : [place] Clinical Dosing Weight : 61.36 kg Weight, Pounds : 135 lb LORNE LINDSEY - 05/19/2019 10:02 EDT documented in this encounter Plan of Treatment Not on file documented as of this encounter Visit Diagnoses Not on filedocumented in this encounter Care Teams Plate Grinder Relationship Specialty Start Date End Date Sylvia Alonzo MD [address] [facility] [address] [place] [address] PCP - General Obstetrics and Gynecology 02/26/23 documented as of this encounter
--- OUTSIDE RECORDS SUMMARY | 2025-07-30 08:32 | XMS_ITS | Encounter Summary ---
Author Organization [employer] ([place], [place], [place], [place], [place]) Address [address] [place] [address] Care Team Providers Care Mobile Phlebotomist Name Role Phone Sylvia Alonzo MD Primary Care Provider [phone] Encounter Details Date Type Department Care Team (Late st Contact Info) Description 03/08/2021 Transcribed Document [facility] [place] [facility] [place] [facility] [place] [address] ProviderNorman MD [address], [place] [id number] Social History Tobacco Use Types Packs/Day Years [...] was the baby kangaroo care was performed. /[id number] MD RACH Luevano/HEAVENLY / RACH / MODL /[id number] Electronically signed by Parris, [facility] Conversion Utility Mechanic Cerner at 11/24/2022 11:59 AM CDT documented in this encounter Plan of Treatment Not on file documented as of this encounter Visit Diagnoses Not on filedocumented in this encounter Care Teams Mobile Phlebotomist Relationship Specialty Start Date End Date Sylvia Alonzo MD [address] [place] [address] PCP - General Obstetrics and Gynecology 02/26/23 documented as of this encounter
--- OUTSIDE RECORDS SUMMARY | 2025-07-30 08:32 | XMS_ITS | Encounter Summary ---
Author Organization [employer] ([place], [place], [place], [place], [place]) Address [address] [place] [address] Care Team Providers Care Cargo Service Supervisor Name Role Phone Annette Alonzo MD Primary Care Provider [phone] Encounter Details Date Type Department Care Team (Late st Contact Info) Description 05/19/2019 Transcribed Document [facility] [place] [address] [place] [address] ProviderNorman MD [address] [place], [place] [address] Social History Tobacco Use Types Packs/Day Years [...] Finalized Date/Time: 05/19/19 15:54:31 Pt. Name: ALIYA SANCHES./Sex: 1990 Female Med Rec #: [id number] Physician: ANNETTE ALONZO MD-OBG Financial #: [id number] Pt. Type: O Room/Bed: Admit/Disch: 05/19/19 09:30:00 [...] on filedocumented in this encounter Care Teams Cargo Service Supervisor Relationship Specialty Start Date End Date Annette Alonzo MD [address] [place] [address] PCP - General Obstetrics and Gynecology 02/26/23 documented as of this encounter
--- OUTSIDE RECORDS SUMMARY | 2025-07-30 08:32 | XMS_ITS | Encounter Summary ---
Author Organization [employer] ([place], [place], [place], [place], [place]) Address [address] [place] [address] Care Team Providers Care Desktop Support Consultant Name Role Phone Annette Alonzo MD Primary Care Provider Encounter Details Date Type Department Care Team (Late st Contact Info) Description 03/08/2021 Transcribed Document [facility] [place] [address] [place] [address] ProviderNorman MD [address] [place], [place] [address] Social History Tobacco Use Types Packs/Day Years Used Date Smoking Tobacco: Never Assessed Comments Unknown Sex and Gender Information Value Date Recorded Sex Assigned at Not on file Legal Sex Female 1:09 PM CDT Gender Identity Not on file Sexual Orientation Not on file documented as of this encounter Miscellaneous Notes * [employer]ner Conversion Note - Noramn ProviderMD - 03/08/2021 7:31 PM CDT [facility] [address], [place] [address] Patient Copy Patient Information: Name: ALIYA SANCHES Current Date: 03/08/2021 19:31:26 : 1990 Patient [address]: [address] [place] [address] [facility] [address] Patient Attending Physician: ANNETTE ALONZO MD-OBG Primary [...] Medication List: Other Medications multivitamin, ( 19 ([place])) Every Day. Patient Allergies: No Known Allergies [...] Assistance with quitting is available by contacting 3-028-OFYA-NOW. This is a free resource providing counseling, [...] Be sure to sign up for the [employer] patient portal, which gives you 01/03 access to your medical information ??? including these discharge instructions ??? using your computer, smartphone, or tablet. Just go to [employer] to get started. Questions? Call . [facility] would like to thank you for allowing us to assist you with your healthcare needs. VERÓNICA Hall ERIN MARIE, (or sales representative canvas products) have received the above patient education materials/instructions and have verbalized understanding: Patient Signature _ Date/Time Patient Community Health Director Signature (if needed) Date/Time Clinician/Hospital Community Health Director Signature (if needed) Date/Time Electronically signed by Interface, [facility] Conversion Flame Cutting Machine Operator Helper Cerner at 11/24/2022 12:09 PM CDT documented in this encounter Plan of Treatment Not on file documented as of this encounter Visit Diagnoses Not on filedocumented in this encounter Care Teams Desktop Support Consultant Relationship Specialty Start Date End Date Annette Alonzo MD [address] [place] [address] PCP - General Obstetrics and Gynecology 02/26/23 documented as of this encounter
--- OUTSIDE RECORDS SUMMARY | 2025-07-30 08:32 | XMS_ITS | Encounter Summary ---
Author Organization [employer] ([place], [place], [place], [place], [place]) Address [address] [place] [address] Care Team Providers Care Assistant Banquet Manager Name Role Phone Annette Alonzo MD Primary Care Provider [phone] Encounter Details Date Type Department Care Team (Late st Contact Info) Description 03/08/2021 Transcribed Document [facility] [place] Family Medicine [address] [place] [address] ProviderNorman MD [address], [place] [id number] Social History Tobacco Use Types Packs/Day Years Used Date Smoking Tobacco: Never Assessed Comments Unknown Sex and Gender Information Value Date Recorded Sex Assigned at Not on file Legal Sex Female 1:09 PM CDT Gender Identity Not on file Sexual Orientation Not on file documented as of this encounter Miscellaneous Notes * [employer] Conversion Note - Norman ProviderMD - 03/08/2021 4:11 PM CDT [facility] [address], [place] [address] Patient Copy Patient Information: Name: ALIYA SANCHES Current Date: 03/08/2021 16:11:57 : 1990 Patient [address]: [address] [place] [address] [facility] [id number] Patient Attending Physician: ANNETTE ALONZO MD-OBG Primary [...] Medication List: Other Medications multivitamin, ( 19 ([place])) Every Day. Patient Allergies: No Known Allergies [...] Assistance with quitting is available by contacting 5-187-MHRU-NOW. This is a free resource providing counseling, [...] Be sure to sign up for the [facility] patient portal, which gives you 24/ access to your medical information ??? including these discharge instructions ??? using your computer, smartphone, or tablet. Just go to [employer] to get started. Questions? Call . [facility] would like to thank you for allowing us to assist you with your healthcare needs. VERÓNICA Hall ERIN MARIE, (or operations representative) have received the above patient education materials/instructions and have verbalized understanding: Patient Signature _ Date/Time Patient Waiter/Waitress Club Signature (if needed) Date/Time Clinician/Hospital Waiter/Waitress Club Signature (if needed) Date/Time Electronically signed by Interface, [facility] Conversion Production Trainer Cerner at 11/24/2022 11:55 AM CDT documented in this encounter Plan of Treatment Not on file documented as of this encounter Visit Diagnoses Not on filedocumented in this encounter Care Teams Assistant Banquet Manager Relationship Specialty Start Date End Date Annette Alonzo MD [address] [facility] [place] [address] PCP - General Obstetrics and Gynecology 02/26/23 documented as of this encounter
== END 2025-07-28 23:59 | disposition home or self-care (01) ==
LOC: LAB.DROPOF 07-30 08:27
PROVIDERS: PCP Nurse Practitioner Family; Visit Provider Nurse Practitioner
DX: N39.0 Urinary tract infection, site not specified (principal)
CPT/HCPCS: 87086